=== PATIENT | female | born 1960 | race Caucasian/White ===

== ENCOUNTER 2022-06-14 00:45 | Emergency (ER) | payer OTHER, SELFPAY ==
[2022-06-14] VITALS (9 sets, daily range): BP systolic 148–199; BP diastolic 70–91; PULSE 65–74; RESP 16–25; TEMP 36.3–36.9; O2SAT 94–99; BMI 34.1
[2022-06-14 02:09] LABS: MANUAL DIFF FLAG NO
[2022-06-14 02:10] LABS: Basophils Absolute Auto 0.1 X10*3/uL (0.0-0.2); Basophils Percent Auto 1.2 % (0-2); Eosinophils Absolute Auto 0.4 X10*3/uL (0.0-0.4); Eosinophils Percent Auto 4.1 % (0-4); Hematocrit 36.4 % (37.0-47.0); Hemoglobin 12.1 g/dl (12.0-16.0); Imm Gran Abs Auto 0.01 X10*3/uL (0.00-0.03); Imm Gran Pct Auto 0.1 % (0.0-0.4); Lymphocytes Absolute Auto 3.1 X10*3/uL (1.2-4.9); Lymphocytes Percent Auto 34.8 % (20-40); Mean Corpuscular HGB Conc 33.2 g/dl (31.0-35.0); Mean Corpuscular Hemoglobin 29.7 pg (27.0-33.0); Mean Corpuscular Volume 89.4 fL (80.0-98.0); Mean Platelet Volume 9.3 fL (9.4-12.3); Monocytes Absolute Auto 0.6 X10*3/uL (0.1-1.2); Monocytes Percent Auto 7.1 % (2-11); Neutrophils Absolute Auto 4.7 x10*3/uL (2.0-8.3); Neutrophils Percent Auto 52.7 % (45-73); Platelet Count 338 X10*3/uL (160-400); Red Blood Count 4.07 X10*6/uL (4.20-5.50); Red Cell Distribution Width 12.8 % (11.0-16.0); White Blood Count 8.8 X10*3/uL (4.8-10.8)
[2022-06-14 02:11] LABS: Appearance Urine Clear; Color Urine Yellow; Glucose Urine UA Negative (Negative); Leukocyte Esterase Urine Moderate (2+) (Negative); Nitrite Urine Negative (Negative); PH 5.5 (5.0-9.0); Specific Gravity - Urine 1.015 (1.005-1.025); UMIC TRIGGER UACC YES; Urine Blood Negative (Negative); Urine Ketones Negative (Negative); Urine Protein Negative (Neg-Trace)
[2022-06-14 02:23] LABS: Bacteria Urine Trace (None Seen); Hyaline Casts Urine 0-2 /LPF (0-2); RBC Urine 0-2 /HPF (0-2); Squamous Epithelial Cell Urine 0-2 /HPF (0-2); UACC Culture Trigger YES
[2022-06-14 03:05] LABS: Anion Gap 16 (12-20); Blood Urea Nitrogen 12 mg/dL (9-16); Carbon Dioxide 23 mmol/L (22-29); Chloride 104 mmol/L (96-108); Creatinine Clr Calc Pharmacy 87.9; Estimated Glomerular Filt Rate > 60; Glucose Random 120 mg/dL (60-115); Potassium 3.9 mmol/L (3.3-5.1); Sodium 139 mmol/L (135-145)
--- NOTE | 2022-06-14 06:39 | ED.HA ---
HPI - Headache General Chief Complaint: General Medical Stated Complaint: High BP, Dizziness Time Seen by Provider: 06/14/22 06:36 Source: patient Mode of arrival: ambulatory Limitations: no limitations History of Present Illness HPI Narrative: 61 yo female with hx of pre diabetes, prior HTN here with c/o BP being high for the past couple of days up to 200s. Is not on BP medications, no change in medications, no sig life stressors. No OTC supplements. Has mild headache but no CP/SOB. She was bit by a tick yesterday unknown when it was on attempted to remove it at home. MD elicited complaint: headache Pertinent past history: hypertension Onset (ago): day(s) (2) Onset description: gradually Location: diffuse Severity: mild Quality & Timing: aching Exacerbating factors: none Relieving factors: nothing Context: other (high blood pressure) Associated symptoms: none Treatments prior to arrival: acetaminophen Related Data Previous Rx's Medication Instructions Recorded amlodipine 10 mg tablet 10 mg PO DAILY #30 tabs 06/14/22 doxycycline hyclate 100 mg tablet 100 mg PO BID 10 days #20 tabs 06/14/22 Allergies Allergy/AdvReac Type Severity Reaction Status Date / Time influenza virus vaccine, Allergy Intermediate HIVES Unverified 04/29/20 15:51 specific [Influenza Virus Vacc,Specific] Review of Systems Review of Systems: Constitutional : No Fever, No Chills, No Fatigue ENT/Mouth : No sore throat, No Rhinorrhea Eyes: No Eye Pain, No Swelling, No Redness Cardiovascular : No Chest Pain, No SOB, No Dyspnea on Exertion Respiratory : No Cough, No Sputum Gastrointestinal : No Nausea, No Vomiting, No Diarrhea, No abdominal Pain Genitourinary : No Dysuria, No Urinary Frequency, No Hematuria, Musculoskeletal : No joint pain, No Myalgias, No Joint Swelling Skin : No Skin Lesions, No rash, pos tick bite Neuro : No Weakness, No Numbness, No Dizziness, positive Headache Psych : No Anxiety/Panic, No Depression Heme/Lymph: No Bruising, No Bleeding,No Lymphadenopathy Endocrine : No Polyuria, No Polydipsia All other systems reviewed and are negative [facility] Past Medical History Medical History Arthritis HTN (hypertension) Pre-diabetes Social History Social History (Updated 11/02/22 @ 07:34 by Anali Petit DO) Patient Tobacco Use Status: Never used Tobacco Smoked in Last 30 Days: No Use of substances other than those prescribed or required for medical reasons: No Advance Directives: No Advance Directives Information Provided: No Patient : No Physical Exam Vital Signs: Vital Signs: Last Vital Signs Temp 98.2 F 06/14/22 07:08 Pulse 70 06/14/22 08:41 Resp 18 06/14/22 07:08 BP 172/78 H 06/14/22 08:41 Pulse Ox 98 06/14/22 07:08 O2 Del Method 06/14/22 07:08 BMI result Body Mass Index 34.1 Appearance: Alert. Oriented X3. No acute distress. Eyes: Pupils equal, round and reactive to light. ENT: Pharynx normal. Neck: Normal inspection. Neck supple. L neck small red area with bite noted no FB seen no red ring CVS: Normal heart rate and rhythm. Pulses normal. Respiratory: No respiratory distress. Breath sounds normal. Abdomen: Soft and nontender. Skin: Skin warm and dry. Normal skin color. Normal skin turgor. Extremities: No lower extremity edema. No calf ttp Neuro: Oriented X 3. No motor deficit. No sensory deficit. MDM - Headache MDM Narrative Medical decision making narrative: 61 yo female with hx of pre diabetes, prior HTN but taken off medication due to BP being normal has been under some stress but not significant presents with mild headaches no CP/SOB and elevated BP. At this time labs, PO amlodipine, PO doxy for tick bite yesterday. Dispo per results and findings. Has LVH on EKG so HTN is not a new findings. No sig end organ dysfunction has mild headache. Lab Data Result diagrams: 06/14/22 02:04 06/14/22 02:42 Labs: Lab Results 06/14/22 06/14/22 06/14/22 Range/Units 01:53 02:04 02:04 WBC 8.8 (4.8-10.8) X10*3/uL RBC 4.07 L (4.20-5.50) X10*6/uL Hgb 12.1 (12.0-16.0) g/dl Hct 36.4 L (37.0-47.0) % MCV 89.4 (80.0-98.0) fL MCH 29.7 (27.0-33.0) pg MCHC 33.2 (31.0-35.0) g/dl RDW 12.8 (11.0-16.0) % Plt Count 338 (160-400) X10*3/uL MPV 9.3 L (9.4-12.3) fL Immature Gran % (Auto) 0.1 (0.0-0.4) % Neut % (Auto) 52.7 (45-73) % Lymph % (Auto) 34.8 (20-40) % [place] % (Auto) 7.1 (2-11) % Eos % (Auto) 4.1 H (0-4) % Baso % (Auto) 1.2 (0-2) % Lymph # (Auto) 3.1 (1.2-4.9) X10*3/uL [place] # (Auto) 0.6 (0.1-1.2) X10*3/uL Eos # (Auto) 0.4 (0.0-0.4) X10*3/uL Baso # (Auto) 0.1 (0.0-0.2) X10*3/uL Abs Immat Gran (auto) 0.01 (0.00-0.03) X10*3/uL Absolute Neuts (auto) 4.7 (2.0-8.3) x10*3/uL Absolute Nucleated RBC 0.000 (0.0-0.012) X10*3/uL Nucleated RBC % (auto) 0.0 (0.0-0.2) /100WBC Sodium (135-145) mmol/L Potassium (3.3-5.1) mmol/L Chloride (96-108) mmol/L Carbon Dioxide (22-29) mmol/L Anion Gap (12-20) BUN (9-16) mg/dL Creatinine (0.5-1.4) mg/dL Estim Creat Clear Calc Estimated GFR Random Glucose (60-115) mg/dL Calcium (8.4-10.2) mg/dL Troponin I High Sens < 3.5 (<3.5-17.0) ng/L Urine Color Yellow Urine Appearance Clear Urine pH 5.5 (5.0-9.0) Ur Specific [place] 1.015 (1.005-1.025) Urine Protein Negative (Neg-Trace) mg/dL Urine Glucose (UA) Negative (Negative) mg/dL Urine Ketones Negative (Negative) mg/dL Urine Blood Negative (Negative) Urine Nitrite Negative (Negative) Ur Leukocyte Esterase Moderate (2+) H (Negative) Urine RBC 0-2 (0-2) /HPF Urine WBC 11-20 H (0-5) /HPF Ur Squamous Epith Cells 0-2 (0-2) /HPF Urine Bacteria Trace (None Seen) Hyaline Casts 0-2 (0-2) /LPF 06/14/22 Range/Units 02:42 WBC (4.8-10.8) X10*3/uL RBC (4.20-5.50) X10*6/uL Hgb (12.0-16.0) g/dl Hct (37.0-47.0) % MCV (80.0-98.0) fL MCH (27.0-33.0) pg MCHC (31.0-35.0) g/dl RDW (11.0-16.0) % Plt Count (160-400) X10*3/uL MPV (9.4-12.3) fL Immature Gran % (Auto) (0.0-0.4) % Neut % (Auto) (45-73) % Lymph % (Auto) (20-40) % [place] % (Auto) (2-11) % Eos % (Auto) (0-4) % Baso % (Auto) (0-2) % Lymph # (Auto) (1.2-4.9) X10*3/uL [place] # (Auto) (0.1-1.2) X10*3/uL Eos # (Auto) (0.0-0.4) X10*3/uL Baso # (Auto) (0.0-0.2) X10*3/uL Abs Immat Gran (auto) (0.00-0.03) X10*3/uL Absolute Neuts (auto) (2.0-8.3) x10*3/uL Absolute Nucleated RBC (0.0-0.012) X10*3/uL Nucleated RBC % (auto) (0.0-0.2) /100WBC Sodium 139 (135-145) mmol/L Potassium 3.9 (3.3-5.1) mmol/L Chloride 104 (96-108) mmol/L Carbon Dioxide 23 (22-29) mmol/L Anion Gap 16 (12-20) BUN 12 (9-16) mg/dL Creatinine 0.74 (0.5-1.4) mg/dL Estim Creat Clear Calc 87.9 Estimated GFR > 60 Random Glucose 120 H (60-115) mg/dL Calcium 9.0 (8.4-10.2) mg/dL Troponin I High Sens (<3.5-17.0) ng/L Urine Color Urine Appearance Urine pH (5.0-9.0) Ur Specific [place] (1.005-1.025) Urine Protein (Neg-Trace) mg/dL Urine Glucose (UA) (Negative) mg/dL Urine Ketones (Negative) mg/dL Urine Blood (Negative) Urine Nitrite (Negative) Ur Leukocyte Esterase (Negative) Urine RBC (0-2) /HPF Urine WBC (0-5) /HPF Ur Squamous Epith Cells (0-2) /HPF Urine Bacteria (None Seen) Hyaline Casts (0-2) /LPF ECG Data Attestation: I personally reviewed and interpreted this ECG as follows: ECG interpretation date: 06/14/22 ECG interpretation time: 07:33 Interpretation: Rate: 63 Rhythm: NSR [place]: left, LVH Normal P waves. Normal JAGJIT. Normal QRS complex. ST T wave : inverted t III, nonspecific t waves lateral leads no ZAHIDA qTC: normal prior studies: no acute ischemia The study has been interpreted contemporaneously by me. . Discharge Plan Discharge Clinical Impression: HTN (hypertension) Qualifiers: Hypertension type: unspecified Qualified Code(s): I10 - Essential (primary) hypertension Tick bite Qualifiers: Encounter type: initial encounter Site of tick bite: other part of neck Qualified Code(s): S10.86XA - Insect bite of other specified part of neck, initial encounter Patient Disposition: Home, Self-Care Instructions: Tick Bite (ED), Hypertension (ED) Additional Instructions: return to ED for any worsening symptoms or concerns take all antibiotics monitor for redness, fevers,yellow drainage around the wound please follow up with your primary care doctor check your blood pressure daily if you notice it is low or dropping hold amlodipine Prescriptions: New amlodipine 10 mg tablet 10 mg PO DAILY Qty: 30 0RF doxycycline hyclate 100 mg tablet 100 mg PO BID 10 Days Qty: 20 0RF Rx Instructions: take with food Referrals: [facility] [Outside] (therapy)
--- NOTE | 2022-06-14 06:58 | ECG_ITS ---
Test Reason : htn Blood Pressure : / mmHG Vent. Rate : 063 BPM Atrial Rate : 063 BPM P-R Int : 142 ms QRS Dur : 086 ms QT Int : 454 ms P-R-T Axes : 046 -16 003 degrees QTc Int : 464 ms Normal sinus rhythm Minimal voltage criteria for LVH, may be normal variant ( R in aVL ) Nonspecific T wave abnormality Anterior leads Abnormal ECG When compared with ECG of 10-MAY-2012 15:46, No significant changes seen Referred By: Anali Petit Electronically Signed By:CHANEL FLORIAN MD
[2022-06-14] MEDS: amLODIPine Besylate 10 MG TABLET PO (07:07)
--- NOTE | 2022-06-14 07:30 | PC.NURSE ---
patient a/ox4 . lilyrla . heart rate regular at 77 betas per minute . lungs clear breathing even unlabored . skin pink warm and dry ,patient has a small area on left side of neck where there was a tick that is red and scabbed over . abdomen soft not tender . positive bowel sounds in all four quadrants .patient reports 4 out of 10 headache r/t hypertension medicated as ordered by provider also given antibiotic for tick bite . patient aware of plan of care .
[2022-06-14 07:59] LABS: Troponin-I High Sensitivity < 3.5 ng/L (<3.5-17.0)
--- NOTE | 2022-06-14 10:11 | PC.NURSE ---
A/ox4 . patients HTN improved . Went over discharge instructions as ordered by provider . patient to return to ED if symptoms worsen . No questions at this time.
== END 2022-06-14 10:13 | disposition home or self-care (01) ==
PROVIDERS: Emergency Provider Emergency Medicine
DX: R51.9 Headache, unspecified (principal); F43.9 Reaction to severe stress, unspecified; I10 Essential (primary) hypertension; R42 Dizziness and giddiness; Z79.899 Other long term (current) drug therapy
CPT/HCPCS: 36415; 80048; 81001; 84484; 85025; 87086; 93005; 99283; 99284

== ENCOUNTER 2024-03-16 18:51 | Emergency (ER) | payer OTHER, SELFPAY ==
--- NOTE | ~2024-03-16 | XR_ITS ---
EXAMINATION: PORTABLE CHEST 1 VIEW CLINICAL INFORMATION: cough. COMPARISON: No recent pertinent prior studies are available for comparison. TECHNIQUE: Portable frontal view of the chest was obtained. FINDINGS: The lungs are well expanded. No focal infiltrate, effusion, edema, or pneumothorax. Left-sided CT compatible chest port with tip overlying the expected cavoatrial junction. Cardiac and mediastinal silhouettes are within normal limits for technique. No acute bony abnormality seen. Degenerative changes in the spine and bilateral shoulders. XR/XR chest 1V IMPRESSION: No evidence of acute disease.
[2024-03-16 18:57] VITALS: BP 153/63; PULSE 81; RESP 18; TEMP 36.8; O2SAT 98; BMI 33.9
--- NOTE | 2024-03-16 18:59 | ECG_ITS ---
Test Reason : DYSPENA Blood Pressure : / mmHG Vent. Rate : 074 BPM Atrial Rate : 074 BPM P-R Int : 134 ms QRS Dur : 084 ms QT Int : 302 ms P-R-T Axes : 043 -18 033 degrees QTc Int : 335 ms Normal sinus rhythm Minimal voltage criteria for LVH, may be normal variant ( R in aVL ) Cannot rule out Anterior infarct , age undetermined Abnormal ECG When compared with ECG of 14-JUN-2022 07:12, Nonspecific T wave abnormality, worse in Lateral leads QT has shortened Referred By: Jose Viramontes Electronically Signed By:DALLAS GILLIS MD
--- NOTE | 2024-03-16 19:04 | ED_ITS ---
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 no leg edema no chest pain or palpitation no recent travel or any sick contacts Related Data Previous Rx's ?Medication ?Instructions ?Recorded amlodipine 10 mg tablet 10 mg PO DAILY #30 tabs 06/14/22 doxycycline hyclate 100 mg tablet 100 mg PO BID 10 days #20 tabs 06/14/22 albuterol sulfate 90 mcg/actuation 2 puff inhalation Q6H PRN 03/16/24 aerosol inhaler shortness of breath or wheezing #8.5 grams benzonatate 200 mg capsule 200 mg PO TID PRN cough #20 caps 03/16/24 cefuroxime axetil 500 mg tablet 500 mg PO BID 7 days #14 tabs 03/16/24 Allergies Allergy/AdvReac Type Severity Reaction Status Date / Time influenza virus vaccine, Allergy Intermediate HIVES Verified 03/16/24 19:00 specific [Influenza Virus Vacc,Specific] Review of Systems 2 Review of Systems: Yes all other systems are reviewed and are negative [facility] Past Medical History Medical History Pre-diabetes HTN (hypertension) Arthritis Social History Social History Patient Tobacco Use Status: Never used Tobacco Advance Directives: No Advance Directives Information Provided: No Do you have a plan to hurt others: No Plan Physical Exam ED Vital Signs: Vital Signs - 24 hr 03/16/24 18:57 03/16/24 21:37 Temperature 98.3 F 98.0 F Pulse Rate 81 60 Respiratory Rate 18 16 Blood Pressure 153/63 H 130/63 Pulse Oximetry 98 98 Oxygen Delivery Method Room Air BMI result Body Mass Index 33.9 Appearance: Alert. Oriented X3. No acute distress. Eyes: No pallor ENT: Pharynx normal. Oral Mucosa moist Neck: Normal inspection. Neck supple. CVS: Normal heart rate and rhythm. Pulses normal. Respiratory: No respiratory distress. Equal air entry bilateral, frequent dry cough with wheezing Abdomen: Soft and nontender. Bowel sounds are present, no mass palpable, no CVA tenderness Skin: Skin warm and dry. Normal skin color. Normal skin turgor. Extremities: No lower extremity edema. No calf tenderness Neuro: Oriented X 3. Course Course Course Narrative: RME: DOne by ION Farley. Patient presents to ED for cough, chest pain, shortness of breath for 1 week. Patient denies any leg swelling, pitting edema, calf pain, recent long travel,or recent surgery. Bilateral lower extremity negative for swelling pitting edema or calf pain. Lungs are clear. Labs EKG chest x-ray ordered Medical Decision Making Differential Diagnosis Differential Diagnoses: The differential diagnosis associated with the presentation includes Acute bronchitis/atypical pneumonia/CHF Lab Data MDM Lab Attestation statement: I reviewed the patient's lab results. 03/16/24 19:18 03/16/24 19:18 Labs: Lab Results 03/16/24 Range/Units 19:18 WBC 8.9 (4.8-10.8) X10*3/uL RBC 4.19 L (4.20-5.50) X10*6/uL Hgb 12.0 (12.0-16.0) g/dl Hct 36.1 L (37.0-47.0) % MCV 86.2 (80.0-98.0) fL MCH 28.6 (27.0-33.0) pg MCHC 33.2 (31.0-35.0) g/dl RDW 14.3 (11.0-16.0) % Plt Count 309 (160-400) X10*3/uL MPV 9.2 L (9.4-12.3) fL Immature Gran % (Auto) 0.3 (0.0-0.4) % Neut % (Auto) 72.9 (45-73) % Lymph % (Auto) 16.1 L (20-40) % [place] % (Auto) 5.6 (2-11) % Eos % (Auto) 4.3 H (0-4) % Baso % (Auto) 0.8 (0-2) % Lymph # (Auto) 1.4 (1.2-4.9) X10*3/uL [place] # (Auto) 0.5 (0.1-1.2) X10*3/uL Eos # (Auto) 0.4 (0.0-0.4) X10*3/uL Baso # (Auto) 0.1 (0.0-0.2) X10*3/uL Abs Immat Gran (auto) 0.03 (0.00-0.03) X10*3/uL Absolute Neuts (auto) 6.5 (2.0-8.3) x10*3/uL Absolute Nucleated RBC 0.000 (0.0-0.012) X10*3/uL Nucleated RBC % (auto) 0.0 (0.0-0.2) /100WBC PT 11.0 L (11.1-13.3) SEC INR 0.9 (0.9-1.1) APTT 29.4 (26.0-36.8) SEC Sodium 140 (135-145) mmol/L Potassium 4.1 (3.3-5.1) mmol/L Chloride 103 (96-108) mmol/L Carbon Dioxide 27 (22-29) mmol/L Anion Gap 14 (12-20) BUN 16 (9-16) mg/dL Creatinine 0.86 (0.5-1.4) mg/dL Estim Creat Clear Calc 76.2 Estimated GFR > 60 Random Glucose 208 H (60-115) mg/dL Calcium 9.5 (8.4-10.2) mg/dL Total Bilirubin 0.2 (0.0-1.0) mg/dL AST 12 (5-31) U/L ALT 13 (0-31) U/L Alkaline Phosphatase 97 (39-117) U/L Troponin I High Sens < 2.7 (<3.5-17.0) ng/L B-Natriuretic Peptide 15 (<100) pg/mL Total Protein 6.8 (6.5-8.0) g/dL Albumin 4.0 (3.5-5.0) g/dL Influenza Type A (PCR) NEGATIVE (Negative) Influenza Type B (PCR) NEGATIVE (Negative) RSV RNA Qual (PCR) NEGATIVE (Negative) SARS-CoV-2 RNA (RT-PCR) NEGATIVE (Negative) S. pyogenes GrpA RODRIGUE Negative (Negative) Independent Interpretation I performed an independent interpretation of an: Plain X-Ray Radiology Impression Discussion of test interpretation with radiology: I have reviewed the radiologist's reading. Discharge Plan Discharge Clinical Impression: Acute bronchitis Patient Disposition: Home, Self-Care Instructions: Acute Bronchitis (ED) Additional Instructions: Take antibiotics and cough drops as prescribed Inhaler 2 puffs every 4-6 hours as needed especially before going to bed Drink plenty of fluids Prescriptions: New benzonatate 200 mg capsule 200 mg PO TID PRN (Reason: cough) Qty: 20 0RF cefuroxime axetil 500 mg tablet 500 mg PO BID 7 Days Qty: 14 0RF albuterol sulfate 90 mcg/actuation HFA aerosol inhaler 2 puff inhalation Q6H PRN (Reason: shortness of breath or wheezing) Qty: 8.5 0RF No Action amlodipine 10 mg tablet 10 mg PO DAILY Qty: 30 0RF doxycycline hyclate 100 mg tablet 100 mg PO BID 10 Days Qty: 20 0RF Rx Instructions: take with food Stand Alone Forms: Work/School Release Print Language: Faroese
[2024-03-16 19:23] LABS: MANUAL DIFF FLAG NO
--- OUTSIDE RECORDS SUMMARY | 2024-03-16 19:24 | XMS_ITS | Continuity of Care Document ---
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 Role Phone Josiane Ledezma Primary Care Physician Encounter [facility] Date(s): 08/02/23 - 09/01/23 [facility] [address] [place] [address]- Allergies, Adverse Reactions, Alerts Substance Reaction Severity Status flu vaccines Hives Severe Active Immunizations Given and Recorded Vaccine Date Status Refusal Reason tetanus/diphtheria/pertussis, acel(Tdap) 1 10/19/22 Given SARS-CoV-2 (COVID-19) mRNA-1273 vaccine 02/21/22 R ecorded 1Result Comment: [facility] [id number] Medications amLODIPine 10 mg oral tablet 1 tablet, By Mouth, Daily, # 90 tablet, 1 Refills, Maintenance, 08/07/23 9:18:00 EST, [id number], 165.4, cm, 07/23/23 10:56:00 EST, Height, 89.2, kg, 06/07/23 10:32:00 EDT, Dry Weight Start Date: 08/07/23 Status: Ordered anastrozole 1 mg oral tablet 1 tablet, By Mouth, Daily, # 30 tablet, 11 Refills, Maintenance, 07/19/23 16:13:00 EST, [id number], 165.4, cm, 07/11/23 14:22:00 EST, Height, 89.2, kg, 06/07/23 10:32:00 EDT, Dry Weight Start Date: 07/19/23 Status: Ordered atorvastatin 80 mg oral tablet 1 tablet, By Mouth, Daily, # 90 tablet, 1 Refills, Maintenance, 08/27/23 6:34:00 EST, [id number], 165.4, cm, 08/23/23 12:12:00 EST, Height, 89.2, kg, 06/07/23 10:32:00 EDT, Dry Weight Start Date: 08/27/23 Status: Ordered lisinopril 10 mg oral tablet 1, tablet, By Mouth, Daily, # 90 tablet, Refills 2, Tot. Refills 2, Maintenance, 04/30/23 18:29:00 EDT, Route to Pharmacy Electronically, [id number], 165.4, cm, 03/30/23 9:41:00 EDT, Height, 89.7, kg, 03/06/23 14:16:00 EDT, Dry Weight Start Date: 04/30/23 Status: Ordered meloxicam 15 mg oral tablet 1 tablet, By Mouth, Daily, # 90 tablet, 1 Refills, Maintenance, 05/01/23 10:48:00 EDT, [id number], 165.4, cm, 03/30/23 9:41:00 EDT, Height, 89.7, kg, 03/06/23 14:16:00 EDT, Dry Weight Start Date: 05/01/23 Status: Ordered ondansetron 4 mg oral tablet 1-2 tablet, By Mouth, Every 8 hours, PRN Nausea, # 30 tablet, 1 Refills, Maintenance, 11/17/22 10:19:00 EDT, [id number], Partial fill upon patient request if the prescription is for a schedule II opioid drug., 165.4, cm, 11/02/22 9:39:00 EDT,... Start Date: 11/17/22 Status: Ordered sertraline 100 mg oral tablet 1 tablet, By Mouth, Daily, # 90 tablet, 1 Refills, Maintenance, 04/17/23 8:29:00 EDT, [id number], 165.4, cm, 03/30/23 9:41:00 EDT, Height, 89.7, kg, 03/06/23 14:16:00 EDT, Dry Weight Start Date: 04/17/23 Status: Ordered traZODone 50 mg oral tablet 50 mg, 1, tablet, By Mouth, Daily at bedtime, # 30 tablet, Refills 4, Tot. Refills 4, Maintenance, 07/23/23 11:38:00 EST, Route to Pharmacy Electronically, [facility]/pharm[facility] #[id number], Partial fill upon patient request if the prescription is for a schedule II... Start Date: 07/23/23 Status: Ordered Problem List Condition Confirmation Course Effective Dates Status H ealth Status Informant Chest pain Confirmed Active Depression Confirmed Active Hyperlipidemia Confirmed Active HTN (hypertension) Confirmed Active Invasive ductal carcinoma of right breast Confirmed Active Insomnia Confirmed Active Left-sided low back pain without sciatica Confirmed Active Obese class I Confirmed Active Primary osteoarthritis of left knee Confirmed Active Social History Social History Type Response Smoking Status Never (less than 100 in lifetime) entered on: 06/21/22 Sex Patient Care team information Care Team Personnel Name: Josiane Ledezma Position: [facility] PCO Associate Professional Member Role: PCP Address: Address: [address] [place] [address]. [address] [place], [place] [address] Name: Ifeanyi Brown RN Position: [facility] Onco RN Member Role: Primary Care Nurse Name: Ariadna Fitzgerald RN Position: [facility] Onco RN Member Role: Primary Care Nurse Name: Cecy Boston RN Position: [facility] Onco RN Member Role: Primary Care Nurse Care Team Related Persons Name: KELL GONSALVES Address: home [address] [place] [id number] Name: CONG LENZ Address: home [address] [place] [address]
--- OUTSIDE RECORDS SUMMARY | 2024-03-16 19:24 | XMS_ITS | Continuity of Care Document ---
Author Organization [facility] Address [address] [place] [address]- Care Team Providers Care Responder Name Role Phone Josiane Ledezma Primary Care Physician Encounter [facility] Date(s): 10/09/23 - 11/08/23 [facility] [address] [place] [address]- Attending Physician: Admtr, Melida Admitting Physician: Admtr, Melida Referring Physician: Admtr, Ar8 Allergies, Adverse Reactions, Alerts Substance Reaction Severity Status flu vaccines Hives Severe Active Immunizations Given and Recorded Vaccine Date Status Refusal Reason tetanus/diphtheria/pertussis, acel(Tdap) 1 10/19/22 Given SARS-CoV-2 (COVID-19) mRNA-1273 vaccine 02/21/22 R ecorded 1Result Comment: [facility] [id number] Medications acetaminophen 325 mg oral tablet 650 mg, By Mouth, Every 6 hours, May take OTC not to exceed 3000 mg/day, Refills 0, Maintenance, 09/25/23 7:53:00 EST, Partial fill upon patient request if the prescription is for a schedule II opioid drug. Start Date: 09/25/23 Status: Ordered amLODIPine 10 mg oral tablet 1 tablet, By Mouth, Daily, # 90 tablet, 1 Refills, Maintenance, 08/07/23 9:18:00 EST, [facility] ST[facility] 36623, 165.4, cm, 07/23/23 10:56:00 EST, Height, 89.2, kg, 06/07/23 10:32:00 EDT, Dry Weight Start Date: 08/07/23 Status: Ordered anastrozole 1 mg oral tablet 1 tablet, By Mouth, Daily, # 30 tablet, 11 Refills, Maintenance, 07/19/23 16:13:00 EST, [facility]/pharmacy #[id number], 165.4, cm, 07/11/23 14:22:00 EST, Height, 89.2, kg, 06/07/23 10:32:00 EDT, Dry Weight Start Date: 07/19/23 Status: Ordered atorvastatin 80 mg oral tablet 1 tablet, By Mouth, Daily, # 90 tablet, 1 Refills, Maintenance, 08/27/23 6:34:00 EST, [facility]/pharmacy #[id number], 165.4, cm, 08/23/23 12:12:00 EST, Height, 89.2, kg, 06/07/23 10:32:00 EDT, Dry Weight Start Date: 08/27/23 Status: Ordered Augmentin 875 mg-125 mg oral tablet 1 tablet, By Mouth, Every 12 hours, for 9 days, # 18 tablet, 0 Refills, Acute 11/17/23 9:52:00 EDT,11/08/23 9:52:00 EDT, Tablet, [facility], Partial fill upon patient request if the prescription is for a schedule II opioid drug., 165, c... Start Date: 11/08/23 Stop Date: 11/17/23 Status: Ordered celecoxib 200 mg oral capsule = 200 mg, By Mouth, Daily, 0 Refills, Maintenance, 09/25/23 8:08:00 EST, Capsule, Partial fill uponpatient request if the prescription is for a schedule II opioid drug. Start Date: 09/25/23 Status: Ordered Colace Capsule 100 mg, 1, capsule, By Mouth, 2 times a day, PRN, Refills 0, Maintenance, as needed for constipation, 09/25/23 8:08:00 EST, Partial fill upon patient request if the prescription is for a schedule II opioid drug. Start Date: 09/25/23 Status: Ordered lisinopril 10 mg oral tablet 1, tablet, By Mouth, Daily, # 90 tablet, Refills 2, Tot. Refills 2, Maintenance, 04/30/23 18:29:00 EDT, Route to Pharmacy Electronically, [facility]/pharmacy #[id number], 165.4, cm, 03/30/23 9:41:00 EDT, Height, 89.7, kg, 03/06/23 14:16:00 EDT, Dry Weight Start Date: 04/30/23 Status: Ordered ondansetron 4 mg oral tablet 1 tablet = 4 mg, By Mouth, Every 8 hours, PRN Nausea & Vomiting, # 10 tablet, 0 Refills, Maintenance, 11/08/23 9:52:00 EDT, Tablet, [facility], Partial fill upon patient request if the prescription is for a schedule II opioid drug., 165,... Start Date: 11/08/23 Status: Ordered oxyCODONE 5 mg oral tablet 5 mg, 1, tablet, By Mouth, Every 6 hours, PRN, for 3 days, # 12 tablet, Refills 0, Tot. Refills 0, Acute 11/11/23 9:52:00 EDT, Pain , Severe, 11/08/23 9:52:00 EDT, Route to Pharmacy Electronically, [facility], Partial fill upon patient r... Start Date: 11/08/23 Stop Date: 11/11/23 Status: Ordered sertraline 100 mg oral tablet 1 tablet, By Mouth, Daily, # 90 tablet, 1 Refills, Maintenance, 04/17/23 8:29:00 EDT, [facility], 165.4, cm, 03/30/23 9:41:00 EDT, Height, 89.7, kg, 03/06/23 14:16:00 EDT, Dry Weight Start Date: 04/17/23 Status: Ordered traZODone 50 mg oral tablet 1, tablet, By Mouth, Daily at bedtime, # 90 tablet, Refills 1, Maintenance, 10/18/23 10:17:00 EST, Route to Pharmacy Electronically, [facility] [id number], 165, cm, 10/09/23 10:25:00 EST, Height, 89.7, kg,09/24/23 15:13:00 EST, Dry Weight Start Date: 10/18/23 Status: Ordered Problem List Condition Confirmation Course [...] Care team information Care Team Personnel Name: Lita Huff RN Position: S RN Member Role: Primary Care Nurse Name: Josiane Ledezma Position: [facility] PCO Associate Professional Member Role: PCP Address: Address: [address] [place] [address]. 3rd [place] [address]- Name: Laurel Perales RN Position: S RN Member Role: Primary Care Nurse Name: Ifeanyi Brown RN Position: [facility] Onco RN Member Role: Primary Care Nurse Name: Ariadna Fitzgerald RN Position: [facility] Onco RN Member Role: Primary Care Nurse Name: Mariaa Dunn RN Position: S RN Member Role: Primary Care Nurse Name: Jimena Islas LPN Position: S RN Member Role: Primary Care Nurse Name: Cecy Boston RN Position: [facility] Onco RN Member Role: Primary Care Nurse Care Team Related Persons Name: KELL GONSALVES Address: home [address] [place] [address] Name: CONG LENZ Address: home [address] [place] [address]
--- OUTSIDE RECORDS SUMMARY | 2024-03-16 19:24 | XMS_ITS | Continuity of Care Document ---
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 Name Role Phone Josiane Ledezma Primary Care Physician [place] [facility] Date(s): 08/01/22 - 09/23/22 [facility] [address] [place] [address]- Attending Physician: Mukund Hodge DO Admitting Physician: Mukund Hodge DO Referring Physician: Josiane Ledezma Allergies, Adverse Reactions, Alerts Substance Reaction Severity Status flu vaccines Hives Severe Active Immunizations Given and Recorded Vaccine Date Status Refusal Reason SARS-CoV-2 (COVID-19) mRNA-5306 vaccine 02/21/22 R ecorded Medications amLODIPine 10 mg oral tablet 1 tablet = 10 mg, By Mouth, Daily, # 30 tablet, 5 Refills, Maintenance, 07/10/22 11:26:00 EST, Tablet, [id number], Partial fill upon patient request if the prescription is for a schedule II opioid drug., 163, cm, 06/22/22 10:24:00 EST, Height Start Date: 07/10/22 Status: Ordered atorvastatin 40 mg oral tablet 1 tablet = 40 mg, By Mouth, Daily, at bedtime, # 30 tablet, 5 Refills, Maintenance, 07/19/22 17:09:00 EST, Tablet, [id number], Partial fill upon patient request if the prescription is for a schedule II opioid drug., 163, cm, 06/22/22 10:24:00... Start Date: 07/19/22 Status: Ordered diclofenac sodium 75 mg oral delayed release tablet TAKE 1 TABLET BY MOUTH TWICE DAILY Start Date: 06/21/22 Status: Ordered hydrOXYzine hydrochloride 25 mg oral tablet See Instructions, Take 1 tablet by mouth 30-60 before bedtime as needed for insomnia., # 30 tablet,3 Refills, Acute 09/27/22 12:35:00 EST, 06/21/22 12:34:00 EST, [facility]/pharmacy #[id number], Partial fill upon patient request if the prescription is for a sched... Start Date: 06/21/22 Stop Date: 09/27/22 Status: Ordered lidocaine 4% topical cream See Instructions, Please apply around your RIGHT areola 1 hour prior to leaving for your surgery, cover with saran wrap., # 5 Gm, 0 Refills, Acute 10/07/22 17:12:00 EST, 08/24/22 17:11:00 EST, [id number], Partial fill upon patient request if t... Start Date: 08/24/22 Stop Date: 10/07/22 Status: Ordered lisinopril 10 mg oral tablet 10 mg, 1, tablet, By Mouth, Daily, # 30 tablet, Refills 5, Tot. Refills 5, Maintenance, 06/21/22 12:33:00 EST, Route to Pharmacy Electronically, [facility]/pharmacy #[id number], Partial fill upon patient request if the prescription is for a schedule II opioid drug... Start Date: 06/21/22 Status: Ordered Zoloft 50 mg oral tablet 1 tablet = 50 mg, By Mouth, Daily, # 30 tablet, 3 Refills, Maintenance, 06/21/22 12:33:00 EST, Tablet, [facility]/pharmacy #[id number], Partial fill upon patient request if the prescription is for a schedule II opioid drug., 163, cm, 06/21/22 11:42:00 EST, Height Start Date: 06/21/22 Status: Ordered Problem List Condition Confirmation Course Effective Dates Status Health St atus Informant Chest pain Confirmed Active Depression Confirmed Active HTN (hypertension) Confirmed Active Impaired fasting glucose Confirmed Active Left-sided low back pain without sciatica Confirmed Active Obese class I Confirmed Active Social History Social History Type Response Smoking Status Never (less than 100 in lifetime) entered on: 06/21/22 Sex Patient Care team information Care Team Personnel Name: Josiane Ledezma Position: [facility] PCO Associate Professional Member Role: PCP Address: Address: [address] [place] [address]. [address] [facility] [place] [address]- Care Team Related Persons Name: KELL GONSALVES Address: [place] [address] Name: CONG LENZ Address: home [address] [place], [place] [id number]
--- OUTSIDE RECORDS SUMMARY | 2024-03-16 19:24 | XMS_ITS | Continuity of Care Document ---
Author Organization [facility] Address [address] [place] [address]- Care Team Providers Care Ecd Name Role Phone Josiane Ledezma Primary Care Physician Encounter [facility] Date(s): 06/04/23 - 09/10/23 [facility] [address] [place] [id number] Discharge Disposition: A-D/C Home Attending Physician: Jeramie Mccartney DO Admitting Physician: Jeramie Mccartney DO Referring Physician: Josiane Ledezma Allergies, Adverse Reactions, Alerts Substance Reaction Severity Status flu vaccines Hives Severe Active Immunizations Given and Recorded Vaccine Date Status Refusal Reason tetanus/diphtheria/pertussis, acel(Tdap) 1 10/19/22 Given SARS-CoV-2 (COVID-19) mRNA-1273 vaccine 02/21/22 R ecorded 1Result Comment: [facility] [id number] Medications amLODIPine 10 mg oral tablet 1 tablet, By Mouth, Daily, # 90 tablet, 1 Refills, Maintenance, 08/07/23 9:18:00 EST, [facility], 165.4, cm, 07/23/23 10:56:00 EST, Height, 89.2, [...] tablet, 1 Refills, Maintenance, 08/27/23 6:34:00 EST, [facility]/pharmacy #[id number], 165.4, cm, 08/23/23 12:12:00 EST, Height, 89.2, kg, 06/07/23 10:32:00 EDT, Dry Weight Start Date: 08/27/23 Status: Ordered lisinopril 10 mg oral tablet 1, tablet, By Mouth, Daily, # 90 tablet, Refills 2, Tot. Refills 2, Maintenance, 04/30/23 18:29:00 EDT, Route to Pharmacy Electronically, [facility]/pharmacy #[id number], 165.4, cm, 03/30/23 9:41:00 EDT, Height, 89.7, kg, 03/06/23 14:16:00 EDT, Dry Weight Start Date: 04/30/23 Status: Ordered meloxicam 15 mg oral tablet 1 tablet, By Mouth, Daily, # 90 tablet, 1 Refills, Maintenance, 05/01/23 10:48:00 EDT, [id number], 165.4, cm, 03/30/23 9:41:00 EDT, Height, 89.7, kg, 03/06/23 14:16:00 EDT, Dry Weight Start Date: 05/01/23 Status: Ordered ondansetron 4 mg oral tablet 1-2 tablet, By Mouth, Every 8 hours, PRN Nausea, # 30 tablet, 1 Refills, Maintenance, 11/17/22 10:19:00 EDT, [facility]/pharmacy #[id number], Partial fill upon patient request if the prescription is for a schedule II opioid drug., 165.4, cm, 11/02/22 9:39:00 EDT,... Start Date: 11/17/22 Status: Ordered sertraline 100 mg oral tablet 1 tablet, By Mouth, Daily, # 90 tablet, 1 Refills, Maintenance, 04/17/23 8:29:00 EDT, [facility], 165.4, cm, 03/30/23 9:41:00 EDT, Height, 89.7, kg, 03/06/23 14:16:00 EDT, Dry Weight Start Date: 04/17/23 Status: Ordered traZODone 50 mg oral tablet 50 mg, 1, tablet, By Mouth, Daily at bedtime, # 30 tablet, Refills 4, Tot. Refills 4, Maintenance, 07/23/23 11:38:00 EST, Route to Pharmacy Electronically, [facility]/pharmacy #[id number], Partial fill upon patient request if the [...] Primary osteoarthritis of left knee Confirmed Active Vital Signs Most recent to oldest [Reference Range]: 1 2 3 Height 165.4 cm (07/11/23 2:22 PM) 165.4 cm (07/11/23 2:04 PM) 165.4 cm (06/13/23 3:49 PM) Weight 89.2 kg (06/07/23 10:32 AM) Oxygen Saturation [94-100 %] 99 % (07/11/23 2:04 PM) 100 % (06/07/23 10:32 AM) Pulse Rate [55-90 bpm] 62 bpm (07/11/23 2:04 PM) 52 bpm *L* (06/07/23 10:32 AM) Body Mass Index [18.5-24.99 kg/m2] 32.61 kg/m2 *>HHI* (06/07/23 10:32 AM) Blood Pressure [90-138/55-84 mm Hg] 129/59mm Hg (07/11/23 2:04 PM) 112/60mm Hg (06/07/23 10:32 AM) Temperature [96.8-100.4 DegF] 96.7 DegF *L* (07/11/23 2:04 PM) 97.4 DegF (06/07/23 10:32 AM) Mode of Delivery (Oxygen) Room air (07/11/23 2:04 PM) Room air (06/07/23 10:32 AM) Blood pressure sites Arm, right (07/11/23 2:04 PM) Arm, left (06/07/23 10:32 AM) Temperature Route Temporal (07/11/23 2:22 PM) Temporal (07/11/23 2:04 PM) Oral (06/13/23 3:49 PM) Dry Weight 89.2 kg (06/07/23 10:32 AM) Weight Obtained Via Standing scale (06/07/23 10:32 AM) Dry Weight Obtained Via Standing scale (06/07/23 10:32 AM) Social History Social History Type Response Smoking Status Never (less than 100 in lifetime) entered on: 06/21/22 Sex Note * Susu Cheatham: PERFORM, SIGN, VERIFY Event Display: Patient Education/Instruction Authored Date: [id number] [facility] *Heme/Onc Adult Clinical Summary Name GAEL LENZ Age 62 Years 1960 PCP Micah LEMON, Josiane Junior PCP Visit Date 06/04/2023 14:56:00 Additional Instructions: Scheduled Appointments?? Future Appointments ?*[facility] ?[address],??[address] ?Phone:??--?Fax:??-- ?Appt. Date:??07/23/2023?11:00 AM ?Scheduled Provider:??Josiane Ledezma ?[facility] ?[address]??[place],??[place],??[address] ?Phone:??[phone]?Fax:??-- ?Appt. Date:??09/13/2023?9:00 AM ?Scheduled Provider:??[facility] US Breast Rm 1 Follow-Up Instructions ?? With: Address: When: Jeramie Mccartney [address] [place] [address]/[place] [address] [facility] (1) 12/12/2023 10:30 AM Diagnosis Medications: Please continue your medications until treatment is completed or stopped by your provider. Discuss any questions related to medications with your provider. Medications to Continue with No Changes These medications were not printed or sent to your pharmacy Amlodipine (amLODIPine 10 mg oral tablet) 1 tab(s) Oral Daily. Refills: 5. Next Dose: Anastrozole (anastrozole 1 mg oral tablet) 1 tab(s) Oral Daily. Refills: 2. Next Dose: Atorvastatin (atorvastatin 80 mg oral tablet) 1 tab(s) Oral Daily. Refills: 0. Next Dose: Cyclobenzaprine (cyclobenzaprine 10 mg oral tablet) TAKE 1 TBALET BY MOUTH NIGHTLY NEEDED FOR MUSCLE SPASM.. Refills: 0. Next Dose: Dexamethasone (dexamethasone 4 mg oral tablet) 2 tablet By Mouth 2 times a day for 3 days, startingon the day before treatment, then the day of treatment and the day after treatment.. Refills: 0. Next Dose: HydrOXYzine (hydrOXYzine hydrochloride 50 mg oral tablet) 1 tab(s) Oral Daily at Bedtime for 90 Days. Refills: 2. Next Dose: Lidocaine/Prilocaine Topical (lidocaine-prilocaine 2.5%-2.5% topical cream) 1 raphael Topically once. apply a thin layer on skin over the port 1 hour prior to port access. cover with clear plastic film. Refills: 0. Next Dose: Lisinopril (lisinopril 10 mg oral tablet) 1 tab(s) Oral Daily. Refills: 2. Next Dose: Meloxicam (meloxicam 15 mg oral tablet) 1 tab(s) Oral Daily. Refills: 1. Next Dose: Ondansetron (ondansetron 4 mg oral tablet) 1-2 tablet Oral every 8 hours as needed Nausea. Refills:1. Next Dose: PROCHLORperazine (prochlorperazine 5 mg oral tablet) 1-2 tablet Oral every 6 hours as needed Nausea. Refills: 1. Next Dose: Sertraline (sertraline 100 mg oral tablet) 1 tab(s) Oral Daily. Refills: 1. Next Dose: Allergy Info:?? flu vaccines Medications Given This Visit Future Orders ?No future orders Vital Signs Height 165.4 cm Weight 89.2 kg BMI 32.61 kg/m2 Blood Pressure 112 mm Hg/60 mm Hg Temperature 97.4 DegF Pulse Rate 52 bpm Respiratory Rate 02 Sat Mode of Delivery 100 %/Room air You can now view a summary of your hospital visit from the comfort of your home through a free online portal called [employer]. [employer] is a website that allows you to securely view your medical information including discharge summary, medications and follow-up visits. ??You can alsosend a secure electronic message to your doctor???s office to request appointments, renew medications or just ask a question. You can enroll at [email or web address] or register during your next office visit. Disclaimer:?? The information provided is of a general nature and is intended to be used in conjunction with the recommendations and advice of your health care practitioner. ??Every effort has been made to ensure that the information provided is accurate and complete at the time it is provided to you however, as your needs change, or, as new ??information becomes available, different or additional instructions may be required. If you have questions, please consult with your primary care provider or pharmacist, as appropriate. ??This information is not intended to serve as substitution for assessment and evaluation by a qualified health care provider. If you do not have a primary care provider, you may find a [facility] provider by calling [facility] [employer] Link at [phone]. [facility], in keeping with [facility] guidance, no longer requires face masks for staff, patientsor visitors in most situations. Similar to time spent indoors at other locations, there is the chance that you were exposed to respiratory viruses during your time with us (such as flu or COVID-19).? If you develop symptoms concerning for a viral respiratory infection, please seek testing (and treatment if indicated) from your medical provider or home test kit. For information about the plan of care including goals and instructions for your diagnosis, please see the patient education orders section of this document. Patient Education Materials?? The content of this educational material or handout may have been modified, supplemented, or adapted from its original content and format to support your individualized medical care. Patient Care team information Care Team Personnel Name: Josiane Ledezma Position: [facility] PCO Associate Professional Member Role: PCP Address: Address: [address] [place] [address]- [place] Name: Ifeanyi Brown RN Position: [facility] Onco RN Member Role: Primary Care Nurse Name: Ariadna Fitzgerald RN Position: S Onco RN Member Role: Primary Care Nurse Name: Cecy Boston RN Position: S Onco RN Member Role: Primary Care Nurse Care Team Related Persons Name: KELL GONSALVES Address: home [address] [place] [address] Name: CONG LENZ Address: home [address] [place] [address]
--- OUTSIDE RECORDS SUMMARY | 2024-03-16 19:24 | XMS_ITS | Continuity of Care Document ---
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 Role Phone Josiane Ledezma Primary Care Physician Encounter [facility] [place] Date(s): 06/23/23 - 10/21/23 [facility] [address] [place] [address]- Attending Physician: Bear Salazar MD Referring Physician: Josiane Ledezma Allergies, Adverse Reactions, Alerts Substance Reaction Severity Status flu vaccines Hives Severe Active Immunizations Given and Recorded Vaccine Date Status Refusal Reason tetanus/diphtheria/pertussis, acel(Tdap) 1 10/19/22 Given SARS-CoV-2 (COVID-19) mRNA-1429 vaccine 02/21/22 R ecorded 1Result Comment: [facility] [id number] Medications acetaminophen 325 mg oral tablet 650 [...] tablet, 1 Refills, Maintenance, 08/07/23 9:18:00 EST, [facility] STORE 34193, 165.4, cm, 07/23/23 10:56:00 EST, Height, 89.2, kg, 06/07/23 10:32:00 EDT, Dry Weight Start Date: 08/07/23 Status: Ordered anastrozole 1 mg oral tablet 1 tablet, By Mouth, Daily, # 30 tablet, 11 Refills, Maintenance, 07/19/23 16:13:00 EST, [facility]/pharmacy #[id number], 165.4, cm, 07/11/23 14:22:00 EST, Height, 89.2, kg, 06/07/23 10:32:00 EDT, Dry Weight Start Date: 07/19/23 Status: Ordered Aspirin Tablet 325 mg, By Mouth, 2 times a day, Refills 0, Maintenance, 09/25/23 7:53:00 EST, Partial fill upon patient request if the prescription is for a schedule II opioid drug. Start Date: 09/25/23 Status: Ordered atorvastatin 80 mg oral tablet 1 tablet, By Mouth, Daily, # 90 tablet, 1 Refills, Maintenance, 08/27/23 6:34:00 EST, [facility]/pharmacy #[id number], 165.4, cm, 08/23/23 12:12:00 EST, Height, 89.2, kg, 06/07/23 10:32:00 EDT, Dry Weight Start Date: 08/27/23 Status: Ordered celecoxib 200 mg oral capsule [...] 04/30/23 18:29:00 EDT, Route to Pharmacy Electronically, [facility]/pharmacy #[id number], 165.4, cm, 03/30/23 9:41:00 EDT, Height, 89.7, kg, 03/06/23 14:16:00 EDT, Dry Weight Start Date: 04/30/23 Status: Ordered ondansetron 4 mg oral tablet 1-2 tablet, By Mouth, Every 8 hours, PRN Nausea, # 30 tablet, 1 Refills, Maintenance, 11/17/22 10:19:00 EDT, [facility]/pharmacy #[id number], Partial fill upon patient request if the prescription is for a schedule II opioid drug., 165.4, cm, 11/02/22 9:39:00 EDT,... Start Date: 11/17/22 Status: Ordered pantoprazole 40 mg oral delayed release tablet = 40 mg, By Mouth, Daily, 0 Refills, Maintenance, 09/25/23 8:09:00 EST, [facility] Tablet Start Date: 09/25/23 Status: Ordered sertraline 100 mg oral tablet 1 tablet, By Mouth, Daily, # 90 tablet, 1 Refills, Maintenance, 04/17/23 8:29:00 EDT, [facility], 165.4, cm, 03/30/23 9:41:00 EDT, Height, 89.7, kg, 03/06/23 14:16:00 EDT, Dry Weight Start Date: 04/17/23 Status: Ordered traZODone 50 mg oral tablet 1, tablet, By Mouth, Daily at bedtime, # 90 tablet, Refills 1, Maintenance, 10/18/23 10:17:00 EST, Route to Pharmacy Electronically, [id number], 165, cm, 10/09/23 10:25:00 EST, Height, 89.7, [...] Primary Care Nurse Name: Josiane Ledezma Position: S PCO Associate Professional Member Role: PCP Address: Address: [address] [place] [address]. [address]rd [address] [place], [place] [address] Name: Diaz OLIVA, Laurel Position: S RN Member Role: Primary Care Nurse Name: Ifeanyi Brown RN Position: [facility] Onco RN Member Role: Primary Care Nurse Name: Ariadna Fitzgerald RN Position: [facility] Onco RN Member Role: Primary Care Nurse Name: Mariaa Dunn RN Position: [facility] RN Member Role: Primary Care Nurse Name: Cecy Boston RN Position: [facility] Onco RN Member Role: Primary Care Nurse Care Team Related Persons Name: KELL GONSALVES Address: home [address] [place] [id number] Name: CONG LENZ Address: home [address] [place] [address]
--- OUTSIDE RECORDS SUMMARY | 2024-03-16 19:24 | XMS_ITS | Continuity of Care Document ---
Author Organization [facility] Lor john Address [address] [place] [address] [address] [place] [address]- Care Team Providers Care Smash Hand Name Role Phone Josiane Ledezma Primary Care Physician En[place] [facility] [place](s): 12/29/22 - 01/28/23 [facility] [address] [place] [address]- Attending Physician: Melida Terrell Admitting Physician: AdmMelida virk Referring Physician: AdmtrMelida Allergies, Adverse Reactions, Alerts Substance Reaction Severity Status flu vaccines Hives Severe Active Immunizations Given and Recorded Vaccine Date Status Refusal Reason tetanus/diphtheria/pertussis, acel(Tdap) 1 10/19/22 Given SARS-CoV-2 (COVID-19) mRNA-1273 vaccine 02/21/22 R ecorded 1Result Comment: [facility] [id number] Medications amLODIPine 10 mg oral tablet 1 tablet = 10 mg, By Mouth, Daily, # 30 tablet, 5 Refills, Maintenance, 12/19/22 20:22:00 EDT, Tablet, [id number], Partial fill upon patient request if the prescription is for a schedule II opioid drug., 165.4, cm, 12/19/22 9:40:00 EDT, Height... Start Date: 12/19/22 Status: Ordered atorvastatin 40 mg oral tablet 1 tablet = 40 mg, By Mouth, Daily, at bedtime, # 90 tablet, 1 Refills, Maintenance, 01/19/23 11:32:00 EDT, Tablet, [id number], Partial fill upon patient request if the prescription is for a schedule II opioid drug., 165.4, cm, 01/19/23 11:17:0... Start Date: 01/19/23 Status: Ordered cyclobenzaprine 10 mg oral tablet See Instructions, TAKE 1 TBALET BY MOUTH NIGHTLY NEEDED FOR MUSCLE SPASM., # 21 tablet, Refills 0, Maintenance, 11/20/22 11:08:00 EDT, Instructions Replace Required Details, Route to Pharmacy Electronically, [id number], 165.4, cm, 11/20/22 10:... Start Date: 11/20/22 Status: Ordered dexamethasone 4 mg oral tablet See Instructions, 2 tablet By Mouth 2 times a day for 3 days, starting on the day before treatment,then the day of treatment and the day after treatment., # 48 tablet, 0 Refills, Maintenance, 11/17/22 10:18:00 EDT, [id number], Partial fill up... Start Date: 11/17/22 Status: Ordered hydrOXYzine hydrochloride 50 mg oral tablet 1 tablet, By Mouth, Daily at bedtime, # 30 tablet, 2 Refills, Maintenance, 01/15/23 14:21:00 EDT, [facility], 165.4, cm, 01/09/23 10:06:00 EDT, Height, 88.5, kg, 01/09/23 8:42:00 EDT, Dry Weight Start Date: 01/15/23 Status: Ordered lidocaine-prilocaine 2.5%-2.5% topical cream 1 application, Topically, Once, apply a thin layer on skin over the port 1 hour prior to port access. cover with clear plastic film, # 30 Gm, 0 Refills, Soft Stop, 11/20/22 9:28:00 EDT, Cream, [id number], Partial fill upon patient request if... Start Date: 11/20/22 Status: Ordered lisinopril 10 mg oral tablet 1, tablet, By Mouth, Daily, # 30 tablet, Refills 5, Maintenance, 11/20/22 11:08:00 EDT, Route to Pharmacy Electronically, [facility], 165.4, cm, 11/20/22 10:43:00 EDT, Height, 91.1, kg, 11/02/239:39:00 EDT, Dry Weight Start Date: 11/20/22 Status: Ordered ondansetron 4 mg oral tablet 1-2 tablet, By Mouth, Every 8 hours, PRN Nausea, # 30 tablet, 1 Refills, Maintenance, 11/17/22 10:19:00 EDT, [id number], Partial fill upon patient request if the prescription is for a schedule II opioid drug., 165.4, cm, 11/02/22 9:39:00 EDT,... Start Date: 11/17/22 Status: Ordered prochlorperazine 5 mg oral tablet 1-2 tablet, By Mouth, Every 6 hours, PRN Nausea, # 60 tablet, 1 Refills, Maintenance, 11/17/22 10:19:00 EDT, [id number], Partial fill upon patient request if the prescription is for a schedule II opioid drug., 165.4, cm, 11/02/22 9:39:00 EDT,... Start Date: 11/17/22 Status: Ordered triamcinolone 0.5% topical cream 1 application, Topically, 2 times a day, for 14 days, Do not use for more than 14 days., # 60 Gm, 0Refills, Acute 02/02/23 11:50:00 EDT, 01/19/23 11:50:00 EDT, Cream, [id number], Partial fill upon patient request if the prescription is for a... Start Date: 01/19/23 Stop Date: 02/02/23 Status: Ordered Zoloft 100 mg oral tablet 1 tablet = 100 mg, By Mouth, Daily, # 90 tablet, 1 Refills, Maintenance, 10/19/22 11:10:00 EST, Tablet, [id number], Partial fill upon patient request if the prescription is for a schedule II opioid drug., 165.4, cm, 10/19/22 10:20:00 EST, [facility]... Start Date: 10/19/22 Status: Ordered Problem List Condition Confirmation Course Effective Dates Status Health St atus Informant Chest pain Confirmed Active Depression Confirmed Active HTN (hypertension) Confirmed Active Impaired fasting glucose Confirmed Active Invasive ductal carcinoma of right breast Confirmed Active Insomnia Confirmed Active Left-sided low back pain without sciatica Confirmed Active Obese class I Confirmed Active Social History Social History Type Response Smoking Status Never (less than 100 in lifetime) entered on: 06/21/22 Sex Patient Care team information Care Team Personnel Name: Josiane Ledezma Position: [facility] PCO Associate Professional Member Role: PCP Address: Address: [address] [place] [address]. [address] [place] [address]- Name: Ariadna Fitzgerald RN Position: [facility] Onco RN Member Role: Primary Care Nurse Care Team Related Persons Name: KELL GONSALVES Address: home [address] [place] [address] Name: CONG LENZ Address: home [address] [place] [address]
--- OUTSIDE RECORDS SUMMARY | 2024-03-16 19:24 | XMS_ITS | Continuity of Care Document ---
Author Organization [facility] Address [address] [place] [address]- Care Team Providers Care Freight And Passenger Agent Name Role Phone Josiane Ledezma Primary Care Physician [place] [facility] [place] 05[place]/23 [facility] [address] [place] [address]- Allergies, Adverse Reactions, Alerts Substance Reaction Severity Status flu vaccines Hives Severe Active Immunizations Given and Recorded Vaccine Date Status Refusal Reason tetanus/diphtheria/pertussis, acel(Tdap) 1 10/19/22 Given SARS-CoV-2 (COVID-19) mRNA-1273 vaccine 02/21/22 R ecorded 1Result Comment: [facility] [id number] Medications amLODIPine 10 mg oral tablet 1 tablet = 10 mg, By Mouth, Daily, # 30 tablet, 5 Refills, Maintenance, 12/19/22 20:22:00 EDT, Tablet, [id number], Partial fill upon patient request if the prescription is for a schedule II opioid drug., 165.4, cm, 12/19/22 9:40:00 EDT, Height... Start Date: 12/19/22 Status: Ordered anastrozole 1 mg oral tablet 1 tablet, By Mouth, Daily, # 30 tablet, 2 Refills, Maintenance, 04/04/23 17:28:00 EDT, [facility], 165.4, cm, 03/30/23 9:41:00 EDT, Height, 89.7, kg, 03/06/23 14:16:00 EDT, Dry Weight Start Date: 04/04/23 Status: Ordered atorvastatin 80 mg oral tablet 1 tablet = 80 mg, By Mouth, Daily, # 90 tablet, 0 Refills, Maintenance, 03/07/23 16:56:00 EDT, Tablet, [facility]/pharmacy #[id number], Partial fill upon patient request if the prescription is for a schedule II opioid drug., 165.4, cm, 03/06/23 14:16:00 EDT, Heigh... Start Date: 03/07/23 Status: Ordered cyclobenzaprine 10 mg oral tablet See Instructions, TAKE 1 TBALET BY MOUTH NIGHTLY NEEDED FOR MUSCLE SPASM., # 21 tablet, Refills 0, Maintenance, 11/20/22 11:08:00 EDT, Instructions Replace Required Details, Route to Pharmacy Electronically, [facility] 417[facility], 165.4, cm, 11/20/22 10:... Start Date: 11/20/22 Status: Ordered dexamethasone 4 mg oral tablet See Instructions, 2 tablet By Mouth 2 times a day for 3 days, starting on the day before treatment,then the day of treatment and the day after treatment., # 48 tablet, 0 Refills, Maintenance, 11/17/22 10:18:00 EDT, [facility]/pharmacy #[id number], Partial fill up... Start Date: 11/17/22 Status: Ordered hydrOXYzine hydrochloride 50 mg oral tablet 1 tablet, By Mouth, Daily at bedtime, # 90 tablet, 2 Refills, Maintenance, 04/17/23 10:18:00 EDT, [facility]/pharmacy #[id number], 165.4, cm, 03/30/23 9:41:00 EDT, Height, 89.7, kg, 03/06/23 14:16:00 EDT, Dry Weight Start Date: 04/17/23 Stop Date: 01/12/24 Status: Ordered lidocaine-prilocaine 2.5%-2.5% topical cream 1 application, Topically, Once, apply a thin layer on skin over the port 1 hour prior to port access. cover with clear plastic film, # 30 Gm, 0 Refills, Soft Stop, 11/20/22 9:28:00 EDT, Cream, [facility]/pharmacy #[id number], Partial fill upon patient request if... Start Date: 11/20/22 Status: Ordered lisinopril 10 mg oral tablet 1, tablet, By Mouth, Daily, # 90 tablet, Refills 2, Tot. Refills 2, Maintenance, 04/30/23 18:29:00 EDT, Route to Pharmacy Electronically, [facility]/pharmacy #[id number], 165.4, cm, 03/30/23 9:41:00 EDT, Height, 89.7, kg, 03/06/23 14:16:00 EDT, Dry Weight Start Date: 04/30/23 Status: Ordered meloxicam 15 mg oral tablet 1 tablet, By Mouth, Daily, # 90 tablet, 1 Refills, Maintenance, 05/01/23 10:48:00 EDT, [facility], 165.4, cm, 03/30/23 9:41:00 EDT, Height, 89.7, kg, 03/06/23 14:16:00 EDT, Dry Weight Start Date: 05/01/23 Status: Ordered ondansetron 4 mg oral tablet 1-2 tablet, By Mouth, Every 8 hours, PRN Nausea, # 30 tablet, 1 Refills, Maintenance, 11/17/22 10:19:00 EDT, [facility]/pharmacy #[id number], Partial fill upon patient request if the prescription is for a schedule II opioid drug., 165.4, cm, 11/02/22 9:39:00 EDT,... Start Date: 11/17/22 Status: Ordered prochlorperazine 5 mg oral tablet 1-2 tablet, By Mouth, Every 6 hours, PRN Nausea, # 60 tablet, 1 Refills, Maintenance, 11/17/22 10:19:00 EDT, [facility]/pharmacy #[id number], Partial fill upon patient request if the prescription is for a schedule II opioid drug., 165.4, cm, 11/02/22 9:39:00 EDT,... Start Date: 11/17/22 Status: Ordered sertraline 100 mg oral tablet 1 tablet, By Mouth, Daily, # 90 tablet, 1 Refills, Maintenance, 04/17/23 8:29:00 EDT, [facility], 165.4, cm, 03/30/23 9:41:00 EDT, Height, 89.7, kg, 03/06/23 14:16:00 EDT, Dry Weight Start Date: 04/17/23 Status: Ordered Problem List Condition Confirmation Course [...] Care Team Personnel Name: Josiane Ledezma Position: [facility] PCO Associate Professional Member Role: PCP Address: Address: [address] [place] [address]. [address] [place], [place] [address] Name: Ariadna Fitzgerald RN Position: [facility] Onco RN Member Role: Primary Care Nurse Name: Cecy Boston RN Position: [facility] Onco RN Member Role: Primary Care Nurse Care Team Related Persons Name: KELL GONSALVES Address: home [address] [place] [address] Name: CONG LENZ Address: home [address] [place] [address]
--- OUTSIDE RECORDS SUMMARY | 2024-03-16 19:24 | XMS_ITS | Continuity of Care Document ---
Author Organization [facility] Address [address] [place] [address]- Care Team Providers Care Spring Salvage Worker Name Role Phone Josiane Ledezma Primary Care Physician Encounter [facility] [place] Date(s): 03/30/23 - 04/29/23 [facility] [address] [place] [address]- Attending Physician: Admtr, Melida Admitting Physician: Admtr, ArXiao Referring Physician: Admtr, Ar8 Allergies, Adverse Reactions, Alerts Substance Reaction Severity Status flu vaccines Hives Severe Active Immunizations Given and Recorded Vaccine Date Status Refusal Reason tetanus/diphtheria/pertussis, acel(Tdap) 1 10/19/22 Given SARS-CoV-2 (COVID-19) mRNA-1273 vaccine 02/21/22 R ecorded 1Result Comment: [facility] [id number] Medications amLODIPine 10 mg oral tablet 1 [...] Refills, Maintenance, 04/04/23 17:28:00 EDT, [facility], 165.4, cm, 03/30/23 9:41:00 EDT, Height, 89.7, kg, 03/06/23 14:16:00 EDT, Dry Weight Start Date: 04/04/23 Status: Ordered atorvastatin 80 mg oral tablet 1 tablet = 80 mg, By Mouth, Daily, # 90 tablet, 0 Refills, Maintenance, 03/07/23 16:56:00 EDT, Tablet, [facility]/pharmacy #[id number], Partial fill upon patient request if the prescription is for a schedule II opioid drug., 165.4, cm, 03/06/23 14:16:00 EDT, Heigh... Start Date: 03/07/23 Status: Ordered cyclobenzaprine 10 mg oral tablet See Instructions, TAKE 1 TBALET BY MOUTH NIGHTLY NEEDED FOR MUSCLE SPASM., # 21 tablet, Refills 0, Maintenance, 11/20/22 11:08:00 EDT, Instructions Replace Required Details, Route to Pharmacy Electronically, [facility] [address], 165.4, cm, 11/20/22 10:... Start Date: 11/20/22 [...] tablet, 2 Refills, Maintenance, 04/17/23 10:18:00 EDT, [id number], 165.4, cm, 03/30/23 9:41:00 EDT, Height, [...] 11/20/22 11:08:00 EDT, Route to Pharmacy Electronically, [facility], 165.4, cm, 11/20/22 10:43:00 EDT, Height, 91.1, kg, 239:39:00 EDT, Dry Weight Start Date: 11/20/22 Status: Ordered meloxicam 15 mg oral tablet 1 tablet = 15 mg, By Mouth, Daily, # 90 tablet, 0 Refills, Maintenance, 01/31/23 15:58:00 EDT, Tablet, [facility]/pharmacy #[id number], Partial fill upon patient request if the prescription is for a schedule II opioid drug., 165.4, cm, 01/31/23 15:04:00 EDT, Heigh... Start Date: 01/31/23 Status: Ordered ondansetron 4 mg oral tablet 1-2 tablet, By Mouth, Every 8 hours, PRN Nausea, # 30 tablet, 1 Refills, Maintenance, 11/17/22 10:19:00 EDT, [facility]/pharmacy #[id number], Partial fill upon patient request if the prescription is for a schedule II opioid drug., 165.4, cm, 11/02/22 9:39:00 EDT,... Start Date: 11/17/22 Status: Ordered prochlorperazine 5 mg oral tablet 1-2 tablet, By Mouth, Every 6 hours, PRN Nausea, # 60 tablet, 1 Refills, Maintenance, 11/17/22 10:19:00 EDT, [facility]/pharmacy #[id number], Partial fill upon patient request if the prescription is for a schedule II opioid drug., 165.4, cm, 11/02/22 9:39:00 EDT,... Start Date: 11/17/22 Status: Ordered sertraline 100 mg oral tablet 1 tablet, By Mouth, Daily, # 90 tablet, 1 Refills, Maintenance, 04/17/23 8:29:00 EDT, [facility], 165.4, cm, 03/30/23 9:41:00 EDT, Height, 89.7, [...] Care Team Personnel Name: Josiane Ledezma Position: [facility] PC[facility] Associate Professional Member Role: PCP Address: Address: [address] [place] [address]. [address] [place], [place] [address] Name: Ariadna Fitzgerald RN Position: [facility] Onco RN Member Role: Primary Care Nurse Name: Cecy Boston RN Position: [facility] Onco RN Member Role: Primary Care Nurse Care Team Related Persons Name: KELL GONSALVES Address: home [address] [place] [address] Name: CONG LENZ Address: home [facility] [place] [address]
--- OUTSIDE RECORDS SUMMARY | 2024-03-16 19:24 | XMS_ITS | Continuity of Care Document ---
Author Organization [facility] Adult Address [address] [place] [address]- Care Team Providers Care Director Community Center Name Role Phone Papo LEMON, Josiane Junior Primary Care P marcel [place] [facility] [place]24 [facility] [address] [place] [address]- Allergies, Adverse Reactions, Alerts Substance Reaction Severity Status flu vaccines Hives Severe Active Immunizations Given and Recorded Vaccine Date Status Refusal Reason tetanus/diphtheria/pertussis, acel(Tdap) 1 10/19/22 Given SARS-CoV-2 (COVID-19) mRNA-1273 vaccine 02/21/22 R ecorded 1Result Comment: [facility] [id number] Medications acetaminophen 325 mg oral tablet 650 [...] Refills, Maintenance, 08/07/23 9:18:00 EST, [facility], 165.4, cm, 07/23/23 10:56:00 EST, Height, 89.2, [...] Daily, # 90 tablet, 1 Refills, Maintenance, 02/21/24 9:39:00 EDT, [facility], 165, cm, 01/31/24 10:54:00 EDT, Height, 87.4, kg, 12/12/23 10:25:00 EDT, Dry Weight Start Date: 02/21/24 Status: Ordered Golytely - oral powder for reconstitution See Instructions, Per instructions from GI., # 4,000 mL, 0 Refills, Maintenance, 01/31/24 11:39:00 EDT, [facility]/pharmacy #[id number], Partial fill upon patient request if the prescription is for a schedule II opioid drug., Per instructions from GI., 165, cm, 06... Start Date: 01/31/24 Status: Ordered hydrOXYzine hydrochloride 50 mg oral tablet 1 tablet, By Mouth, Daily at bedtime, # 90 tablet, 2 Refills, Maintenance, 01/08/24 9:42:00 EDT, [facility], 165, cm, 12/14/23 9:43:00 EDT, Height, 87.4, kg, 12/12/23 10:25:00 EDT, Dry Weight Start Date: 01/08/24 Status: Ordered lisinopril 10 mg oral tablet 1, tablet, By Mouth, Daily, # 90 tablet, Refills 1, Tot. Refills 1, Maintenance, 01/17/24 9:14:00 EDT, Route to Pharmacy Electronically, [facility]/pharmacy #[id number], 165, cm, 01/11/24 15:16:00 EDT, Height, 87.4, kg, 12/12/23 10:25:00 EDT, Dry Weight Start Date: 01/17/24 Status: Ordered sertraline 100 mg oral tablet 1 tablet, By Mouth, Daily, # 90 tablet, 1 Refills, Maintenance, 04/17/23 8:29:00 EDT, [facility], 165.4, cm, 03/30/23 9:41:00 EDT, Height, 89.7, kg, 03/06/23 14:16:00 EDT, Dry Weight Start Date: 04/17/23 Status: Ordered traZODone 50 mg oral tablet 1, tablet, By Mouth, Daily at bedtime, # 90 tablet, Refills 1, Maintenance, 10/18/23 10:17:00 EST, Route to Pharmacy Electronically, [facility], 165, cm, 10/09/23 10:25:00 EST, Height, 89.7, kg,09/24/23 15:13:00 EST, Dry Weight Start Date: 10/18/23 Status: Ordered Problem List Condition Confirmation Course Effective Dates Status H ealth Status Informant Chest pain Confirmed Active Depression Confirmed Active Hyperlipidemia Confirmed Active HTN (hypertension) Confirmed Active Invasive ductal carcinoma of right breast Confirmed Active Insomnia Confirmed Active Left-sided low back pain without sciatica Confirmed Active Malignant neoplasm of upper-outer quadrant of right breast in female, estrogen receptor positive Confirmed Active Obese class I Confirmed Active Primary osteoarthritis of left knee Confirmed Active Social History Social History Type Response Smoking Status Never (less than 100 in lifetime) entered on: 06/21/22 Sex Patient Care team information Care Team Personnel Name: Lita Huff RN Position: S RN Member Role: Primary Care Nurse Name: Cecy Orta RN Position: [facility] Onco RN Member Role: Primary Care Nurse Name: Laurel Perales RN Position: S RN Member Role: Primary Care Nurse Name: Josiane Jordan Position: [facility] PCO Associate Professional Member Role: PCP Address: Address: [address] [place] [address]. [address] [place], [place] [address] Name: Oli Brown RN Position: S Onco RN Member Role: Primary Care Nurse Name: Ariadna Fitzgerald RN Position: S Onco RN Member Role: Primary Care Nurse Name: Mariaa Dunn RN Position: S RN Member Role: Primary Care Nurse Name: Jimena Islas LPN Position: S RN Member Role: Primary Care Nurse Care Team Related Persons Name: KELL GONSALVES Address: home [address] [place] [address] Name: CONG LENZ Address: home [address] [place] [address]
--- OUTSIDE RECORDS SUMMARY | 2024-03-16 19:24 | XMS_ITS | Continuity of Care Document ---
Author Organization [facility] Address [address] [place] [address]- Care Team Providers Care Professor Of Chemistry Name Role Phone Josiane Ledezma Primary Care Physician [place] [facility] [place] 08[place]11/23 [facility] [address] [place] [address]- Allergies, Adverse Reactions, Alerts Substance Reaction Severity Status flu vaccines Hives Severe Active Immunizations Given and Recorded Vaccine Date Status Refusal Reason tetanus/diphtheria/pertussis, acel(Tdap) 1 10/19/22 Given SARS-CoV-2 (COVID-19) mRNA-1273 vaccine 02/21/22 R ecorded 1Result Comment: [facility] [id number] Medications amLODIPine 10 mg oral tablet 1 tablet, By Mouth, Daily, # 90 tablet, 1 Refills, Maintenance, 08/07/23 9:18:00 EST, [facility], 165.4, cm, 07/23/23 10:56:00 EST, Height, 89.2, [...] tablet, By Mouth, Daily, # 90 tablet, 0 Refills, Maintenance, 06/01/23 14:15:00 EDT, [facility], 165.4, cm, 03/30/23 9:41:00 EDT, Height, 89.7, kg, 03/06/23 14:16:00 EDT, Dry Weight Start Date: 06/01/23 Status: Ordered lisinopril 10 mg oral tablet 1, tablet, By Mouth, Daily, # 90 tablet, Refills 2, Tot. Refills 2, Maintenance, 04/30/23 18:29:00 EDT, Route to Pharmacy Electronically, [facility]/pharmacy #[id number], 165.4, cm, 03/30/23 9:41:00 EDT, Height, 89.7, kg, 03/06/23 14:16:00 EDT, Dry Weight Start Date: 04/30/23 Status: Ordered meloxicam 15 mg oral tablet 1 tablet, By Mouth, Daily, # 90 tablet, 1 Refills, Maintenance, 05/01/23 10:48:00 EDT, [facility], 165.4, cm, 03/30/23 9:41:00 EDT, Height, 89.7, kg, 03/06/23 14:16:00 EDT, Dry Weight Start Date: 05/01/23 Status: Ordered ondansetron 4 mg oral tablet 1-2 tablet, By Mouth, Every 8 hours, PRN Nausea, # 30 tablet, 1 Refills, Maintenance, 11/17/22 10:19:00 EDT, [facility]/pharmacy #[id number], Partial fill upon patient request if the prescription is for a schedule II opioid drug., 165.4, cm, 11/02/22 9:39:00 EDT,... Start Date: 11/17/22 Status: Ordered sertraline 100 mg oral tablet 1 tablet, By Mouth, Daily, # 90 tablet, 1 Refills, Maintenance, 04/17/23 8:29:00 EDT, [facility], 165.4, cm, 03/30/23 9:41:00 EDT, Height, 89.7, kg, 03/06/23 14:16:00 EDT, Dry Weight Start Date: 04/17/23 Status: Ordered traZODone 50 mg oral tablet 50 mg, 1, tablet, By Mouth, Daily at bedtime, # 30 tablet, Refills 4, Tot. Refills 4, Maintenance, 07/23/23 11:38:00 EST, Route to Pharmacy Electronically, [facility]/pharmacy #[id number], Partial fill upon patient request if the [...] Care Team Personnel Name: Josiane Ledezma Position: [facility] PCO Associate Professional Member Role: PCP Address: Address: [address] [place] [address]. [address] [place], [place] [address] Name: Ifeanyi Brown RN Position: [facility] Onco RN Member Role: Primary Care Nurse Name: Ariadna Fitzgerald RN Position: [facility] Onco RN Member Role: Primary Care Nurse Name: Cecy Boston RN Position: [facility] Onco RN Member Role: Primary Care Nurse Care Team Related Persons Name: KELL GONSALVES Address: home [address] [place] [address] Name: CONG LENZ Address: home [address] [place] [address]
--- OUTSIDE RECORDS SUMMARY | 2024-03-16 19:24 | XMS_ITS | Continuity of Care Document ---
Author Organization [facility] Address [address] [place] [address]- Care Team Providers Care Tour Consultant Name Role Phone Josiane Ledezma Primary Care Physician Encounter [facility] [place] Date(s): 01/26/23 - 02/25/23 [facility] [address] [place] [id number] Allergies, Adverse Reactions, Alerts Substance Reaction Severity Status flu vaccines Hives Severe Active Immunizations Given and Recorded Vaccine Date Status Refusal Reason tetanus/diphtheria/pertussis, acel(Tdap) 1 10/19/22 Given SARS-CoV-2 (COVID-19) mRNA-1273 vaccine 02/21/22 R ecorded 1Result Comment: [facility] 21214-483-55 Medications amLODIPine 10 mg oral tablet 1 [...] Replace Required Details, Route to Pharmacy Electronically, [facility] 526[facility], 165.4, cm, 11/20/22 10:... Start Date: 11/20/22 [...] tablet, 2 Refills, Maintenance, 01/15/23 14:21:00 EDT, [facility] 57132, 165.4, cm, 01/09/23 10:06:00 EDT, Height, 88.5, [...] 11/20/22 11:08:00 EDT, Route to Pharmacy Electronically, [facility] 47067, 165.4, cm, 11/20/22 10:43:00 EDT, Height, 91.1, kg, 11/02/239:39:00 EDT, Dry Weight Start Date: 11/20/22 Status: Ordered meloxicam 15 mg oral tablet 1 tablet = 15 mg, By Mouth, Daily, # 90 tablet, 0 Refills, Maintenance, 01/31/23 15:58:00 EDT, Tablet, [id number], Partial fill upon [...] 9:39:00 EDT,... Start Date: 11/17/22 Status: Ordered Zoloft 100 mg oral tablet [...] Care Team Personnel Name: Josiane Ledezma Position: [facility] PCO Associate Professional Member Role: PCP Address: Address: [address] [place] [address]. 3rd Floor [facility] [place] [address]- Name: Ariadna Fitzgerald RN Position: [facility] Onco RN Member Role: Primary Care Nurse Name: Cecy Boston RN Position: [facility] Onco RN Member Role: Primary Care Nurse Care Team Related Persons Name: KELL GONSALVES Address: home [address] [place] [id number] Name: CONG LENZ Address: home [address] [place] [address]
--- OUTSIDE RECORDS SUMMARY | 2024-03-16 19:24 | XMS_ITS | Continuity of Care Document ---
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 Name Role Phone Josiane Ledezma Primary Care Physician Encounter [facility] [place] Date(s): 03/13/23 - 04/12/23 [facility] [address] [place] [address]- Allergies, Adverse Reactions, Alerts Substance Reaction Severity Status flu vaccines Hives Severe Active Immunizations Given and Recorded Vaccine Date Status Refusal Reason tetanus/diphtheria/pertussis, acel(Tdap) 1 10/19/22 Given SARS-CoV-2 (COVID-19) mRNA-1273 vaccine 02/21/22 R ecorded 1Result Comment: [facility] [id number] Medications amLODIPine 10 mg oral tablet 1 tablet = 10 mg, By Mouth, Daily, # 30 tablet, 5 Refills, Maintenance, 12/19/22 20:22:00 EDT, Tablet, [id number], Partial fill upon patient request if the prescription is for a schedule II opioid drug., 165.4, cm, 12/19/22 9:40:00 EDT, Height... Start Date: 12/19/22 Status: Ordered anastrozole 1 mg oral tablet 1 tablet, By Mouth, Daily, # 30 tablet, 2 Refills, Maintenance, 04/04/23 17:28:00 EDT, [facility], 165.4, cm, 03/30/23 9:41:00 EDT, Height, 89.7, kg, 03/06/23 14:16:00 EDT, Dry Weight Start Date: 04/04/23 Status: Ordered atorvastatin 80 mg oral tablet 1 tablet = 80 mg, By Mouth, Daily, # 90 tablet, 0 Refills, Maintenance, 03/07/23 16:56:00 EDT, Tablet, [id number], Partial fill upon [...] Replace Required Details, Route to Pharmacy Electronically, [facility] 69373, 165.4, cm, 11/20/22 10:... Start Date: 11/20/22 [...] tablet, 2 Refills, Maintenance, 01/15/23 14:21:00 EDT, [facility] 31445, 165.4, cm, 01/09/23 10:06:00 EDT, Height, 88.5, [...] 11/20/22 11:08:00 EDT, Route to Pharmacy Electronically, [facility] 95591, 165.4, cm, 11/20/22 10:43:00 EDT, Height, 91.1, kg, 239:39:00 EDT, Dry Weight Start Date: 11/20/22 Status: Ordered meloxicam 15 mg oral tablet 1 tablet = 15 mg, By Mouth, Daily, # 90 tablet, 0 Refills, Maintenance, 01/31/23 15:58:00 EDT, Tablet, [facility]/pharmacy #[id number], Partial fill upon patient request [...] 1 Refills, Maintenance, 10/19/22 11:10:00 EST, Tablet, [facility]/pharmacy #[id number], Partial fill upon patient request [...] Care Team Personnel Name: Josiane Ledezma Position: [facility] PCO Associate Professional Member Role: PCP Address: Address: [address] [place] [address]. 3rd [address] [place], [place] [address] Name: Ariadna Fitzgerald RN Position: [facility] Onco RN Member Role: Primary Care Nurse Name: Cecy Boston RN Position: [facility] Onco RN Member Role: Primary Care Nurse Care Team Related Persons Name: KELL GONSALVES Address: home [address] [place] [address] Name: CONG LENZ Address: home [address] [place] [address]
--- OUTSIDE RECORDS SUMMARY | 2024-03-16 19:24 | XMS_ITS | Continuity of Care Document ---
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 Name Role Phone Josiane Ledezma Primary Care Physician En[place] [facility] [place](s[place] 06/30/22 - 08/09/[address] [address]- Attending Physician: Josiane Ledezma Admitting Physician: Josiane Ledezma Referring Physician: Josiane Ledezma Allergies, Adverse Reactions, Alerts Substance Reaction Severity Status flu vaccines Hives Severe Active Immunizations Given and Recorded Vaccine Date Status Refusal Reason SARS-CoV-2 (COVID-19) mRNA-8782 vaccine 02/21/22 R ecorded Medications amLODIPine 10 [...] Acute 09/27/22 12:35:00 EST, 06/21/22 12:34:00 EST, [id number], Partial fill upon patient request if the prescription is for a sched... Start Date: 06/21/22 Stop Date: 09/27/22 Status: Ordered lisinopril 10 mg oral tablet 10 mg, 1, tablet, By Mouth, Daily, # 30 tablet, Refills 5, Tot. Refills 5, Maintenance, 06/21/22 12:33:00 EST, Route to Pharmacy Electronically, [facility]/pharmacy #[id number], Partial fill upon patient request if the prescription is for a schedule II opioid drug... Start Date: 06/21/22 Status: Ordered Zoloft 50 mg oral tablet 1 tablet = 50 mg, By Mouth, Daily, # 30 tablet, 3 Refills, Maintenance, 06/21/22 12:33:00 EST, Tablet, [facility]/pharmacy #[id number], Partial fill upon patient request [...] Care Team Personnel Name: Josiane Ledezma Position: [facility] PCO Associate Professional Member Role: PCP Address: Address: [address] [place] [address]. [address] [place] [address]- Care Team Related Persons Name: KELL GONSALVES Address: [place] [address] Name: CONG LENZ Address: home [facility] [place] [address]
--- OUTSIDE RECORDS SUMMARY | 2024-03-16 19:24 | XMS_ITS | Continuity of Care Document ---
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 Name Role Phone Josiane Ledezma Primary Care Physician Encounter [facility] [place] Date(s): 08/10/23 - 09/09/23 [facility] [address] [place] [address]- Allergies, Adverse Reactions, Alerts Substance Reaction Severity Status flu vaccines Hives Severe Active Immunizations Given and Recorded Vaccine Date Status Refusal Reason tetanus/diphtheria/pertussis, acel(Tdap) 1 10/19/22 Given SARS-CoV-2 (COVID-19) mRNA-1273 vaccine 02/21/22 R ecorded 1Result Comment: [facility] 2[place] 62464-258-40 Medications amLODIPine 10 mg oral tablet 1 tablet, By Mouth, Daily, # 90 tablet, 1 Refills, Maintenance, 08/07/23 9:18:00 EST, [facility] 23775, 165.4, cm, 07/23/23 10:56:00 EST, Height, 89.2, [...] tablet, 1 Refills, Maintenance, 05/01/23 10:48:00 EDT, [facility] 46347, 165.4, cm, 03/30/23 9:41:00 EDT, Height, 89.7, [...] tablet, 1 Refills, Maintenance, 04/17/23 8:29:00 EDT, [facility] 03306, 165.4, cm, 03/30/23 9:41:00 EDT, Height, 89.7, kg, 03/06/23 14:16:00 EDT, Dry Weight Start Date: 04/17/23 Status: Ordered traZODone 50 mg oral tablet 50 mg, 1, tablet, By Mouth, Daily at bedtime, # 30 tablet, Refills 4, Tot. Refills 4, Maintenance, 07/23/23 11:38:00 EST, Route to Pharmacy Electronically, [facility]/pharmacy #[id number], Partial fill upon patient request if the [...] Care Team Personnel Name: Josiane Ledezma Position: [facility] PCO Associate Professional Member Role: PCP Address: Address: [address] [place] [address]. [address]rd [address] [place], [place] [address] Name: Ifeanyi Brown RN Position: [facility] Onco RN Member Role: Primary Care Nurse Name: Ariadna Fitzgerald RN Position: [facility] Onco RN Member Role: Primary Care Nurse Name: Cecy Boston RN Position: [facility] Onco RN Member Role: Primary Care Nurse Care Team Related Persons Name: KELL GONSALVES Address: home [address] [place] [address] Name: CONG LENZ Address: home [address] [place] [address]
--- OUTSIDE RECORDS SUMMARY | 2024-03-16 19:24 | XMS_ITS | Continuity of Care Document ---
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 Name Role Phone Josiane Ledezma Primary Care Physician Encounter [facility] [place] Date(s): 06/08/23 - 07/08/23 [facility] [address] [place] [address]- Allergies, Adverse Reactions, Alerts Substance Reaction Severity Status flu vaccines Hives Severe Active Immunizations Given and Recorded Vaccine Date Status Refusal Reason tetanus/diphtheria/pertussis, acel(Tdap) 1 10/19/22 Given SARS-CoV-2 (COVID-19) mRNA-1273 vaccine 02/21/22 R ecorded 1Result Comment: [facility] [id number] Medications amLODIPine 10 mg oral tablet 1 tablet = 10 mg, By Mouth, Daily, # 30 tablet, 5 Refills, Maintenance, 12/19/22 20:22:00 EDT, Tablet, [id number], Partial fill upon patient request if the prescription is for a schedule II opioid drug., 165.4, cm, 12/19/22 9:40:00 EDT, Height... Start Date: 12/19/22 Status: Ordered anastrozole 1 mg oral tablet 1 tablet, By Mouth, Daily, # 30 tablet, 2 Refills, Maintenance, 04/04/23 17:28:00 EDT, [facility], 165.4, cm, 03/30/23 9:41:00 EDT, Height, 89.7, kg, 03/06/23 14:16:00 EDT, Dry Weight Start Date: 04/04/23 Status: Ordered atorvastatin 80 mg oral tablet 1 tablet, By Mouth, Daily, # 90 tablet, 0 Refills, Maintenance, 06/01/23 14:15:00 EDT, [facility], 165.4, cm, 03/30/23 9:41:00 EDT, Height, 89.7, kg, 03/06/23 14:16:00 EDT, Dry Weight Start Date: 06/01/23 Status: Ordered cyclobenzaprine 10 mg oral tablet See Instructions, TAKE 1 TBALET BY MOUTH NIGHTLY NEEDED FOR MUSCLE SPASM., # 21 tablet, Refills 0, Maintenance, 11/20/22 11:08:00 EDT, Instructions Replace Required Details, Route to Pharmacy Electronically, [facility], 165.4, cm, 11/20/22 10:... Start Date: 11/20/22 Status: Ordered dexamethasone 4 mg oral tablet See Instructions, 2 tablet By Mouth 2 times a day for 3 days, starting on the day before treatment,then the day of treatment and the day after treatment., # 48 tablet, 0 Refills, Maintenance, 11/17/22 10:18:00 EDT, [facility]/pharmacy #[id number], Partial fill up... Start Date: 11/17/22 [...] Refills, Soft Stop, 11/20/22 9:28:00 EDT, Cream, [facility]/pharmacy #[id number], Partial fill upon patient request if... Start Date: 11/20/22 Status: Ordered lisinopril 10 mg oral tablet 1, tablet, By Mouth, Daily, # 90 tablet, Refills 2, Tot. Refills 2, Maintenance, 04/30/23 18:29:00 EDT, Route to Pharmacy Electronically, [facility]/pharmacy #[id number], 165.4, cm, 03/30/23 9:41:00 EDT, Height, 89.7, kg, 03/06/23 14:16:00 EDT, Dry Weight Start Date: 04/30/23 Status: Ordered meloxicam 15 mg oral tablet 1 tablet, By Mouth, Daily, # 90 tablet, 1 Refills, Maintenance, 05/01/23 10:48:00 EDT, [facility], 165.4, cm, 03/30/23 9:41:00 EDT, Height, 89.7, kg, 03/06/23 14:16:00 EDT, Dry Weight Start Date: 05/01/23 Status: Ordered ondansetron 4 mg oral tablet 1-2 tablet, By Mouth, Every 8 hours, PRN Nausea, # 30 tablet, 1 Refills, Maintenance, 11/17/22 10:19:00 EDT, [facility]/pharmacy #[id number], Partial fill upon patient request if the prescription is for a schedule II opioid drug., 165.4, cm, 11/02/22 9:39:00 EDT,... Start Date: 11/17/22 Status: Ordered prochlorperazine 5 mg oral tablet 1-2 tablet, By Mouth, Every 6 hours, PRN Nausea, # 60 tablet, 1 Refills, Maintenance, 11/17/22 10:19:00 EDT, [facility]/pharmacy #[id number], Partial fill upon patient request if the prescription is for a schedule II opioid drug., 165.4, cm, 11/02/22 9:39:00 EDT,... Start Date: 11/17/22 Status: Ordered sertraline 100 mg oral tablet 1 tablet, By Mouth, Daily, # 90 tablet, 1 Refills, Maintenance, 04/17/23 8:29:00 EDT, [facility], 165.4, cm, 03/30/23 9:41:00 EDT, Height, 89.7, [...] Care Team Personnel Name: Josiane Ledezma Position: [facility] PCO Associate Professional Member Role: PCP Address: Address: [address] [place] [address]. [address] [place], [place] [address] Name: Ifeanyi Brown RN Position: [facility] Onco RN Member Role: Primary Care Nurse Name: Ariadna Fitzgerald RN Position: [facility] Onco RN Member Role: Primary Care Nurse Name: Cecy Boston RN Position: [facility] Onco RN Member Role: Primary Care Nurse Care Team Related Persons Name: KELL GONSALVES Address: home [address] [place] [address] Name: CONG LENZ Address: home [address] [place] [address]
--- OUTSIDE RECORDS SUMMARY | 2024-03-16 19:24 | XMS_ITS | Continuity of Care Document ---
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 Name Role Phone Papo LEMON, Josiane Junior Primary Care P marcel [id number] - 11/23/23 [facility] [address] [place] [address]- Encounter Diagnosis Abdominal pain(Discharge Diagnosis) - 11/16/23 Diverticulitis(Discharge Diagnosis) - 11/16/23 Invasive ductal carcinoma of right breast(Discharge Diagnosis) - 11/16/23 HTN (hypertension)(Discharge Diagnosis) - 11/16/23 Attending Physician: Not on Staff, Attending MD Allergies, Adverse Reactions, Alerts Substance Reaction Severity Status flu vaccines Hives Severe Active Immunizations Given and Recorded Vaccine Date Status Refusal Reason tetanus/diphtheria/pertussis, acel(Tdap) 1 10/19/22 Given SARS-CoV-2 (COVID-19) mRNA-1273 vaccine 02/21/22 R ecorded 1Result Comment: [facility] [facility] [place] [id number] Medications acetaminophen 325 mg oral tablet 650 [...] 1 Refills, Maintenance, 08/07/23 9:18:00 EST, [facility] ST[facility], 165.4, cm, 07/23/23 10:56:00 EST, Height, 89.2, kg, 10/26/23 10:32:00 EDT, Dry Weight Start Date: 08/07/23 Status: Ordered anastrozole 1 mg oral tablet 1 tablet, By Mouth, Daily, # 30 tablet, 11 Refills, Maintenance, 07/19/23 16:13:00 EST, [facility]/pharmacy #[id number], 165.4, cm, 07/11/23 14:22:00 EST, Height, 89.2, kg, 06/07/23 10:32:00 EDT, Dry Weight Start Date: 07/19/23 Status: Ordered atorvastatin 80 mg oral tablet 1 tablet, By Mouth, Daily, # 90 tablet, 1 Refills, Maintenance, 08/27/23 6:34:00 EST, [facility]/pharmacy #[id number], 165.4, cm, 08/23/23 12:12:00 EST, [...] EDT, Route to Pharmacy Electronically, [facility]/pharmacy #[id number], 165.4, cm, 03/30/23 9:41:00 EDT, Height, 89.7, kg, 03/06/23 14:16:00 EDT, Dry Weight Start Date: 04/30/23 Status: Ordered ondansetron 4 mg oral tablet 1 tablet = 4 mg, By Mouth, Every 8 hours, PRN Nausea & Vomiting, # 10 tablet, 0 Refills, Maintenance, 11/08/23 9:52:00 EDT, Tablet, [facility], Partial fill upon patient request if the prescription is for a schedule II opioid drug., 165,... Start Date: 11/08/23 Status: Ordered sertraline 100 mg oral tablet 1 tablet, By Mouth, Daily, # 90 tablet, 1 Refills, Maintenance, 04/17/23 8:29:00 EDT, [facility], 165.4, cm, 03/30/23 9:41:00 EDT, Height, 89.7, kg, 03/06/23 14:16:00 EDT, Dry Weight Start Date: 04/17/23 Status: Ordered traZODone 50 mg oral tablet 1, tablet, By Mouth, Daily at bedtime, # 90 tablet, Refills 1, Maintenance, 10/18/23 10:17:00 EST, Route to Pharmacy Electronically, [facility], 165, cm, 10/09/23 10:25:00 EST, Height, 89.7, [...] Primary osteoarthritis of left knee Confirmed Active Diagnosis Diagnosis Type Effective Dates Health Status Clinical Service Informant Abdominal pain Discharge Diagnosis 11/16/23 Diverticulitis Discharge Diagnosis 11/16/23 Invasive ductal carcinoma of right breast Discharge Diagnosis 11/16/23 HTN (hypertension) Discharge Diagnosis 11/16/23 Vital Signs Most recent to oldest [Reference Range]: 1 2 Height 165 cm (11/16/23 12:36 PM) 165 cm (11/16/23 9:29 AM) Weight 88.6 kg (11/16/23 9:29 AM) Oxygen Saturation [94-100 %] 99 % (11/16/23 9:29 AM) Pulse Rate [55-90 bpm] 60 bpm (11/16/23 9:29 AM) Body Mass Index [18.5-24.99 kg/m2] 32.54 kg/m2 *>HHI* (11/16/23 9:29 AM) Blood Pressure [90-138/55-84 mm Hg] 120/ 62mm Hg (11/16/23 12:36 PM) 139/66mm Hg *H* (11/16/23 9:29 AM) Mode of Delivery (Oxygen) Room air (11/16/23 9:29 AM) Blood pressure sites Arm, left (11/16/23 12:36 PM) Arm, left (11/16/23 9:29 AM) Weight Obtained Via Standing scale (11/16/23 9:29 AM) Social History Social History Type Response Smoking Status Never (less than 100 in lifetime) entered on: 06/21/22 Sex Note * Colleen Quigley: PERFORM, SIGN, VERIFY Event Display: Patient Education/Instruction Authored Date: [id number] [facility] Clinical Summary Name GAEL LENZ Age 63 Years 1960 PCP Josiane Ledezma PCP Visit Date 11/16/2023 09:27:00 Additional Instructions: Scheduled Appointments?? Future Appointments ?*[facility] ?[address],??[place],??[address] ?Phone:??[phone]?Fax:??-- ?Appt. Date:??01/23/2024?11:00 AM ?Scheduled Provider:??Josiane Ledezma Follow-Up Instructions ?? With: Address: When: Josiane Ledezma Diagnosis Diverticulitis of intestine, part unspecified, without perforation or abscess without bleeding; Anemia, unspecified; Essential (primary) hypertension; Unspecified abdominal pain; Malignant neoplasm of unspecified site of right female breast Medications: Please continue your medications until treatment is completed or stopped by your provider. Discuss any questions related to medications with your provider. Medications to Continue with No Changes These medications were not printed or sent to your pharmacy Acetaminophen (acetaminophen 325 mg oral tablet) 650 Milligram Oral every 6 hours. May take OTC not to exceed 3000 mg/day. Next Dose: Amlodipine (amLODIPine 10 mg oral tablet) 1 tab(s) Oral Daily. Refills: 1. Next Dose: Amoxicillin-Clavulanate (Augmentin 875 mg-125 mg oral tablet) 1 tab(s) Oral every 12 hours for 9 Days. Refills: 0. Next Dose: Anastrozole (anastrozole 1 mg oral tablet) 1 tab(s) Oral Daily. Refills: 11. Next Dose: Atorvastatin (atorvastatin 80 mg oral tablet) 1 tab(s) Oral Daily. Refills: 1. Next Dose: Celecoxib (celecoxib 200 mg oral capsule) 200 Milligram Oral Daily. Next Dose: Docusate (Colace Capsule) 100 Milligram Oral twice a day as needed as needed for constipation. Next Dose: Lisinopril (lisinopril 10 mg oral tablet) 1 tab(s) Oral Daily. Refills: 2. Next Dose: Ondansetron (ondansetron 4 mg oral tablet) 1 tab(s) Oral every 8 hours as needed Nausea & Vomiting. Refills: 0. Next Dose: Sertraline (sertraline 100 mg oral tablet) 1 tab(s) Oral Daily. Refills: 1. Next Dose: Trazodone (traZODone 50 mg oral tablet) 1 tab(s) Oral Daily at Bedtime. Refills: 1. Next Dose: Allergy Info:?? flu vaccines Medications Given This Visit Future Orders ?No future orders Future Orders ?CBC? Order Date:11/16/23?- Complete within?Iron + Iron Binding Capacity? Order Date:11/16/23?- Complete within? Vital Signs Height 165 cm Weight 88.6 kg BMI 32.54 kg/m2 Blood Pressure 139 mm Hg/66 mm Hg Temperature Pulse Rate 60 bpm Respiratory Rate 02 Sat Mode of Delivery 99 %/Room air You can now view a summary of your hospital visit from the comfort of your home through a free online portal called [email or web address]. [email or web address] is a website that allows you to securely view your medical information including discharge summary, medications and follow-up visits. ??You can alsosend a secure electronic message to your doctor???s office to request appointments, renew medications or just ask a question. You can enroll at [email or web address] or register during your next office visit. [...] primary care provider, you may find a [facility] provider by calling [facility] [employer] Link at [phone]. [facility], in keeping with [facility] guidance, no longer requires face masks [...] format to support your individualized medical care. Understanding Diverticulosis and Diverticulitis The colon (large intestine) is the last part of the digestive tract. It absorbs water from stool and changes it from a liquid to a solid. In certain cases, small pouches called diverticula can form in the colon wall. This condition is called diverticulosis. The pouches can become infected. If this happens, it becomes a more serious problem called diverticulitis. These problems can be painful. Butthey can be managed. Pouches or diverticula usually occur in the lower part of the colon called the sigmoid. Managing your condition Diet changes or medications may be prescribed. Diverticulitis occurs when the pouches become infected or inflamed. If you have diverticulosis ??? Diet changes are often enough to control symptoms. The main changes are adding fiber (roughage)and drinking more water. Fiber absorbs water as it travels through your colon. This helps your stool stay soft and move smoothly. Water helps this process. ??? If needed, you may be told to take [id number] stool softeners. ??? To help relieve pain, antispasmodic medications may be prescribed. ??? Watch for changes in your bowel movements. Tell the doctor if you notice any changes. ??? Begin an exercise program. Ask your doctor how to get started. ??? Get plenty of rest and sleep. If you have diverticulitis Treatment depends on how bad your symptoms are. ??? For mild symptoms. You may be put on a liquid diet for a short time. Antibiotics are usually prescribed. If these??2 steps relieve your symptoms, you may then be prescribed a high-fiber diet. If you still have symptoms, your doctor will discuss further treatment options with you. ??? For severe symptoms. You may need to be admitted to the hospital. There, you can be given IV antibiotics and fluids. You will also be put on a low-fiber or liquid diet. Although not common, surgery is needed in some people with severe symptoms. [place] to colon health Help keep your colon healthy with a diet that includes plenty of high-fiber fruits, vegetables, andwhole grains. Drink plenty of liquids like water and juice. ?? 3622-2869 [employer]. [address] [place] [address]. All rights reserved. This information is not intended as a substitute for professional medical care. Always follow your healthcare professional's instructions. Discharge Instructions for Diverticulitis You have been diagnosed with diverticulitis. This is a condition??in which??small pouches form in your colon (large intestine) and become inflamed or infected. Follow the guidelines below for home care. As you recover ??? Eat a low-fiber diet. Your health care provider may??advise a liquid diet.??This gives your bowel a chance to rest so that it can recover. ??? Foods to include: flake cereal, mashed potatoes, pancakes, waffles, pasta, white bread, rice, applesauce, bananas, eggs, meat, fish, poultry, tofu, cooked vegetables ??? Take your medicines??as directed. Do not stop taking the medicines, even if you feel better. ??? Monitor your temperature and report any rising temperature to your health care provider. ??? Take antibiotics exactly as directed. Do not miss any. ??? Drink 6 to 8 glasses of water every day, unless directed otherwise. ??? Use a heating pad or hot water bottle to reduce abdominal cramping or pain. Preventing diverticulitis in the future ??? Eat a high-fiber diet. Fiber adds bulk to the stool so that it passes through the large intestine more easily. ??? Keep drinking 6 to 8 glasses of water every day, unless directed otherwise. ??? Begin an exercise program. Ask your health care provider how to get started. You can benefit from simple activities such as walking or gardening. ??? Treat diarrhea with a bland diet. Start with liquids only,??then slowly add fiber over time. ??? Watch for changes in your bowel movements (constipation to diarrhea). ??? Get plenty of rest and sleep. Follow-up care Make a follow-up appointment as directed by our staff. When to call your health care provider Call your health care provider immediately if you have any of the following: ??? Fever??above 100??F (37.7??C) ??? Chills ??? Severe cramps in??the abdomen, most commonly the lower left side ??? Tenderness in??the abdomen, most commonly the lower left side ??? Nausea and vomiting ??? Bleeding from your rectum ?? [id number] [employer]. [address] [place] [address]. All rights reserved. This information is not intended as a substitute for professional medical care. Always follow your healthcare professional's instructions. Patient Care team information Care Team Personnel Name: Lita Huff RN Position: S RN Member Role: Primary Care Nurse Name: Cecy Orta RN Position: [facility] Onco RN Member Role: Primary Care Nurse Name: Laurel Perales RN Position: S RN Member Role: Primary Care Nurse Name: Josiane Jordan Position: [facility] PCO Associate Professional Member Role: PCP Address: Address: [address] [place] [address]. [address]rd [address] [place], [place] [address] [place] Name: Ifeanyi Brown RN Position: [facility] Onco RN Member Role: Primary Care Nurse Name: Ariadna Fitzgerald RN Position: S Onco RN Member Role: Primary Care Nurse Name: Mariaa Dunn RN Position: S RN Member Role: Primary Care Nurse Name: Jimena Islas LPN Position: S RN Member Role: Primary Care Nurse Care Team Related Persons Name: KELL GONSALVES Address: home [address] [place] [address] Name: CONG LENZ Address: home [address] [place] [address]
--- OUTSIDE RECORDS SUMMARY | 2024-03-16 19:24 | XMS_ITS | Continuity of Care Document ---
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 [address] [place] [id number] Allergies, Adverse Reactions, Alerts Substance Reaction Severity Status flu vaccines Hives Severe Active Immunizations Given and Recorded Vaccine Date Status Refusal Reason tetanus/diphtheria/pertussis, acel(Tdap) 1 10/19/22 Given SARS-CoV-2 (COVID-19) mRNA-1273 vaccine 02/21/22 R ecorded 1Result Comment: [facility] [id number] Medications acetaminophen 325 mg oral tablet 650 [...] Refills, Maintenance, 08/07/23 9:18:00 EST, [facility], 165.4, cm, 07/23/23 10:56:00 EST, Height, 89.2, [...] tablet, 1 Refills, Maintenance, 08/27/23 6:34:00 EST, [facility]/pharmacy #[id number], 165.4, cm, 08/23/23 12:12:00 EST, [...] opioid drug. Start Date: 09/25/23 Status: Ordered hydrOXYzine hydrochloride 50 mg oral tablet 1 tablet, By Mouth, Daily at bedtime, # 90 tablet, 2 Refills, Maintenance, 01/08/24 9:42:00 EDT, [facility] 80166, 165, cm, 12/14/23 9:43:00 EDT, Height, 87.4, kg, 12/12/23 10:25:00 EDT, Dry Weight Start Date: 01/08/24 Status: Ordered lisinopril 10 mg oral tablet 1, tablet, By Mouth, Daily, # 90 tablet, Refills 2, Tot. Refills 2, Maintenance, 04/30/23 18:29:00 EDT, Route to Pharmacy Electronically, [facility]/pharmacy #[id number], 165.4, cm, 03/30/23 9:41:00 EDT, Height, 89.7, kg, 03/06/23 14:16:00 EDT, Dry Weight Start Date: 04/30/23 Status: Ordered ondansetron 4 mg oral tablet 1 tablet = 4 mg, By Mouth, Every 8 hours, PRN Nausea & Vomiting, # 10 tablet, 0 Refills, Maintenance, 11/08/23 9:52:00 EDT, Tablet, [facility], Partial fill upon patient request if the prescription is for a schedule II opioid drug., 165,... Start Date: 11/08/23 Status: Ordered sertraline 100 mg oral tablet 1 tablet, By Mouth, Daily, # 90 tablet, 1 Refills, Maintenance, 04/17/23 8:29:00 EDT, [facility], 165.4, cm, 03/30/23 9:41:00 EDT, Height, 89.7, kg, 03/06/23 14:16:00 EDT, Dry Weight Start Date: 04/17/23 Status: Ordered traZODone 50 mg oral tablet 1, tablet, By Mouth, Daily at bedtime, # 90 tablet, Refills 1, Maintenance, 10/18/23 10:17:00 EST, Route to Pharmacy Electronically, [facility], 165, cm, 10/09/23 10:25:00 EST, Height, 89.7, [...] RN Member Role: Primary Care Nurse Name: Edgar Ye MD Position: S Physician - Primary Care Member Role: PCP Address: Address: [address] [place] [address] [address] [place] [address]- Name: Cecy Orta RN Position: S Onco RN Member Role: Primary Care Nurse Name: Laurel Perales RN Position: S RN Member Role: Primary Care Nurse Name: Ifeanyi Brown RN Position: [facility] Onco RN Member Role: Primary Care Nurse Name: Ariadna Fitzgerald RN Position: [facility] Onco RN Member Role: Primary Care Nurse Name: Mariaa Dunn RN Position: [facility] RN Member Role: Primary Care Nurse Name: Jimena Islas LPN Position: [facility] RN Member Role: Primary Care Nurse Care Team Related Persons Name: KELL GONSALVES Address: home [address] [place] [address] Name: CONG LENZ Address: home [address] [place] [address]
--- OUTSIDE RECORDS SUMMARY | 2024-03-16 19:24 | XMS_ITS | Continuity of Care Document ---
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 Name Role Phone Papo LEMON, Josiane Junior Primary Care P macrel [place] [facility] - 02/26/[address] [address]- Discharge Disposition: A-D/C Walkout Attending Physician: Not on Staff, Attending MD Admitting Physician: Not on Staff, Admitting MD Referring Physician: Not on Staff, Referring MD Allergies, Adverse Reactions, Alerts Substance Reaction Severity Status flu vaccines Hives Severe Active Immunizations Given and Recorded Vaccine Date Status Refusal Reason tetanus/diphtheria/pertussis, acel(Tdap) 1 10/19/22 Given SARS-CoV-2 (COVID-19) mRNA-1273 vaccine 02/21/22 R ecorded 1Result Comment: [facility] [id number] Medications acetaminophen 325 mg oral tablet 650 [...] tablet, 1 Refills, Maintenance, 08/07/23 9:18:00 EST, [facility] 625[facility], 165.4, cm, 07/23/23 10:56:00 EST, Height, 89.2, kg, 06/07/23 10:32:00 EDT, Dry Weight Start Date: 08/07/23 Status: Ordered anastrozole 1 mg oral tablet 1 tablet, By Mouth, Daily, # 30 tablet, 11 Refills, Maintenance, 07/19/23 16:13:00 EST, [facility]/pharmacy #[id number], 165.4, cm, 07/11/23 14:22:00 EST, Height, 89.2, kg, 06/07/23 10:32:00 EDT, Dry Weight Start Date: 07/19/23 Status: Ordered atorvastatin 80 mg oral tablet 1 tablet, By Mouth, Daily, # 90 tablet, 1 Refills, Maintenance, 02/21/24 9:39:00 EDT, [facility], 165, cm, 01/31/24 10:54:00 EDT, Height, 87.4, kg, 12/12/23 10:25:00 EDT, Dry Weight Start Date: 02/21/24 Status: Ordered Golytely - oral powder for reconstitution See Instructions, Per instructions from GI., # 4,000 mL, 0 Refills, Maintenance, 01/31/24 11:39:00 EDT, [facility]/pharmacy #[id number], Partial fill upon patient request if the prescription is for a schedule II opioid drug., Per instructions from GI., 165, cm, 06... Start Date: 01/31/24 Status: Ordered hydrOXYzine hydrochloride 50 mg oral tablet 1 tablet, By Mouth, Daily at bedtime, # 90 tablet, 2 Refills, Maintenance, 01/08/24 9:42:00 EDT, [facility], 165, cm, 12/14/23 9:43:00 EDT, Height, 87.4, kg, 12/12/23 10:25:00 EDT, Dry Weight Start Date: 01/08/24 Status: Ordered lisinopril 10 mg oral tablet 1, tablet, By Mouth, Daily, # 90 tablet, Refills 1, Tot. Refills 1, Maintenance, 01/17/24 9:14:00 EDT, Route to Pharmacy Electronically, [facility]/pharmacy #[id number], 165, cm, 01/11/24 15:16:00 EDT, Height, 87.4, kg, 12/12/23 10:25:00 EDT, Dry Weight Start Date: 01/17/24 Status: Ordered sertraline 100 mg oral tablet 1 tablet, By Mouth, Daily, # 90 tablet, 1 Refills, Maintenance, 04/17/23 8:29:00 EDT, [facility], 165.4, cm, 03/30/23 9:41:00 EDT, Height, 89.7, kg, 03/06/23 14:16:00 EDT, Dry Weight Start Date: 04/17/23 Status: Ordered traZODone 50 mg oral tablet 1, tablet, By Mouth, Daily at bedtime, # 90 tablet, Refills 1, Maintenance, 10/18/23 10:17:00 EST, Route to Pharmacy Electronically, [facility], 165, cm, 10/09/23 10:25:00 EST, Height, 89.7, [...] [Reference Range]: 1 2 Height 165 cm (02/25/24 7:40 PM) 165 cm (02/25/24 4:39 PM) Oxygen Saturation [94-100 %] 99 % (02/25/24 7:40 PM) 98 % (02/25/24 4:39 PM) Pulse Rate [55-90 bpm] 57 bpm (02/25/24 7:40 PM) 70 bpm (02/25/24 4:39 PM) Blood Pressure [90-138/55-84 mm Hg] 136/ 57mm Hg (02/25/24 7:40 PM) 137/64mm Hg (02/25/24 4:39 PM) Respiratory Rate [16-30 br/min] 18 br/mi n (02/25/24 7:40 PM) 18 br/min (02/25/24 4:39 PM) Temperature [96.8-100.4 DegF] 99 DegF (02/25/24 7:40 PM) 98.8 DegF (02/25/24 4:39 PM) Mode of Delivery (Oxygen) Room air (02/25/24 7:40 PM) Room air (02/25/24 4:39 PM) Blood pressure sites Arm, left (02/25/24 7:40 PM) Arm, left (02/25/24 4:39 PM) Temperature Route Oral (02/25/24 7:40 PM) Oral (02/25/24 4:39 PM) Dry Weight 88 kg (02/25/24 7:40 PM) 88 kg (02/25/24 4:39 PM) Dry Weight Obtained Via Patient/family s tated (02/25/24 4:39 PM) Social History Social History Type Response Smoking Status Never (less than 100 in lifetime) entered on: 06/21/22 Sex EKG study * Event Display: EKG Authored Date: * Event Display: ECG 12-Lead Authored Date: Please click on pdf link to open report * Event Display: ECG 12-Lead Authored Date: Ventricular Rate: 80 BPM Atrial Rate: 80 BPM P-R Interval: 134 ms QRS Duration: 86 ms Q-T Interval: 384 ms QTC Calculation(Bazett): 442 ms P Mounds: 48 degrees R Mounds: -13 degrees T Mounds: 41 degrees Normal sinus rhythm Minimal voltage criteria for LVH, may be normal variant ( R in aVL ) Borderline ECG When compared with ECG of 23-AUG-2023 12:40, Nonspecific T wave abnormality has replaced inverted T waves in Inferior leads Confirmed by Russel Bassett ([id number]) on 02/25/2024 5:11:13 PM Stephen: Russel Bassett Patient Care team information Care Team Personnel Name: Lita Huff RN Position: S RN Member Role: Primary Care Nurse Name: Cecy Orta RN Position: S Onco RN Member Role: Primary Care Nurse Name: Laurel Perales RN Position: S RN Member Role: Primary Care Nurse Name: Josiane Jordan Position: [facility] PCO Associate Professional Member Role: PCP Address: Address: [address] [place] [address]. [address] [place] [address]- Name: Oli Brown RN Position: [facility] Onco RN Member Role: Primary Care Nurse Name: Ariadna Fitzgerald RN Position: [facility] Onco RN Member Role: Primary Care Nurse Name: Mariaa Dunn RN Position: [facility] RN Member Role: Primary Care Nurse Name: Jimena Islas LPN Position: [facility] RN Member Role: Primary Care Nurse Care Team Related Persons Name: KELL GONSALVES Address: home [address] [place] [address] Name: CONG LENZ Address: home [address] [place] [address]
--- OUTSIDE RECORDS SUMMARY | 2024-03-16 19:24 | XMS_ITS | Continuity of Care Document ---
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 Role Phone Josiane Ledezma Primary Care Physician Encounter [facility] [place] Date(s): 09/14/22 - 09/21/22 [facility] [address] [place], [place] [address] Attending Physician: Teodoro Jasmine MD Referring Physician: Josiane Ledezma Allergies, Adverse Reactions, Alerts Substance Reaction Severity Status flu vaccines Hives Severe Active Immunizations Given and Recorded Vaccine Date Status Refusal Reason SARS-CoV-2 (COVID-19) mRNA-8074 vaccine 02/21/22 R ecorded Medications amLODIPine 10 [...] 06/21/22 12:33:00 EST, Route to Pharmacy Electronically, [id number], Partial fill upon patient request if the prescription is for a schedule II opioid drug... Start Date: 06/21/22 Status: Ordered Zoloft 50 mg oral tablet 1 tablet = 50 mg, By Mouth, Daily, # 30 tablet, 3 Refills, Maintenance, 06/21/22 12:33:00 EST, Tablet, [id number], Partial fill upon [...] Confirmed Active Obese class I Confirmed Active Vital Signs Most recent to oldest [Reference Range]: 1 Height 163 cm (09/14/22 11:05 AM) Social History Social History Type Response Smoking Status Never (less than 100 in lifetime) entered on: 06/21/22 Sex Patient Care team information Care Team Personnel Name: Josiane Ledezma Position: [facility] Associate Professional Member Role: PCP Address: Address: [address] [place] [address]. 3rd Floor [facility] [place] [address]- Care Team Related Persons Name: KELL GONSALVES Address: [place] [address] Name: CONG LENZ Address: home [address] [place] [id number]
--- OUTSIDE RECORDS SUMMARY | 2024-03-16 19:24 | XMS_ITS | Continuity of Care Document ---
Author Organization [facility] Address [address] [place] [address]- Care Team Providers Care Hse Manager Name Role Phone Josiane Ledezma Primary Care Physician Encounter [facility] [place] Date(s): 06/04/23 - 07/04/23 [facility] [address] [place] [address]- Attending Physician: Melida Terrell Admitting Physician: AdmMelida virk Referring Physician: AdmtrMelida Allergies, Adverse Reactions, Alerts Substance Reaction Severity Status flu vaccines Hives Severe Active Immunizations Given and Recorded Vaccine Date Status Refusal Reason tetanus/diphtheria/pertussis, acel(Tdap) 1 10/19/22 Given SARS-CoV-2 (COVID-19) mRNA-1273 vaccine 02/21/22 R ecorded 1Result Comment: [facility] [id number] Medications amLODIPine 10 mg oral tablet 1 [...] Refills, Maintenance, 04/04/23 17:28:00 EDT, [id number], 165.4, cm, 03/30/23 9:41:00 EDT, Height, 89.7, kg, 03/06/23 14:16:00 EDT, Dry Weight Start Date: 04/04/23 Status: Ordered atorvastatin 80 mg oral tablet 1 tablet, By Mouth, Daily, # 90 tablet, 0 Refills, Maintenance, 06/01/23 14:15:00 EDT, [facility], 165.4, cm, 03/30/23 9:41:00 EDT, Height, 89.7, kg, 03/06/23 14:16:00 EDT, Dry Weight Start Date: 06/01/23 Status: Ordered cyclobenzaprine 10 mg oral tablet See Instructions, TAKE 1 TBALET BY MOUTH NIGHTLY NEEDED FOR MUSCLE SPASM., # 21 tablet, Refills 0, Maintenance, 11/20/22 11:08:00 EDT, Instructions Replace Required Details, Route to Pharmacy Electronically, [id number], 165.4, cm, 11/20/22 10:... Start Date: 11/20/22 [...] EDT, Route to Pharmacy Electronically, [id number], 165.4, cm, 03/30/23 9:41:00 EDT, Height, 89.7, kg, 03/06/23 14:16:00 EDT, Dry Weight Start Date: 04/30/23 Status: Ordered meloxicam 15 mg oral tablet 1 tablet, By Mouth, Daily, # 90 tablet, 1 Refills, Maintenance, 05/01/23 10:48:00 EDT, [id number], 165.4, cm, 03/30/23 9:41:00 EDT, Height, 89.7, kg, 03/06/23 14:16:00 EDT, Dry Weight Start Date: 05/01/23 Status: Ordered ondansetron 4 mg oral tablet 1-2 tablet, By Mouth, Every 8 hours, PRN Nausea, # 30 tablet, 1 Refills, Maintenance, 11/17/22 10:19:00 EDT, [id number], Partial fill upon patient request if the prescription is for a schedule II opioid drug., 165.4, cm, 11/02/22 9:39:00 EDT,... Start Date: 11/17/22 Status: Ordered prochlorperazine 5 mg oral tablet 1-2 tablet, By Mouth, Every 6 hours, PRN Nausea, # 60 tablet, 1 Refills, Maintenance, 11/17/22 10:19:00 EDT, [id number], Partial fill upon patient request if the prescription is for a schedule II opioid drug., 165.4, cm, 11/02/22 9:39:00 EDT,... Start Date: 11/17/22 Status: Ordered sertraline 100 mg oral tablet 1 tablet, By Mouth, Daily, # 90 tablet, 1 Refills, Maintenance, 04/17/23 8:29:00 EDT, [facility] [id number], 165.4, cm, 03/30/23 9:41:00 EDT, Height, 89.7, [...] Care Team Personnel Name: Josiane Ledezma Position: [facility] Associate Professional Member Role: PCP Address: Address: [address] [place] [address]. [address] [place], [place] [address] Name: Ifeanyi Brown RN Position: [facility] Onco RN Member Role: Primary Care Nurse Name: Ariadna Fitzgerald RN Position: [facility] Onco RN Member Role: Primary Care Nurse Name: Cecy Boston RN Position: [facility] Onco RN Member Role: Primary Care Nurse Care Team Related Persons Name: KELL GONSALVES Address: home [address] [place] [address] Name: CONG LENZ Address: home [address] [place] [address]
--- OUTSIDE RECORDS SUMMARY | 2024-03-16 19:24 | XMS_ITS | Continuity of Care Document ---
Author Organization [facility] Address [address] [address]- Care Team Providers Care Special Procedures Technologist Name Role Phone Josiane Ledezma Primary Care Physician Encounter [facility] [place] Date(s): 08/17/22 - 08/24/22 [facility] [address] [place] [address]- Attending Physician: Bear Salazar MD Referring Physician: Josiane Ledezma Allergies, Adverse Reactions, Alerts Substance Reaction Severity Status flu vaccines Hives Severe Active Immunizations Given and Recorded Vaccine Date Status Refusal Reason SARS-CoV-2 (COVID-19) mRNA-3362 vaccine 02/21/22 R ecorded Medications amLODIPine 10 [...] Confirmed Active Obese class I Confirmed Active Procedures Procedure Date Related Diagnosis Body Site Status Breast biopsy and related procedures 1 07/28/22 Completed 1RB Vital Signs Most recent to oldest [Reference Range]: 1 Height 163 cm (08/17/22 2:41 PM) Weight 87.3 kg (08/17/22 2:41 PM) Oxygen Saturation [94-100 %] 98 % (08/17/22 2:41 PM) Pulse Rate [55-90 bpm] 57 bpm (08/17/22 2:41 PM) Body Mass Index [18.5-24.99 kg/m2] 32.86 kg/m2 *>HHI* (08/17/22 2:41 PM) Blood Pressure [90-138/55-84 mm Hg] 146/ 62mm Hg *H* (08/17/22 2:41 PM) Blood pressure sites Arm, left (08/17/22 2:41 PM) Social History Social History Type Response Smoking Status Never (less than 100 in lifetime) entered on: 06/21/22 Sex Patient Care team information Care Team Personnel Name: Josiane Ledezma Position: [facility] PC[facility] Associate Professional Member Role: PCP Address: Address: [address] [facility]. [address]rd [place] [address]- Care Team Related Persons Name: KELL GONSALVES Address: [place] [address] Name: CONG LENZ Address: home [address] [place] [id number]
--- OUTSIDE RECORDS SUMMARY | 2024-03-16 19:24 | XMS_ITS | Continuity of Care Document ---
Author Organization [facility] ter Address [address] [place] [address]- Care Team Providers Care Employee Relations Director Name Role Phone Not on Staff, PCP Primary Care Physician Unavail able [place] [facility] [place] 06/16/22 - 06/16/[address] [address]- Encounter Diagnosis Headache(Final) - 06/16/22 Discharge Disposition: A-D/C Home Attending Physician: Ladonna Will MD Admitting Physician: Ladonna Will MD Referring Physician: Not on Staff, Referring MD Allergies, Adverse Reactions, Alerts Substance Reaction Severity Status flu vaccines Active Medications Acetaminophen Tablet 975 mg, Tablet, By Mouth, Once, STAT, 06/16/22 14:13:00 EDT, Stop date 06/16/22 14:13:00 EDT Start Date: 06/16/22 Stop Date: 06/16/22 Status: Completed celecoxib 100 mg oral capsule 1 capsule = 100 mg, By Mouth, 2 times a day, # 180 capsule, 0 Refills, Maintenance, 03/22/18 12:46:21 EDT, Capsule Start Date: 03/22/18 Status: Ordered FLUoxetine 10 mg oral capsule 10 mg, 1, capsule, By Mouth, Daily, # 60 capsule, Refills 0, Maintenance, 03/22/18 12:46:31 EDT Start Date: 03/22/18 Status: Ordered hydrOXYzine pamoate 25 mg oral capsule 1 capsule = 25 mg, By Mouth, 4 times a day, PRN for anxiety, # 40 capsule, 0 Refills, Maintenance, 03/22/18 12:47:07 EDT, Capsule Start Date: 03/22/18 Status: Ordered lisinopril 5 mg oral tablet 5 mg, 1, tablet, By Mouth, Daily, # 30 tablet, Refills 0, Maintenance, 03/22/18 12:45:47 EDT Start Date: 03/22/18 Status: Ordered traZODone 50 mg oral tablet 50 mg, 1, tablet, By Mouth, Daily at bedtime, # 30 tablet, Refills 0, Maintenance, 03/22/18 12:46:07 EDT Start Date: 03/22/18 Status: Ordered Results Radiology Reports * Exam Date Time Procedure Performing Provider Status 06/16/22 2:31 PM Chest 2 Views Frontal and Lat Vero Hardy; Auth (Verified) Notes: (Chest 2 Views Frontal and Lat) Reason For Exam: Shortness of Breath, Fever;Other: RESULT: Chest 2 Views Frontal and Lat Chest 2 Views Frontal and Lat Hx of Present Illness: pt co headace and high bp, seen at on sunday for same and given meds, taking as rx and taking bp multiple times per day at home.; Reason: Other:; Shortness of Breath, Fever; Clinical Question(s): Pneumonia COMPARISON: None. FINDINGS: LINES AND TUBES: None. LUNGS AND PLEURA: Clear lungs. Normal pulmonary vascularity. No pleural effusion. No pneumothorax. HEART, MEDIASTINUM AND JEOVANY: Heart is normal in size. Normal mediastinal and hilar contour. BONES AND SOFT TISSUES: No acute abnormality. Mild degenerative change mid thoracic spine. IMPRESSION: No acute abnormality. WSN: [id number] Ordering Physician: Venu Veras Dictated By: Toney Yi MD, V Dictated Date/Time: 06/16/22 2:35 pm Reviewed By: Toney Yi MD, V Signed By: Toney Yi MD, V Signed Date/Time: 06/16/22 2:35 pm Transcribed By: LUIS MIGUEL Transcribed Date/Time: 06/16/22 2:34 pm Vital Signs Most recent to oldest [Reference Range]: 1 2 3 Oxygen Saturation [94-100 %] 99 % (06/16/22 7:51 PM) 100 % (06/16/22 3:42 PM) 98 % (06/16/22 1:34 PM) Pulse Rate [55-90 bpm] 79 bpm (06/16/22 7:51 PM) 68 bpm (06/16/22 4:17 PM) 84 bpm (06/16/22 3:42 PM) Blood Pressure [90-138/55-84 mm Hg] 169/73mm Hg *H* (06/16/22 7:51 PM) 144/66mm Hg *H* (06/16/22 4:17 PM) 169/66mm Hg *H* (06/16/22 3:42 PM) Respiratory Rate [16-30 br/min] 18 br/min (06/16/22 7:51 PM) 18 br/min (06/16/22 4:53 PM) 18 br/min (06/16/22 3:42 PM) Temperature [96.8-100.4 DegF] 98.2 DegF (06/16/22 1:34 PM) Mode of Delivery (Oxygen) Room air (06/16/22 7:51 PM) Room air (06/16/22 3:42 PM) Room air (06/16/22 1:34 PM) Blood pressure sites Arm, right (06/16/22 7:51 PM) Arm, right (06/16/22 4:17 PM) Arm, right (06/16/22 3:42 PM) Temperature Route Oral (06/16/22 1:34 PM) Note * [facility]SP[facility]erscribe , CIS S: TRANSCRIBE Toney Yi MD, V: VERIFY Event Display: Result: Authored Date: Chest 2 Views Frontal and Lat Hx of Present Illness: pt co headace and high bp, seen at on sunday for same and given meds, taking as rx and taking bp multiple times per day at home.; Reason: Other:; Shortness of Breath, Fever; Clinical Question(s): Pneumonia COMPARISON: None. FINDINGS: LINES AND TUBES: None. LUNGS AND PLEURA: Clear lungs. Normal pulmonary vascularity. No pleural effusion. No pneumothorax. HEART, MEDIASTINUM AND JEOVANY: Heart is normal in size. Normal mediastinal and hilar contour. BONES AND SOFT TISSUES: No acute abnormality. Mild degenerative change mid thoracic spine. IMPRESSION: No acute abnormality. WSN: [id number] Ordering Physician: Venu Veras Dictated By: Toney Yi MD, V Dictated Date/Time: 06/16/22 2:35 pm Reviewed By: Toney Yi MD, V Signed By: Toney Yi MD, V Signed Date/Time: 06/16/22 2:35 pm Transcribed By: LUIS MIGUEL Transcribed Date/Time: 06/16/22 2:34 pm Patient Care team information Personnel Name: Not on Staff, PCP
--- OUTSIDE RECORDS SUMMARY | 2024-03-16 19:24 | XMS_ITS | Continuity of Care Document ---
Author Organization [facility] Address [address] [place] [address]- Care Team Providers Care Machine Deicer Element Winder Name Role Phone Josiane Ledezma Primary Care Physician Encounter [facility] [place] Date(s): 11/23/22 - 06/03/23 [facility] [address] [place] [id number] Discharge Disposition: A-D/C Home Attending Physician: Jeramie Mccartney DO Admitting Physician: Jeramie Mccartney DO Referring Physician: Josiane Ledezma Allergies, Adverse Reactions, Alerts Substance Reaction Severity Status flu vaccines Hives Severe Active Immunizations Given and Recorded Vaccine Date Status Refusal Reason tetanus/diphtheria/pertussis, acel(Tdap) 1 10/19/22 Given SARS-CoV-2 (COVID-19) mRNA-1273 vaccine 02/21/22 R ecorded 1Result Comment: [facility] [id number] Medications amLODIPine 10 mg oral tablet 1 [...] Refills, Maintenance, 04/04/23 17:28:00 EDT, [id number], 165.4, cm, 03/30/23 9:41:00 EDT, Height, 89.7, kg, 03/06/23 14:16:00 EDT, Dry Weight Start Date: 04/04/23 Status: Ordered atorvastatin 80 mg oral tablet 1 tablet, By Mouth, Daily, # 90 tablet, 0 Refills, Maintenance, 06/01/23 14:15:00 EDT, [facility], 165.4, cm, 03/30/23 9:41:00 EDT, Height, 89.7, kg, 03/06/23 14:16:00 EDT, Dry Weight Start Date: 06/01/23 Status: Ordered cyclobenzaprine 10 mg oral tablet See Instructions, TAKE 1 TBALET BY MOUTH NIGHTLY NEEDED FOR MUSCLE SPASM., # 21 tablet, Refills 0, Maintenance, 11/20/22 11:08:00 EDT, Instructions Replace Required Details, Route to Pharmacy Electronically, [id number], 165.4, cm, 11/20/22 10:... Start Date: 11/20/22 [...] 04/30/23 18:29:00 EDT, Route to Pharmacy Electronically, [facility]/pharmacy #[id number], 165.4, cm, 03/30/23 9:41:00 EDT, Height, 89.7, kg, 03/06/23 14:16:00 EDT, Dry Weight Start Date: 04/30/23 Status: Ordered meloxicam 15 mg oral tablet 1 tablet, By Mouth, Daily, # 90 tablet, 1 Refills, Maintenance, 05/01/23 10:48:00 EDT, [facility], 165.4, cm, 03/30/23 9:41:00 EDT, Height, 89.7, kg, 03/06/23 14:16:00 EDT, Dry Weight Start Date: 05/01/23 Status: Ordered ondansetron 4 mg oral tablet 1-2 tablet, By Mouth, Every 8 hours, PRN Nausea, # 30 tablet, 1 Refills, Maintenance, 11/17/22 10:19:00 EDT, [facility]/pharmacy #[id number], Partial fill upon patient request if the prescription is for a schedule II opioid drug., 165.4, cm, 11/02/22 9:39:00 EDT,... Start Date: 11/17/22 Status: Ordered prochlorperazine 5 mg oral tablet 1-2 tablet, By Mouth, Every 6 hours, PRN Nausea, # 60 tablet, 1 Refills, Maintenance, 11/17/22 10:19:00 EDT, [facility]/pharmacy #[id number], Partial fill upon patient request if the prescription is for a schedule II opioid drug., 165.4, cm, 11/02/22 9:39:00 EDT,... Start Date: 11/17/22 Status: Ordered sertraline 100 mg oral tablet 1 tablet, By Mouth, Daily, # 90 tablet, 1 Refills, Maintenance, 04/17/23 8:29:00 EDT, [facility], 165.4, cm, 03/30/23 9:41:00 EDT, Height, 89.7, [...] Confirmed Active Obese class I Confirmed Active Results Orders for Microbiology Reports Name Date Urine Culture (URINE CULTURE) 01/09/23 Microbiology Reports TEST:Urine Culture STATUS:Auth (Verified) BODY SITE: SOURCE:MABLE COLLECTED DATE/TIME:01/09/23 9:51 AM Urine Culture SPECIMEN DESCRIPTION : BLADDER SPECIAL REQUESTS : NONE Reflexed from [id number] CULTURE : >100,000 COL/ML KLEBSIELLA PNEUMONIAE This isolate was identified using Maldi-TOF system These AST results were performed on the [employer] ID and AST system REPORT STATUS : FINAL 01/11/2023 ORGANISM >100,000 COL/ML KLEBSIELLA PNEUMONIAE This isolate was identified using Maldi-TOF system These AST results were performed on the [employer] ID and AST system METHOD MIN. INHIB. CONC. (MCG/ML) AMPICILLIN RESISTANT AMPICILLIN/SULBACTAM SUSCEPTIBLE AMOXICILLIN/CLAVULAN SUSCEPTIBLE CEFAZOLIN SUSCEPTIBLE CEFEPIME SUSCEPTIBLE CEFTRIAXONE SUSCEPTIBLE CIPROFLOXACIN SUSCEPTIBLE ERTAPENEM SUSCEPTIBLE GENTAMICIN SUSCEPTIBLE LEVOFLOXACIN SUSCEPTIBLE MEROPENEM SUSCEPTIBLE NITROFURANTOIN INTERMEDIATE PIPERACILLIN/TAZOBAC SUSCEPTIBLE TRIMETH/SULFAMETHOX SUSCEPTIBLE TETRACYCLINE SUSCEPTIBLE Vital Signs Most recent to oldest [Reference Range]: 1 2 3 Height 165.4 cm (03/06/23 2:16 PM) 165.4 cm (01/31/23 3:04 PM) 165.4 cm (01/30/23 8:49 AM) Weight 89.7 kg (03/06/23 2:16 PM) 89 kg (01/18/23 11:05 AM) 88.5 kg (01/09/23 8:42 AM) Oxygen Saturation [94-100 %] 97 % (03/06/23 2:16 PM) 98 % (01/30/23 8:41 AM) 98 % (01/18/23 11:05 AM) Pulse Rate [55-90 bpm] 96 bpm *H* (03/06/23 2:16 PM) 89 bpm (01/30/23 8:41 AM) 93 bpm *H* (01/18/23 11:05 AM) Body Mass Index [18.5-24.99 kg/m2] 32.79 kg/m2 *>HHI* (03/06/23 2:16 PM) 32.53 kg/m2 *>HHI* (01/18/23 11:05 AM) 32.35 kg/m2 *>HHI* (01/09/23 8:42 AM) Blood Pressure [90-138/55-84 mm Hg] 137/70mm Hg (03/06/23 2:16 PM) 136/61mm Hg (01/30/23 8:41 AM) 131/67mm Hg (01/18/23 11:05 AM) Temperature [96.8-100.4 DegF] 99.2 DegF (03/06/23 2:16 PM) 97.1 DegF (01/30/23 8:41 AM) 98.1 DegF (01/18/23 11:05 AM) Mode of Delivery (Oxygen) Room air (03/06/23 2:16 PM) Room air (01/30/23 8:41 AM) Room air (01/18/23 11:05 AM) Blood pressure sites Arm, left (03/06/23 2:16 PM) Arm, right (01/30/23 8:41 AM) Arm, left (01/18/23 11:05 AM) Temperature Route Oral (03/06/23 2:16 PM) Temporal (01/31/23 3:04 PM) Temporal (01/30/23 8:49 AM) Dry Weight 89.7 kg (03/06/23 2:16 PM) 88.5 kg (01/09/23 8:42 AM) 87.7 kg (12/05/22 3:12 PM) Weight Obtained Via Standing scale (03/06/23 2:16 PM) Standing scale (01/09/23 8:42 AM) Standing scale (12/05/22 3:12 PM) Dry Weight Obtained Via Standing scale (03/06/23 2:16 PM) Standing scale (01/09/23 8:42 AM) Standing scale (12/05/22 3:12 PM) Social History Social History Type Response Smoking Status Never (less than 100 in lifetime) entered on: 06/21/22 Sex Note * Susu Cheatham: PERFORM, SIGN, VERIFY Event Display: Patient Education/Instruction Authored Date: [id number] [facility] *Heme/Onc Adult Clinical Summary Name GAEL LENZ Age 62 Years 1960 PCP Micah LEMON, Josiane COREY Visit Date 11/23/2022 09:10:00 Additional Instructions: Scheduled Appointments?? Future Appointments ?[facility] ?[address]??[place],??[place],??[address] ?Phone:??[phone]?Fax:??-- ?Appt. Date:??03/12/2023?10:00 AM ?Scheduled Provider:??[facility] ?*[facility] ?[address]??[place],??[place],??[address] ?Phone:??--?Fax:??-- ?Appt. Date:??03/30/2023?4:00 PM ?Scheduled Provider:??Bear Salazar ?*[facility] ?Phone:??--?Fax:??-- ?Appt. Date:??04/09/2023?11:00 AM ?Scheduled Provider:??Tiana Castellon Follow-Up Instructions ?? With: Address: When: Jeramie Mccartney [address] [place] [address]/[place] [address] Business (1) 06/07/2023 10:30 AM With: Address: When: Jeramie Rothman [facility]/[place] [address] Business (1) In 47 days 03/06/2023 Diagnosis Medications: Please continue your medications until treatment is completed or stopped by your provider. Discuss any questions related to medications with your provider. Medications to Continue with No Changes These medications were not printed or sent to your pharmacy Amlodipine (amLODIPine 10 mg oral tablet) 1 tab(s) Oral Daily. Refills: 5. Next Dose: Atorvastatin (atorvastatin 40 mg oral tablet) 1 tab(s) Oral Daily. at bedtime. Refills: 1. Next Dose: Cyclobenzaprine (cyclobenzaprine 10 mg oral [...] 1 tab(s) Oral Daily at Bedtime. Refills: 2. Next Dose: Lidocaine/Prilocaine Topical (lidocaine-prilocaine 2.5%-2.5% topical cream) 1 raphael Topically once. apply a thin layer on skin over the port 1 hour prior to port access. cover with clear plastic film. Refills: 0. Next Dose: Lisinopril (lisinopril 10 mg oral tablet) 1 tab(s) Oral Daily. Refills: 5. Next Dose: Meloxicam (meloxicam 15 mg oral tablet) 1 tab(s) Oral Daily. Refills: 0. Next Dose: Ondansetron (ondansetron 4 mg oral tablet) 1-2 tablet Oral every 8 hours as needed Nausea. Refills:1. Next Dose: PROCHLORperazine (prochlorperazine 5 mg oral tablet) 1-2 tablet Oral every 6 hours as needed Nausea. Refills: 1. Next Dose: Sertraline (Zoloft 100 mg oral tablet) 1 tab(s) Oral Daily. Refills: 1. Next Dose: Allergy Info:?? flu vaccines Medications Given This Visit Medication Dose Route Palonosetron (Palonosetron Inj) 0.25 mg IV Push DOCEtaxel (DOCEtaxel IVPB) 148.5 mg IVPB Cyclophosphamide (Cyclophosphamide IVPB) 1188 mg IVPB Pegfilgrastim (Fulphila) 6 mg Subcutaneous Injection heparin flush (Heparin Flush 100 units/mL Inj) 500 units IV Push Slowly Palonosetron (Palonosetron Inj) 0.25 mg IV Push DOCEtaxel (DOCEtaxel IVPB) 146 mg IVPB Cyclophosphamide (Cyclophosphamide IVPB) 1170 mg IVPB Pegfilgrastim (Fulphila) 6 mg Subcutaneous Injection Palonosetron (Palonosetron Inj) 0.25 mg IV Push DOCEtaxel (DOCEtaxel IVPB) 146.25 mg IVPB Cyclophosphamide (Cyclophosphamide IVPB) 1170 mg IVPB Alteplase (ALTEplase Syringe) 2 mg IV Catheter Clearance Alteplase (ALTEplase Syringe) 2 mg IV Catheter Clearance Palonosetron (Palonosetron Inj) 0.25 mg IV Push DOCEtaxel (DOCEtaxel IVPB) 147 mg IVPB Cyclophosphamide (Cyclophosphamide IVPB) 1176 mg IVPB Future Orders ?No future orders Vital Signs Height 165.4 cm Weight 89.7 kg BMI 32.79 kg/m2 Blood Pressure 137 mm Hg/70 mm Hg Temperature 99.2 DegF Pulse Rate 96 bpm Respiratory Rate 02 Sat Mode of Delivery 97 %/Room air You can now view a summary of your hospital visit from the comfort of your home through a free online portal called [employer]. [employer] is a website that allows you to securely view your medical information including discharge summary, medications and follow-up visits. ??You can alsosend a secure electronic message to your doctor???s office to request appointments, renew medications or just ask a question. You can enroll at [email or web address] or register during your next office visit. [...] primary care provider, you may find a [facility] provider by calling [facility] at [phone]. For information about the plan of care including goals and instructions for your diagnosis, please see the patient education orders section of this document. Patient Education Materials?? The content of this educational material or handout may have been modified, supplemented, or adapted from its original content and format to support your individualized medical care. * Susu Cheatham: PERFORM, SIGN, VERIFY Event Display: Patient Education/Instruction Authored Date: [id number] [facility] *Heme/Onc Adult Clinical Summary Name GAEL LENZ Age 62 Years 1960 PCP Micah LEMON, Josiane Junior PCP Visit Date 11/23/2022 09:10:00 Additional Instructions: Scheduled Appointments?? Future Appointments ?*[facility] ?[address],??[address] ?Phone:??--?Fax:??-- ?Appt. Date:??01/19/2023?11:20 AM ?Scheduled Provider:??Micah LEMON, Josiane Junior ?*[facility] ?[address]??[place],??[place],??[address] ?Phone:??--?Fax:??-- ?Appt. Date:??03/30/2023?2:00 PM ?Scheduled Provider:??Bear Salazar Follow-Up Instructions ?? With: Address: When: eJramie Mccartney [address] [place] [address] [place] [address] Business (1) In 47 days 03/06/2023 Diagnosis Medications: Please continue your medications until treatment is completed or stopped by your provider. Discuss any questions related to medications with your provider. Medications to Continue Taking That Have Changed These medications were not printed or sent to your pharmacy - HydrOXYzine (hydrOXYzine hydrochloride 50 mg oral tablet) 1 tab(s) Oral Daily at Bedtime. Refills: 2. Next Dose: Medications to Continue with No Changes These medications were not printed or sent to your pharmacy Amlodipine (amLODIPine 10 mg oral tablet) 1 tab(s) Oral Daily. Refills: 5. Next Dose: Atorvastatin (atorvastatin 40 mg oral tablet) 1 tab(s) Oral Daily. at bedtime. Refills: 5. Next Dose: Cyclobenzaprine (cyclobenzaprine 10 mg oral tablet) TAKE 1 TBALET BY MOUTH NIGHTLY NEEDED FOR MUSCLE SPASM.. Refills: 0. Next Dose: Dexamethasone (dexamethasone 4 mg oral tablet) 2 tablet By Mouth 2 times a day for 3 days, startingon the day before treatment, then the day of treatment and the day after treatment.. Refills: 0. Next Dose: Lidocaine/Prilocaine Topical (lidocaine-prilocaine 2.5%-2.5% topical cream) 1 raphael Topically once. apply a thin layer on skin over the port 1 hour prior to port access. cover with clear plastic film. Refills: 0. Next Dose: Lisinopril (lisinopril 10 mg oral tablet) 1 tab(s) Oral Daily. Refills: 5. Next Dose: Ondansetron (ondansetron 4 mg oral tablet) 1-2 tablet Oral every 8 hours as needed Nausea. Refills:1. Next Dose: PROCHLORperazine (prochlorperazine 5 mg oral tablet) 1-2 tablet Oral every 6 hours as needed Nausea. Refills: 1. Next Dose: Sertraline (Zoloft 100 mg oral tablet) 1 tab(s) Oral Daily. Refills: 1. Next Dose: Allergy Info:?? flu vaccines Medications Given This Visit Medication Dose Route Palonosetron (Palonosetron Inj) 0.25 mg IV Push DOCEtaxel (DOCEtaxel IVPB) 148.5 mg IVPB Cyclophosphamide (Cyclophosphamide IVPB) 1188 mg IVPB Pegfilgrastim (Fulphila) 6 mg Subcutaneous Injection heparin flush (Heparin Flush 100 units/mL Inj) 500 units IV Push Slowly Palonosetron (Palonosetron Inj) 0.25 mg IV Push DOCEtaxel (DOCEtaxel IVPB) 146 mg IVPB Cyclophosphamide (Cyclophosphamide IVPB) 1170 mg IVPB Palonosetron (Palonosetron Inj) 0.25 mg IV Push DOCEtaxel (DOCEtaxel IVPB) 146.25 mg IVPB Cyclophosphamide (Cyclophosphamide IVPB) 1170 mg IVPB Alteplase (ALTEplase Syringe) 2 mg IV Catheter Clearance Alteplase (ALTEplase Syringe) 2 mg IV Catheter Clearance Future Orders ?No future orders Vital Signs Height 165.4 cm Weight 89 kg BMI 32.53 kg/m2 Blood Pressure 131 mm Hg/67 mm Hg Temperature 98.1 DegF Pulse Rate 93 bpm Respiratory Rate 02 Sat Mode of Delivery 98 %/Room air You can now view a summary of your hospital visit from the comfort of your home through a free online portal called [employer]. [employer] is a website that allows you to securely view your medical information including discharge summary, medications and follow-up visits. ??You can alsosend a secure electronic message to your doctor???s office to request appointments, renew medications or just ask a question. You can enroll at [email or web address] or register during your next office visit. [...] primary care provider, you may find a [facility] provider by calling [facility] at [phone]. For information about the plan of care [...] Care Team Personnel Name: Josiane Ledezma Position: [facility] PCO Associate Professional Member Role: PCP Address: Address: [address] [place] [address]. [address]rd [place], [place] [address] Name: Ariadna Fitzgerald RN Position: [facility] Onco RN Member Role: Primary Care Nurse Name: Cecy [place] RN Position: [facility] Onco RN Member Role: Primary Care Nurse Care Team Related Persons Name: KELL GONSALVES Address: home [address] [place] [address] Name: CONG LENZ Address: home [address] [place] [address]
--- OUTSIDE RECORDS SUMMARY | 2024-03-16 19:24 | XMS_ITS | Continuity of Care Document ---
Author Organization [facility] Address [address] [place] [address]- Care Team Providers Care Manager Trading Name Role Phone Josiane Ledezma Primary Care Physician [place] [facility] [place] Date(s): 08/24/22 - 09/23/22 [facility] [address] [place] [address]- Allergies, Adverse Reactions, Alerts Substance Reaction Severity Status flu vaccines Hives Severe Active Immunizations Given and Recorded Vaccine Date Status Refusal Reason SARS-CoV-2 (COVID-19) mRNA-0773 vaccine 02/21/22 R ecorded Medications amLODIPine 10 [...] List Condition Confirmation Course Effective Dates Status [facility] atus Informant Chest pain Confirmed Active Depression Confirmed Active HTN (hypertension) Confirmed Active Impaired fasting glucose Confirmed Active Left-sided low back pain without sciatica Confirmed Active Obese class I Confirmed Active Social History Social History Type Response Smoking Status Never (less than 100 in lifetime) entered on: 06/21/22 Sex Patient Care team information Care Team Personnel Name: Josiane Ledezma Position: S PCO Associate Professional Member Role: PCP Address: Address: [address] [place] [address]. [address] [place] [address]- Care Team Related Persons Name: KELL GONSALVES Address: [place] [address] Name: MAGALY LENZIAN Address: home [address] [place] [address]
--- OUTSIDE RECORDS SUMMARY | 2024-03-16 19:24 | XMS_ITS | Continuity of Care Document ---
Author Organization [facility] Address [address] [place] [address]- Care Team Providers Care Slubber Runner Name Role Phone Josiane Ledezma Primary Care Physician [place] [facility] [place]22 [facility] [address] [place] [place] [address]- Attending Physician: Admtr, Melida Admitting Physician: Admtr, Melida Referring Physician: Admtr, Ar8 Allergies, Adverse Reactions, Alerts Substance Reaction Severity Status flu vaccines Hives Severe Active Immunizations Given and Recorded Vaccine Date Status Refusal Reason SARS-CoV-2 (COVID-19) mRNA-1319 vaccine 02/21/22 R ecorded Medications amLODIPine 10 [...] Acute 09/27/22 12:35:00 EST, 06/21/22 12:34:00 EST, [facility]/pharmacy #[id number], Partial fill upon patient request if the prescription is for a sched... Start Date: 06/21/22 Stop Date: 09/27/22 Status: Ordered lidocaine 4% topical cream See Instructions, Please apply around your RIGHT areola 1 hour prior to leaving for your surgery, cover with saran wrap., # 5 Gm, 0 Refills, Acute 10/07/22 17:12:00 EST, 08/24/22 17:11:00 EST, [facility]/pharmacy #[id number], Partial fill upon patient request if t... Start Date: 08/24/22 Stop Date: 10/07/22 Status: Ordered lisinopril 10 mg oral tablet 10 mg, 1, tablet, By Mouth, Daily, # 30 tablet, Refills 5, Tot. Refills 5, Maintenance, 06/21/22 12:33:00 EST, Route to Pharmacy Electronically, [facility]/pharmacy #[id number], Partial fill upon patient request if the prescription is for a schedule II opioid drug... Start Date: 06/21/22 Status: Ordered Zoloft 50 mg oral tablet 1 tablet = 50 mg, By Mouth, Daily, # 30 tablet, 3 Refills, Maintenance, 06/21/22 12:33:00 EST, Tablet, [facility]/pharmacy #[id number], Partial fill upon patient [...] Associate Professional Member Role: PCP Address: Address: [address] [place] [address]. 3[address] [place] [address]- [place] Care Team Related Persons Name: KELL GONSALVES Address: [place] [address] Name: CONG LENZ Address: home [address] [place], [place] [id number]
--- OUTSIDE RECORDS SUMMARY | 2024-03-16 19:24 | XMS_ITS | Continuity of Care Document ---
Author Organization [facility] Address [address] [facility], [address] [place] [address]- Care Team Providers Care Instrumental Musician Name Role Phone Josiane Ledezma Primary Care Physician Encounter 07/19/22 - 08/31/22 [facility] [address], [facility] [address] [place] [address]- Attending Physician: Sindi MOJICA, Kaykay Carpenter Admitting Physician: Sindi MOJICA, Kaykay Carpenter Referring Physician: Kaykay Delong NP Allergies, Adverse Reactions, Alerts Substance Reaction Severity Status flu vaccines Hives Severe Active Immunizations Given and Recorded Vaccine Date Status Refusal Reason SARS-CoV-2 (COVID-19) mRNA-6229 vaccine 02/21/22 R ecorded Medications amLODIPine 10 [...] Active Obese class I Confirmed Active Results Radiology Reports * Exam Date Time Procedure Performing Provider Status 08/01/22 2:27 PM MM Telehealth Consult Libby Lr; Auth (Verified) Notes: (MM Telehealth Consult) Reason For Exam: BX RESULTS RESULT: MM Telehealth Consult This followup service was provided using telemedicine on 08/01/2022 3:22 PM. The patient consented to the visit held via telephone. She is in her parked car. I am at the [facility] office in [facility]. She is the only person participating in the telemedicine Service. 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 Surgical consultation is indicated. The dimensions of the lesion are estimated to be 2.8 x 2.1 x 1.3 cm by ultrasound . The lesion is marked by a wing-shaped microclip. Receptor results are not yet available. She understands the significance of the pathologic findings. The patient describes no fever, chills, or drainage from the biopsy site. As per previous agreement, responsibility for follow-up care was transferred to the Specialists at the [facility] [place]. An appointment was made for consultation with Dr. Staley on August 24, 2022 at 1:40 PM at [facility]. 10 minutes of the appointment was physician time spent with the patient discussing the significanceof the biopsy results, and the recommended management and follow-up care with the patient. PATIENT LETTER: Not needed because the biopsy results were discussed with the patient. WSN: [id number] Ordering Physician: Kaykay Delong Dictated By: Yohan Arredondo MD Dictated Date/Time: 08/01/22 3:24 pm Reviewed By: Yohan Arredondo MD Signed By: Yohan Arredondo MD Signed Date/Time: 08/01/22 3:24 pm Transcribed By: LUIS MIGUEL Geotechnical Department Manager Date/Time: 08/01/22 3:22 pm Birads: Social History Social History Type Response Smoking Status Never (less than 100 in lifetime) entered on: 06/21/22 Sex Note * BHSPsam , CIS S: TRANSCRIBE Yohan Arredondo MD: VERIFY Event Display: Result: Authored Date: [id number] This followup service was provided using telemedicine on 08/01/2022 3:22 PM. The patient consented to the visit held via telephone. She is in her parked car. I am at the [facility] office in [facility]. She is the only person participating in the telemedicine Service. 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 Surgical consultation is indicated. The dimensions of the lesion are estimated to be 2.8 x 2.1 x 1.3 cm by ultrasound . The lesion is marked by a wing-shaped microclip. Receptor results are not yet available. She understands the significance of the pathologic findings. The patient describes no fever, chills, or drainage from the biopsy site. As per previous agreement, responsibility for follow-up care was transferred to the Specialists at the [facility]. An appointment was made for consultation with Dr. Staley on August 24, 2022 at 1:40 PM at [facility]. 10 minutes of the appointment was physician time spent with the patient discussing the significanceof the biopsy results, and the recommended management and follow-up care with the patient. PATIENT LETTER: Not needed because the biopsy results were discussed with the patient. WSN: [id number] Ordering Physician: Kaykay Delong Dictated By: Yohan Arredondo MD Dictated Date/Time: 08/01/22 3:24 pm Reviewed By: Yohan Arredondo MD Signed By: Yohan Arredondo MD Signed Date/Time: 08/01/22 3:24 pm Transcribed By: LUIS MIGUEL Geotechnical Department Manager Date/Time: 08/01/22 3:22 pm Birads: Patient Care team information Care Team Personnel Name: Josiane Ledezma Position: [facility] PCO Associate Professional Member Role: PCP Address: Address: [address] [place] [address]. 3rd [place] [address]- Care Team Related Persons Name: KELL GONSALVES Address: [place] [address] Name: CONG LENZ Address: home [address] [place] [address]
--- OUTSIDE RECORDS SUMMARY | 2024-03-16 19:24 | XMS_ITS | Continuity of Care Document ---
Author Organization [facility] Address [address] [place] [address]- Care Team Providers Care Medical Pathology Teacher Name Role Phone Josiane Ledezma Primary Care Physician Encounter [facility] Date(s): 04/30/23 - 05/30/23 [facility] [address] [place], [place] [address] Allergies, Adverse Reactions, Alerts Substance Reaction Severity Status flu vaccines Hives Severe Active Immunizations Given and Recorded Vaccine Date Status Refusal Reason tetanus/diphtheria/pertussis, acel(Tdap) 1 10/19/22 Given SARS-CoV-2 (COVID-19) mRNA-1273 vaccine 02/21/22 R ecorded 1Result Comment: [facility] [id number] Medications amLODIPine 10 mg oral tablet 1 tablet = 10 mg, By Mouth, Daily, # 30 tablet, 5 Refills, Maintenance, 12/19/22 20:22:00 EDT, Tablet, [facility], Partial fill upon patient request if the prescription is for a schedule II opioid drug., 165.4, cm, 12/19/22 9:40:00 EDT, Height... Start Date: 12/19/22 Status: Ordered anastrozole 1 mg oral tablet 1 tablet, By Mouth, Daily, # 30 tablet, 2 Refills, Maintenance, 04/04/23 17:28:00 EDT, [facility], 165.4, cm, 03/30/23 9:41:00 EDT, Height, 89.7, kg, 03/06/23 14:16:00 EDT, Dry Weight Start Date: 04/04/23 Status: Ordered atorvastatin 80 mg oral tablet 1 tablet = 80 mg, By Mouth, Daily, # 90 tablet, 0 Refills, Maintenance, 03/07/23 16:56:00 EDT, Tablet, [facility]/pharmacy #0693, Partial fill upon patient request if the prescription is for a schedule II opioid drug., 165.4, cm, 03/06/23 14:16:00 EDT, Heigh... Start Date: 03/07/23 Status: Ordered cyclobenzaprine 10 mg oral tablet See Instructions, TAKE 1 TBALET BY MOUTH NIGHTLY NEEDED FOR MUSCLE SPASM., # 21 tablet, Refills 0, Maintenance, 11/20/22 11:08:00 EDT, Instructions Replace Required Details, Route to Pharmacy Electronically, [facility] STORE 49654, 165.4, cm, 11/20/22 10:... Start Date: 11/20/22 Status: Ordered dexamethasone 4 mg oral tablet See Instructions, 2 tablet By Mouth 2 times a day for 3 days, starting on the day before treatment,then the day of treatment and the day after treatment., # 48 tablet, 0 Refills, Maintenance, 11/17/22 10:18:00 EDT, [facility]/pharmacy #0693, Partial fill up... Start Date: 11/17/22 Status: Ordered hydrOXYzine hydrochloride 50 mg oral tablet 1 tablet, By Mouth, Daily at bedtime, # 90 tablet, 2 Refills, Maintenance, 04/17/23 10:18:00 EDT, [facility]/pharmacy #0693, 165.4, cm, 03/30/23 9:41:00 [...] 04/30/23 18:29:00 EDT, Route to Pharmacy Electronically, [facility]/pharm[facility] #0693, 165.4, cm, 03/30/23 9:41:00 EDT, Height, 89.7, kg, 03/06/23 14:16:00 EDT, Dry Weight Start Date: 04/30/23 Status: Ordered meloxicam 15 mg oral tablet 1 tablet, By Mouth, Daily, # 90 tablet, 1 Refills, Maintenance, 05/01/23 10:48:00 EDT, [facility], 165.4, cm, 03/30/23 9:41:00 EDT, Height, 89.7, kg, 03/06/23 14:16:00 EDT, Dry Weight Start Date: 05/01/23 Status: Ordered ondansetron 4 mg oral tablet 1-2 tablet, By Mouth, Every 8 hours, PRN Nausea, # 30 tablet, 1 Refills, Maintenance, 11/17/22 10:19:00 EDT, [facility]/pharmacy #0693, Partial fill upon patient request if the prescription is for a schedule II opioid drug., 165.4, cm, 11/02/22 9:39:00 EDT,... Start Date: 11/17/22 Status: Ordered prochlorperazine 5 mg oral tablet 1-2 tablet, By Mouth, Every 6 hours, PRN Nausea, # 60 tablet, 1 Refills, Maintenance, 11/17/22 10:19:00 EDT, [facility]/pharmacy #0693, Partial fill upon patient request if the prescription is for a schedule II opioid drug., 165.4, cm, 11/02/22 9:39:00 EDT,... Start Date: 11/17/22 Status: Ordered sertraline 100 mg oral tablet 1 tablet, By Mouth, Daily, # 90 tablet, 1 Refills, Maintenance, 04/17/23 8:29:00 EDT, [facility], 165.4, cm, 03/30/23 9:41:00 EDT, Height, 89.7, [...] Care Team Personnel Name: Josiane Ledezma Position: [facility] PCO Associate Professional Member Role: PCP Address: Address: [address] [place] [address]. 3rd [address] [place], [place] [address] Name: Ariadna Fitzgerald RN Position: [facility] Onco RN Member Role: Primary Care Nurse Name: Cecy Boston RN Position: [facility] Onco RN Member Role: Primary Care Nurse Care Team Related Persons Name: KELL GONSALVES Address: home [address] [place] [address] Name: CONG LENZ Address: home [address] [place] [address]
--- OUTSIDE RECORDS SUMMARY | 2024-03-16 19:24 | XMS_ITS | Continuity of Care Document ---
Author Organization [facility] Address [address] [place] [address]- Care Team Providers Care Campus Administrator Name Role Phone Josiane Ledezma Primary Care Physician Encounter [facility] Date(s): 09/17/23 - 10/17/[address] [address]- Attending Physician: Admtr, Melida Admitting Physician: Admtr, Ar8 Referring Physician: Admtr, Ar8 Allergies, Adverse Reactions, Alerts Substance Reaction Severity Status flu vaccines Hives Severe Active Immunizations Given and Recorded Vaccine Date Status Refusal Reason tetanus/diphtheria/pertussis, acel(Tdap) 1 10/19/22 Given SARS-CoV-2 (COVID-19) mRNA-5524 vaccine 02/21/22 R ecorded 1Result Comment: [facility] [id number] Medications acetaminophen 325 mg oral tablet 650 [...] tablet, 1 Refills, Maintenance, 08/07/23 9:18:00 EST, [facility] STORE 48565, 165.4, cm, 07/23/23 10:56:00 EST, Height, 89.2, kg, 06/07/23 10:32:00 EDT, Dry Weight Start Date: 08/07/23 Status: Ordered anastrozole 1 mg oral tablet 1 tablet, By Mouth, Daily, # 30 tablet, 11 Refills, Maintenance, 07/19/23 16:13:00 EST, [facility]/pharmacy #0693, 165.4, cm, 07/11/23 14:22:00 EST, [...] tablet, 1 Refills, Maintenance, 08/27/23 6:34:00 EST, [facility]/pharmacy #0693, 165.4, cm, 08/23/23 12:12:00 EST, [...] 04/30/23 18:29:00 EDT, Route to Pharmacy Electronically, [facility]/pharmacy #0693, 165.4, cm, 03/30/23 9:41:00 EDT, [...] Refills, Maintenance, 04/17/23 8:29:00 EDT, [facility], 165.4, cm, 03/30/23 9:41:00 EDT, Height, 89.7, kg, 03/06/23 14:16:00 EDT, Dry Weight Start Date: 04/17/23 Status: Ordered traZODone 50 mg oral tablet 50 mg, 1, tablet, By Mouth, Daily at bedtime, # 30 tablet, Refills 4, Tot. Refills 4, Maintenance, 07/23/23 11:38:00 EST, Route to Pharmacy Electronically, [facility]/pharmacy #0693, Partial fill upon patient request [...] Primary Care Nurse Name: Josiane Ledezma Position: [facility] PCO Associate Professional Member Role: PCP Address: Address: [address] [place] [address]. 3rd Floor [place], [place] [address] Name: Laurel Perales RN Position: S RN Member Role: Primary Care Nurse Name: Ifeanyi Brown RN Position: [facility] Onco RN Member Role: Primary Care Nurse Name: Ariadna Fitzgerald RN Position: [facility] Onco RN Member Role: Primary Care Nurse Name: Mariaa Dunn RN Position: [facility] RN Member Role: Primary Care Nurse Name: Cecy Boston RN Position: [facility] Onco RN Member Role: Primary Care Nurse Care Team Related Persons Name: KELL GONSALVES Address: home [address] [place] [address] Name: CONG LENZ Address: home [address] [place] [address]
--- OUTSIDE RECORDS SUMMARY | 2024-03-16 19:25 | XMS_ITS | Continuity of Care Document ---
Author Organization [facility] Address [address] [facility] [place] [address]- Care Team Providers Care Credit Portfolio Advisor Name Role Phone Josiane Ledezma Primary Care Physician Encounter [facility] Date(s): 03/01/23 - 03/31/23 [facility] [address] [facility] [place] [address]- Attending Physician: Admtr, Melida Admitting Physician: Admtr, Melida Referring Physician: Admtr, Ar8 Allergies, Adverse Reactions, Alerts Substance Reaction Severity Status flu vaccines Hives Severe Active Immunizations Given and Recorded Vaccine Date Status Refusal Reason tetanus/diphtheria/pertussis, acel(Tdap) 1 10/19/22 Given SARS-CoV-2 (COVID-19) mRNA-1273 vaccine 02/21/22 R ecorded 1Result Comment: [facility] [id number] Medications amLODIPine 10 mg oral tablet 1 tablet = 10 mg, By Mouth, Daily, # 30 tablet, 5 Refills, Maintenance, 12/19/22 20:22:00 EDT, Tablet, [facility], Partial fill upon patient request if the prescription is for a schedule II opioid drug., 165.4, cm, 12/19/22 9:40:00 EDT, Height... Start Date: 12/19/22 Status: Ordered anastrozole 1 mg oral tablet 1 tablet = 1 mg, By Mouth, Daily, # 30 tablet, 2 Refills, Maintenance, 03/11/23 16:01:00 EDT, Tablet, [facility], Partial fill upon patient request if the prescription is for a schedule II opioid drug., 165.4, cm, 03/06/23 14:16:00 EDT, Height... Start Date: 03/11/23 Status: Ordered atorvastatin 80 mg oral tablet [...] Details, Route to Pharmacy Electronically, [facility], 165.4, cm, 11/20/22 10:... Start Date: 11/20/22 [...] tablet, 2 Refills, Maintenance, 01/15/23 14:21:00 EDT, [facility], 165.4, cm, 01/09/23 10:06:00 EDT, Height, 88.5, [...] 11/20/22 11:08:00 EDT, Route to Pharmacy Electronically, [facility] STORE 29729, 165.4, cm, 11/20/22 10:43:00 EDT, Height, 91.1, kg, :39:00 EDT, Dry Weight Start Date: 11/20/22 Status: Ordered meloxicam 15 mg oral tablet 1 tablet = 15 mg, By Mouth, Daily, # 90 tablet, 0 Refills, Maintenance, 01/31/23 15:58:00 EDT, Tablet, [facility]/pharmacy #0693, Partial fill upon patient request if the prescription is for a schedule II opioid drug., 165.4, cm, 01/31/23 15:04:00 EDT, Heigh... Start Date: 01/31/23 Status: Ordered ondansetron 4 mg oral tablet 1-2 tablet, By Mouth, Every 8 hours, PRN Nausea, # 30 tablet, 1 Refills, Maintenance, 11/17/22 10:19:00 EDT, [facility]/pharmacy #0693, Partial fill upon patient request if the prescription is for a schedule II opioid drug., 165.4, cm, 11/02/22 9:39:00 EDT,... Start Date: 11/17/22 Status: Ordered prochlorperazine 5 mg oral tablet 1-2 tablet, By Mouth, Every 6 hours, PRN Nausea, # 60 tablet, 1 Refills, Maintenance, 11/17/22 10:19:00 EDT, [facility]/pharmacy #0693, Partial fill upon patient request if the prescription is for a schedule II opioid drug., 165.4, cm, 11/02/22 9:39:00 EDT,... Start Date: 11/17/22 Status: Ordered Zoloft 100 mg oral tablet 1 tablet = 100 mg, By Mouth, Daily, # 90 tablet, 1 Refills, Maintenance, 10/19/22 11:10:00 EST, Tablet, [facility]/pharmacy #0693, Partial fill upon patient request [...] Care Team Personnel Name: Josiane Ledezma Position: [facility] PCO Associate Professional Member Role: PCP Address: Address: [address] [place] [address]. 3rd Floor [place], [place] [address] Name: Ariadna Fitzgerald RN Position: [facility] Onco RN Member Role: Primary Care Nurse Name: Cecy Boston RN Position: [facility] Onco RN Member Role: Primary Care Nurse Care Team Related Persons Name: KELL GONSALVES Address: home [address] [place] [address] Name: CONG LENZ Address: home [facility] [place] [address]
--- OUTSIDE RECORDS SUMMARY | 2024-03-16 19:25 | XMS_ITS | Continuity of Care Document ---
Author Organization [facility] Adult Address [address] [place] [address]- Care Team Providers Care Fence Manufacture Supervisor Name Role Phone Josiane Ledezma Primary Care Physician Encounter [facility] Date(s): 08/03/23 - 09/02/23 [facility] [address] [place] [address]- Allergies, Adverse Reactions, Alerts Substance Reaction Severity Status flu vaccines Hives Severe Active Immunizations Given and Recorded Vaccine Date Status Refusal Reason tetanus/diphtheria/pertussis, acel(Tdap) 1 10/19/22 Given SARS-CoV-2 (COVID-19) mRNA-1273 vaccine 02/21/22 R ecorded 1Result Comment: [facility] [id number] Medications amLODIPine 10 mg oral tablet 1 tablet, By Mouth, Daily, # 90 tablet, 1 Refills, Maintenance, 08/07/23 9:18:00 EST, [facility] STORE 29736, 165.4, cm, 07/23/23 10:56:00 EST, Height, 89.2, [...] 18:29:00 EDT, Route to Pharmacy Electronically, [facility]/pharmacy #0693, 165.4, cm, 03/30/23 9:41:00 EDT, Height, 89.7, kg, 03/06/23 14:16:00 EDT, Dry Weight Start Date: 04/30/23 Status: Ordered meloxicam 15 mg oral tablet 1 tablet, By Mouth, Daily, # 90 tablet, 1 Refills, Maintenance, 05/01/23 10:48:00 EDT, [facility], 165.4, cm, 03/30/23 9:41:00 EDT, Height, 89.7, kg, 03/06/23 14:16:00 EDT, Dry Weight Start Date: 05/01/23 Status: Ordered ondansetron 4 mg oral tablet 1-2 tablet, By Mouth, Every 8 hours, PRN Nausea, # 30 tablet, 1 Refills, Maintenance, 11/17/22 10:19:00 EDT, [facility]/pharmacy #0693, Partial fill upon patient request if the prescription is for a schedule II opioid drug., 165.4, cm, 11/02/22 9:39:00 EDT,... Start Date: 11/17/22 Status: Ordered sertraline 100 mg oral tablet 1 tablet, By Mouth, Daily, # 90 tablet, 1 Refills, Maintenance, 04/17/23 8:29:00 EDT, [facility] STORE 55744, 165.4, cm, 03/30/23 9:41:00 EDT, Height, 89.7, kg, 03/06/23 14:16:00 EDT, Dry Weight Start Date: 04/17/23 Status: Ordered traZODone 50 mg oral tablet 50 mg, 1, tablet, By Mouth, Daily at bedtime, # 30 tablet, Refills 4, Tot. Refills 4, Maintenance, 07/23/23 11:38:00 EST, Route to Pharmacy Electronically, [facility]/pharmacy #0653, Partial fill upon patient request if the [...] Care Team Personnel Name: Josiane Ledezma Position: [facility] PCO Associate Professional Member Role: PCP Address: Address: [address] [place] [address]. 3rd [place] [address]- Name: Ifeanyi Brown RN Position: [facility] Onco RN Member Role: Primary Care Nurse Name: Ariadna Fitzgerald RN Position: [facility] Onco RN Member Role: Primary Care Nurse Name: Cecy Boston RN Position: [facility] Onco RN Member Role: Primary Care Nurse Care Team Related Persons Name: KELL GONSALVES Address: home [address] [place] [address] Name: CONG LENZ Address: home [facility] [place] [address]
--- OUTSIDE RECORDS SUMMARY | 2024-03-16 19:25 | XMS_ITS | Continuity of Care Document ---
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 [id number] Medications amLODIPine 10 mg oral tablet 1 [...] Replace Required Details, Route to Pharmacy Electronically, [facility] 12655, 165.4, cm, 11/20/22 10:... Start Date: 11/20/22 [...] tablet, 2 Refills, Maintenance, 01/15/23 14:21:00 EDT, [facility] 36568, 165.4, cm, 01/09/23 10:06:00 EDT, Height, 88.5, [...] 11/20/22 11:08:00 EDT, Route to Pharmacy Electronically, [facility] 56619, 165.4, cm, 11/20/22 10:43:00 EDT, Height, 91.1, [...] Care Team Personnel Name: Josiane Ledezma Position: [facility] PCO Associate Professional Member Role: PCP Address: Address: [address] [place] [address]- Name: Ariadna Fitzgerald RN Position: [facility] Onco RN Member Role: Primary Care Nurse Care Team Related Persons Name: KELL GONSALVES Address: home [address] [place] [address] Name: CONG LENZ Address: home [address] [place] [address]
--- OUTSIDE RECORDS SUMMARY | 2024-03-16 19:25 | XMS_ITS | Continuity of Care Document ---
Author Organization [facility] Address [address] [place] [address]- Care Team Providers Care Bindery Chief Name Role Phone Josiane Ledezma Primary Care Physician Encounter 09/26/23 - 10/03/23 [facility] [address] [place] [address]- Discharge Disposition: GOALS MET Allergies, Adverse Reactions, Alerts Substance Reaction Severity Status flu vaccines Hives Severe Active Immunizations Given and Recorded Vaccine Date Status Refusal Reason tetanus/diphtheria/pertussis, acel(Tdap) 1 10/19/22 Given SARS-CoV-2 (COVID-19) mRNA-1273 vaccine 02/21/22 R ecorded 1Result Comment: [facility] [id number] Medications acetaminophen 325 mg oral tablet 650 [...] Refills, Maintenance, 08/07/23 9:18:00 EST, [id number], 165.4, cm, 07/23/23 10:56:00 EST, Height, 89.2, [...] tablet, 1 Refills, Maintenance, 08/27/23 6:34:00 EST, [facility]pharmacy [facility][id number], 165.4, cm, 08/23/23 12:12:00 EST, Height, [...] 04/30/23 18:29:00 EDT, Route to Pharmacy Electronically, [facility]/pharmacy #[id number], 165.4, cm, 03/30/23 9:41:00 EDT, Height, 89.7, kg, 03/06/23 14:16:00 EDT, Dry Weight Start Date: 04/30/23 Status: Ordered ondansetron 4 mg oral tablet 1-2 tablet, By Mouth, Every 8 hours, PRN Nausea, # 30 tablet, 1 Refills, Maintenance, 11/17/22 10:19:00 EDT, [facility]/pharmacy #[id number], Partial fill upon patient request if [...] tablet, 1 Refills, Maintenance, 04/17/23 8:29:00 EDT, [facility], 165.4, cm, 03/30/23 9:41:00 EDT, Height, 89.7, kg, 03/06/23 14:16:00 EDT, Dry Weight Start Date: 04/17/23 Status: Ordered traZODone 50 mg oral tablet 50 mg, 1, tablet, By Mouth, Daily at bedtime, # 30 tablet, Refills 4, Tot. Refills 4, Maintenance, 07/23/23 11:38:00 EST, Route to Pharmacy Electronically, [facility]/pharmacy #[id number], Partial fill upon patient request if [...] Primary Care Nurse Name: Josiane Ledezma Position: [facility] PCO Associate Professional Member Role: PCP Address: Address: [address] [place] [address]. [address] [place], [place] [address] Name: Laurel Perales RN Position: S RN Member Role: Primary Care Nurse Name: Ifeanyi Brown RN Position: S Onco RN Member Role: Primary Care Nurse Name: Ariadna Fitzgerald RN Position: [facility] [place] RN Member Role: Primary Care Nurse Name: Mariaa Dunn RN Position: S RN Member Role: Primary Care Nurse Name: Cecy [place] RN Position: [facility] Onco RN Member Role: Primary Care Nurse Care Team Related Persons Name: SHERI GONSALVESICA Address: home [address] [place] [address] Name: MAGALY LENZIAN Address: home [address] [place], [place] [id number]
--- OUTSIDE RECORDS SUMMARY | 2024-03-16 19:25 | XMS_ITS | Continuity of Care Document ---
Author Organization [facility] Address [address] [place] [address]- Care Team Providers Care Software Publisher Name Role Phone Micah LEMON, Josiane Junior Primary Care Physician Encounter [facility] Date(s): 07/23/23 - 07/30/23 [facility] [address] [place] [id number]- Encounter Diagnosis HTN (hypertension)(Discharge Diagnosis) - 07/23/23 Hyperlipidemia(Discharge Diagnosis) - 07/23/23 Invasive ductal carcinoma of right breast(Discharge Diagnosis) - 07/23/23 Diabetes(Discharge Diagnosis) - 07/23/23 Depression(Discharge Diagnosis) - 07/23/23 Insomnia(Discharge Diagnosis) - 07/23/23 Osteoarthritis of left knee(Discharge Diagnosis) - 07/23/23 Osteopenia(Discharge Diagnosis) - 07/23/23 Attending Physician: Josiane Ledezma Allergies, Adverse Reactions, Alerts Substance Reaction Severity Status flu vaccines Hives Severe Active Immunizations Given and Recorded Vaccine Date Status Refusal Reason tetanus/diphtheria/pertussis, acel(Tdap) 1 10/19/22 Given SARS-CoV-2 (COVID-19) mRNA-1273 vaccine 02/21/22 R ecorded 1Result Comment: [facility] [id number] Medications amLODIPine 10 mg oral tablet 1 tablet = 10 mg, By Mouth, Daily, # 30 tablet, 5 Refills, Maintenance, 12/19/22 20:22:00 EDT, [facility], [id number], Partial fill upon patient request if the prescription is for a schedule II opioid drug., 165.4, cm, 12/19/22 9:40:00 EDT, Height... Start Date: 12/19/22 Status: Ordered anastrozole 1 mg oral tablet 1 tablet, By Mouth, Daily, # 30 tablet, 11 Refills, Maintenance, 07/19/23 16:13:00 EST, [facility]/pharmacy #[id number], 165.4, cm, 07/11/23 14:22:00 EST, Height, 89.2, kg, 06/07/23 10:32:00 EDT, Dry Weight Start Date: 07/19/23 Status: Ordered atorvastatin 80 mg oral tablet 1 tablet, By Mouth, Daily, # 90 tablet, 0 Refills, Maintenance, 06/01/23 14:15:00 EDT, [facility], 165.4, cm, 03/30/23 9:41:00 EDT, Height, 89.7, kg, 03/06/23 14:16:00 EDT, Dry Weight Start Date: 06/01/23 Status: Ordered lisinopril 10 mg oral tablet 1, tablet, By Mouth, Daily, # 90 tablet, Refills 2, Tot. Refills 2, Maintenance, 04/30/23 18:29:00 EDT, Route to Pharmacy Electronically, [facility]/pharmacy #[id number], 165.4, cm, 03/30/23 9:41:00 EDT, Height, 89.7, kg, 03/06/23 14:16:00 EDT, Dry Weight Start Date: 04/30/23 Status: Ordered meloxicam 15 mg oral tablet 1 tablet, By Mouth, Daily, # 90 tablet, 1 Refills, Maintenance, 05/01/23 10:48:00 EDT, [id number], 165.4, cm, 03/30/23 9:41:00 EDT, Height, 89.7, kg, 03/06/23 14:16:00 EDT, Dry Weight Start Date: 05/01/23 Status: Ordered ondansetron 4 mg oral tablet 1-2 tablet, By Mouth, Every 8 hours, PRN Nausea, # 30 tablet, 1 Refills, Maintenance, 11/17/22 10:19:00 EDT, [facility]/pharmacy #[id number], Partial fill upon patient request if the prescription is for a schedule II opioid drug., 165.4, cm, 11/02/22 9:39:00 EDT,... Start Date: 11/17/22 Status: Ordered sertraline 100 mg oral tablet 1 tablet, By Mouth, Daily, # 90 tablet, 1 Refills, Maintenance, 04/17/23 8:29:00 EDT, [facility], 165.4, cm, 03/30/23 9:41:00 EDT, Height, 89.7, kg, 03/06/23 14:16:00 EDT, Dry Weight Start Date: 04/17/23 Status: Ordered traZODone 50 mg oral tablet 50 mg, 1, tablet, By Mouth, Daily at bedtime, # 30 tablet, Refills 4, Tot. Refills 4, Maintenance, 07/23/23 11:38:00 EST, Route to Pharmacy Electronically, [facility]/pharmacy #[id number], Partial fill upon patient request if the [...] Confirmed Active Obese class I Confirmed Active Diagnosis Diagnosis Type Effective Dates Health Status Clinical Service Informant HTN (hypertension) Discharge Diagnosis 07/23/23 Hyperlipidemia Discharge Diagnosis 07/23/23 Invasive ductal carcinoma of right breast Discharge Diagnosis 07/23/23 Diabetes Discharge Diagnosis 07/23/23 Depression Discharge Diagnosis 07/23/23 Insomnia Discharge Diagnosis 07/23/23 Osteoarthritis of left knee Discharge Diagnosis 07/23/23 Osteopenia Discharge Diagnosis 07/23/23 Vital Signs Most recent to oldest [Reference Range]: 1 Height 165.4 cm (07/23/23 10:56 AM) Weight 90.2 kg (07/23/23 10:56 AM) Oxygen Saturation [94-100 %] 96 % (07/23/23 10:56 AM) Pulse Rate [55-90 bpm] 60 bpm (07/23/23 10:56 AM) Body Mass Index [18.5-24.99 kg/m2] 32.97 kg/m2 *>HHI* (07/23/23 10:56 AM) Blood Pressure [90-138/55-84 mm Hg] 134/ 81mm Hg (07/23/23 10:56 AM) Temperature [96.8-100.4 DegF] 97.4 DegF (07/23/23 10:56 AM) Mode of Delivery (Oxygen) Room air (07/23/23 10:56 AM) Blood pressure sites Arm, left (07/23/23 10:56 AM) Temperature Route Temporal (07/23/23 10:56 AM) Weight Obtained Via Standing scale (07/23/23 10:56 AM) Social History Social History Type Response Smoking Status Never (less than 100 in lifetime) entered on: 06/21/22 Sex Note * Faby Thorpe: PERFORM, SIGN, VERIFY Event Display: Patient Education/Instruction Authored Date: [id number] [facility] *[facility] Clinical Summary Name GAEL LENZ Age 62 Years 1960 PCP Micah LEMON, Josiane Junior PCP Visit Date 07/23/2023 10:42:00 Additional Instructions: Scheduled Appointments?? Future Appointments ?[facility] ?[address]??[place],??[place],??[address] ?Phone:??[phone]?Fax:??-- ?Appt. Date:??07/30/2023?7:45 AM ?Scheduled Provider:??[facility] 3D Mammo Rm 4 ?[facility] ?[address]??[place],??[place],??[address] ?Phone:??[phone]?Fax:??-- ?Appt. Date:??09/13/2023?9:00 AM ?Scheduled Provider:??[facility] US Breast Rm 1 ?[facility] ?[address] ?[place],??[place],??[address] ?Phone:??--?Fax:??-- ?Appt. Date:??09/21/2023?2:00 PM ?Scheduled Provider:??Bear Salazar Follow-Up Instructions ?? With: Address: When: Micah LEMON, Josiane Junior Comments: follow up 4-6 months with me Diagnosis Type 2 diabetes mellitus without complications; Insomnia, unspecified; Malignant neoplasm of unspecified site of right female breast; Unilateral primary osteoarthritis, left knee; Depression, unspecified; Essential (primary) hypertension; Hyperlipidemia, unspecified; Other specified disorders of bone density and structure, unspecified site Medications: Please continue your medications until treatment [...] tab(s) Oral Daily. Refills: 0. Next Dose: Lisinopril (lisinopril 10 mg oral tablet) 1 tab(s) Oral Daily. Refills: 2. Next Dose: Meloxicam (meloxicam 15 mg oral tablet) 1 tab(s) Oral Daily. Refills: 1. Next Dose: Ondansetron (ondansetron 4 mg oral tablet) 1-2 tablet Oral every 8 hours as needed Nausea. Refills:1. Next Dose: Sertraline (sertraline 100 mg oral tablet) 1 tab(s) Oral Daily. Refills: 1. Next Dose: No Longer Take the Following Medications Cyclobenzaprine (cyclobenzaprine 10 mg oral tablet) TAKE 1 TBALET BY MOUTH NIGHTLY NEEDED FOR MUSCLE SPASM.. Refills: 0. Dexamethasone (dexamethasone 4 mg oral tablet) 2 tablet By Mouth 2 times a day for 3 days, startingon the day before treatment, then the day of treatment and the day after treatment.. Refills: 0. Lidocaine/Prilocaine Topical (lidocaine-prilocaine 2.5%-2.5% topical cream) 1 raphael Topically once. apply a thin layer on skin over the port 1 hour prior to port access. cover with clear plastic film. Refills: 0. PROCHLORperazine (prochlorperazine 5 mg oral tablet) 1-2 tablet Oral every 6 hours as needed Nausea. Refills: 1. Allergy Info:?? flu vaccines Medications Given This Visit Future Orders ?Hemoglobin A1C (Monitoring)? Order Date:07/23/23?- Complete by?07/23/23 ?Lipid Panel? Order Date:07/23/23?- Complete by?07/23/23 Vital Signs Height 165.4 cm Weight 90.2 kg BMI 32.97 kg/m2 Blood Pressure 134 mm Hg/81 mm Hg Temperature 97.4 DegF Pulse Rate 60 bpm Respiratory Rate 02 Sat Mode of Delivery 96 %/Room air You can now view a summary of your hospital visit from the comfort of your home through a free online portal called [employer]. [employer] is a website that allows you to securely view your medical information including discharge summary, medications and follow-up visits. ??You can alsosend a secure electronic message to your doctor???s office to request appointments, renew medications or just ask a question. You can enroll at [email or web address] or register during your next office visit. [...] primary care provider, you may find a [facility] provider by calling [facility] [employer] Link at [phone]. [facility], in keeping with [facility] guidance, no longer requires face masks for [...] Care Team Personnel Name: Josiane Ledezma Position: [facility] PCO Associate Professional Member Role: PCP Address: Address: [address] [place], [place] [address] Name: Ifeanyi Brown RN Position: [facility] Onco RN Member Role: Primary Care Nurse Name: Ariadna Fitzgerald RN Position: [facility] Onco RN Member Role: Primary Care Nurse Name: Cecy Boston RN Position: [facility] Onco RN Member Role: Primary Care Nurse Care Team Related Persons Name: KELL GONSALVES Address: home [address] [place] [id number] Name: CONG LENZ Address: home [address] [place] [address]
--- OUTSIDE RECORDS SUMMARY | 2024-03-16 19:25 | XMS_ITS | Continuity of Care Document ---
Author Organization [facility] Address [address] [place] [address]- Care Team Providers Care Creative Services Specialist Name Role Phone Josiane Ledezma Primary Care Physician Encounter [facility] Date(s): 09/04/22 - 10/04/22 [facility] [address] [place] [address] Attending Physician: Admmoose, Melida Admitting Physician: AdmtrMelida Referring Physician: Admtr, Ar8 Allergies, Adverse Reactions, Alerts Substance Reaction Severity Status flu vaccines Hives Severe Active Immunizations Given and Recorded Vaccine Date Status Refusal Reason SARS-CoV-2 (COVID-19) mRNA-1278 vaccine 02/21/22 R ecorded Medications amLODIPine 10 [...] 06/22/22 10:24:00... Start Date: 07/19/22 Status: Ordered ibuprofen 600 mg oral tablet 600 mg, 1, tablet, By Mouth, Every 6 hours, for 14 days, alternate every 6 hrs with tylenol, # 50 tablet, Refills 0, Tot. Refills 0, Acute 10/11/22 11:40:00 EST, 09/27/22 11:40:00 EST, [id number], [facility] fill... Start Date: 09/27/22 Stop Date: 10/11/22 Status: Ordered lidocaine 4% topical cream See [...] opioid drug... Start Date: 06/21/22 Status: Ordered oxyCODONE 5 mg oral tablet 5 mg, 1, tablet, By Mouth, Every 6 hours, PRN, # 20 tablet, Refills 0, Tot. Refills 0, Maintenance,for pain, 09/27/22 11:40:00 EST, [id number], Partial fillupon patient request if the prescription is for a s... Start Date: 09/27/22 Status: Ordered Tylenol Extra Strength 500 mg oral tablet 1 tablet = 500 mg, By Mouth, Every 6 hours, PRN as needed for pain, for 14 days, (no more than 4 tabs a day), # 50 tablet, 0 Refills, Acute 10/11/22 11:40:00 EST, 09/27/22 11:40:00 EST, Tablet, [id number], Partial fill upon patient request if... Start Date: 09/27/22 Stop Date: 10/11/22 Status: Ordered Zoloft 50 mg oral tablet [...] Care Team Personnel Name: Josiane Ledezma Position: [facility] PCO Associate Professional Member Role: PCP Address: Address: [address] [place] [address]. [address] [place] [address]- Care Team Related Persons Name: KELL GONSALVES Name: CONG LENZ Address: home [address] [place] [address]
--- OUTSIDE RECORDS SUMMARY | 2024-03-16 19:25 | XMS_ITS | Continuity of Care Document ---
Author Organization [facility] Address [address] [place] [address]- Care Team Providers Care Senior Packaging Engineer Name Role Phone Josiane Jordan Primary Care P marcel Encounter [facility] Date(s): 01/31/24 - 03/01/24 [facility] [address] [place] [address]- Attending Physician: Melida Terrell Admitting Physician: Admtr, Ar8 Referring Physician: Admtr, Ar8 Allergies, Adverse Reactions, Alerts Substance Reaction Severity Status flu vaccines Hives Severe Active Immunizations Given and Recorded Vaccine Date Status Refusal Reason tetanus/diphtheria/pertussis, acel(Tdap) 1 10/19/22 Given SARS-CoV-2 (COVID-19) mRNA-1273 vaccine 02/21/22 R ecorded 1Result Comment: [facility] [id number] Medications acetaminophen 325 mg oral tablet 650 [...] Refills, Maintenance, 08/07/23 9:18:00 EST, [facility], 165.4, cm, 07/23/23 10:56:00 EST, Height, 89.2, [...] Refills, Maintenance, 02/21/24 9:39:00 EDT, [facility], 165, cm, 01/31/24 10:54:00 EDT, Height, 87.4, kg, 12/12/23 10:25:00 EDT, Dry Weight Start Date: 02/21/24 Status: Ordered Golytely - oral powder for reconstitution See Instructions, Per instructions from GI., # 4,000 mL, 0 Refills, Maintenance, 01/31/24 11:39:00 EDT, [facility]/pharmacy #[id number], Partial fill upon patient request if the prescription is for a schedule II opioid drug., Per instructions from GI., 165, cm, 06... Start Date: 01/31/24 Status: Ordered hydrOXYzine hydrochloride 50 mg oral tablet 1 tablet, By Mouth, Daily at bedtime, # 90 tablet, 2 Refills, Maintenance, 01/08/24 9:42:00 EDT, [facility], 165, cm, 12/14/23 9:43:00 EDT, Height, 87.4, kg, 12/12/23 10:25:00 EDT, Dry Weight Start Date: 01/08/24 Status: Ordered lisinopril 10 mg oral tablet 1, tablet, By Mouth, Daily, # 90 tablet, Refills 1, Tot. Refills 1, Maintenance, 01/17/24 9:14:00 EDT, Route to Pharmacy Electronically, [facility]/pharmacy #[id number], 165, cm, 01/11/24 15:16:00 EDT, Height, 87.4, kg, 12/12/23 10:25:00 EDT, Dry Weight Start Date: 01/17/24 Status: Ordered nitrofurantoin macrocrystals-monohydrate 100 mg oral capsule 1 capsule = 100 mg, By Mouth, 2 times a day, for 5 days, # 10 capsule, 0 Refills, Acute 03/04/24 10:27:00 EDT, 02/28/24 10:27:00 EDT, [facility]/pharmacy #[id number], Partial fill upon patient request if the prescription is for a schedule II opioid drug., 165, cm,... Start Date: 02/28/24 Stop Date: 03/04/24 Status: Ordered sertraline 100 mg oral tablet 1 tablet, By Mouth, Daily, # 90 tablet, 1 Refills, Maintenance, 04/17/23 8:29:00 EDT, [facility], 165.4, cm, 03/30/23 9:41:00 EDT, Height, 89.7, kg, 03/06/23 14:16:00 EDT, Dry Weight Start Date: 04/17/23 Status: Ordered traZODone 50 mg oral tablet 1, tablet, By Mouth, Daily at bedtime, # 90 tablet, Refills 1, Maintenance, 10/18/23 10:17:00 EST, Route to Pharmacy Electronically, [facility], 165, cm, 10/09/23 10:25:00 EST, Height, 89.7, [...] Care team information Care Team Personnel Name: Refugio OLIVA, Lita Position: [facility] RN Member Role: Primary Care Nurse Name: Cecy Orta RN Position: S Onco RN Member Role: Primary Care Nurse Name: Laurel Perales RN Position: S RN Member Role: Primary Care Nurse Name: Josiane Jordan Position: [facility] PCO Associate Professional Member Role: PCP Address: Address: [address] [place] [address]. [address] Floor [place], [place] [address] Name: Oli Brown RN Position: [facility] Onco RN Member Role: Primary Care Nurse Name: Ariadna Fitzgerald RN Position: [facility] Onco RN Member Role: Primary Care Nurse Name: Mariaa Dunn RN Position: [facility] RN Member Role: Primary Care Nurse Name: Jimena Islas LPN Position: [facility] RN Member Role: Primary Care Nurse Care Team Related Persons Name: KELL GONSALVES Address: home [address] [place] [address] Name: CONG LENZ Address: home [address] [place] [address]
--- OUTSIDE RECORDS SUMMARY | 2024-03-16 19:25 | XMS_ITS | Continuity of Care Document ---
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 Name Role Phone Josiane Ledezma Primary Care Physician Encounter [facility] Date(s): 11/07/23 - 11/08/[address] [address]- Encounter Diagnosis Diverticulitis(Final) - 11/07/23 Discharge Disposition: A-D/C Home Attending Physician: Nga Mesa MD Admitting Physician: Vikram Fox MD Referring Physician: Not on Staff, Referring MD Allergies, Adverse Reactions, Alerts Substance Reaction Severity Status flu vaccines Hives Severe Active Immunizations Given and Recorded Vaccine Date Status Refusal Reason tetanus/diphtheria/pertussis, acel(Tdap) 1 10/19/22 Given SARS-CoV-2 (COVID-19) mRNA-1273 vaccine 02/21/22 R ecorded 1Result Comment: [facility] [id number] Medications acetaminophen 325 mg oral tablet 650 mg, By Mouth, Every 6 hours, May take OTC not to exceed 3000 mg/day, Refills 0, Maintenance, 09/25/23 7:53:00 EST, Partial fill upon patient request if the prescription is for a schedule II opioid drug. Start Date: 09/25/23 Status: Ordered amLODIPine 10 mg oral tablet 10 mg, Tablet, By Mouth, Hold for BP <120/80, 11/08/23 9:00:00 EDT Start Date: 11/08/23 Stop Date: 11/08/23 Status: Completed amLODIPine 10 mg oral tablet 1 tablet, By Mouth, Daily, # 90 tablet, 1 Refills, Maintenance, 08/07/23 9:18:00 EST, [facility] STORE [id number], 165.4, cm, 07/23/23 10:56:00 EST, Height, 89.2, kg, 06/07/23 10:32:00 EDT, Dry Weight Start Date: 08/07/23 Status: Ordered anastrozole 1 mg oral tablet 1 tablet, By Mouth, Daily, # 30 tablet, 11 Refills, Maintenance, 07/19/23 16:13:00 EST, [facility]/pharmacy #[id number], 165.4, cm, 07/11/23 14:22:00 EST, Height, 89.2, kg, 06/07/23 10:32:00 EDT, Dry Weight Start Date: 07/19/23 Status: Ordered atorvastatin 80 mg oral tablet 1 tablet, By Mouth, Daily, # 90 tablet, 1 Refills, Maintenance, 08/27/23 6:34:00 EST, [facility]/pharmacy #[id number], 165.4, cm, 08/23/23 12:12:00 EST, Height, 89.2, kg, 06/07/23 10:32:00 EDT, Dry Weight Start Date: 08/27/23 Status: Ordered Augmentin 875 mg-125 mg oral tablet 1 tablet, By Mouth, Every 12 hours, for 9 days, # 18 tablet, 0 Refills, Acute 11/17/23 9:52:00 EDT,11/08/23 9:52:00 EDT, Tablet, [facility], Partial fill upon patient request if [...] 04/30/23 18:29:00 EDT, Route to Pharmacy Electronically, [facility]/pharmacy #[id number], 165.4, cm, 03/30/23 9:41:00 EDT, Height, 89.7, kg, 03/06/23 14:16:00 EDT, Dry Weight Start Date: 04/30/23 Status: Ordered lisinopril 10 mg oral tablet 10 mg, Tablet, By Mouth, Hold for BP <120/80, 11/08/23 9:00:00 EDT Start Date: 11/08/23 Stop Date: 11/08/23 Status: Completed ondansetron 4 mg oral tablet 1 tablet = 4 mg, By Mouth, Every 8 hours, PRN Nausea & Vomiting, # 10 tablet, 0 Refills, Maintenance, 11/08/23 9:52:00 EDT, Tablet, [facility], Partial fill upon patient [...] 11/08/23 9:52:00 EDT, Route to Pharmacy Electronically, [facility], Partial fill upon patient r... Start Date: 11/08/23 Stop Date: 11/11/23 Status: Ordered sertraline 100 mg oral tablet 1 tablet, By Mouth, Daily, # 90 tablet, 1 Refills, Maintenance, 04/17/23 8:29:00 EDT, [facility] STORE [id number], 165.4, cm, 03/30/23 9:41:00 EDT, Height, 89.7, kg, 03/06/23 14:16:00 EDT, Dry Weight Start Date: 04/17/23 Status: Ordered traZODone 50 mg oral tablet 1, tablet, By Mouth, Daily at bedtime, # 90 tablet, Refills 1, Maintenance, 10/18/23 10:17:00 EST, Route to Pharmacy Electronically, [facility] STORE [id number], 165, cm, 10/09/23 10:25:00 EST, Height, 89.7, [...] Primary osteoarthritis of left knee Confirmed Active Results Radiology Reports * Exam Date Time Procedure Performing Provider Status 11/07/23 5:[address] Abd/Pelvis W/ IV Contrast Only Karis Sahu; Aly (Verified) Notes: (CT Abd/Pelvis W/ IV Contrast Only) Reason For Exam: LLQ abdominal pain;Other: RESULT: CT Abd/Pelvis W/ IV Contrast Only CT Abd/Pelvis W/ IV Contrast Only Hx of Present Illness: pt with hx of breast cancer, getting infusions currently for it, has had some increased left side abd pain, pain worse when she sits and lays down, does have some associated nausea, no other complaints at this time; Reason: Other:; LLQ abdominal pain; Clinical Question(s): Other:; Order Comment: Patient unable to tolerate PO contrast. TECHNIQUE: Spiral CT through the abdomen and pelvis with IV contrast formatted in 3 planes. 100 cc of Omnipaque 300 was administered intravenously. This study was performed without oral contrast. Weight-based protocol using automatic tube modulation was used to optimize exposure parameters. CTDIvol Body: 16.70 mGy, DLP Body: 970 mGy*cm. COMPARISON: None. FINDINGS: Change Management Coordinator View Findings, Lines and Tubes: None. Visualized Chest: Lung bases are clear. No pleural effusion. The heart is normal in size. No pericardial effusion. There are postsurgical changes in the right lateral breast. Diaphragm: Normal. Liver: Normal. Gallbladder: No CT evidence of gallbladder pathology. Bile ducts: No biliary ductal dilation. Spleen: Normal. Pancreas: There is hypoattenuation throughout the pancreatic parenchyma with minimal peripancreaticfat stranding most prominent in the neck and body. No ductal dilatation. No peripancreatic fluid. Adrenal glands: Normal. Kidneys and ureters: No hydronephrosis, stones, or suspicious masses. Bladder: Normal. Reproductive organs: Unremarkable. Stomach, small bowel, and large bowel: Stomach and small bowel are unremarkable. There is mild diverticulosis of the sigmoid colon with mild surrounding fat stranding suggesting diverticulitis. Appendix: Normal. Peritoneum and retroperitoneum: No ascites or pneumoperitoneum. No omental or mesenteric lesions. Lymph nodes: No enlarged lymph nodes. Blood vessels: Mild vascular calcifications but no aneurysm. No evidence of venous thrombosis. Abdominal and pelvic wall: Unremarkable. Bones: No acute abnormality. No suspicious bone lesion. IMPRESSION: 1. Uncomplicated mild sigmoid diverticulitis. 2. Diffuse hypoattenuation throughout the pancreatic parenchyma and minimal peripancreatic fat stranding raising the concern for acute pancreatitis. Please correlate with biochemical markers. The impression above was relayed to Gaurav Salomon MD by Dr. Lawanda Prasad via [email or web address] with acknowledgement pending on 11/07/2023 at 6:09 PM. WSN: [id number] Ordering Physician: Gaurav Salomon Dictated By: Lawanda Prasad MD Dictated Date/Time: 11/07/23 6:20 pm Reviewed By: Lawanda Prasad MD Signed By: Lawanda Prasad MD Signed Date/Time: 11/07/23 6:20 pm Transcribed By: LUIS MIGUEL Transcribed Date/Time: 11/07/23 6:09 pm Vital Signs Most recent to oldest [Reference Range]: 1 2 3 Height 165 cm (11/08/23 7:19 AM) 165 cm (11/08/23 3:33 AM) 165 cm (11/07/23 10:29 PM) Weight 87.5 kg (11/07/23 6:46 PM) 87.5 kg (11/07/23 4:42 PM) 87.5 kg (11/07/23 2:40 PM) Oxygen Saturation [94-100 %] 100 % (11/08/23 7:19 AM) 99 % (11/08/23 3:33 AM) 94 % (11/07/23 10:29 PM) Pulse Rate [55-90 bpm] 51 bpm *L* (11/08/23 7:19 AM) 57 bpm (11/08/23 3:33 AM) 68 bpm (11/07/23 10:29 PM) Body Mass Index [18.5-24.99 kg/m2] 32.14 kg/m2 *>HHI* (11/07/23 6:46 PM) 32.14 kg/m2 *>HHI* (11/07/23 4:42 PM) 32.14 kg/m2 *>HHI* (11/07/23 2:40 PM) Blood Pressure [90-138/55-84 mm Hg] 122/48mm Hg (11/08/23 10:06 AM) 122/46mm Hg (11/08/23 10:06 AM) 122/48mm Hg (11/08/23 7:19 AM) Respiratory Rate [16-30 br/min] 18 br/min (11/08/23 7:19 AM) 21 br/min (11/08/23 3:33 AM) 20 br/min (11/07/23 10:29 PM) Temperature [96.8-100.4 DegF] 97.9 DegF (11/08/23 7:19 AM) 97.7 DegF (11/08/23 3:33 AM) 98.1 DegF (11/07/23 10:29 PM) Mode of Delivery (Oxygen) Room air (11/08/23 7:19 AM) Room air (11/08/23 3:33 AM) Room air (11/07/23 10:29 PM) Blood pressure sites Arm, right (11/08/23 7:19 AM) Arm, right (11/08/23 3:33 AM) Arm, right (11/07/23 10:29 PM) Temperature Route Oral (11/08/23 7:19 AM) Oral (11/08/23 3:33 AM) Oral (11/07/23 10:29 PM) Dry Weight 87.5 kg (11/07/23 6:46 PM) 87.5 kg (11/07/23 4:42 PM) 87.5 kg (11/07/23 2:40 PM) Weight Obtained Via Patient/family state d (11/07/23 11:09 AM) Dry Weight Obtained Via Patient/family s tated (11/07/23 11:09 AM) Social History Social History Type Response Smoking Status Never (less than 100 in lifetime) entered on: 06/21/22 Sex Admission evaluation note * Paul Singletary DO: PERFORM, MODIFY, MODIFY, MODIFY, MODIFY, MODIFY, MODIFY, MODIFY, MODIFY Event Display: Admission Note Authored Date: [id number] Patient: ??GAEL LENZ ? Age:??63 Years?Sex:??Female?:??1960?? History of Present Illness 63-year-old female with a past medical history of depression, hypertension, hyperlipidemia, invasive ductal carcinoma right breast??for which she began??chemo??therapy and radiation??as well as infusions 3 months ago, osteoarthritis, obesity who presented to the ED for left lower quadrant abdominalpain.?? Denies hematochezia, dysuria, changes in urination.?? Patient states that??she was??in bed last night at 3 AM??and woke up with sharp pain in her left lower??quadrant.?Pain??is nonradiating??with no associated??nausea vomiting. ??She denies any changes in her bowel movements. ??She states that she had??a colonoscopy 12 years ago??with repeat due in 10 years.?? She states that the pain was initially a 5 out of 10??and described as sharp??and is now??a 7 out of 10.?? She states that palpating the area reproduces the pain. ??She reports some improvement??with??morphine.?? Denies any significant changes in her diet or trauma to her abdomen.?? Patient denies any??smoking or drinking hi story.?? Patient states that??she did not take any of her medications today of coming to the ED??but that she was taking all of her??home medications the day prior including her anastrozole for her cancer.?? Patient states that at baseline she is constipated??having to go every other day or so??however??she has not had any changes in her bowel movements recently. ?? Vitals: Blood pressure 140/53 remaining vitals within normal limits. Labs: CBC within normal limits glucose 148 alkaline phosphatase 110 otherwise CMP within normal limits. UA demonstrated albumin trace 2+ leukocytes 9 blood cells, slight bacteria. ?? CT abdomen pelvis with IV contrast: Uncomplicated mild sigmoid diverticulitis.?? Diffuse hypoattenuation throughout the pancreatic parenchyma and minimal peripancreatic fat stranding concerning for acute pancreatitis.?? Review of Systems A review of systems was completed and is otherwise negative except as mentioned in history of present illness. Physical Exam Vitals & Measurements T:??98.6?F?? TMIN:??98.4?F?? TMAX:??98.6?F?? HR:??63??(Peripheral)?? RR:??20?? BP:??140/53?? SpO2:??100%?? WT:??87.5??kg?? General: The patient was found resting and in no acute distress. HEENT:??NCAT, EOMI, no scleral icterus,??moist mucus membranes, trachea midline. Cardiovascular: RRR S1 and S2 heard with no murmurs, rubs or gallops. Respiratory: Breath sounds clear to auscultation bilaterally. No wheezing. GI: Soft.??LLQ tender to palpation??and nondistended. Normal bowel sounds present. MSK: No edema, no erythema in the lower extremities. Skin:??No rashes, bruises or skin breakdown. Neuro: No gross motor or neuro deficits. Sensation intact throughout. Psych: Alert and oriented x3, appropriate level of concern and pleasant. Assessment/Plan 63-year-old female with a past medical history of depression, hypertension, hyperlipidemia, invasive ductal carcinoma right breast??for which she began??chemo??therapy and radiation??as well as infusions 3 months ago, osteoarthritis, obesity who presented to the ED for left lower quadrant abdominalpain. ?? Diverticulitis K57.92 Mild uncomplicated.?? No signs of fistula??obstruction. ??Patient has been hemodynamically stable.?? Pain well-controlled with analgesic medication currently.?? Most likely secondary to chronic constipation. ?? Plan -Clear liquid diet -Patient received??ceftriaxone and metronidazole today??depending on how patient is doing tomorrow consider transitioning to p.o.??Cipro??and Flagyl -Morphine 2 mg IV every 4??for severe pain -Tylenol for??mild pain -Repeat lipase, LFTs, CBC in the morning -Continuous LR ?? ?Pancreatitis CT abdomen pelvis with IV contrast:.?? Diffuse hypoattenuation throughout the pancreatic parenchymaand minimal peripancreatic fat stranding concerning for acute pancreatitis.?? No epigastric pain however. ??No ethanol use??no trauma no recent steroid use??or recent infection. ??Patient not on any??high risk medication such as valproic acid.?? Calcium within normal limits.?? Lipase low. ??Unlikely to be pancreatitis??given clinical and??laboratory findings.? plan -Will repeat lipase?? -Repeat CMP ?? Chronic medical conditions: Hyperlipidemia??continue atorvastatin 80 Hyper??tension: Continue lisinopril 10 mg Depression: Continue sertraline 100 mg Insomnia continue trazodone 50 mg Invasive ductal carcinoma right breast: Continue anastrozole ?? DVTppx: Heparin TID Diet: Clear liquid diet Code Status: Full code ?? Patient care discussed with Dr. Cristian Singletary, DO Internal Medicine PGY-1 Pager [phone]?? Problem List/Past Medical History Ongoing Chest pain Depression HTN (hypertension) Hyperlipidemia Insomnia Invasive ductal carcinoma of right breast Left-sided low back pain without sciatica Obese class I Primary osteoarthritis of left knee Procedure/Surgical History ???Lumpectomy Seed Localization Breast Unilateral with Savona Node Biopsy (Right, Breast) (09/27/2022)???Reduction Breast Bilateral (Bilateral, Breast) (09/27/2022)???Breast biopsy and related procedures (07/28/2022) Medications Inpatient Acetaminophen Tablet, 650 mg, By Mouth, Every 4 hours, PRN amLODIPine 10 mg oral tablet, 10 mg, By Mouth, Daily anastrozole 1 mg oral tablet, 1 mg, By Mouth, Daily atorvastatin 80 mg oral tablet, 80 mg, By Mouth, Daily Colace Capsule, 100 mg= 1 capsule, By Mouth, 2 times a day, PRN Docusate Sodium Capsule, 100 mg= 1 capsule, By Mouth, 2 times a day, PRN Heparin Flush 100 units/mL Inj, 500 units= 5 mL, IV Push Slowly, Daily, PRN Heparin Inj, 5000 units= 1 mL, Subcutaneous Injection, 2 times a day lisinopril 10 mg oral tablet, 10 mg, By Mouth, Daily LR 1,000 mL, 1000 mL, IV Infusion Melatonin Tablet, 3 mg, By Mouth, Daily at bedtime, PRN MiraLax Powder, 17 Gm= 1 pack/packet, By Mouth, Daily, PRN MorPHINE Inj, 2 mg, IV Push Slowly, Every 4 hours, PRN NaCL 0.9% Flush, 3 mL, IV Push, Every 8 hours NaCL 0.9% Flush, 3 mL, IV Push, Every 8 hours, PRN Robitussin DM Liquid, 10 mL, By Mouth, Every 4 hours, PRN Senna Tablet, 8.6 mg= 1 tablet, By Mouth, 2 times a day, PRN sertraline 50 mg oral tablet, 100 mg, By Mouth, Daily Simethicone Tablet, 80 mg, Chew, 3 times a day, PRN traZODone 50 mg oral tablet, 50 mg, By Mouth, Daily at bedtime Home acetaminophen 325 mg oral tablet, 650 mg, By Mouth, Every 6 hours amLODIPine 10 mg oral tablet, 1 tablet, By Mouth, Daily anastrozole 1 mg oral tablet, 1 tablet, By Mouth, Daily, 11 refills Aspirin Tablet, 325 mg, By Mouth, 2 times a day atorvastatin 80 mg oral tablet, 1 tablet, By Mouth, Daily, 1 refills celecoxib 200 mg oral capsule, 200 mg, By Mouth, Daily Colace Capsule, 100 mg= 1 capsule, By Mouth, 2 times a day, PRN lisinopril 10 mg oral tablet, 1 tablet, By Mouth, Daily, 2 refills ondansetron 4 mg oral tablet, 1-2 tablet, By Mouth, Every 8 hours, PRN, 1 refills pantoprazole 40 mg oral delayed release tablet, 40 mg, By Mouth, Daily sertraline 100 mg oral tablet, 1 tablet, By Mouth, Daily traZODone 50 mg oral tablet, 1 tablet, By Mouth, Daily at bedtime Allergies flu vaccines??(Hives) Social History Alcohol Use: Never. Electronic Cigarette/Vaping Electronic Cigarette Use: Never. 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 Exercise Self assessment: Fair condition. Regular exercise: No. Home/Environment Living situation: Home/Independent. Other: sister and brother in law. Nutrition/Health Diet: Regular, Low sodium. Sexual Sexually involved in last 6 months: No. Tobacco Use: Never (less than 100 in lifetime). Family History Cancer of lung: Mat. Grandmother. Diabetes mellitus: Mother. Immunizations Vaccine Date Status tetanus/diphtheria/pertussis, acel(Tdap) 10/19/2022 Given Comments : [facility] [id number] SARS-CoV-2 (COVID-19) mRNA-1273 vaccine 02/21/2022 Recorded Note * Nga Mesa MD: PERFORM Event Display: Discharge/Transfer Note Hospital Authored Date: [id number] Patient: ??GAEL LENZ ? Age:??63 Years?Sex:??Female?:??1960?? Patient Information Discharge Location: [facility] Primary Care Physician: Josiane Ledezma Admit Date/Time: 11/07/23 11:03 Discharge Disposition Discharge Disposition: ?? Discharge Diagnosis Diverticulitis (K57.92) ?? _ Discharge Medications Acetaminophen (acetaminophen 325 mg oral tablet)?650?Milligram?By Mouth?Every 6 hours?May take OTC not to exceed 3000 mg/day Amlodipine (amLODIPine 10 mg oral tablet)?1?tab(s)?By Mouth?Daily Amoxicillin-Clavulanate (Augmentin 875 mg-125 mg oral tablet)?1?tab(s)?By Mouth?Every 12 hours?for 9?Days Anastrozole (anastrozole 1 mg oral tablet)?1?tab(s)?By Mouth?Daily Atorvastatin (atorvastatin 80 mg oral tablet)?1?tab(s)?By Mouth?Daily Celecoxib (celecoxib 200 mg oral capsule)?200?Milligram?By Mouth?Daily Docusate (Colace Capsule)?100?Milligram?1?capsule?By Mouth?2 times a day?as needed?as needed for constipation Lisinopril (lisinopril 10 mg oral tablet)?1?tablet?By Mouth?Daily Ondansetron (ondansetron 4 mg oral tablet)?1?tab(s)?4?Milligram?By Mouth?Every 8 hours?as needed?Nausea & Vomiting Oxycodone (oxyCODONE 5 mg oral tablet)?5?Milligram?1?tablet?By Mouth?Every 6 hours?as needed?for 3?Days?Pain , Severe Sertraline (sertraline 100 mg oral tablet)?1?tab(s)?By Mouth?Daily Trazodone (traZODone 50 mg oral tablet)?1?tablet?By Mouth?Daily at bedtime ? Medications Started Augmentin Oxycodone zofran ?[place]PAT checked and pt given less than 5-7 days supply of narcotics after explaining side effects ? Medications Discontinued none Doses Changed none Allergies Allergies ?(Active and Proposed Allergies Only) flu vaccines? (Severity: Severe, Onset: Unknown) ?Reactions: Hives ? PCP Follow-Up/Heads-Up GI referral for colonoscopy in [address] showed Diffuse hypoattenuation throughout the pancreatic parenchyma and minimal peripancreatic fat stranding raising the concern for acute pancreatitis but lipase is normal suggesting against pancreatitis Future Appointments Sunday 2:00 PM EDT ?? With: Micah UMAÑA, Nori Condon Where: [facility] [address] [place] [address]- Status: Pending Sunday 11:00 AM EDT ?? With: Micah LEMON, Josiane Junior Where: [facility] [address] [place] [address]- Status: Pending Hospital Course 63-year-old female with a past medical history of depression, hypertension, hyperlipidemia, invasive ductal carcinoma right breast??for which she began??chemo??therapy and radiation??as well as infusions 3 months ago, osteoarthritis, obesity who presented to the ED for left lower quadrant abdominalpain. ?? Diverticulitis K57.92 Mild uncomplicated.?? No signs of fistula??obstruction. ??Patient has been hemodynamically stable.?? Pain well-controlled with analgesic medication currently.?? Was started on ceftriaxone and metronidazole??which were transitioned to Augmentin on discharge.?? Tolerating diet Abdominal examination is benign except for??mild left lower quadrant tenderness without??rebound, guarding or rigidity Patient was??advised to advance diet slowly and to maintain adequate hydration She was advised to follow-up with PCP??for GI referral for colonoscopy in 6 to 8 weeks. ??Patient agreed ?? ?Pancreatitis CT abdomen pelvis with IV contrast:.?? Diffuse hypoattenuation throughout the pancreatic parenchymaand minimal peripancreatic fat stranding concerning for acute pancreatitis.?? No epigastric pain however. ??No epigastric tenderness Lipase done twice normal. ??PCP follow-up for the finding but I doubt??patient has pancreatitis clinically ? Today patient feels better ?? Tolerating diet Pain has improved No nausea or vomiting ?? No fever ? Vitals Temperature?97.9 ?(07:25) Systolic Blood Pressure?122 ?(10:07) Diastolic Blood Pressure?46 ?(10:07) Pulse?51 ?(07:25) SpO2?100 ?(07:25) Respiratory Rate?18 ?(07:25) ? 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 Physical Exam Pending Results Add On Lab Order ordered on 11/07/2023 Add On Lab Order ordered on 11/07/2023 Urine Culture ordered on 11/07/2023 Patient Education Titles WebMD Ignite Patient Education - Oxycodone Oral Tablet?? [employer] Patient Education - Amoxicillin/Clavulanate Oral Tablet?? WebMD [employer]ite Patient Education - Discharge Instructions for Diverticulitis?? Follow-Up Appointments Added Follow Up ?Time Frame ?Comments Please mantain adeqaute hydration Prescription has been sent to pharmacy in [facility]?1 to 2 weeks?for the follow upGI referral forcolonoscopy in [address] showed Diffuse hypoattenuation throughout the pancreatic parenchyma and minimal peripancreatic fat stranding raising the concern for acute pancreatitis but your lipase is normal suggesting againts pancreatitis Post Discharge Care Discharge ?11/08/23 9:53:00 EDT Discharge Prescriptions ?ePrescribed, 11/08/23 9:53:00 EDT Home Health Face to Face ^HomeHealthFTF 35??minutes spent on discharge * Jimena Islas LPN: PERFORM Event Display: Discharge/Transfer Note Hospital Authored Date: [id number] Nursing Discharge Note Entered On: 11/08/2023 11:19 EDT Performed On: 11/08/2023 10:46 EDT by Jimena Islas LPN Nursing Discharge Note 2 Discharge Time : 11/08/2023 10:46 EDT Discharge Level of Care at Discharge : Home w/ Hospice Patient Left Unit Via : Wheelchair Patient Accompanied Off Unit with : Responsible adult DC Instructions Provided & Signed by Pt : Yes Patient Understands D/C Instructions : Yes Patient Instructions Discharge Signed : Yes Did Pt have Specialty Bed or Wound Vac : No Jimena Islas LPN - 11/08/2023 11:18 EDT * Jimena Islas LPN: PERFORM Event Display: Patient Education/Instruction Authored Date: [id number] Inpatient Adult Discharge Instructions. [address] [address] Name: GAEL LENZ : 1960?? Visit: 11/07/2023 11:03?? Current Date: 11/08/2023 10:15 ?? Account: [id number]?? Inpatient Adult Discharge Instructions We would like to thank you for allowing us to assist you with your healthcare needs. The following includes patient education materials and information regarding your injury/illness. Our entire staffstrives to provide an excellent experience for our patients and their families. PLEASE ENSURE YOU FOLLOW-UP PER THE INSTRUCTIONS BELOW! ?? YOUR OPINION IS IMPORTANT TO US! Please complete the survey you may receive by mail or email. Your feedback will be used to make improvements to the healthcare experiences of our patients and their families. Surveys are administered by [employer] ?? If further treatment with your primary care physician or another doctor is recommended, it is important for you to keep the appointment. Call your primary care physician or return to the Emergency Department immediately if your condition worsens, fails to improve, or new symptoms develop. If you need to find a doctor, you can call [facility] for a referral at [phone] or toll free at [phone]) or log in to [email or web address].. ?? [facility], in keeping with [facility] guidance, no longer requires face masks for staff, patientsor visitors in most situations. Similiar to time spent indoors at other locations, there is the chance that you were exposed to repiratory viruses during your time with us (such as flu or COVID-19). If you develop symptoms concerning for a viral respiratory infection, please seek testing (and treatment if indicated) from your medical provider or home test kit. ?? You can view and manage your care through the patient portal or by using a health care raphael of your choosing. Connotate is a website that allows you to securely view your medical information including your hospital discharge summary, office visit summaries, medications and follow-up visits. You can also request appointments, renew medications, and request access to your medical information using a health care raphael of your choosing, or just ask a question. You can enroll at [email or web address] or register during your next office visit. You have been discharged from [facility], Patient Care Unit: D3B??. If you have any questions regarding these instructions, including results of studies pending, afteryou leave, please call us and we will be happy to assist you 05/03. [facility] Your Care Team Attending Physician Nga Mesa MD?? Consulting Providers Nga Mesa MD?? Discharging Providers Nga Mesa MD Reason for Your Visit diverticulitis; pancreatic stranding?? Your Diagnosis Abdominal pain Tests Performed Below is a partial list of the tests performed during your hospitalization. You may have had other tests and procedures not included in this list. Please discuss all test results with your provider. CBC CBC w/ Differential Comprehensive Metabolic Panel HOLD GEL TUBE LIPASE Urinalysis w/hold for Urine Culture CT Abd/Pelvis W/ IV Contrast Only Add On Lab Order (Lab Add On Order)?? Urine Culture (Urine Culture, Routine)?? Primary Care Provider Josiane Ledezma? Advance Directive Health Care Proxy on File Yes - Health Care Proxy Discharge Vitals Temperature: 97.9 DegF Height: 165 cm Pulse Rate:??51 bpm??Low Weight: 87.5 kg Respiratory Rate: 18 br/min Body Mass Index:??32.14 kg/m2??Critical Systolic Blood Pressure: 122 mm Hg Body surface area: 2 Systolic Blood Pressure: 122 mm Hg ?? Diastolic Blood Pressure:??46 mm Hg??Low ?? Diastolic Blood Pressure:??48 mm Hg??Low ?? Oxygen Saturation: 100 % ?? Studies Pending All studies ordered during this hospital stay have been completed unless listed below. Please discuss all pending results with your provider listed above in these instructions. ?? Add On Lab Order (Lab Add On Order)?? Urine Culture (Urine Culture, Routine)?? What to do next Instructions From Your Doctor ?? Orders? 11/08/23 9:53:00 EDT?? Prescriptions??, ??11/08/23 9:53:00 EDT?? Scheduled Follow-Up Appointments Sunday 11:00 AM EDT ?? With: Micah LEMON, Josiane Junior Where: [facility] [address] [place] [address]- Status: Pending You Need to Schedule the Following Appointments Follow Up with??Please mantain adeqaute hydration Follow Up with??Prescription has been sent to pharmacy in [facility] Follow Up with??Josiane Obrien When:??Within 1 to 2 weeks Why: for the follow up GI referral for colonoscopy in [address] showed Diffuse hypoattenuation throughout the pancreatic parenchyma and minimal peripancreatic fat stranding raising the concern for acute pancreatitis but your lipase is normal suggesting againts pancreatitis Where: [address] [place] [address] Drive. [address] [place] [address]- Business (1) Discharge Medications GAEL LENZ :1960 Visit Date:11/07/2023 Medications: Please continue your medications until treatment is completed or stopped by your provider. Medications not listed below should be discontinued. Discuss any questions related to medications with your provider. What How Much When Instructions Next Dose New Amoxicillin-Clavulanate (Augmentin 875 mg-125 mg oraltablet) 1 tab(s) Oral Every 12 hours Duration: 9 Days Pickup at [facility] 3 11/08/23 follow as prescribe New Oxycodone (oxyCODONE 5 mg oral tablet) 1 tab(s) Oral Every 6 hours as needed for Pain , Severe Duration: 3 Days Pickup at [facility] 3 as needed follow as prescribe Changed Ondansetron (ondansetron 4 mg oral tablet) 1 tab(s) Oral Every 8 hours as needed for Nausea & Vomiting Pickup at [facility] 3 as needed follow as prescribe Unchanged Acetaminophen (acetaminophen 325 mg oral tablet) 650 Milligram Oral Every 6 hours May take OTC not to exceed 3000 mg/ day ?? follow as prescribe Unchanged Amlodipine (amLODIPine 10 mg oral tablet) 1 tab(s) Oral Daily 11/09/23 Unchanged Anastrozole (anastrozole 1 mg oral tablet) 1 tab(s) Oral Daily 11/09/23 Unchanged Atorvastatin (atorvastatin 80 mg oral tablet) 1 tab(s) Oral Daily 11/09/23 Unchanged Celecoxib (celecoxib 200 mg oral capsule) 200 Milligram Oral Daily 11/09/23 Unchanged Docusate (Colace Capsule) 100 Milligram Oral Twice a day as needed for as needed for constipation as needed follow as prescribe Unchanged Lisinopril (lisinopril 10 mg oral tablet) 1 tab(s) Oral Daily 11/09/23 Unchanged Sertraline (sertraline 100 mg oral tablet) 1 tab(s) Oral Daily 11/09/23 Unchanged Trazodone (traZODone 50 mg oral tablet) 1 tab(s) Oral Daily at Bedtime 11/08/23 bedtime Pharmacy Information [facility] 3: [address] [place], [place] [phone] ?? What How Much When Comments Stop Taking Aspirin (Aspirin Tablet) 325 Milligram Oral Twice a day Stop Taking Pantoprazole (pantoprazole 40 mg oral delayed release tablet) 40 Milligram Oral Daily Prescription Given During Visit Amoxicillin-Clavulanate (Augmentin 875 mg-125 mg oral tablet) - 1 tablet, By Mouth, Every 12 hours,# 18 tablet, 0 Refills, [facility], [address] [place] [address] [phone]?? Ondansetron (ondansetron 4 mg oral tablet) - 1 tablet = 4 mg, By Mouth, Every 8 hours, # 10 tablet,0 Refills, [facility], [address] [place] [address] [phone]?? Oxycodone (oxyCODONE 5 mg oral tablet) - 1 tablet = 5 mg, By Mouth, Every 6 hours, # 12 tablet, 0 Refills, [facility], [address] [place] [address] [phone]?? Laboratory Results Below is a partial list of the most recent Laboratory test results done prior to this discharge. You may have had other tests and procedures not included in this list. Please discuss all test resultswith your provider. Est Creatinine Clearance - 65.51 mL/min (11/07/2023) CBC (11/08/2023) ???WBC - 4.8 k/mm3???RBC - 3.93 m/mm3???Hgb - 10.8 Gm/dL???Hct - 33.1 %???MCV - 84.2 femtoliters???MCH - 27.5 pg???MCHC - 32.6 g/dL???Platelet Count - 214 k/mm3???RDW-SD - 42.7 femtoliters???MPV - 9.0 femtoliters???Nucleated RBC (Automated) - 0.0 #/100 WBC'S???Abs. NRBC - 0.0 k/mm3 CBC w/ Differential (11/07/2023) ???WBC - 7.6 k/mm3???RBC - 4.41 m/mm3???Hgb - 12.2 Gm/dL???Hct - 37.0 %???MCV - 83.9 femtoliters???MCH - 27.7 pg???MCHC - 33.0 g/dL???Platelet Count - 282 k/mm3???RDW-SD - 42.9 femtoliters???MPV - 9.5 femtoliters???Nucleated RBC (Automated) - 0.0 #/100 WBC'S???Abs. NRBC - 0.0 k/mm3???Abs. Neut - 5.5 k/mm3???Abs. Lymph - 1.2 k/mm3???Abs. [place] - 0.6 k/mm3???Abs. Eo - 0.2 k/mm3???Abs. Baso - 0.1 k/mm3???Neut % - 72.4 %???Lymph % - 16.2 %???[place] % - 7.4 %???Eos % - 2.8 %???Baso % - 0.8 %???Imm Gran- 0.4 %???Abs. Imm Gran - 0.0 k/mm3 Comprehensive Metabolic Panel (11/08/2023) ???Sodium - 139 mmol/L???Potassium - 4.3 mmol/L???Chloride - 104 mmol/L???Bicarbonate Level - 28 mmol/L???Anion Gap - 7???Glucose Level - 119 mg/dL???BUN - 10 mg/dL???Creatinine-Blood - 0.8 mg/dL???Estimated GFR Creatinine - 89 ML/MIN/1.73 M2???Calcium - 8.6 mg/dL???Protein, Total - 5.5 Gm/dL???Albumin - 3.7 Gm/dL???AG Ratio - 2.1???Alkaline Phosphatase - 87 units/L???AST (SGOT) - 10 units/L???ALT (SGPT) - 9 units/L???Bilirubin, Total - 0.3 mg/dL HOLD GEL TUBE (11/08/2023) ???Hold Gel Top - SPECIMEN DISCARDED AFTER 1 WEEK LIPASE (11/08/2023) ???Lipase - 9 units/L Urinalysis w/hold for Urine Culture (11/07/2023) ???Appear/Color, Urine - LIGHT YELLOW???Specific [place], Urine - 1.018???pH, Urine - 6.0???Albumin, Urine - TRACE???Glucose, Urine - NEGATIVE???Ketones, Urine - NEGATIVE???Bilirubin, Urine - NEGATIVE???Hemoglobin, Urine - NEGATIVE???Nitrite, Urine - NEGATIVE???Leukocyte, Urine - 2+???Urobilinogen - NORMAL? ?WBC's, Urine - 9 /HPF? ?RBC's, Urine - NONE SEEN? ?Bacteria - SLIGHT? ?Squamous Epith - <1 /HPF???Mucus - SLIGHT???Hold Urine Culture - Testing available 48 hours from time of collection. Allergies (NKA means No Known Allergies) flu vaccines??(Hives) Problems Active Problems??(9) Chest pain?? Depression?? HTN (hypertension)?? Hyperlipidemia?? Insomnia?? Invasive ductal carcinoma of right breast?? Left-sided low back pain without sciatica?? Obese class I?? Primary osteoarthritis of left knee?? Education Materials Below is the list of Educational Leaflet Providered with your Discharge Instructions. Web[employer] Patient Education - Oxycodone Oral Tablet?? [employer] Patient Education - Amoxicillin/Clavulanate Oral Tablet?? Web[employer]ite Patient Education - Discharge Instructions for Diverticulitis?? Valuables and Belongings I fully understand and agree that [facility] accepts no responsibility for all my personal property including clothing, toilet articles, radios, jewelry, dentures, hearing aids, rings, money, or any other property that is in my possession or is brought to me after admission. I understand certain valuables may be placed in a hospital safe for a short period of time. I understand that the hospital is not liable for loss or damage due to accident, fire, or other natural occurrence while said property is in the safe. I accept full responsibility for any personal property that I keep with me, and will not hold the hospital responsible in case of loss or disappearance. I acknowledge that i have been encouraged to send valuables and belongings home. ?? Review of Valuable and Belonging List: With patient Date for Pt to Sign Valuables/Belongings: 11/07/23 19:58:00 ?? Other Discharge Information ? Pulmonary Rehab Status?? Pulmonary Rehab Discharge Status?? Respiratory Rate: 18 br/min ? Common Emergency Awareness Tips IS IT A STROKE? Act FAST and Check for these signs: FACE Does the face look uneven? ARM Does one arm drift down? SPEECH Does their speech sound strange? TIME Call at any sign of stroke ?? Heart Attack Signs Chest discomfort: Most heart attacks involve discomfort in the center of the chest and lasts more than a few minutes, or goes away and comes back. It can feel like uncomfortable pressure, squeezing, fullness or pain. Discomfort in upper body: Symptoms can include pain or discomfort in one or both arms, back, neck, jaw or stomach. Shortness of breath: With or without discomfort. Other signs: Breaking out in a cold sweat, nausea, or lightheaded. Remember, MINUTES DO MATTER. If you experience any of these heart attack warning signs, call to get immediate medical attention! ?? Smoking can increase your chances of developing chronic health problems and can cause harmful effects to other family members in your house. If you smoke, you are strongly encouraged to quit. Please call [facility] [employer] at [phone] or [phone] ([phone]) or log in to [email or web address] for referrals to smoking cessation programs. ?? 892 Suicide & Crisis Lifeline is available 05/03 if you or someone you know needs to find a reason to keep living. By calling 378 you'll be connected to a skilled, trained counselor at a crisis center in your area. INPATIENT DISCHARGE INSTRUCTIONS SIGNATURE PAGE DELFINGAEL IBARRA Location:[facility] Registration Date and Time:11/07/2023 11:03 EDT Primary Care Physician: Josiane Ledezma, Attending Physician: Hany Mesa MDhammad, I GAEL LENZ, have received the above patient education materials/instructions and have verbalized understanding. If ambulance or transport services are being used I further acknowledge being given a choice of service. ?? If you need to contact me, please call me at this number: . Patient/Cook Dinner Name: Patient/Cook Dinner Signature: Relationship to Patient: Witness Name/Signature: Date: * Nga Mesa MD: PERFORM, SIGN, VERIFY Event Display: Patient Education Handout Authored Date: [id number] * Nga Mesa MD: PERFORM Event Display: Patient Education Leaflets Authored Date: [id number] Oxycodone Oral Tablet ?? [id number] Oxycodone Oral Tablet Brands: Roxicodone Uses For pain. ?? Instructions This medicine may be taken with or without food. Swallow with a full glass (8 oz) of water unless your doctor gives you different instructions. Store at room temperature away from heat, light, and moisture. Do not keep in the bathroom. Please ask your doctor, nurse, or pharmacist how to discard unused medicines safely. To reduce constipation, eat high fiber foods, drink plenty of water and exercise. Avoid grapefruit and grapefruit juice while on this medicine. Drug interactions can change how medicines work or increase risk for side effects. Tell your healthcare providers about all medicines taken. Include prescription and kika-zgt-mqfiiiq medicines, vitamins, and herbal medicines. Speak with your doctor or pharmacist before starting or stopping any medicine. Tell your doctor if symptoms do not get better or if they get worse. ?? Cautions This medicine has an opioid. Opioids help many people but may cause addiction, especially if used for a long time. The addiction risk is higher if you have a substance use disorder (overuse of or addiction to drugs or alcohol). Ask your doctor about the benefits and risks. Ask your doctor or pharmacist if you should have naloxone on hand to treat opioid overdose. Teach your family or household members about the signs of an opioid overdose and how to treat it. If you stop this medicine suddenly after using it for a long time, you may have withdrawal. Your doctor may slowly lower your dose before stopping it. Tell your doctor right away if you have symptoms, such as unusual sweating, watering eyes, runny nose, chills, diarrhea, yawning, muscle aches, restlessness, anxiety, trouble sleeping, or thoughts of suicide. Tell your doctor and pharmacist if you ever had an allergic reaction to a medicine. Do not use the medication any more than instructed. If possible, avoid using with alcohol, marijuana, or other medicines that can cause dizziness or drowsiness. These include allergy/cold products, muscle relaxers, sleep aids, and pain relievers. Your ability to stay alert or to react quickly may be impaired by this medicine. Do not drive or operate machinery until you know how this medicine will affect you. This medicine passes into breast milk. Ask your doctor before . This medicine can hurt a new baby in the womb. If you become while on this medicine, tell your doctor immediately. Your doctor may switch you to a different medicine. This medicine should be used with caution in patients with breathing difficulties. Call your doctor right away if you notice slow or shallow breathing. Do not share this medicine with anyone who has not been prescribed this medicine. Some patients have serious side effects from this medicine. Ask your pharmacist to show you the information from the Food and Drug Administration (FDA) and discuss it with you. ?? Side Effects The following is a list of some common side effects from this medicine. Please speak with your doctor about what you should do if you experience these or other side effects. ??? decreased appetite ??? constipation ??? dizziness or drowsiness ??? lightheadedness ??? nausea and vomiting If you have any of the following side effects, you may be getting too much medicine. Please contactyour doctor to let them know about these side effects. ??? confusion ??? fainting ??? unusual or unexplained tiredness or weakness ??? difficulty or discomfort urinating Call your doctor or get medical help right away if you notice any of these more serious side effects: ??? agitated feeling or trouble sleeping ??? decreased awareness or responsiveness ??? breathing interruption during sleep ??? shallow, irregular breathing ??? changes in memory, mood, or thinking ??? hallucinations (unusual thoughts, seeing or hearing things that are not real) ??? seizures ??? severe stomach or bowel pain ??? weight loss A few people may have an allergic reaction to this medicine. Symptoms can include difficulty breathing, skin rash, itching, swelling, or severe dizziness. If you notice any of these symptoms, seek medical help quickly. ?? Extra Please speak with your doctor, nurse, or pharmacist if you have any questions about this medicine. ?? [email or web address] IMPORTANT NOTE: This document tells you briefly how to take your medicine, but it does not tell youall there is to know about it. Your doctor or pharmacist may give you other documents about your medicine. Please talk to them if you have any questions. Always follow their advice. There is a more complete description of this medicine available in Bahamian. Scan this code on your smartphone or tablet or use the web address below. You can also ask your pharmacist for a printout. If you have any questions, please ask your pharmacist. The display and use of this drug information is subject to Terms of Use. Copyright(c) 2022 [employer]. ?? The [employer]. All rights reserved. This information is not intended as a substitute for professional medical care. Always follow your healthcare professional's instructions. ?? * Nga Mesa MD: PERFORM Event Display: Patient Education Leaflets Authored Date: [id number] Amoxicillin/Clavulanate Oral Tablet ?? [address] Amoxicillin/Clavulanate Oral Tablet Brands: Augmentin Uses For treating bacterial infection. ?? Instructions Take the medicine with food. Keep the medicine at room temperature. Avoid heat and direct light. It is important that you keep taking each dose of this medicine on time even if you are feeling well. If you forget to take a dose on time, take it as soon as you remember. If it is almost time for thenext dose, do not take the missed dose. Return to your normal schedule. Do not take 2 doses at one time. Tell your doctor and pharmacist about all your medicines. Include prescription and mufm-rtl-publtecoyfpwdfqf, vitamins, and herbal medicines. Keep using this medicine for the full number of days that it is prescribed. Do not stop the medicine even if you start to feel better. If you have diabetes and use urine glucose tests, this medicine may cause incorrect results. Pleasecheck with your doctor before making any changes to your diabetes treatment plan. ?? Cautions Tell your doctor and pharmacist if you ever had an allergic reaction to a medicine. Do not use the medication any more than instructed. Please tell your doctor if you have moderate to severe diarrhea while on this medicine. Do not treat the diarrhea with xksj-kcw-kerirxo diarrhea medicine. Tell the doctor or pharmacist if you are , planning to be , or . Do not start or stop any other medicines without first speaking to your doctor or pharmacist. Do not share this medicine with anyone who has not been prescribed this medicine. ?? Side Effects The following is a list of some common side effects from this medicine. Please speak with your doctor about what you should do if you experience these or other side effects. ??? diarrhea ??? nausea and vomiting ??? stomach upset or abdominal pain Call your doctor or get medical help right away if you notice any of these more serious side effects: ??? severe or persistent abdominal pain ??? severe, watery or bloody diarrhea ??? signs of liver damage (such as yellowing of eye or skin, dark urine, or unusual tiredness) ??? red, burning, or itchyskin ??? yeast infection of mouth ??? vaginal itching or discharge A few people may have an allergic reaction to this medicine. Symptoms can include difficulty breathing, skin rash, itching, swelling, or severe dizziness. If you notice any of these symptoms, seek medical help quickly. ?? Extra Please speak with your doctor, nurse, or pharmacist if you have any questions about this medicine. ?? [email or web address] IMPORTANT NOTE: This document tells you briefly how to take your medicine, but it does not tell youall there is to know about it. Your doctor or pharmacist may give you other documents about your medicine. Please talk to them if you have any questions. Always follow their advice. There is a more complete description of this medicine available in Bahamian. Scan this code on your smartphone or tablet or use the web address below. You can also ask your pharmacist for a printout. If you have any questions, please ask your pharmacist. The display and use of this drug information is subject to Terms of Use. Copyright(c) 2022 [employer]. ?? [employer]. All rights reserved. This information is not intended as a substitute for professional medical care. Always follow your healthcare professional's instructions. ?? * Nga Mesa MD: PERFORM Event Display: Patient Education Leaflets Authored Date: [id number] Discharge Instructions for Diverticulitis ?? 52349 Discharge Instructions for Diverticulitis You have been diagnosed with diverticulitis. This is a condition??in which??small pouches form in your colon (large intestine) and become inflamed or infected. Follow the guidelines below for home care. As you recover Tips for recovery include: ??? Eat a low-fiber diet at first while you recover. Your healthcare provider may??advise a liquid diet.??This gives your bowel a chance to rest so that it can recover. ???Include these foods: flake cereal, mashed potatoes, pancakes, waffles, pasta, white bread, rice, applesauce, bananas, eggs, fish, poultry, tofu, and well-cooked vegetables. ??? Take your medicines??as directed. Don't stop taking the medicines, even if you feel better. ??? Monitor your temperature and report any rise in temperature to your healthcare provider. ??? Take any prescribed antibiotics exactly as directed. Don't miss any and keep taking them even if you feel better.? Drink 6 to 8 glasses of water every day, unless told otherwise. ??? Use a heating pad or hot water bottle to reduce abdominal cramping or pain. ?? Preventing diverticulitis in the future Tips for prevention include: ??? Eat a high-fiber diet. Fiber adds bulk to the stool so that it passes through the large intestine more easily. ??? Keep drinking 6 to 8 glasses of water every day, unless told otherwise. ??? Start an exercise program. Ask your healthcare provider how to get started.You can benefit from simple activities such as walking or gardening. ??? Treat diarrhea with a bland diet. Start with liquids only,??then slowly add fiber over time. ??? Watch for changes in your bowel movements (constipation to diarrhea). ??? Prevent constipation with fiber and add a stool softener if needed.? Get plenty of rest and sleep. ??? If possible, don't take nonsteroidal anti-inflam matory drugs (NSAIDs) such as ibuprofen. They increase the risk of diverticulitis. ?? Follow-up care Make a follow-up appointment, or as advised. You may need a colonoscopy or other imaging test of your colon. ?? When to call your healthcare provider Call your healthcare provider right away if you have any of these: ??? Fever of 100.4??F (38.0??C) or higher, or as advised by your provider ??? Chills ??? Severe cramps in??your belly, most often the lower left side ??? Soreness in??your belly, most often the lower left side ??? Nausea and vomiting ??? Bleeding from your rectum ?? Last Reviewed Date: 2021 ?? 4406-2230 The [employer]. All rights reserved. This information is not intended as a substitute for professional medical care. Always follow your healthcare professional's instructions. ?? Patient Care team information Care Team Personnel Name: Lita Huff RN Position: S RN Member Role: Primary Care Nurse Name: Josiane Ledezma Position: [facility] PCO Associate Professional Member Role: PCP Address: Address: [address] [place] [address]. 3rd Floor [place], [place] [address] Name: Laurel Perales RN Position: S RN Member Role: Primary Care Nurse Name: Ifeanyi Brown RN Position: [facility] Onco [...] Related Persons Name: KELL GONSALVES Address: home [address] [place] [address] Name: CONG LENZ Address: home [address] [place] [address]
--- OUTSIDE RECORDS SUMMARY | 2024-03-16 19:25 | XMS_ITS | Continuity of Care Document ---
Author Organization [facility] Care Address [address] [place] [address]- Care Team Providers Care Bale Coverer Name Role Phone Josiane Ledezma Primary Care Physician Encounter [facility] Date(s): 11/23/22 - 12/23/22 [facility] Care [address] [place] [address]- Attending Physician: Melida Terrell Admitting Physician: AdmMelida virk Referring Physician: AdmtrMelida Allergies, Adverse Reactions, Alerts Substance Reaction Severity Status flu vaccines Hives Severe Active Immunizations Given and Recorded Vaccine Date Status Refusal Reason tetanus/diphtheria/pertussis, acel(Tdap) 1 10/19/22 Given SARS-CoV-2 (COVID-19) mRNA-1273 vaccine 02/21/22 R ecorded 1Result Comment: [facility] 44490-243-46 Medications amLODIPine 10 mg oral tablet 1 [...] 06/22/22 10:24:00... Start Date: 07/19/22 Status: Ordered cyclobenzaprine 10 mg oral tablet See Instructions, TAKE 1 TBALET BY MOUTH NIGHTLY NEEDED FOR MUSCLE SPASM., # 21 tablet, Refills 0, Maintenance, 11/20/22 11:08:00 EDT, Instructions Replace Required Details, Route to Pharmacy Electronically, [facility] 45233, 165.4, cm, 11/20/22 10:... Start Date: 11/20/22 Status: Ordered dexamethasone 4 mg oral tablet See Instructions, 2 tablet By Mouth 2 times a day for 3 days, starting on the day before treatment,then the day of treatment and the day after treatment., # 48 tablet, 0 Refills, Maintenance, 11/17/22 10:18:00 EDT, [facility]/pharmacy #[id number], Partial fill up... Start Date: 11/17/22 Status: Ordered hydrOXYzine hydrochloride 50 mg oral tablet 1 tablet = 50 mg, By Mouth, Daily at bedtime, # 90 tablet, 0 Refills, Acute 01/19/23 11:10:00 EDT, 10/19/22 11:09:00 EST, Tablet, [id number], Partial fill upon patient request if the prescription is for a schedule II opioid drug., 165.4, cm, 0... Start Date: 10/19/22 Stop Date: 01/19/23 Status: Ordered lidocaine-prilocaine 2.5%-2.5% topical cream 1 [...] 11/20/22 11:08:00 EDT, Route to Pharmacy Electronically, [facility] 67653, 165.4, cm, 11/20/22 10:43:00 EDT, Height, 91.1, [...] Care Team Personnel Name: Josiane Ledezma Position: [facility] PCO Associate Professional Member Role: PCP Address: Address: [address] [place] [address]. 3rd [place] [address]- Name: Ariadna Fitzgerald RN Position: [facility] Onco RN Member Role: Primary Care Nurse Care Team Related Persons Name: KELL GONSALVES Address: home [address] [place] [address] Name: CONG LENZ Address: home [address] [place] [address]
--- OUTSIDE RECORDS SUMMARY | 2024-03-16 19:25 | XMS_ITS | Continuity of Care Document ---
Author Organization [facility] Address [address] [place] [address] [address]ri [address] [place] [address]- Care Team Providers Care Hockey Player Name Role Phone Josiane Ledezma Primary Care Physician Encounter [facility] Date(s): 12/12/22 - 12/19/22 [facility] [address] [place] [address]- Attending Physician: Teodoro Jasmine MD Allergies, Adverse Reactions, Alerts Substance Reaction Severity Status flu vaccines Hives Severe Active Immunizations Given and Recorded Vaccine Date Status Refusal Reason tetanus/diphtheria/pertussis, acel(Tdap) 1 10/19/22 Given SARS-CoV-2 (COVID-19) mRNA-2753 vaccine 02/21/22 R ecorded 1Result Comment: [facility] 24684-588-53 Medications amLODIPine 10 mg oral tablet 1 [...] Replace Required Details, Route to Pharmacy Electronically, [facility] STORE 41156, 165.4, cm, 11/20/22 10:... Start Date: 11/20/22 Status: Ordered dexamethasone 4 mg oral tablet See Instructions, 2 tablet By Mouth 2 times a day for 3 days, starting on the day before treatment,then the day of treatment and the day after treatment., # 48 tablet, 0 Refills, Maintenance, 11/17/22 10:18:00 EDT, [facility]/pharmacy #[id number], Partial fill up... Start Date: 11/17/22 Status: Ordered hydrOXYzine hydrochloride 50 mg oral tablet 1 tablet = 50 mg, By Mouth, Daily at bedtime, # 90 tablet, 0 Refills, Acute 01/19/23 11:10:00 EDT, 10/19/22 11:09:00 EST, Tablet, [facility]/pharmacy #[id number], Partial fill upon patient request [...] Refills, Soft Stop, 11/20/22 9:28:00 EDT, Cream, [facility]/pharmacy #[id number], Partial fill upon patient request if... Start Date: 11/20/22 Status: Ordered lisinopril 10 mg oral tablet 1, tablet, By Mouth, Daily, # 30 tablet, Refills 5, Maintenance, 11/20/22 11:08:00 EDT, Route to Pharmacy Electronically, [facility] STORE 82633, 165.4, cm, 11/20/22 10:43:00 EDT, Height, 91.1, kg, 11/02/:39:00 EDT, Dry Weight Start Date: 11/20/22 Status: [...] oldest [Reference Range]: 1 Height 165.4 cm (12/12/22 9:10 AM) Social History Social History Type Response Smoking Status Never (less than 100 in lifetime) entered on: 06/21/22 Sex Note * Kelly Dunn: PERFORM, SIGN, VERIFY Event Display: Patient Education/Instruction Authored Date: [id number] [facility] *[facility] Clinical Summary Name GAEL LENZ Age 62 Years 1960 PCP Micah LEMON, Josiane Junior PCP Visit Date 12/12/2022 08:42:00 Additional Instructions: Scheduled Appointments?? Future Appointments ?*[facility] [address] ?Phone:??--?Fax:??-- ?Appt. Date:??01/19/2023?11:20 AM ?Scheduled Provider:??Micah LEMON, Josiane Junior Follow-Up Instructions ?? With: Address: When: Teodoro Jasmine [address] [place] [address] Plastic Surgery [place], [place] [id number] Business (1) Comments: return later 2022 Diagnosis Medications: Please continue your medications until [...] 1 tab(s) Oral Daily at Bedtime. Refills: 0. Next Dose: Lidocaine/Prilocaine Topical (lidocaine-prilocaine [...] orders Vital Signs Height 165.4 cm Weight BMI Blood Pressure / Temperature Pulse Rate Respiratory Rate 02 Sat Mode of Delivery / You can now view a summary of your hospital visit from the comfort of your home through a free online portal called [employer]. [employer] is a website that allows you to securely view your medical information including discharge summary, medications and follow-up visits. ??You can alsosend a secure electronic message to your doctor???s office to request appointments, renew medications or just ask a question. You can enroll at [email or web address] or register during your next office visit. [...] primary care provider, you may find a [facility] provider by calling [facility] [email or web address] at [phone]. For information about the plan of care [...] Care Team Personnel Name: Josiane Ledezma Position: [facility] PCO Associate Professional Member Role: PCP Address: Address: [address] [place] [address]. 3rd Floor [place], [place] [address] Name: Ariadna Fitzgerald RN Position: [facility] Onco RN Member Role: Primary Care Nurse Care Team Related Persons Name: KELL GONSALVES Address: home [address] [place] [address] Name: CONG LENZ Address: home [address] [place] [address]
--- OUTSIDE RECORDS SUMMARY | 2024-03-16 19:25 | XMS_ITS | Continuity of Care Document ---
Author Organization [facility] Adult Address [address] [place] [address]- Care Team Providers Care Private Pilot Name Role Phone Josiane Ledezma Primary Care Physician Encounter [facility] Date(s): 07/19/22 - 08/18/22 [facility] Adult [address] [place] [address]- Allergies, Adverse Reactions, Alerts Substance Reaction Severity Status flu vaccines Hives Severe Active Immunizations Given and Recorded Vaccine Date Status Refusal Reason SARS-CoV-2 (COVID-19) mRNA-127 vaccine 02/21/22 R ecorded Medications amLODIPine 10 [...] 06/21/22 12:33:00 EST, Route to Pharmacy Electronically, [facility]/pharmacy #[id number], Partial fill upon patient request if the prescription is for a schedule II opioid drug... Start Date: 06/21/22 Status: Ordered Zoloft 50 mg oral tablet 1 tablet = 50 mg, By Mouth, Daily, # 30 tablet, 3 Refills, Maintenance, 06/21/22 12:33:00 EST, Tablet, [facility]/pharmacy #[id number], Partial fill upon patient request [...] Associate Professional Member Role: PCP Address: Address: [address] [place] [address]. 3rd [place] [address]- Care Team Related Persons Name: KELL GONSALVES Address: [place] [address] Name: CONG LENZ Address: home [address] [place] [address]
--- OUTSIDE RECORDS SUMMARY | 2024-03-16 19:25 | XMS_ITS | Continuity of Care Document ---
Author Organization [facility] Adult Address [address] [place] [address]- Care Team Providers Care Telemarketing Agent Name Role Phone Not on Staff, PCP Primary Care Physician Unavail able Encounter [facility] Date(s): 01/17/24 - 02/16/24 [facility] Adult [address] [place] [address]- Allergies, Adverse Reactions, Alerts Substance Reaction Severity Status flu vaccines Hives Severe Active Immunizations Given and Recorded Vaccine Date Status Refusal Reason tetanus/diphtheria/pertussis, acel(Tdap) 1 10/19/22 Given SARS-CoV-2 (COVID-19) mRNA-1273 vaccine 02/21/22 R ecorded 1Result Comment: [facility] 86289-775-45 Medications acetaminophen 325 mg oral tablet 650 [...] Refills, Maintenance, 08/07/23 9:18:00 EST, [facility], 165.4, cm, 07/23/23 10:56:00 EST, Height, 89.2, [...] 1 Refills, Maintenance, 08/27/23 6:34:00 EST, [facility]/pharmacy #[id number], 165.4, cm, 08/23/23 12:12:00 EST, Height, 89.2, kg, 06/07/23 10:32:00 EDT, Dry Weight Start Date: 08/27/23 Status: Ordered Golytely - oral powder for reconstitution See Instructions, Per instructions from GI., # 4,000 mL, 0 Refills, Maintenance, 01/31/24 11:39:00 EDT, [id number], Partial fill upon patient request if the prescription is for a schedule II opioid drug., Per instructions from GI., 165, cm, 06... Start Date: 01/31/24 Status: Ordered hydrOXYzine hydrochloride 50 mg oral tablet 1 tablet, By Mouth, Daily at bedtime, # 90 tablet, 2 Refills, Maintenance, 01/08/24 9:42:00 EDT, [facility], 165, cm, 12/14/23 9:43:00 EDT, Height, 87.4, kg, 12/12/23 10:25:00 EDT, Dry Weight Start Date: 01/08/24 Status: Ordered lisinopril 10 mg oral tablet 1, tablet, By Mouth, Daily, # 90 tablet, Refills 1, Tot. Refills 1, Maintenance, 01/17/24 9:14:00 EDT, Route to Pharmacy Electronically, [facility]/pharmacy #[id number], 165, cm, 01/11/24 15:16:00 EDT, Height, 87.4, kg, 12/12/23 10:25:00 EDT, Dry Weight Start Date: 01/17/24 Status: Ordered sertraline 100 mg oral tablet 1 tablet, By Mouth, Daily, # 90 tablet, 1 Refills, Maintenance, 04/17/23 8:29:00 EDT, [facility], 165.4, cm, 03/30/23 9:41:00 EDT, Height, 89.7, kg, 03/06/23 14:16:00 EDT, Dry Weight Start Date: 04/17/23 Status: Ordered traZODone 50 mg oral tablet 1, tablet, By Mouth, Daily at bedtime, # 90 tablet, Refills 1, Maintenance, 10/18/23 10:17:00 EST, Route to Pharmacy Electronically, [facility]63, 165, cm, 10/09/23 10:25:00 EST, Height, 89.7, [...] Care Nurse Name: Cecy Orta RN Position: [facility] Onco RN Member Role: Primary Care Nurse Name: Laurel Perales RN Position: S RN Member Role: Primary Care Nurse Name: Not on Staff, PCP Position: [facility] Physician (General Medicine) Member Role: PCP Name: Oli Brown RN Position: [facility] Onco RN Member Role: Primary Care Nurse Name: Ariadna Fitzgerald RN Position: [facility] Onco RN Member Role: Primary Care Nurse Name: Mariaa Dunn RN Position: S RN Member Role: Primary Care Nurse Name: Jimena Islas LPN Position: S RN Member Role: Primary Care Nurse Care Team Related Persons Name: KELL GONSALVES Address: home [address] [place] [address] Name: CONG LENZ Address: home [address] [place] [address]
--- OUTSIDE RECORDS SUMMARY | 2024-03-16 19:25 | XMS_ITS | Continuity of Care Document ---
Author Organization [facility] Care Address [address] [place] [address]- Care Team Providers Care Miller Distillery Name Role Phone Micah LEMON, Josiane Junior Primary Care Physician [facility]counter [facility] Date(s): 06/07/23 - 07/07/23 [facility] Care [address] [place] [address]- Allergies, Adverse Reactions, Alerts Substance Reaction Severity Status flu vaccines Hives Severe Active Immunizations Given and Recorded Vaccine Date Status Refusal Reason tetanus/diphtheria/pertussis, acel(Tdap) 1 10/19/22 Given SARS-CoV-2 (COVID-19) mRNA-1273 vaccine 02/21/22 R ecorded 1Result Comment: [facility] [id number] Medications amLODIPine 10 mg oral tablet 1 tablet = 10 mg, By Mouth, Daily, # 30 tablet, 5 Refills, Maintenance, 12/19/22 20:22:00 EDT, Tablet, [id number], Partial fill upon patient request if the prescription is for a schedule II opioid drug., 165.4, cm, 12/19/22 9:40:00 EDT, Height... Start Date: 12/19/22 Status: Ordered anastrozole 1 mg oral tablet 1 tablet, By Mouth, Daily, # 30 tablet, 2 Refills, Maintenance, 04/04/23 17:28:00 EDT, [facility], 165.4, cm, 03/30/23 9:41:00 EDT, Height, 89.7, kg, 03/06/23 14:16:00 EDT, Dry Weight Start Date: 04/04/23 Status: Ordered atorvastatin 80 mg oral tablet 1 tablet, By Mouth, Daily, # 90 tablet, 0 Refills, Maintenance, 06/01/23 14:15:00 EDT, [facility], 165.4, cm, 03/30/23 9:41:00 EDT, Height, 89.7, kg, 03/06/23 14:16:00 EDT, Dry Weight Start Date: 06/01/23 Status: Ordered cyclobenzaprine 10 mg oral tablet See Instructions, TAKE 1 TBALET BY MOUTH NIGHTLY NEEDED FOR MUSCLE SPASM., # 21 tablet, Refills 0, Maintenance, 11/20/22 11:08:00 EDT, Instructions Replace Required Details, Route to Pharmacy Electronically, [facility], 165.4, cm, 11/20/22 10:... Start Date: 11/20/22 Status: Ordered dexamethasone 4 mg oral tablet See Instructions, 2 tablet By Mouth 2 times a day for 3 days, starting on the day before treatment,then the day of treatment and the day after treatment., # 48 tablet, 0 Refills, Maintenance, 11/17/22 10:18:00 EDT, [facility]/pharmacy #[id number], Partial fill up... Start Date: 11/17/22 [...] Refills, Soft Stop, 11/20/22 9:28:00 EDT, Cream, [facility]/pharmacy #0693, Partial fill upon patient request if... Start Date: 11/20/22 Status: Ordered lisinopril 10 mg oral tablet 1, tablet, By Mouth, Daily, # 90 tablet, Refills 2, Tot. Refills 2, Maintenance, 04/30/23 18:29:00 EDT, Route to Pharmacy Electronically, [facility]/pharmacy #0693, 165.4, cm, 03/30/23 9:41:00 EDT, Height, 89.7, kg, 03/06/23 14:16:00 EDT, Dry Weight Start Date: 04/30/23 Status: Ordered meloxicam 15 mg oral tablet 1 tablet, By Mouth, Daily, # 90 tablet, 1 Refills, Maintenance, 05/01/23 10:48:00 EDT, [facility], 165.4, cm, 03/30/23 9:41:00 EDT, Height, 89.7, kg, 03/06/23 14:16:00 EDT, Dry Weight Start Date: 05/01/23 Status: Ordered ondansetron 4 mg oral tablet 1-2 tablet, By Mouth, Every 8 hours, PRN Nausea, # 30 tablet, 1 Refills, Maintenance, 11/17/22 10:19:00 EDT, [facility]/pharmacy #[id number], Partial fill upon patient request if the prescription is for a schedule II opioid drug., 165.4, cm, 11/02/22 9:39:00 EDT,... Start Date: 11/17/22 Status: Ordered prochlorperazine 5 mg oral tablet 1-2 tablet, By Mouth, Every 6 hours, PRN Nausea, # 60 tablet, 1 Refills, Maintenance, 11/17/22 10:19:00 EDT, [facility]/pharmacy #0693, Partial fill upon patient request if the prescription is for a schedule II opioid drug., 165.4, cm, 11/02/22 9:39:00 EDT,... Start Date: 11/17/22 Status: Ordered sertraline 100 mg oral tablet 1 tablet, By Mouth, Daily, # 90 tablet, 1 Refills, Maintenance, 04/17/23 8:29:00 EDT, [facility], 165.4, cm, 03/30/23 9:41:00 EDT, Height, 89.7, [...] Associate Professional Member Role: PCP Address: Address: [address] [place] [address]. 3rd [place], [place] [address] Name: Ifeanyi Brown RN Position: [facility] Onco RN Member Role: Primary Care Nurse Name: Ariadna Fitzgerald RN Position: [facility] Onco RN Member Role: Primary Care Nurse Name: Cecy Boston RN Position: [facility] Onco RN Member Role: Primary Care Nurse Care Team Related Persons Name: KELL GONSALVES Address: home [address] [place] [address] Name: CONG LENZ Address: home [address] [place] [address]
--- OUTSIDE RECORDS SUMMARY | 2024-03-16 19:25 | XMS_ITS | Continuity of Care Document ---
Author Organization [facility] Address [address] [place] [address] [address] [place] [address]- Care Team Providers Care Equipment Engineer Name Role Phone Josiane Ledezma Primary Care Physician [facility]counter [facility] Date(s): 10/05/22 - 10/12/22 [facility] [address] [place] [address]- Attending Physician: Jo Ann Mcghee Allergies, Adverse Reactions, Alerts Substance Reaction Severity Status flu vaccines Hives Severe Active Immunizations Given and Recorded Vaccine Date Status Refusal Reason SARS-CoV-2 (COVID-19) mRNA-9952 vaccine 02/21/22 R ecorded Medications amLODIPine 10 [...] 06/22/22 10:24:00... Start Date: 07/19/22 Status: Ordered hydrOXYzine hydrochloride 25 mg oral tablet See Instructions, TAKE 1 TABLET BY MOUTH 30-60 BEFORE BEDTIME NEEDED FOR INSOMNIA., # 30 tablet,3 Refills, Maintenance, 10/10/22 16:21:00 EST, [facility], 162.56, cm, 10/06/22 10:43:00 EST, Height, 90.9, kg, 09/27/22 6:08:00 EST, Dry Weight Start Date: 10/10/22 Status: Ordered lisinopril 10 mg oral tablet 10 mg, 1, tablet, By Mouth, Daily, # 30 tablet, Refills 5, Tot. Refills 5, Maintenance, 06/21/22 12:33:00 EST, Route to Pharmacy Electronically, [facility]/pharmacy #[id number], Partial fill upon patient request if the prescription is for a schedule II opioid drug... Start Date: 06/21/22 Status: Ordered oxyCODONE 5 mg oral tablet 5 mg, 1, tablet, By Mouth, Every 6 hours, PRN, # 20 tablet, Refills 0, Tot. Refills 0, Maintenance,for pain, 09/27/22 11:40:00 EST, Route to Pharmacy Electronically, [facility]/pharmacy #0693, Partial fillupon patient request if the prescription is for a s... Start Date: 09/27/22 Status: Ordered sertraline 50 mg oral tablet 1 tablet, By Mouth, Daily, # 30 tablet, 3 Refills, Maintenance, 10/10/22 16:21:00 EST, [facility] 49223, 162.56, cm, 10/06/22 10:43:00 EST, Height, 90.9, kg, 09/27/22 6:08:00 EST, Dry Weight Start Date: 10/10/22 Status: Ordered Problem List Condition Confirmation Course Effective Dates Status Health St [facility]us Informant Chest pain Confirmed Active Depression Confirmed Active HTN (hypertension) Confirmed Active Impaired fasting glucose Confirmed Active Left-sided low back pain without sciatica Confirmed Active Obese class I Confirmed Active Vital Signs Most recent to oldest [Reference Range]: 1 Height 162.56 cm (10/05/22 1:20 PM) Social History Social History Type Response Smoking Status Never (less than 100 in lifetime) entered on: 06/21/22 Sex Patient Care team information Care Team Personnel Name: Josiane Ledezma Position: S PCO Associate Professional Member Role: PCP Address: Address: [address] [place] [address]. 3rd [address] [place], [place] [address] Care Team Related Persons Name: KELL GONSALVES Name: CONG LENZ Address: home [address] [place] [id number]
--- OUTSIDE RECORDS SUMMARY | 2024-03-16 19:25 | XMS_ITS | Continuity of Care Document ---
Author Organization [facility] Adult Address [address] [place] [address]- Care Team Providers Care Tube Splicer Name Role Phone Josiane Ledezma Primary Care Physician [place] [facility] [place] 07[place]22 - 08/25/22 [facility] Adult [address] [place] [address]- Allergies, Adverse Reactions, Alerts Substance Reaction Severity [...] List Condition Confirmation Course Effective Dates Status [facility] Informant Chest pain Confirmed Active Depression Confirmed Active HTN (hypertension) Confirmed Active Impaired fasting glucose Confirmed Active Left-sided low back pain without sciatica Confirmed Active Obese class I Confirmed Active Social History Social History Type Response Smoking Status Never (less than 100 in lifetime) entered on: 06/21/22 Sex Patient Care team information Care Team Personnel Name: Josiane Leedzma Position: S PCO Associate Professional Member Role: PCP Address: Address: [address] [place] [address]. 3rd [place] [address]- Care Team Related Persons Name: KELL GONSALVES Address: [place] [address] Name: CONG LENZ Address: home [address] [place] [id number]
--- OUTSIDE RECORDS SUMMARY | 2024-03-16 19:25 | XMS_ITS | Continuity of Care Document ---
Author Organization [facility] Adult Address [address] [place] [address]- Care Team Providers Care Manager Administration Name Role Phone Josiane Ledezma Primary Care Physician [place] [facility] [place] 01[place]23 - 03/02/23 [facility] Adult [address] [place] [address]- Allergies, Adverse Reactions, Alerts Substance Reaction Severity Status flu vaccines Hives Severe Active Immunizations Given and Recorded Vaccine Date Status Refusal Reason tetanus/diphtheria/pertussis, acel(Tdap) 1 10/19/22 Given SARS-CoV-2 (COVID-19) mRNA-1273 vaccine 02/21/22 R ecorded 1Result Comment: [facility] [id number] Medications amLODIPine 10 mg oral tablet 1 [...] Replace Required Details, Route to Pharmacy Electronically, [facility]7310, 165.4, cm, 11/20/22 10:... Start Date: 11/20/22 [...] tablet, 2 Refills, Maintenance, 01/15/23 14:21:00 EDT, [facility] 61213, 165.4, cm, 01/09/23 10:06:00 EDT, Height, 88.5, [...] 11/20/22 11:08:00 EDT, Route to Pharmacy Electronically, [facility] 17224, 165.4, cm, 11/20/22 10:43:00 EDT, Height, 91.1, [...] Care Team Personnel Name: Josiane Ledezma Position: [facility] PCO Associate Professional Member Role: PCP Address: Address: [address] [place] [address]. 3rd [place] [address]- [place] Name: Ariadna Fitzgerald RN Position: [facility] Onco RN Member Role: Primary Care Nurse Name: Cecy Boston RN Position: [facility] Onco RN Member Role: Primary Care Nurse Care Team Related Persons Name: GONSALVESKELL Address: home [address] [place] [id number] Name: CONG LENZ Address: home [address] [place] [address]
--- OUTSIDE RECORDS SUMMARY | 2024-03-16 19:25 | XMS_ITS | Continuity of Care Document ---
Author Organization [facility] Adult Address [address] [place] [address]- Care Team Providers Care Chrome Tanner Name Role Phone Josiane Ledezma Primary Care Physician Encounter [facility] Date(s): 09/14/22 - 10/14/22 [facility] [address] [place] [address]- Attending Physician: Admtr, [id number] Admitting Physician: Admtr, Braden8 Referring Physician: Admtr, Ar8 Allergies, Adverse Reactions, Alerts Substance Reaction Severity Status flu vaccines Hives Severe Active Immunizations Given and Recorded Vaccine Date Status Refusal Reason SARS-CoV-2 (COVID-19) mRNA-1273 vaccine 02/21/22 R ecorded Medications amLODIPine 10 [...] Refills, Maintenance, 10/10/22 16:21:00 EST, [facility], 162.56, cm, 10/06/22 10:43:00 EST, Height, 90.9, kg, 09/27/22 6:08:00 EST, Dry Weight Start Date: 10/10/22 Status: Ordered lisinopril 10 mg oral tablet 10 mg, 1, tablet, By Mouth, Daily, # 30 tablet, Refills 5, Tot. Refills 5, Maintenance, 06/21/22 12:33:00 EST, Route to Pharmacy Electronically, [facility]/pharmacy #[id number], Partial fill upon patient request if the prescription is for a schedule II opioid drug... Start Date: 06/21/22 Status: Ordered oxyCODONE 5 mg oral tablet 5 mg, 1, tablet, By Mouth, Every 6 hours, PRN, # 20 tablet, Refills 0, Tot. Refills 0, Maintenance,for pain, 09/27/22 11:40:00 EST, [id number] Partial fillupon patient request if the prescription is for a s... Start Date: 09/27/22 Status: Ordered sertraline 50 mg oral tablet 1 tablet, By Mouth, Daily, # 30 tablet, 3 Refills, Maintenance, 10/10/22 16:21:00 EST, [facility], 162.56, cm, 10/06/22 10:43:00 EST, Height, 90.9, [...] Associate Professional Member Role: PCP Address: Address: [address] [place] [address]. [address] [place] [address]- Care Team Related Persons Name: KELL GONSALVES Name: CONG LENZ Address: home [address] [place] [address]
--- OUTSIDE RECORDS SUMMARY | 2024-03-16 19:25 | XMS_ITS | Continuity of Care Document ---
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 Name Role Phone Josiane Ledezma Primary Care Physician Encounter [facility] [place] Date(s): 08/23/23 - 09/22/23 [facility] [address] [place] [id number] Attending Physician: Admtr, Ar8 Admitting Physician: Admtr, Ar8 Referring Physician: Admtr, Ar8 Allergies, Adverse Reactions, Alerts Substance Reaction Severity Status flu vaccines Hives Severe Active Immunizations Given and Recorded Vaccine Date Status Refusal Reason tetanus/diphtheria/pertussis, acel(Tdap) 1 10/19/22 Given SARS-CoV-2 (COVID-19) mRNA-1273 vaccine 02/21/22 R ecorded 1Result Comment: [facility] [id number] Medications amLODIPine 10 mg oral tablet 1 tablet, By Mouth, Daily, # 90 tablet, 1 Refills, Maintenance, 08/07/23 9:18:00 EST, [facility], 165.4, cm, 07/23/23 10:56:00 EST, Height, 89.2, [...] tablet, 1 Refills, Maintenance, 08/27/23 6:34:00 EST, [facility]/pharmacy #[id number], 165.4, cm, 08/23/23 12:12:00 EST, Height, 89.2, kg, 06/07/23 10:32:00 EDT, Dry Weight Start Date: 08/27/23 Status: Ordered lisinopril 10 mg oral tablet 1, tablet, By Mouth, Daily, # 90 tablet, Refills 2, Tot. Refills 2, Maintenance, 04/30/23 18:29:00 EDT, Route to Pharmacy Electronically, [facility]/pharmacy #[id number], 165.4, cm, 03/30/23 9:41:00 EDT, Height, 89.7, kg, 03/06/23 14:16:00 EDT, Dry Weight Start Date: 04/30/23 Status: Ordered meloxicam 15 mg oral tablet 1 tablet, By Mouth, Daily, # 90 tablet, 1 Refills, Maintenance, 05/01/23 10:48:00 EDT, [facility], 165.4, cm, 03/30/23 9:41:00 EDT, Height, 89.7, kg, 03/06/23 14:16:00 EDT, Dry Weight Start Date: 05/01/23 Status: Ordered ondansetron 4 mg oral tablet 1-2 tablet, By Mouth, Every 8 hours, PRN Nausea, # 30 tablet, 1 Refills, Maintenance, 11/17/22 10:19:00 EDT, [facility]/pharmacy #[id number], Partial fill upon patient request if the prescription is for a schedule II opioid drug., 165.4, cm, 11/02/22 9:39:00 EDT,... Start Date: 11/17/22 Status: Ordered sertraline 100 mg oral tablet 1 tablet, By Mouth, Daily, # 90 tablet, 1 Refills, Maintenance, 04/17/23 8:29:00 EDT, [facility], 165.4, cm, 03/30/23 9:41:00 EDT, Height, 89.7, kg, 03/06/23 14:16:00 EDT, Dry Weight Start Date: 9/5/23 Status: Ordered traZODone 50 mg oral tablet 50 mg, 1, tablet, By Mouth, Daily at bedtime, # 30 tablet, Refills 4, Tot. Refills 4, Maintenance, 07/23/23 11:38:00 EST, Route to Pharmacy Electronically, [facility]/pharmacy #[id number], Partial fill upon patient request if the [...] Team Personnel Name: Josiane Ledezma Position: [facility] PCO Associate Professional Member Role: PCP Address: Address: [address] [place] [address]. [address] [place], [place] [address] Name: Ifeanyi Brown RN Position: [facility] Onco RN Member Role: Primary Care Nurse Name: Ariadna Fitzgerald RN Position: [facility] Onco RN Member Role: Primary Care Nurse Name: Cecy Boston RN Position: [facility] Onco RN Member Role: Primary Care Nurse Care Team Related Persons Name: KELL GONSALVES Address: home [address] [place] [address] Name: CONG LENZ Address: home [address] [place] [address]
--- OUTSIDE RECORDS SUMMARY | 2024-03-16 19:25 | XMS_ITS | Continuity of Care Document ---
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 Name Role Phone Papo LEMON, Josiane Junior Primary Care P marcel [id number] Date(s): 10/22/23 - 11/21/23 [facility] Adult [address] [place] [address]- Allergies, Adverse Reactions, Alerts Substance Reaction Severity Status flu vaccines Hives Severe Active Immunizations Given and Recorded Vaccine Date Status Refusal Reason tetanus/diphtheria/pertussis, acel(Tdap) 1 10/19/22 Given SARS-CoV-2 (COVID-19) mRNA-1273 vaccine 02/21/22 R ecorded 1Result Comment: [facility] [id number] Medications acetaminophen 325 mg oral tablet 650 [...] Refills, Maintenance, 08/07/23 9:18:00 EST, [facility], 165.4, cm, 07/23/23 10:56:00 EST, Height, 89.2, kg, 06/07/23 10:32:00 EDT, Dry Weight Start Date: 08/07/23 Status: Ordered anastrozole 1 mg oral tablet 1 tablet, By Mouth, Daily, # 30 tablet, 11 Refills, Maintenance, 07/19/23 16:13:00 EST, [facility], 165.4, cm, 07/11/23 14:22:00 EST, Height, 89.2, kg, 06/07/23 10:32:00 EDT, Dry Weight Start Date: 07/19/23 Status: Ordered atorvastatin 80 mg oral tablet 1 tablet, By Mouth, Daily, # 90 tablet, 1 Refills, Maintenance, 08/27/23 6:34:00 EST, [facility]/pharmacy #[id number], 165.4, cm, 08/23/23 12:12:00 EST, [...] 04/30/23 18:29:00 EDT, Route to Pharmacy Electronically, [facility]/pharmacy #[id number], 165.4, cm, 03/30/23 9:41:00 EDT, Height, 89.7, kg, 03/06/23 14:16:00 EDT, Dry Weight Start Date: 04/30/23 Status: Ordered ondansetron 4 mg oral tablet 1 tablet = 4 mg, By Mouth, Every 8 hours, PRN Nausea & Vomiting, # 10 tablet, 0 Refills, Maintenance, 11/08/23 9:52:00 EDT, Tablet, [facility], Partial fill upon patient request if the prescription is for a schedule II opioid drug., 165,... Start Date: 11/08/23 Status: Ordered sertraline 100 mg oral tablet 1 tablet, By Mouth, Daily, # 90 tablet, 1 Refills, Maintenance, 04/17/23 8:29:00 EDT, [facility], 165.4, cm, 03/30/23 9:41:00 EDT, Height, 89.7, kg, 03/06/23 14:16:00 EDT, Dry Weight Start Date: 04/17/23 Status: Ordered traZODone 50 mg oral tablet 1, tablet, By Mouth, Daily at bedtime, # 90 tablet, Refills 1, Maintenance, 10/18/23 10:17:00 EST, Route to Pharmacy Electronically, [facility], 165, cm, 10/09/23 10:25:00 EST, Height, 89.7, [...] Care Nurse Name: Cecy Orta RN Position: [facility] Onco RN Member Role: Primary Care Nurse Name: Laurel Perales RN Position: S RN Member Role: Primary Care Nurse Name: Josiane Jordan Position: [facility] PCO Associate Professional Member Role: PCP Address: Address: [address] [place] [address]. 3rd [place] [address]- Name: Ifeanyi Brown RN Position: [facility] Onco RN Member Role: Primary Care Nurse Name: Ariadna Fitzgerald RN Position: S Onco RN Member Role: Primary Care Nurse Name: Mariaa Dunn RN Position: S RN Member Role: Primary Care Nurse Name: Jimena Islas LPN Position: S RN Member Role: Primary Care Nurse Care Team Related Persons Name: KELL GONSALVES Address: home [address] [place] [address] Name: CONG LENZ Address: home [address] [place] [address]
--- OUTSIDE RECORDS SUMMARY | 2024-03-16 19:25 | XMS_ITS | Continuity of Care Document ---
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 Name Role Phone Josiane Ledezma Primary Care Physician Encounter [facility] [place] Date(s): 06/26/22 - 06/27/[address] [address]- Encounter Diagnosis Fall(Final) - 06/27/22 Discharge Disposition: A-D/C Home Attending Physician: Ronak Araujo MD Admitting Physician: Ronak Araujo MD Referring Physician: Not on Staff, Referring MD Allergies, Adverse Reactions, Alerts Substance Reaction Severity Status flu vaccines Hives Severe Active Immunizations Given and Recorded Vaccine Date Status Refusal Reason SARS-CoV-2 (COVID-19) mRNA-1273 vaccine 02/21/22 R ecorded Medications amLODIPine 10 mg oral tablet 1 tablet = 10 mg, By Mouth, Daily, # 90 tablet, 0 Refills, Maintenance, 06/21/22 12:33:00 EST, Tablet, Partial fill upon patient request if the prescription is for a schedule II opioid drug. Start Date: 06/21/22 Status: Ordered cyclobenzaprine 10 mg oral tablet See Instructions, Take 1 tbalet by mouth nightly as needed for muscle spasm., # 21 tablet, Refills 0, Tot. Refills 0, Acute 07/05/22 12:34:00 EST, 06/21/22 12:34:00 EST, Instructions Replace RequiredDetails, [facility] Start Date: 06/21/22 Stop Date: 07/05/22 Status: Ordered diclofenac sodium 75 mg oral [...] 06/21/22 12:33:00 EST, Route to Pharmacy Electronically, [facility]/pharmacy #[id number], Partial fill upon patient request if the prescription is for a schedule II opioid drug... Start Date: 06/21/22 Status: Ordered Zoloft 50 mg oral tablet 1 tablet = 50 mg, By Mouth, Daily, # 30 tablet, 3 Refills, Maintenance, 06/21/22 12:33:00 EST, Tablet, [facility]/pharmacy #[id number], [...] Exam Date Time Procedure Performing Provider Status 06/27/22 1:02 AM XR Hip w/Pelvis 2-3 View Right Kelvin Lazo; Auth (Verified) Notes: (XR Hip w/Pelvis 2-3 View Right) Reason For Exam: With Pain;Trauma RESULT: XR Hip w/Pelvis 2-3 View Right XR Hip w/Pelvis 2-3 View Right Reason: Trauma; With Pain; Clinical Question(s): Fracture COMPARISON: None. FINDINGS: There is no fracture or dislocation. Normal hips and sacroiliac joints. Normal soft tissues. IMPRESSION: No fracture or malalignment. WSN: [id number] Ordering Physician: Jolly Weston Dictated By: Daniel Cheatham MD Dictated Date/Time: 06/27/22 7:59 am Reviewed By: Daniel Cheatham MD Signed By: Daniel Cheatham MD Signed Date/Time: 06/27/22 7:59 am Transcribed By: LUIS MIGUEL Transcribed Date/Time: 06/27/22 7:58 am * Exam Date Time Procedure Performing Provider Status 06/27/22 6:[address] Head/Brain W/O Contrast Flores Cheatham; Aly (Verified) Notes: (CT Head/Brain W/O Contrast) Reason For Exam: fall, ROBLEDO;Headache(s) RESULT: CT Head/Brain W/O Contrast CT Head/Brain W/O Contrast INDICATION: Headache and hypertension. TECHNIQUE: Noncontrast head CT using axial technique and reconstructed in axial and coronal planes.Iterative reconstruction techniques are used to optimize dose and image quality. CTDIvol Head: 47.80 mGy, DLP Head: 773 mGy*cm. COMPARISON: Yesterday FINDINGS: Radio Tower Technician view findings, lines and tubes: None. BRAIN AND EXTRA-AXIAL SPACES: No parenchymal hemorrhage, midline shift, or mass effect. Castro-white matter differentiation is wellpreserved. No acute infarct. Ventricles, sulci, and basilar cisterns are normal. No white matter lesions. No subarachnoid hemorrhage. No subdural or epidural collection. CALVARIUM, SKULL BASE, AND SOFT TISSUES: No fractures or suspicious bony lesions. Partially opacified paranasal sinuses. Mastoid air cells are clear. Visualized orbits and globes are intact. 0.8 cm soft tissue stranding in the right frontal scalp (axial: 74). IMPRESSION: 1. No acute intracranial abnormality. 2. Small nonspecific right frontal scalp lesion. Correlate with physical exam. I have personally reviewed the images and I agree with this report. WSN: [id number] Ordering Physician: Jolly Weston Dictated By: Kj Rai MD Dictated Date/Time: 06/27/22 7:11 am Reviewed By: Omar Yao MD Signed By: Omar Yao MD Signed Date/Time: 06/27/22 7:16 am Transcribed By: LUIS MIGUEL Transcribed Date/Time: 06/27/22 6:53 am * Exam Date Time Procedure Performing Provider Status 06/27/22 4:[address] Ext Lower W/O Contrast Right Desmond Rios; Auth (Verified) Notes: (CT Ext Lower W/O Contrast Right) Reason For Exam: ? fracture;Fracture RESULT: CT Ext Lower W/O Contrast Right CT Ext Lower W/O Contrast Right HISTORY: Pain. Fracture. TECHNIQUE: Helical CT without contrast formatted in 3 planes. Weight-based protocol using automatictube modulation was used to optimize exposure parameters. CTDIvol Body: 44.20 mGy, DLP Body: 1216 mGy*cm. COMPARISONS: Radiograph same day. FINDINGS: No evidence of fracture or dislocation. No significant degenerative change. No focal fluid collection. Incidental note of a few scattered sigmoid diverticula. IMPRESSION: No evidence of fracture I have personally reviewed the images and I agree with this report. WSN: [id number] Ordering Physician: Jolly Weston Dictated By: Kj Rai MD Dictated Date/Time: 06/27/22 8:07 am Reviewed By: Tomi Salinas MD Signed By: Tomi Salinas MD Signed Date/Time: 06/27/22 8:12 am Transcribed By: LUIS MIGUEL Transcribed Date/Time: 06/27/22 5:55 am Vital Signs Most recent to oldest [Reference Range]: 1 2 3 Oxygen Saturation [94-100 %] 100 % (06/27/22 7:21 AM) 100 % (06/27/22 5:00 AM) 100 % (06/27/22 2:52 AM) Pulse Rate [55-90 bpm] 59 bpm (06/27/22 7:21 AM) 65 bpm (06/27/22 5:00 AM) 96 bpm *H* (06/27/22 2:52 AM) Blood Pressure [90-138/55-84 mm Hg] 160/60mm Hg *H* (06/27/22 7:21 AM) 135/60mm Hg (06/27/22 5:00 AM) 151/55mm Hg *H* (06/27/22 2:52 AM) Respiratory Rate [16-30 br/min] 22 br/min (06/27/22 7:21 AM) 26 br/min (06/27/22 5:00 AM) 15 br/min *L* (06/27/22 2:52 AM) Temperature [96.8-100.4 DegF] 98.1 DegF (06/27/22 5:00 AM) 98.1 DegF (06/27/22 12:04 AM) Mode of Delivery (Oxygen) Room air (06/27/22 7:21 AM) Room air (06/27/22 5:00 AM) Room air (06/27/22 2:52 AM) Blood pressure sites Arm, left (06/27/22 5:00 AM) Arm, left (06/27/22 12:04 AM) Temperature Route Oral (06/27/22 5:00 AM) Oral (06/27/22 12:04 AM) Social History Social History Type Response Smoking Status Never (less than 100 in lifetime) entered on: 06/21/[address] Head WO contrast * BHSPowerscribe , CIS S: TRANSCRIBE Cecelia UMAÑA, Kj Lewis: SIGN Omar Yao MD: VERIFY Event Display: Result: Authored Date: CT Head/Brain W/O Contrast INDICATION: Headache and hypertension. TECHNIQUE: Noncontrast head CT using axial technique and reconstructed in axial and coronal planes.Iterative reconstruction techniques are used to optimize dose and image quality. CTDIvol Head: 47.80 mGy, DLP Head: 773 mGy*cm. COMPARISON: Yesterday FINDINGS: Radio Tower Technician view findings, lines and tubes: None. BRAIN AND EXTRA-AXIAL SPACES: No parenchymal hemorrhage, midline shift, or mass effect. Castro-white matter differentiation is wellpreserved. No acute infarct. Ventricles, sulci, and basilar cisterns are normal. No white matter lesions. No subarachnoid hemorrhage. No subdural or epidural collection. CALVARIUM, SKULL BASE, AND SOFT TISSUES: No fractures or suspicious bony lesions. Partially opacified paranasal sinuses. Mastoid air cells are clear. Visualized orbits and globes are intact. 0.8 cm soft tissue stranding in the right frontal scalp (axial: 74). IMPRESSION: 1. No acute intracranial abnormality. 2. Small nonspecific right frontal scalp lesion. Correlate with physical exam. I have personally reviewed the images and I agree with this report. WSN: [id number] Ordering Physician: Jolly Weston Dictated By: Kj Rai MD Dictated Date/Time: 06/27/22 7:11 am Reviewed By: Omar Yao MD Signed By: Omar Yao MD Signed Date/Time: 06/27/22 7:16 am Transcribed By: LUIS MIGUEL Transcribed Date/Time: 06/27/22 6:53 am XR Pelvis and Hip - right Views * Denise , CIS S: TRANSCRIDaniel Garcia MD: VERIFY Event Display: Result: Authored Date: [id number] XR Hip w/Pelvis 2-3 View Right Reason: Trauma; With Pain; Clinical Question(s): Fracture COMPARISON: None. FINDINGS: There is no fracture or dislocation. Normal hips and sacroiliac joints. Normal soft tissues. IMPRESSION: No fracture or malalignment. WSN: [id number] Ordering Physician: Jolly Weston Dictated By: Daniel Cheatham MD Dictated Date/Time: 06/27/22 7:59 am Reviewed By: Daniel Cheatham MD Signed By: Daniel Cheatham MD Signed Date/Time: 06/27/22 7:59 am Transcribed By: LUIS MIGUEL Transcribed Date/Time: 06/27/22 7:[address] Lower extremity WO contrast * Denise , CIS S: TRANSCRITomi Bennett MD: VERIFY Kj Rai MD: SIGN Event Display: Result: Authored Date: [id number] CT Ext Lower W/O Contrast Right HISTORY: Pain. Fracture. TECHNIQUE: Helical CT without contrast formatted in 3 planes. Weight-based protocol using automatictube modulation was used to optimize exposure parameters. CTDIvol Body: 44.20 mGy, DLP Body: 1216 mGy*cm. COMPARISONS: Radiograph same day. FINDINGS: No evidence of fracture or dislocation. No significant degenerative change. No focal fluid collection. Incidental note of a few scattered sigmoid diverticula. IMPRESSION: No evidence of fracture I have personally reviewed the images and I agree with this report. WSN: [id number] Ordering Physician: Jolly Weston Dictated By: Kj Rai MD Dictated Date/Time: 06/27/22 8:07 am Reviewed By: Tomi Salinas MD Signed By: Tomi Salinas MD Signed Date/Time: 06/27/22 8:12 am Transcribed By: LUIS MIGUEL Transcribed Date/Time: 06/27/22 5:55 am Patient Care team information Care Team Personnel Name: Josiane Ledezma Position: [facility] PCO Associate Professional Member Role: PCP Address: Address: [address] [place] [address] Drive. [address] [place] [address]- [place] Name: Jolly Nye Position: [facility] Associate Professional Member Role: ED Physician Delivery Architect Address: Address: [address] [place] [address]- Name: Ines Zhang RN Position: [facility] ED RN W/OE and Tasks Member Role: Patient Care Provider Name: Josiane Rabago Position: [facility] ED TA [facility] Name: Ronak Araujo MD Position: [facility] ED Medicine MD Member Role: Admitting Physician Address: Address: [address] [place] [address]- Care Team Related Persons Name: KELL GONSALVES Address: [place] [address] Name: CONG LENZ Address: home [address] [place] [address]
--- OUTSIDE RECORDS SUMMARY | 2024-03-16 19:25 | XMS_ITS | Continuity of Care Document ---
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 Name Role Phone Micah LEMON, Josiane Junior Primary Care Physician Encounter [facility] [place] Date(s): 06/21/22 - 06/28/22 [facility] Adult [address] [place] [address]- Encounter Diagnosis Depression(Discharge Diagnosis) - 06/21/22 Left-sided low back pain without sciatica(Discharge Diagnosis) - 06/21/22 Lipid screening(Discharge Diagnosis) - 06/21/22 Impaired fasting glucose(Discharge Diagnosis) - 06/21/22 Obese class I(Discharge Diagnosis) - 06/21/22 HTN (hypertension)(Discharge Diagnosis) - 06/21/22 Chest pain(Discharge Diagnosis) - 06/21/22 Attending Physician: Josiane Ledezma Allergies, Adverse Reactions, [...] Effective Dates Health Status Clinical Service Informant Obese class I Discharge Diagnosis 06/21/22 HTN (hypertension) Discharge Diagnosis 06/21/22 Depression Discharge Diagnosis 06/21/22 Left-sided low back pain without sciatica Discharge Diagnosis 06/21/22 Lipid screening Discharge Diagnosis 06/21/22 Impaired fasting glucose Discharge Diagnosis 06/21/22 Chest pain Discharge Diagnosis 06/21/22 Vital Signs Most recent to oldest [Reference Range]: 1 2 3 Height 163 cm (06/22/22 10:24 AM) 163 cm (06/21/22 12:38 PM) 163 cm (06/21/22 11:42 AM) Weight 92.4 kg (06/22/22 10:24 AM) 92.4 kg (06/21/22 11:42 AM) Oxygen Saturation [94-100 %] 99 % (06/21/22 11:42 AM) Pulse Rate [55-90 bpm] 73 bpm (06/21/22 11:42 AM) Body Mass Index [18.5-24.99 kg/m2] 34.78 kg/m2 *>HHI* (06/21/22 11:42 AM) Blood Pressure [90-138/55-84 mm Hg] 158/86mm Hg *H* (06/21/22 12:38 PM) 151/82mm Hg *H* (06/21/22 11:42 AM) Temperature [96.8-100.4 DegF] 97.7 DegF (06/21/22 11:42 AM) Mode of Delivery (Oxygen) Room air (06/21/22 11:42 AM) Blood pressure sites Arm, left (06/21/22 12:38 PM) Arm, left (06/21/22 11:42 AM) Temperature Route Temporal (06/21/22 11:42 AM) Weight Obtained Via Standing scale (06/21/22 11:42 AM) Social History Social History Type Response Smoking Status Never (less than 100 in lifetime) entered on: 06/21/22 Sex Note * Dunia Magana: VERIFY, PERFORM, SIGN Event Display: Patient Education/Instruction Authored Date: [id number] [facility] *[facility] Clinical Summary Name GAEL LENZ Age 61 Years 1960 PCP Not on Staff, PCP PCP Phone Visit Date 06/21/2022 11:40:00 Additional Instructions: Scheduled Appointments?? Future Appointments ?[facility] ?[address]??[place],??[place],??[address] ?Phone:??[phone]?Fax:??-- ?Appt. Date:??07/19/2022?2:00 PM ?Scheduled Provider:??[facility]m [facility] ?[facility] ?[address]??[place],??[place],??[address] ?Phone:??[phone]?Fax:??-- ?Appt. Date:??07/19/2022?2:45 PM ?Scheduled Provider:??[facility] ?[facility] ?[address],??[place],??[address] ?Phone:??--?Fax:??-- ?Appt. Date:??08/09/2022?10:20 AM ?Scheduled Provider:??Josiane Ledezma ?[facility] ?[address]??[place],??[place],??[address] ?Phone:??[phone]?Fax:??-- ?Appt. Date:??08/10/2022?11:00 AM ?Scheduled Provider:??IMANI ALATORRE Follow-Up Instructions ?? Diagnosis Body mass index [BMI] 30.0-30.9, adult; Depression, unspecified; Encounter for screening for lipoiddisorders; Impaired fasting glucose; Essential (primary) hypertension; Low back pain, unspecified Medications: Please continue your medications until treatment is completed or stopped by your provider. Discuss any questions related to medications with your provider. Medications to Continue with No Changes These medications were not printed or sent to your pharmacy Celecoxib (celecoxib 100 mg oral capsule) 1 capsule Oral twice a day. Next Dose: Fluoxetine (FLUoxetine 10 mg oral capsule) 1 capsule Oral Daily. Next Dose: HydrOXYzine (hydrOXYzine pamoate 25 mg oral capsule) 1 capsule Oral 4 times a day as needed for anxiety. Next Dose: Lisinopril (lisinopril 5 mg oral tablet) 1 tab(s) Oral Daily. Next Dose: Trazodone (traZODone 50 mg oral tablet) 1 tab(s) Oral Daily at Bedtime. Next Dose: Allergy Info:?? flu vaccines Medications Given This Visit Future Orders ?Hemoglobin A1C (Monitoring)? Order Date:06/21/22?- Complete by?06/21/22 ?Lipid Panel? Order Date:06/21/22?- Complete by?06/21/22 Vital Signs Height 163 cm Weight 92.4 kg BMI 34.78 kg/m2 Blood Pressure 151 mm Hg/82 mm Hg Temperature 97.7 DegF Pulse Rate 73 bpm Respiratory Rate 02 Sat Mode of Delivery 99 %/Room air You can now view a summary of your hospital visit from the comfort of your home through a free online portal called inContact. inContact is a website that allows you to securely view your medical information including discharge summary, medications and follow-up visits. ??You can alsosend a secure electronic message to your doctor???s office to request appointments, renew medications or just ask a question. You can enroll at [email or web address] or register during your next office visit. [...] primary care provider, you may find a [facility] provider by calling [facility] [employer] at [phone]. For information about the plan of care [...] Professional Member Role: PCP Address: Address: [address] [place] [address]- Care Team Related Persons Name: KELL GONSALVES Address: [place] [address] Name: CONG LENZ Address: home [address] [place] [address]
--- OUTSIDE RECORDS SUMMARY | 2024-03-16 19:25 | XMS_ITS | Continuity of Care Document ---
Author Organization [facility] Address [address] [place] [address]- Care Team Providers Care News Cameraman Name Role Phone Ephraim UMAÑA, [facility] Primary Care Physician [place] [facility] [place] 12/10/23 - 01/09/24 [facility] [address] [place] [id number] Attending Physician: Xander, Melida Admitting Physician: AdmtrMelida Referring Physician: Admtr, Ar8 Allergies, Adverse Reactions, Alerts Substance Reaction Severity Status flu vaccines Hives Severe Active Immunizations Given and Recorded Vaccine Date Status Refusal Reason tetanus/diphtheria/pertussis, acel(Tdap) 1 10/19/22 Given SARS-CoV-2 (COVID-19) mRNA-1273 vaccine 02/21/22 R ecorded 1Result Comment: [facility] [id number] Medications acetaminophen 325 mg oral tablet 650 [...] tablet, 1 Refills, Maintenance, 08/07/23 9:18:00 EST, [facility] STORE [id number], 165.4, cm, 07/23/23 10:56:00 EST, Height, 89.2, kg, 06/07/23 10:32:00 EDT, Dry Weight Start Date: 08/07/23 Status: Ordered anastrozole 1 mg oral tablet 1 tablet, By Mouth, Daily, # 30 tablet, 11 Refills, Maintenance, 07/19/23 16:13:00 EST, [facility]/pharmacy #[id number], 165.4, cm, 07/11/23 14:22:00 EST, Height, 89.2, kg, 06/07/23 10:32:00 EDT, Dry Weight Start Date: 07/19/23 Status: Ordered atorvastatin 80 mg oral tablet 1 tablet, By Mouth, Daily, # 90 tablet, 1 Refills, Maintenance, 08/27/23 6:34:00 EST, [facility]/pharmacy #[id number], 165.4, cm, 08/23/23 12:12:00 EST, [...] tablet, 2 Refills, Maintenance, 01/08/24 9:42:00 EDT, [facility] STORE 77547, 165, cm, 12/14/23 9:43:00 EDT, Height, 87.4, kg, 12/12/23 10:25:00 EDT, Dry Weight Start Date: 01/08/24 Status: Ordered lisinopril 10 mg oral tablet 1, tablet, By Mouth, Daily, # 90 tablet, Refills 2, Tot. Refills 2, Maintenance, 04/30/23 18:29:00 EDT, Route to Pharmacy Electronically, [facility]/pharmacy #[id number], 165.4, cm, 03/30/23 9:41:00 EDT, Height, 89.7, kg, 03/06/23 14:16:00 EDT, Dry Weight Start Date: 04/30/23 Status: Ordered ondansetron 4 mg oral tablet 1 tablet = 4 mg, By Mouth, Every 8 hours, PRN Nausea & Vomiting, # 10 tablet, 0 Refills, Maintenance, 11/08/23 9:52:00 EDT, Tablet, [facility], Partial fill upon patient request if the prescription is for a schedule II opioid drug., 165,... Start Date: 11/08/23 Status: Ordered sertraline 100 mg oral tablet 1 tablet, By Mouth, Daily, # 90 tablet, 1 Refills, Maintenance, 04/17/23 8:29:00 EDT, [facility] STORE 26386, 165.4, cm, 03/30/23 9:41:00 EDT, Height, 89.7, kg, 03/06/23 14:16:00 EDT, Dry Weight Start Date: 04/17/23 Status: Ordered traZODone 50 mg oral tablet 1, tablet, By Mouth, Daily at bedtime, # 90 tablet, Refills 1, Maintenance, 10/18/23 10:17:00 EST, Route to Pharmacy Electronically, [facility] STORE 40223, 165, cm, 10/09/23 10:25:00 EST, Height, 89.7, [...] Care Nurse Name: Edgar Ye MD Position: [facility] Physician - Primary Care Member Role: PCP Address: Address: [address] [place] [id number] Name: Cecy Orta RN Position: [facility] Onco RN Member Role: Primary Care Nurse Name: Laurel Perales RN Position: S RN Member Role: Primary Care Nurse Name: Ifeanyi Brown RN Position: [facility] Onco RN Member Role: Primary Care Nurse Name: Ariadna Fitzgerald RN Position: [facility] Onco RN Member Role: Primary Care Nurse Name: Mariaa Dunn RN Position: [facility] RN Member Role: Primary Care Nurse Name: Jimena Islas LPN Position: [facility] RN Member Role: Primary Care Nurse Care Team Related Persons Name: GONSALVESKELL Address: home [address] [place] [address] Name: CONG LENZ Address: home [address] [place] [address]
--- OUTSIDE RECORDS SUMMARY | 2024-03-16 19:25 | XMS_ITS | Continuity of Care Document ---
Author Organization [facility] Address [address] [place] [address]- Care Team Providers Care Nursery School Teacher Name Role Phone Ephraim UMAÑA, [facility] Primary Care Physician Encounter [facility] [place] Date(s): 11/16/23 - 12/16/23 [facility] [address] [place], [place] [address] Attending Physician: Melida Terrell Admitting Physician: AdmtrMelida Referring Physician: Admtr, ArXiao Allergies, Adverse Reactions, Alerts Substance Reaction Severity Status flu vaccines Hives Severe Active Immunizations Given and Recorded Vaccine Date Status Refusal Reason tetanus/diphtheria/pertussis, acel(Tdap) 1 10/19/22 Given SARS-CoV-2 (COVID-19) mRNA-1333 vaccine 02/21/22 R ecorded 1Result Comment: [facility] [id number] Medications acetaminophen 325 mg oral tablet 650 [...] tablet, 1 Refills, Maintenance, 08/07/23 9:18:00 EST, [facility] STORE 77673, 165.4, cm, 07/23/23 10:56:00 EST, Height, 89.2, kg, 06/07/23 10:32:00 EDT, Dry Weight Start Date: 08/07/23 Status: Ordered anastrozole 1 mg oral tablet 1 tablet, By Mouth, Daily, # 30 tablet, 11 Refills, Maintenance, 07/19/23 16:13:00 EST, [facility]/pharmacy #[id number], 165.4, cm, 07/11/23 14:22:00 EST, Height, 89.2, kg, 06/07/23 10:32:00 EDT, Dry Weight Start Date: 07/19/23 Status: Ordered atorvastatin 80 mg oral tablet 1 tablet, By Mouth, Daily, # 90 tablet, 1 Refills, Maintenance, 08/27/23 6:34:00 EST, [facility]/pharmacy #[id number], 165.4, cm, 08/23/23 [...] 04/30/23 18:29:00 EDT, Route to Pharmacy Electronically, [facility]/pharmacy #[id number], 165.4, cm, 03/30/23 9:41:00 EDT, Height, 89.7, kg, 03/06/23 14:16:00 EDT, Dry Weight Start Date: 04/30/23 Status: Ordered ondansetron 4 mg oral tablet 1 tablet = 4 mg, By Mouth, Every 8 hours, PRN Nausea & Vomiting, # 10 tablet, 0 Refills, Maintenance, 11/08/23 9:52:00 EDT, Tablet, [facility], Partial fill upon patient request if the prescription is for a schedule II opioid drug., 165,... Start Date: 11/08/23 Status: Ordered sertraline 100 mg oral tablet 1 tablet, By Mouth, Daily, # 90 tablet, 1 Refills, Maintenance, 04/17/23 8:29:00 EDT, [facility], 165.4, cm, 03/30/23 9:41:00 EDT, Height, 89.7, kg, 03/06/23 14:16:00 EDT, Dry Weight Start Date: 04/17/23 Status: Ordered traZODone 50 mg oral tablet 1, tablet, By Mouth, Daily at bedtime, # 90 tablet, Refills 1, Maintenance, 10/18/23 10:17:00 EST, Route to Pharmacy Electronically, [facility], 165, cm, 10/09/23 10:25:00 EST, Height, 89.7, [...] Team Personnel Name: Lita Huff RN Position: [facility] RN Member Role: Primary Care Nurse Name: Edgar Ye MD Position: [facility] Physician - Primary Care Member Role: PCP Address: Address: [address] [place] [id number] Name: Cecy Orta RN Position: [facility] Onco RN Member Role: Primary Care Nurse Name: Laurel Perales RN Position: [facility] RN Member Role: Primary Care Nurse Name: Ifeanyi Brown RN Position: [facility] Onco RN Member Role: Primary Care Nurse Name: Ariadna Fitzgerald RN Position: [facility] Onco RN Member Role: Primary Care Nurse Name: Mariaa Dunn RN Position: [facility] RN Member Role: Primary Care Nurse Name: Jimena Islas LPN Position: [facility] RN Member Role: Primary Care Nurse Care Team Related Persons Name: KELL GONSALVES Address: home [address] [place] [address] Name: CONG LENZ Address: home [address] [place] [address]
--- OUTSIDE RECORDS SUMMARY | 2024-03-16 19:25 | XMS_ITS | Continuity of Care Document ---
Author Organization [facility] Address [address] [place] [address]- Care Team Providers Care Orthopedic Podiatrist Name Role Phone Josiane Ledezma Primary Care Physician En[place] [facility] [place](s): 06/21/22 - 07/21/22 [facility] [address] [place] [address]- Attending Physician: Melida Terrell Admitting Physician: AdmMelida virk Referring Physician: Admtr Ar8 Allergies, Adverse Reactions, Alerts Substance Reaction Severity Status flu vaccines Hives Severe Active Immunizations Given and Recorded Vaccine Date Status Refusal Reason SARS-CoV-2 (COVID-19) mRNA-4043 vaccine 02/21/22 R ecorded Medications amLODIPine 10 [...] Acute 09/27/22 12:35:00 EST, 06/21/22 12:34:00 EST, [facility]/pharmacy #[id number], Partial fill upon patient request if the prescription is for a sched... Start Date: 06/21/22 Stop Date: 09/27/22 Status: Ordered lisinopril 10 mg oral tablet 10 mg, 1, tablet, By Mouth, Daily, # 30 tablet, Refills 5, Tot. Refills 5, Maintenance, 06/21/22 12:33:00 EST, Route to Pharmacy Electronically, [facility]/pharmacy #[id number], Partial fill upon patient request if the prescription is for a schedule II opioid drug... Start Date: 06/21/22 Status: Ordered Zoloft 50 mg oral tablet 1 tablet = 50 mg, By Mouth, Daily, # 30 tablet, 3 Refills, Maintenance, 06/21/22 12:33:00 EST, Tablet, [facility]/pharmacy #[id number], Partial fill upon patient request if [...] Care Team Personnel Name: Josiane Ledezma Position: [facility] PCO Associate Professional Member Role: PCP Address: Address: [address] [place] [address]. [address] [place] [address]- Care Team Related Persons Name: KELL GONSALVES Address: [place] [address] Name: CONG LENZ Address: home [address] [place] [id number]
--- OUTSIDE RECORDS SUMMARY | 2024-03-16 19:25 | XMS_ITS | Continuity of Care Document ---
Author Organization [facility] Adult Address [address] [place] [address]- Care Team Providers Care Rand Tacker Name Role Phone Papo LEMON, Josiane Junior Primary Care P hysician Encounter [facility] Date(s): 01/23/24 - 01/30/24 [facility] [address] [place] [address]- Encounter Diagnosis Diverticulitis(Discharge Diagnosis) - 01/23/24 HTN (hypertension)(Discharge Diagnosis) - 01/23/24 Hyperlipidemia(Discharge Diagnosis) - 01/23/24 Depression(Discharge Diagnosis) - 01/23/24 Insomnia(Discharge Diagnosis) - 01/23/24 Invasive ductal carcinoma of right breast(Discharge Diagnosis) - 01/23/24 Attending Physician: Josiane Jordan Allergies, Adverse Reactions, Alerts Substance Reaction Severity Status flu vaccines Hives Severe Active Immunizations Given and Recorded Vaccine Date Status Refusal Reason tetanus/diphtheria/pertussis, acel(Tdap) 1 10/19/22 Given SARS-CoV-2 (COVID-19) mRNA-1273 vaccine 02/21/22 R ecorded 1Result Comment: [facility] [id number] Medications acetaminophen 325 mg oral tablet 650 [...] tablet, 1 Refills, Maintenance, 08/07/23 9:18:00 EST, [facility] STORE [id number], 165.4, cm, 07/23/23 10:56:00 EST, Height, 89.2, kg, 06/07/23 10:32:00 EDT, Dry Weight Start Date: 08/07/23 Status: Ordered anastrozole 1 mg oral tablet 1 tablet, By Mouth, Daily, # 30 tablet, 11 Refills, Maintenance, 07/19/23 16:13:00 EST, [facility]/pharmacy #[id number], 165.4, cm, 07/11/23 14:22:00 EST, Height, 89.2, kg, 06/07/23 10:32:00 EDT, Dry Weight Start Date: 07/19/23 Status: Ordered atorvastatin 80 mg oral tablet 1 tablet, By Mouth, Daily, # 90 tablet, 1 Refills, Maintenance, 08/27/23 6:34:00 EST, [facility]/pharmacy #[id number], 165.4, cm, 08/23/23 12:12:00 EST, Height, 89.2, kg, 06/07/23 10:32:00 EDT, Dry Weight Start Date: 08/27/23 Status: Ordered hydrOXYzine hydrochloride 50 mg oral tablet 1 tablet, By Mouth, Daily at bedtime, # 90 tablet, 2 Refills, Maintenance, 01/08/24 9:42:00 EDT, [facility] STORE [id number], 165, cm, 12/14/23 9:43:00 EDT, Height, 87.4, kg, 12/12/23 10:25:00 EDT, Dry Weight Start Date: 01/08/24 Status: Ordered lisinopril 10 mg oral tablet 1, tablet, By Mouth, Daily, # 90 tablet, Refills 1, Tot. Refills 1, Maintenance, 01/17/24 9:14:00 EDT, Route to Pharmacy Electronically, [facility]/pharmacy #[id number], 165, cm, 01/11/24 15:16:00 EDT, Height, 87.4, kg, 12/12/23 10:25:00 EDT, Dry Weight Start Date: 01/17/24 Status: Ordered sertraline 100 mg oral tablet 1 tablet, By Mouth, Daily, # 90 tablet, 1 Refills, Maintenance, 04/17/23 8:29:00 EDT, [facility] STORE [id number], 165.4, cm, 03/30/23 9:41:00 EDT, Height, 89.7, kg, 03/06/23 14:16:00 EDT, Dry Weight Start Date: 04/17/23 Status: Ordered traZODone 50 mg oral tablet 1, tablet, By Mouth, Daily at bedtime, # 90 tablet, Refills 1, Maintenance, 10/18/23 10:17:00 EST, Route to Pharmacy Electronically, [id number], 165, cm, 10/09/23 10:25:00 EST, Height, 89.7, [...] Effective Dates Health Status Clinical Service Informant Diverticulitis Discharge Diagnosis 01/23/24 HTN (hypertension) Discharge Diagnosis 01/23/24 Hyperlipidemia Discharge Diagnosis 01/23/24 Depression Discharge Diagnosis 01/23/24 Insomnia Discharge Diagnosis 01/23/24 Invasive ductal carcinoma of right breast Discharge Diagnosis 01/23/24 Vital Signs Most recent to oldest [Reference Range]: 1 Height 165 cm (01/23/24 10:49 AM) Weight 88.5 kg (01/23/24 10:49 AM) Oxygen Saturation [94-100 %] 97 % (01/23/24 10:49 AM) Pulse Rate [55-90 bpm] 52 bpm *L* (01/23/24 10:49 AM) Body Mass Index [18.5-24.99 kg/m2] 32.51 kg/m2 *>HHI* (01/23/24 10:49 AM) Blood Pressure [90-138/55-84 mm Hg] 120/ 73mm Hg (01/23/24 10:49 AM) Temperature [96.8-100.4 DegF] 97.5 DegF (01/23/24 10:49 AM) Mode of Delivery (Oxygen) Room air (01/23/24 10:49 AM) Blood pressure sites Arm, left (01/23/24 10:49 AM) Temperature Route Temporal (01/23/24 10:49 AM) Weight Obtained Via Standing scale (01/23/24 10:49 AM) Social History Social History Type Response Smoking Status Never (less than 100 in lifetime) entered on: 06/21/22 Sex Note * Faby Thorpe: PERFORM Event Display: Patient Education/Instruction Authored Date: Ambulatory Adult Visit Summary [facility] [address] [place] [address] Name: GAEL LENZ : 1960?? Visit: 01/23/2024 10:47?? Ambulatory Visit Instructions ?? Your Care Team Primary Care Provider Papo LEMON, Josiane Junior? This Visit Provider Josiane Ledezma Your Diagnosis Diverticulitis HTN (hypertension) Hyperlipidemia Depression Insomnia Invasive ductal carcinoma of right breast Screen for STD (sexually transmitted disease) Vitals Signs Temperature: 97.5 DegF Height: 165 cm Pulse Rate:??52 bpm??Low Weight: 88.5 kg Systolic Blood Pressure: 120 mm Hg Body Mass Index:??32.51 kg/m2??Critical Diastolic Blood Pressure: 73 mm Hg Body surface area: 2.01 Oxygen Saturation: 97 % ?? What to do next Scheduled Follow-Up Appointments 2023 11:00 AM EDT ?? With: Abdulaziz LEMON, Lynda Rosales Where: [facility] [address] [place] [address]- Status: Pending Follow-Up Appointments Follow Up with??Josiane Jordan When:??09/17/2024 08:40 AM EST Why: PHY Where: [address] [place] [address]- Future Orders CBC - Routine, Once, 11/16/23 9:56:00 EDT, Future Order, [facility], Blood?? Iron + Iron Binding Capacity - Routine, Once, 11/16/23 9:57:00 EDT, Future Order, [facility], Blood?? Hepatitis C Ab - Routine, Once, 01/23/24 11:16:00 EDT, Order for Today, [facility], Blood?? HIV Ab-Ag 4th Generation - Routine, Once, 01/23/24 11:16:00 EDT, Order for Today, [facility], Blood?? Basic Metabolic Panel - Routine, Once, 01/23/24 11:17:00 EDT, Within 3 Days, [facility], Blood?? Amylase - Routine, Once, 01/23/24 11:17:00 EDT, Within 3 Days, [facility], Blood?? Lipase - Routine, Once, 01/23/24 11:17:00 EDT, Within 3 Days, [facility], Blood?? Lipid Panel - Routine, Once, 01/23/24 11:17:00 EDT, Within 3 Days, [facility], Blood?? Medications The list below reflects the information in our records and provided by you today along with any changes made during this visit. Please continue your medications until treatment is completed or stopped by your provider. If this is different from the information you have or there are other questions,please contact the prescribing provider. What How Much When Instructions Unchanged Acetaminophen (acetaminophen 325 mg oral tablet) 650 Milligram Oral Every 6 hours May take OTC not to exceed 3000 mg/ day ?? Unchanged Amlodipine (amLODIPine 10 mg oral tablet) 1 tab(s) Oral Daily Unchanged Anastrozole (anastrozole 1 mg oral tablet) 1 tab(s) Oral Daily Unchanged Atorvastatin (atorvastatin 80 mg oral tablet) 1 tab(s) Oral Daily Unchanged HydrOXYzine (hydrOXYzine hydrochloride 50 mg oral tablet) 1 tab(s) Oral Daily at Bedtime Unchanged Lisinopril (lisinopril 10 mg oral tablet) 1 tab(s) Oral Daily Unchanged Sertraline (sertraline 100 mg oral tablet) 1 tab(s) Oral Daily Unchanged Trazodone (traZODone 50 mg oral tablet) 1 tab(s) Oral Daily at Bedtime ?? What How Much When Comments Stop Taking Celecoxib (celecoxib 200 mg oral capsule) 200 Milligram Oral Daily Stop Taking Docusate (Colace Capsule) 100 Milligram Oral Twice a day as needed for as needed for constipation Stop Taking Ondansetron (ondansetron 4 mg oral tablet) 1 tab(s) Oral Every 8 hours as needed for Nausea & Vomiting Test Performed Below is a partial list of the tests performed during your Visit. You may have had other tests and procedures not included in this list. Please discuss all test results with your provider. Amylase?-- Results Pending -- Basic Metabolic Panel?-- Results Pending -- Hepatitis C Ab?-- Results Pending -- HIV Ab-Ag 4th Generation?-- Results Pending -- Lipase?-- Results Pending -- Lipid Panel?-- Results Pending -- POC HBA1C ([facility]) You will be contacted within 72 hours with your results. Lab Test Results Below is a partial list of the most recent Laboratory test results done during your Visit. You may have had other tests and procedures not included in this list. Please discuss all test results with your provider. Test Name Test Result Date/Time POC HBA1C ([facility]) 6.3 % 01/23/2024 10:56 EDT Medications and Immunizations Administered Medications Given During Visit No medications given during this visit.?? Allergies (NKA means No Known Allergies) flu vaccines??(Hives) Common Emergency Awareness Tips IS IT A [...] are strongly encouraged to quit. Please call [facility] [employer] at [phone] or [phone] ([phone]) or log in to [email or web address] for referrals to smoking cessation programs. ?? The National Suicide Prevention Hotline is available 05/03 if you or someone you know needs to find a reason to keep living. By calling 3-792-752-Neptune (6409) you'll be connected to a skilled, trained counselor at a crisis center in your area. [facility] [employer] Portal You can view and manage your care through the patient portal or by using a health care raphael of your choosing. [employer] is a website that allows you to securely view your medical information including your hospital discharge summary, office visit summaries, medications and follow-up visits. You can also request appointments, renew medications, and request access to your medical information using a health care raphael of your choosing, or just ask a question. You can enroll at [email or web address] or register during your next office visit. [facility], in keeping with [facility] guidance, no longer requires face masks [...] medical provider or home test kit. ?? Disclaimer: The information provided is of a general nature and is intended to be used in conjunction with the recommendations and advice of your health care practitioner. Every effort has been made to ensure that the information provided is accurate and complete at the time it is provided to you however, as your needs change, or, as new information becomes available, different or additional instructions may be required. ?? If you have questions, please consult with your primary care provider or pharmacist, as appropriate. This information is not intended to serve as substitution for assessment and evaluation by a qualified health care provider. If you do not have a primary care provider, you may find a [facility] provider by calling [facility] [employer] Link at [phone]. Patient Care team information Care Team Personnel Name: Lita Huff RN Position: S RN Member Role: Primary Care Nurse Name: Cecy Orta RN Position: [facility] Onco RN Member Role: Primary Care Nurse Name: Laurel Perales RN Position: S RN Member Role: Primary Care Nurse Name: Papo LEMON, Josiane Junior Position: [facility] PCO Associate Professional Member Role: PCP Address: Address: [address] [place] [address]. [address] [place] [address]- Name: Oli Brown RN Position: [facility] Onco RN Member Role: Primary Care Nurse Name: Ariadna Fitzgerald RN Position: [facility] Onco RN Member Role: Primary Care Nurse Name: Mariaa Dunn RN Position: S RN Member Role: Primary Care Nurse Name: Jimena Islas LPN Position: S RN Member Role: Primary Care Nurse Care Team Related Persons Name: KELL GONSALVES Address: home [address] [place] [id number] Name: CONG LENZ Address: home [address] [place] [address]
--- OUTSIDE RECORDS SUMMARY | 2024-03-16 19:26 | XMS_ITS | Continuity of Care Document ---
Author Organization [facility] Lor john Address [address] [place] [address] [address] [place] [address]- Care Team Providers Care Glass Technician Name Role Phone Josiane Ledezma Primary Care Physician Encounter [facility] Date(s): 10/23/22 - 10/30/22 [facility] [address] [place] [address]- Attending Physician: Not on Staff, Attending MD Allergies, Adverse Reactions, Alerts Substance Reaction Severity Status flu vaccines Hives Severe Active Immunizations Given and Recorded Vaccine Date Status Refusal Reason tetanus/diphtheria/pertussis, acel(Tdap) 1 10/19/22 Given SARS-CoV-2 (COVID-19) mRNA-1273 vaccine 02/21/22 R ecorded 1Result Comment: [facility] [id number] Medications amLODIPine 10 mg oral tablet 1 [...] Start Date: 07/19/22 Status: Ordered hydrOXYzine hydrochloride 50 mg oral tablet 1 tablet = 50 mg, By Mouth, Daily at bedtime, # 90 tablet, 0 Refills, Acute 01/19/23 11:10:00 EDT, 10/19/22 11:09:00 EST, Tablet, [facility]/pharmacy #[id number], Partial fill upon patient request if the prescription is for a schedule II opioid drug., 165.4, cm, 0... Start Date: 10/19/22 Stop Date: 01/19/23 Status: Ordered lisinopril 10 mg oral tablet 10 mg, 1, tablet, By Mouth, Daily, # 30 tablet, Refills 5, Tot. Refills 5, Maintenance, 06/21/22 12:33:00 EST, Route to Pharmacy Electronically, [facility]/pharmacy #[id number], Partial fill upon patient request if the prescription is for a schedule II opioid drug... Start Date: 06/21/22 Status: Ordered Zoloft 100 mg oral tablet 1 tablet = 100 mg, By Mouth, Daily, # 90 tablet, 1 Refills, Maintenance, 10/19/22 11:10:00 EST, Tablet, [facility]/pharmacy #[id number], Partial fill upon patient request [...] oldest [Reference Range]: 1 Height 165.4 cm (10/23/22 10:17 AM) Weight 88.63 kg (10/23/22 10:17 AM) Body Mass Index [18.5-24.99 kg/m2] 32.4 kg/m2 *>HHI* (10/23/22 10:17 AM) Weight Obtained Via Standing scale (10/23/22 10:17 AM) Social History Social History Type Response Smoking Status Never (less than 100 in lifetime) entered on: 06/21/22 Sex Patient Care team information Care Team Personnel Name: Josiane Ledezma Position: S PCO Associate Professional Member Role: PCP Address: Address: [address] [facility] [place] [address]- Care Team Related Persons Name: KELL GONSALVES Name: CONG LENZ Address: home [address] [place] [address]
--- OUTSIDE RECORDS SUMMARY | 2024-03-16 19:26 | XMS_ITS | Continuity of Care Document ---
Author Organization [facility] Address [address] [facility], [address] [place] [address]- Care Team Providers Care Travel Guide Name Role Phone Josiane Ledezma Primary Care Physician Encounter 07/28/22 - 08/04/22 [facility] [address], [facility] [address] [place] [address]- Attending Physician: Sindi MOJICA, Kaykay Carpenter Admitting Physician: Sindi MOJICA, Kaykay Carpenter Referring Physician: Kaykay Delong NP Allergies, Adverse Reactions, Alerts Substance Reaction Severity Status flu vaccines Hives Severe Active Immunizations Given and Recorded Vaccine Date Status Refusal Reason SARS-CoV-2 (COVID-19) mRNA-4260 vaccine 02/21/22 R ecorded Medications amLODIPine 10 [...] 12:33:00 EST, Route to Pharmacy Electronically, [facility]/pharmacy #[id number], Partial fill upon patient request if the prescription is for a schedule II opioid drug... Start Date: 06/21/22 Status: Ordered Zoloft 50 mg oral tablet 1 tablet = 50 mg, By Mouth, Daily, # 30 tablet, 3 Refills, Maintenance, 06/21/22 12:33:00 EST, Tablet, [facility]/pharmacy #[id number], Partial fill upon [...] Exam Date Time Procedure Performing Provider Status 07/28/22 11:32 AM MM Digital Mammo Pos t Clip Uni/Right Estelita Lr (Verified) Notes: (MM Digital Mammo Post Clip Uni/Right) Reason For Exam: Clip placement RESULT: MM Digital Mammo Post Clip Uni/Right PROCEDURE: Incisional core biopsy of the right breast with marker placement and post-procedure mammography. INDICATION: Ultrasound performed at [facility] on 07/19/2022 showed a mass in the 10:30 o'clock right breast, 9 cm from the nipple for which biopsy was recommended. TECHNIQUE: The procedure was explained to the patient who signed informed consent. Ultrasound was used to localize the mass prior to biopsy. The skin was cleansed and local anesthetic was administered. A small skin incision was made for access. Using a sterile biopsy tray and a 14-gauge spring-loaded core biopsy device, the needle was inserted and core samples were obtained from the mass. Each specimen was immersed in formalin. After sampling, a wing-shaped metallic tissue marker clip was placed into the region of biopsy withultrasound guidance. A digital right mammogram taken after the procedure shows successful clip deployment. Compression was held and hemostasis was achieved. A sterile pressure dressing was applied and the patient was given an ice pack. She was also given verbal as well as written instructions for care of the puncture site and dressing including steps that should be taken should she be concerned about a developing complication. Overall, the patient tolerated the procedure well and there was no evidenceof immediate complication. IMPRESSION: 1. Ultrasound localization of right breast mass prior to biopsy. 2. Incisional core biopsy of the mass was performed with ultrasound guidance. A sterile biopsy trayand 14-gauge spring-loaded core biopsy device were used. 3. Placement of tissue marker (wing-shaped clip) into the site of biopsy. 4. Digital right mammogram demonstrates successful clip deployment. 5. The targeted lesion measures 2.8 x 1.3 x 2.1 cm by Ultrasound When the results of pathology are known, a supplemental report will be dictated. WSN: [id number] Ordering Physician: Kaykay Delong Dictated By: Jenniefr Dominguez MD Dictated Date/Time: 07/28/22 12:52 pm Reviewed By: Jennifer Dominguez MD Signed By: Jennifer Dominguez MD Signed Date/Time: 07/28/22 12:52 pm Transcribed By: LUIS MIGUEL Shorer Date/Time: 07/28/22 11:24 am Birads: * Exam Date Time Procedure Performing Provider Status 07/28/22 11:19 AM US Core Biopsy Right Halima Morejon (Verified) Notes: (US Core Biopsy Right) Reason For Exam: RT BREAST MASS X ONE AREA RESULT: US Core Biopsy Right PROCEDURE: Incisional core biopsy of the right breast with marker placement and post-procedure mammography. INDICATION: Ultrasound performed at [facility] on 07/19/2022 showed a mass in the 10:30 o'clock right breast, 9 cm from the nipple for which biopsy was recommended. TECHNIQUE: The procedure was explained to the patient who signed informed consent. Ultrasound was used to localize the mass prior to biopsy. The skin was cleansed and local anesthetic was administered. A small skin incision was made for access. Using a sterile biopsy tray and a 14-gauge spring-loaded core biopsy device, the needle was inserted and core samples were obtained from the mass. Each specimen was immersed in formalin. After sampling, a wing-shaped metallic tissue marker clip was placed into the region of biopsy withultrasound guidance. A digital right mammogram taken after the procedure shows successful clip deployment. Compression was held and hemostasis was achieved. A sterile pressure dressing was applied and the patient was given an ice pack. She was also given verbal as well as written instructions for care of the puncture site and dressing including steps that should be taken should she be concerned about a developing complication. Overall, the patient tolerated the procedure well and there was no evidenceof immediate complication. IMPRESSION: 1. Ultrasound localization of right breast mass prior to biopsy. 2. Incisional core biopsy of the mass was performed with ultrasound guidance. A sterile biopsy trayand 14-gauge spring-loaded core biopsy device were used. 3. Placement of tissue marker (wing-shaped clip) into the site of biopsy. 4. Digital right mammogram demonstrates successful clip deployment. 5. The targeted lesion measures 2.8 x 1.3 x 2.1 cm by Ultrasound When the results of pathology are known, a supplemental report will be dictated. WSN: [id number] Ordering Physician: Kaykay Delong Dictated By: Jennifer Dominguez MD Dictated Date/Time: 07/28/22 12:52 p Reviewed By: Jennifer Dominguez MD Signed By: Jennifer Dominguez MD Signed Date/Time: 07/28/22 12:52 pm Transcribed By: LUIS MIGUEL Transcribed Date/Time: 07/28/22 11:24 am Social History Social History Type Response Smoking Status Never (less than 100 in lifetime) entered on: 06/21/22 Sex Note * BHSPowerscribe , CIS S: TRANSCRIBE Jennifer Dominguez MD: VERIFY Event Display: Result: Authored Date: [id number] PROCEDURE: Incisional core biopsy of the right breast with marker placement and post-procedure mammography. INDICATION: Ultrasound performed at [facility] [place] on 07/19/2022 showed a mass in the 10:30 o'clock right breast, 9 cm from the nipple for which biopsy was recommended. TECHNIQUE: The procedure was explained to the patient who signed informed consent. Ultrasound was used to localize the mass prior to biopsy. The skin was cleansed and local anesthetic was administered. A small skin incision was made for access. Using a sterile biopsy tray and a 14-gauge spring-loaded core biopsy device, the needle was inserted and core samples were obtained from the mass. Each specimen was immersed in formalin. After sampling, a wing-shaped metallic tissue marker clip was placed into the region of biopsy withultrasound guidance. A digital right mammogram taken after the procedure shows successful clip deployment. Compression was held and hemostasis was achieved. A sterile pressure dressing was applied and the patient was given an ice pack. She was also given verbal as well as written instructions for care of the puncture site and dressing including steps that should be taken should she be concerned about a developing complication. Overall, the patient tolerated the procedure well and there was no evidenceof immediate complication. IMPRESSION: 1. Ultrasound localization of right breast mass prior to biopsy. 2. Incisional core biopsy of the mass was performed with ultrasound guidance. A sterile biopsy trayand 14-gauge spring-loaded core biopsy device were used. 3. Placement of tissue marker (wing-shaped clip) into the site of biopsy. 4. Digital right mammogram demonstrates successful clip deployment. 5. The targeted lesion measures 2.8 x 1.3 x 2.1 cm by Ultrasound When the results of pathology are known, a supplemental report will be dictated. WSN: [id number] Ordering Physician: Kaykay Delong Dictated By: Jennifer Dominguez MD Dictated Date/Time: 07/28/22 12:52 pm Reviewed By: Jennifer Dominguez MD Signed By: Jennifer Dominguez MD Signed Date/Time: 07/28/22 12:52 pm Transcribed By: LUIS MIGUEL Shorer Date/Time: 07/28/22 11:24 am Birads: * HARRISowerlakesha , GRACIA S: TRANSCRIBE Jennifer Dominguez MD: VERIFY Event Display: Result: Authored Date: [id number] PROCEDURE: Incisional core biopsy of the right breast with marker placement and post-procedure mammography. INDICATION: Ultrasound performed at [facility] on 07/19/2022 showed a mass in the 10:30 o'clock right breast, 9 cm from the nipple for which biopsy was recommended. TECHNIQUE: The procedure was explained to the patient who signed informed consent. Ultrasound was used to localize the mass prior to biopsy. The skin was cleansed and local anesthetic was administered. A small skin incision was made for access. Using a sterile biopsy tray and a 14-gauge spring-loaded core biopsy device, the needle was inserted and core samples were obtained from the mass. Each specimen was immersed in formalin. After sampling, a wing-shaped metallic tissue marker clip was placed into the region of biopsy withultrasound guidance. A digital right mammogram taken after the procedure shows successful clip deployment. Compression was held and hemostasis was achieved. A sterile pressure dressing was applied and the patient was given an ice pack. She was also given verbal as well as written instructions for care of the puncture site and dressing including steps that should be taken should she be concerned about a developing complication. Overall, the patient tolerated the procedure well and there was no evidenceof immediate complication. IMPRESSION: 1. Ultrasound localization of right breast mass prior to biopsy. 2. Incisional core biopsy of the mass was performed with ultrasound guidance. A sterile biopsy trayand 14-gauge spring-loaded core biopsy device were used. 3. Placement of tissue marker (wing-shaped clip) into the site of biopsy. 4. Digital right mammogram demonstrates successful clip deployment. 5. The targeted lesion measures 2.8 x 1.3 x 2.1 cm by Ultrasound When the results of pathology are known, a supplemental report will be dictated. WSN: [id number] Ordering Physician: Kaykay Delong Dictated By: Jennifer Dominguez MD Dictated Date/Time: 07/28/22 12:52 p Reviewed By: Jennifer Dominguez MD Signed By: Jennifer Dominguez MD Signed Date/Time: 07/28/22 12:52 pm Transcribed By: LUIS MIGUEL Transcribed Date/Time: 07/28/22 11:24 am Patient Care team information Care Team Personnel Name: Josiane Ledezma Position: S PCO Associate Professional Member Role: PCP Address: Address: [address] [place] [address]. [address]rd Floor [place], [place] [address] Care Team Related Persons Name: KELL GONSALVES Address: [place] [address] Name: CONG LENZ Address: home [facility] [place] [id number]
--- OUTSIDE RECORDS SUMMARY | 2024-03-16 19:26 | XMS_ITS | Continuity of Care Document ---
Author Organization [facility] Adult Address [address] [place] [address]- Care Team Providers Care Quality Control Assistant Name Role Phone Josiane Ledezma Primary Care Physician Encounter [facility] Date(s): 08/06/23 - 09/05/23 [facility] Adult [address] [place] [address]- Allergies, Adverse Reactions, Alerts Substance Reaction Severity Status flu vaccines Hives Severe Active Immunizations Given and Recorded Vaccine Date Status Refusal Reason tetanus/diphtheria/pertussis, acel(Tdap) 1 10/19/22 Given SARS-CoV-2 (COVID-19) mRNA-1273 vaccine 02/21/22 R ecorded 1Result Comment: [facility] [id number] Medications amLODIPine 10 mg oral tablet 1 tablet, By Mouth, Daily, # 90 tablet, 1 Refills, Maintenance, 08/07/23 9:18:00 EST, [facility], 165.4, cm, 07/23/23 10:56:00 EST, Height, 89.2, [...] 04/30/23 18:29:00 EDT, Route to Pharmacy Electronically, [facility]/pharmacy #[id number], 165.4, cm, 03/30/23 9:41:00 EDT, Height, 89.7, kg, 03/06/23 14:16:00 EDT, Dry Weight Start Date: 04/30/23 Status: Ordered meloxicam 15 mg oral tablet 1 tablet, By Mouth, Daily, # 90 tablet, 1 Refills, Maintenance, 05/01/23 10:48:00 EDT, [facility], 165.4, cm, 03/30/23 9:41:00 EDT, Height, 89.7, kg, 03/06/23 14:16:00 EDT, Dry Weight Start Date: 05/01/23 Status: Ordered ondansetron 4 mg oral tablet 1-2 tablet, By Mouth, Every 8 hours, PRN Nausea, # 30 tablet, 1 Refills, Maintenance, 11/17/22 10:19:00 EDT, [facility]/pharmacy #[id number], Partial fill upon patient request if the prescription is for a schedule II opioid drug., 165.4, cm, 11/02/22 9:39:00 EDT,... Start Date: 11/17/22 Status: Ordered sertraline 100 mg oral tablet 1 tablet, By Mouth, Daily, # 90 tablet, 1 Refills, Maintenance, 04/17/23 8:29:00 EDT, [facility], 165.4, cm, 03/30/23 9:41:00 EDT, Height, 89.7, kg, 03/06/23 14:16:00 EDT, Dry Weight Start Date: 04/17/23 Status: Ordered traZODone 50 mg oral tablet 50 mg, 1, tablet, By Mouth, Daily at bedtime, # 30 tablet, Refills 4, Tot. Refills 4, Maintenance, 07/23/23 11:38:00 EST, Route to Pharmacy Electronically, [facility]/pharmacy #[id number], Partial fill upon patient request if the [...] Care Team Personnel Name: Josiane Ledezma Position: [facility] PCO Associate Professional Member Role: PCP Address: Address: [address] [place] [address]. [address] [place] [address]- Name: Ifeanyi Brown RN Position: [facility] Onco RN Member Role: Primary Care Nurse Name: Ariadna Fitzgerald RN Position: [facility] Onco RN Member Role: Primary Care Nurse Name: Cecy Boston RN Position: [facility] Onco RN Member Role: Primary Care Nurse Care Team Related Persons Name: KELL GONSALVES Address: home [address] [place] [id number] Name: CONG LENZ Address: home [facility] [place] [address]
--- OUTSIDE RECORDS SUMMARY | 2024-03-16 19:26 | XMS_ITS | Continuity of Care Document ---
Author Organization [facility] Adult Address [address] [place] [address]- Care Team Providers Care Rn Pediatric Icu Name Role Phone Ephraim UMAÑA, [facility] Primary Care Physician [place] [facility] [place] 11/16/23 - 12/16/23 [facility] [address] [place] [address]- Attending Physician: Melida Terrell Admitting Physician: Admtr, Melida Referring Physician: Admtr, Ar8 Allergies, Adverse Reactions, Alerts Substance Reaction Severity Status flu vaccines Hives Severe Active Immunizations Given and Recorded Vaccine Date Status Refusal Reason tetanus/diphtheria/pertussis, acel(Tdap) 1 10/19/22 Given SARS-CoV-2 (COVID-19) mRNA-4150 vaccine 02/21/22 R ecorded 1Result Comment: [facility] [id number] Medications acetaminophen 325 mg oral tablet 650 [...] Refills, Maintenance, 08/07/23 9:18:00 EST, [facility], 165.4, cm, 07/23/23 10:56:00 EST, Height, 89.2, kg, 06/07/23 10:32:00 EDT, Dry Weight Start Date: 08/07/23 Status: Ordered anastrozole 1 mg oral tablet 1 tablet, By Mouth, Daily, # 30 tablet, 11 Refills, Maintenance, 07/19/23 16:13:00 EST, [facility]/pharmacy #[id number], 165.4, cm, 07/11/23 14:22:00 EST, Height, 89.2, kg, 06/07/23 10:32:00 EDT, Dry Weight Start Date: 07/19/23 Status: Ordered atorvastatin 80 mg oral tablet 1 tablet, By Mouth, Daily, # 90 tablet, 1 Refills, Maintenance, 08/27/23 6:34:00 EST, [facility]/pharmacy #[id number], 165.4, cm, 08/23/23 12:12:00 EST, [...] to Pharmacy Electronically, [facility]/pharmacy #[id number], 165.4, cm, 03/30/23 9:41:00 EDT, Height, 89.7, kg, 03/06/23 14:16:00 EDT, Dry Weight Start Date: 04/30/23 Status: Ordered ondansetron 4 mg oral tablet 1 tablet = 4 mg, By Mouth, Every 8 hours, PRN Nausea & Vomiting, # 10 tablet, 0 Refills, Maintenance, 11/08/23 9:52:00 EDT, Tablet, [facility], Partial fill upon patient request if the prescription is for a schedule II opioid drug., 165,... Start Date: 11/08/23 Status: Ordered sertraline 100 mg oral tablet 1 tablet, By Mouth, Daily, # 90 tablet, 1 Refills, Maintenance, 04/17/23 8:29:00 EDT, [facility], 165.4, cm, 03/30/23 9:41:00 EDT, Height, 89.7, kg, 03/06/23 14:16:00 EDT, Dry Weight Start Date: 04/17/23 Status: Ordered traZODone 50 mg oral tablet 1, tablet, By Mouth, Daily at bedtime, # 90 tablet, Refills 1, Maintenance, 10/18/23 10:17:00 EST, Route to Pharmacy Electronically, [facility], 165, cm, 10/09/23 10:25:00 EST, Height, 89.7, [...] Care Nurse Name: Edgar Ye MD Position: [facility] Physician - Primary Care Member Role: PCP Address: Address: [address] [place] [id number] Name: Cecy Orta RN Position: [facility] Onco RN Member Role: Primary Care Nurse Name: Laurel Perales RN Position: S RN Member Role: Primary Care Nurse Name: Ifeanyi Brown RN Position: [facility] Onco RN Member Role: Primary Care Nurse Name: Ariadna Fitzgerald RN Position: S Onco RN Member Role: Primary Care Nurse Name: Mariaa Dunn RN Position: S RN Member Role: Primary Care Nurse Name: Jimena Islas LPN Position: S RN Member Role: Primary Care Nurse Care Team Related Persons Name: KELL GONSALVES Address: home [address] [place] [address] Name: CONG LENZ Address: home [address] [place] [address]
--- OUTSIDE RECORDS SUMMARY | 2024-03-16 19:26 | XMS_ITS | Continuity of Care Document ---
Author Organization [facility] Address [address] [place] [address]- Care Team Providers Care Pot Firer Name Role Phone Josiane Ledezma Primary Care Physician Encounter [facility] Date(s): 03/01/23 - 03/08/23 [facility] [address] [place] [address]- Attending Physician: Celina Guerrero NP Referring Physician: Josiane Ledezma Allergies, Adverse Reactions, Alerts Substance Reaction Severity Status flu vaccines Hives Severe Active Immunizations Given and Recorded Vaccine Date Status Refusal Reason tetanus/diphtheria/pertussis, acel(Tdap) 1 10/19/22 Given SARS-CoV-2 (COVID-19) mRNA-1273 vaccine 02/21/22 R ecorded 1Result Comment: [facility] [id number] Medications amLODIPine 10 mg oral tablet 1 tablet = 10 mg, By Mouth, Daily, # 30 tablet, 5 Refills, Maintenance, 12/19/22 20:22:00 EDT, Tablet, [id number], Partial fill upon patient request if the prescription is for a schedule II opioid drug., 165.4, cm, 12/19/22 9:40:00 EDT, Height... Start Date: 12/19/22 Status: Ordered atorvastatin 80 mg oral tablet [...] Replace Required Details, Route to Pharmacy Electronically, [facility] 35420, 165.4, cm, 11/20/22 10:... Start Date: 11/20/22 [...] tablet, 2 Refills, Maintenance, 01/15/23 14:21:00 EDT, [facility] [address]3293, 165.4, cm, 01/09/23 10:06:00 EDT, Height, 88.5, [...] 11/20/22 11:08:00 EDT, Route to Pharmacy Electronically, [facility] [address]004, 165.4, cm, 11/20/22 10:43:00 EDT, Height, 91.1, [...] 1 Refills, Maintenance, 10/19/22 11:10:00 EST, Tablet, [facility]/pharmacy #[id number], Partial fill upon [...] oldest [Reference Range]: 1 Height 165.4 cm (03/01/23 12:58 PM) Weight 91.6 kg (03/01/23 12:58 PM) Pulse Rate [55-90 bpm] 62 bpm (03/01/23 12:58 PM) Body Mass Index [18.5-24.99 kg/m2] 33.48 kg/m2 *>HHI* (03/01/23 12:58 PM) Blood Pressure [90-138/55-84 mm Hg] 133/ 62mm Hg (03/01/23 12:58 PM) Blood pressure sites Arm, left (03/01/23 12:58 PM) Weight Obtained Via Bed scale (03/01/23 12:58 PM) Social History Social History Type Response Smoking Status Never (less than 100 in lifetime) entered on: 06/21/22 Sex Patient Care team information Care Team Personnel Name: Josiane Ledezma Position: [facility] PCO Associate Professional Member Role: PCP Address: Address: [address] [place] [address]. [address] [place], [place] [address] Name: Ariadna Fitzgerald RN Position: [facility] Onco RN Member Role: Primary Care Nurse Name: Cecy Boston RN Position: [facility] Onco RN Member Role: Primary Care Nurse Care Team Related Persons Name: KELL GONSALVES Address: home [address] [place] [id number] Name: CONG LENZ Address: home [address] [place] [address]
--- OUTSIDE RECORDS SUMMARY | 2024-03-16 19:26 | XMS_ITS | Continuity of Care Document ---
Author Organization [facility] Adult Address [address] [place] [address]- Care Team Providers Care Park Worker Supervisor Name Role Phone Josiane Ledezma Primary Care Physician Encounter [facility] [place] Date(s): 04/19/23 - 05/19/23 [facility] Adult [address] [place] [address]- Allergies, Adverse Reactions, Alerts Substance Reaction Severity Status flu vaccines Hives Severe Active Immunizations Given and Recorded Vaccine Date Status Refusal Reason tetanus/diphtheria/pertussis, acel(Tdap) 1 10/19/22 Given SARS-CoV-2 (COVID-19) mRNA-1273 vaccine 02/21/22 R ecorded 1Result Comment: [facility] [id number] Medications amLODIPine 10 mg oral tablet 1 tablet = 10 mg, By Mouth, Daily, # 30 tablet, 5 Refills, Maintenance, 12/19/22 20:22:00 EDT, Tablet, [facility], Partial fill upon patient request if the prescription is for a schedule II opioid drug., 165.4, cm, 12/19/22 9:40:00 EDT, Height... Start Date: 12/19/22 Status: Ordered anastrozole 1 mg oral tablet 1 tablet, By Mouth, Daily, # 30 tablet, 2 Refills, Maintenance, 04/04/23 17:28:00 EDT, [facility], 165.4, cm, 03/30/23 9:41:00 EDT, Height, 89.7, kg, 03/06/23 14:16:00 EDT, Dry Weight Start Date: 04/04/23 Status: Ordered atorvastatin 80 mg oral tablet 1 tablet = 80 mg, By Mouth, Daily, # 90 tablet, 0 Refills, Maintenance, 03/07/23 16:56:00 EDT, Tablet, [facility] #0693, Partial fill upon patient request if the prescription is for a schedule II opioid drug., 165.4, cm, 03/06/23 14:16:00 EDT, Heigh... Start Date: 03/07/23 Status: Ordered cyclobenzaprine 10 mg oral tablet See Instructions, TAKE 1 TBALET BY MOUTH NIGHTLY NEEDED FOR MUSCLE SPASM., # 21 tablet, Refills 0, Maintenance, 11/20/22 11:08:00 EDT, Instructions Replace Required Details, Route to Pharmacy Electronically, [facility], 165.4, cm, 11/20/22 10:... Start Date: 11/20/22 Status: Ordered dexamethasone 4 mg oral tablet See Instructions, 2 tablet By Mouth 2 times a day for 3 days, starting on the day before treatment,then the day of treatment and the day after treatment., # 48 tablet, 0 Refills, Maintenance, 11/17/22 10:18:00 EDT, [facility] #0693, Partial fill up... Start Date: 11/17/22 Status: Ordered hydrOXYzine hydrochloride 50 mg oral tablet 1 tablet, By Mouth, Daily at bedtime, # 90 tablet, 2 Refills, Maintenance, 04/17/23 10:18:00 EDT, [facility] #0693, 165.4, cm, 03/30/23 9:41:00 EDT, Height, 89.7, kg, 03/06/23 14:16:00 EDT, Dry Weight Start Date: 04/17/23 Stop Date: 01/12/24 Status: Ordered lidocaine-prilocaine 2.5%-2.5% topical cream 1 application, Topically, Once, apply a thin layer on skin over the port 1 hour prior to port access. cover with clear plastic film, # 30 Gm, 0 Refills, Soft Stop, 11/20/22 9:28:00 EDT, Cream, [facility] #0693, Partial fill upon patient request if... Start Date: 11/20/22 Status: Ordered lisinopril 10 mg oral tablet 1, tablet, By Mouth, Daily, # 90 tablet, Refills 2, Tot. Refills 2, Maintenance, 04/30/23 18:29:00 EDT, Route to Pharmacy Electronically, [facility] #0693, 165.4, cm, 03/30/23 9:41:00 EDT, Height, 89.7, kg, 03/06/23 14:16:00 EDT, Dry Weight Start Date: 04/30/23 Status: Ordered meloxicam 15 mg oral tablet 1 tablet, By Mouth, Daily, # 90 tablet, 1 Refills, Maintenance, 05/01/23 10:48:00 EDT, [facility], 165.4, cm, 03/30/23 9:41:00 EDT, Height, 89.7, kg, 03/06/23 14:16:00 EDT, Dry Weight Start Date: 05/01/23 Status: Ordered ondansetron 4 mg oral tablet 1-2 tablet, By Mouth, Every 8 hours, PRN Nausea, # 30 tablet, 1 Refills, Maintenance, 11/17/22 10:19:00 EDT, [facility], Partial fill upon patient request if the prescription is for a schedule II opioid drug., 165.4, cm, 11/02/22 9:39:00 EDT,... Start Date: 11/17/22 Status: Ordered prochlorperazine 5 mg oral tablet 1-2 tablet, By Mouth, Every 6 hours, PRN Nausea, # 60 tablet, 1 Refills, Maintenance, 11/17/22 10:19:00 EDT, [facility] #0693, Partial fill upon patient request if the prescription is for a schedule II opioid drug., 165.4, cm, 11/02/22 9:39:00 EDT,... Start Date: 11/17/22 Status: Ordered sertraline 100 mg oral tablet 1 tablet, By Mouth, Daily, # 90 tablet, 1 Refills, Maintenance, 04/17/23 8:29:00 EDT, [facility], 165.4, cm, 03/30/23 9:41:00 EDT, Height, 89.7, [...] Care Team Personnel Name: Josiane Ledezma Position: [facility] PCO Associate Professional Member Role: PCP Address: Address: [address] [place] [address]. [address] [place], [place] [address] Name: Ariadna Fitzgerald RN Position: [facility] Onco RN Member Role: Primary Care Nurse Name: Cecy Boston RN Position: [facility] Onco RN Member Role: Primary Care Nurse Care Team Related Persons Name: KELL GONSALVES Address: home [address] [place] [address] Name: CONG LENZ Address: home [address] [place] [address]
--- OUTSIDE RECORDS SUMMARY | 2024-03-16 19:26 | XMS_ITS | Continuity of Care Document ---
Author Organization [facility] Address [address] [place] [address] [address] [place] [address]- Care Team Providers Care Manager Relocation Name Role Phone Josiane Ledezma Primary Care Physician [place] [facility] [place] 11/20/22 - 11/27/22 [facility] [address] [place] [address]- Attending Physician: Not on Staff, Attending MD Allergies, Adverse Reactions, Alerts Substance Reaction Severity Status flu vaccines Hives Severe Active Immunizations Given and Recorded Vaccine Date Status Refusal Reason tetanus/diphtheria/pertussis, acel(Tdap) 1 10/19/22 Given SARS-CoV-2 (COVID-19) mRNA-1273 vaccine 02/21/22 R ecorded 1Result Comment: [facility] [id number] Medications amLODIPine 10 mg oral tablet 1 [...] Replace Required Details, Route to Pharmacy Electronically, [facility], 165.4, cm, 11/20/22 10:... Start Date: 11/20/22 Status: Ordered dexamethasone 4 mg oral tablet See Instructions, 2 tablet By Mouth 2 times a day for 3 days, starting on the day before treatment,then the day of treatment and the day after treatment., # 48 tablet, 0 Refills, Maintenance, 11/17/22 10:18:00 EDT, [facility]/pharmacy #0693, Partial fill up... Start Date: 11/17/22 Status: Ordered hydrOXYzine hydrochloride 50 mg oral tablet 1 tablet = 50 mg, By Mouth, Daily at bedtime, # 90 tablet, 0 Refills, Acute 01/19/23 11:10:00 EDT, 10/19/22 11:09:00 EST, Tablet, [facility]/pharmacy #0693, Partial [...] Refills, Soft Stop, 11/20/22 9:28:00 EDT, Cream, [facility]/pharm[facility] #0693, Partial fill upon patient request if... Start Date: 11/20/22 Status: Ordered lisinopril 10 mg oral tablet 1, tablet, By Mouth, Daily, # 30 tablet, Refills 5, Maintenance, 11/20/22 11:08:00 EDT, Route to Pharmacy Electronically, [facility], 165.4, cm, 11/20/22 10:43:00 EDT, Height, 91.1, [...] 1 Refills, Maintenance, 10/19/22 11:10:00 EST, Tablet, [facility]/pharm[facility] #0693, Partial [...] oldest [Reference Range]: 1 Height 165.4 cm (11/20/22 10:43 AM) Weight 91.1 kg (11/20/22 10:43 AM) Body Mass Index [18.5-24.99 kg/m2] 33.3 kg/m2 *>HHI* (11/20/22 10:43 AM) Temperature [96.8-100.4 DegF] 98.4 DegF (11/20/22 10:43 AM) Temperature Route Temporal (11/20/22 10:43 AM) Weight Obtained Via Standing scale (11/20/22 10:43 AM) Social History Social History Type Response Smoking Status Never (less than 100 in lifetime) entered on: 06/21/22 Sex Patient Care team information Care Team Personnel Name: Josiane Ledezma Position: [facility] PCO Associate Professional Member Role: PCP Address: Address: [address]rd [place] [address]- Care Team Related Persons Name: KELL GONSALVES Address: home [address] [place] [address] Name: CONG LENZ Address: home [address] [place] [address]
--- OUTSIDE RECORDS SUMMARY | 2024-03-16 19:26 | XMS_ITS | Continuity of Care Document ---
Author Organization [facility] Address [address] [place] [address]- Care Team Providers Care Diagnostics Sales Developer Name Role Phone Josiane Ledezma Primary Care Physician [place] [facility](s): 09/04/22 - 11/23/22 [facility] [address] [place] [id number] Discharge Disposition: A-D/C Home Attending Physician: Jeramie Mccartney DO Admitting Physician: Cristian Haywood MD Referring Physician: Bear Salazar MD Allergies, Adverse Reactions, Alerts Substance Reaction Severity Status flu vaccines Hives Severe Active Immunizations Given and Recorded Vaccine Date Status Refusal Reason tetanus/diphtheria/pertussis, acel(Tdap) 1 10/19/22 Given SARS-CoV-2 (COVID-19) mRNA-1273 vaccine 02/21/22 R ecorded 1Result Comment: [facility] [id number] Medications amLODIPine 10 mg oral tablet 1 [...] Replace Required Details, Route to Pharmacy Electronically, [facility] 0[facility]13, 165.4, cm, 11/20/22 10:... Start Date: 11/20/22 [...] 11/20/22 11:08:00 EDT, Route to Pharmacy Electronically, [facility] 509[facility], 165.4, cm, 11/20/22 10:43:00 EDT, Height, 91.1, [...] to oldest [Reference Range]: 1 2 Height 165.4 cm (11/02/22 9:39 AM) 165.4 cm (10/17/22 8:44 AM) Weight 91.1 kg (11/02/22 9:39 AM) 89.8 kg (10/17/22 8:44 AM) Oxygen Saturation [94-100 %] 99 % (11/02/22 9:39 AM) 100 % (10/17/22 8:44 AM) Pulse Rate [55-90 bpm] 66 bpm (11/02/22 9:39 AM) 62 bpm (10/17/22 8:44 AM) Body Mass Index [18.5-24.99 kg/m2] 33.3 kg/m2 *>HHI* (11/02/22 9:39 AM) 32.83 kg/m2 *>HHI* (10/17/22 8:44 AM) Blood Pressure [90-138/55-84 mm Hg] 130/ 61mm Hg (11/02/22 9:39 AM) 140/63mm Hg *H* (10/17/22 8:44 AM) Temperature [96.8-100.4 DegF] 97.4 DegF (11/02/22 9:39 AM) 98.1 DegF (10/17/22 8:44 AM) Mode of Delivery (Oxygen) Room air (11/02/22 9:39 AM) Room air (10/17/22 8:44 AM) Blood pressure sites Arm, left (11/02/22 9:39 AM) Arm, left (10/17/22 8:44 AM) Temperature Route Temporal (11/02/22 9:39 AM) Oral (10/17/22 8:44 AM) Dry Weight 91.1 kg (11/02/22 9:39 AM) 89.8 kg (10/17/22 8:44 AM) Weight Obtained Via Standing scale (11/02/22 9:39 AM) Standing scale (10/17/22 8:44 AM) Dry Weight Obtained Via Standing scale (11/02/22 9:39 AM) Standing scale (10/17/22 8:44 AM) Social History Social History Type Response Smoking Status Never (less than 100 in lifetime) entered on: 06/21/22 Sex Note * Asia Chowdhury [place]: PERFORM, SIGN, VERIFY Event Display: Patient Education/Instruction Authored Date: [id number] [facility] *Heme/Onc Adult Clinical Summary Name GAEL LENZ Age 62 Years 1960 PCP Micah LEMON, Josiane Junior PCP Visit Date 09/04/2022 13:03:00 Additional Instructions: Scheduled Appointments?? Future Appointments ?*[facility] [address],??[place],??[address] ?Phone:??--?Fax:??-- ?Appt. Date:??11/20/2022?10:20 AM ?Scheduled Provider:??Andrzej LEMON , Perla ?*[facility] [address],??[place],??[address] ?Phone:??--?Fax:??-- ?Appt. Date:??12/29/2022?3:20 PM ?Scheduled Provider:??Teodoro Jasmine MD ?*[facility] [address],??[address] ?Phone:??--?Fax:??-- ?Appt. Date:??01/19/2023?11:20 AM ?Scheduled Provider:??Josiane Ledezma Follow-Up Instructions ?? With: Address: When: Jeramie Mccartney [address] [place] [address]/[place], [place] [id number] [email or web address] (1) 12/05/2022 3:15 PM With: Address: When: Jeramie Mccartney [address] [place] [address] Hem/[place] [address] [email or web address] (1) 01/18/2023 11:00 AM Diagnosis Medications: Please continue your medications [...] Daily. at bedtime. Refills: 5. Next Dose: HydrOXYzine (hydrOXYzine hydrochloride 50 mg oral tablet) 1 tab(s) Oral Daily at Bedtime. Refills: 0. Next Dose: Lisinopril (lisinopril 10 mg oral tablet) 1 tab(s) Oral Daily. Refills: 5. Next Dose: Sertraline (Zoloft 100 mg oral tablet) 1 tab(s) Oral Daily. Refills: 1. Next Dose: Allergy Info:?? flu vaccines Medications Given This Visit Future Orders ?No future orders Vital Signs Height 165.4 cm Weight 91.1 kg BMI 33.3 kg/m2 Blood Pressure 130 mm Hg/61 mm Hg Temperature 97.4 DegF Pulse Rate 66 bpm Respiratory Rate 02 Sat Mode of Delivery 99 %/Room air You can now view a summary of your hospital visit from the comfort of your home through a free online portal called [employer]. [employer] is a website that allows you to securely view your medical information including discharge summary, medications and follow-up visits. ??You can alsosend a secure electronic message to your doctor???s office to request appointments, renew medications or just ask a question. You can enroll at [email or web address] or register during your next office visit. [...] primary care provider, you may find a [facility] provider by calling [facility] [employer] [facility] at [phone]. For information about the plan of care including goals and instructions for your diagnosis, please see the patient education orders section of this document. Patient Education Materials?? The content of this educational material or handout may have been modified, supplemented, or adapted from its original content and format to support your individualized medical care. * Mely Lopez: PERFORM, SIGN, VERIFY Event Display: Patient Education/Instruction Authored Date: [id number] [facility] *Heme/Onc Adult Clinical Summary Name GAEL LENZ Age 62 Years 1960 PCP Micah LEMON, Josiane Junior PCP Visit Date 09/04/2022 13:03:00 Additional Instructions: Scheduled Appointments?? Future Appointments ?*[facility] [address],??[place],??[address] ?Phone:??--?Fax:??-- ?Appt. Date:??10/19/2022?10:20 AM ?Scheduled Provider:??Josiane Ledezma ?*[facility] [address],??[place],??[address] ?Phone:??--?Fax:??-- ?Appt. Date:??10/23/2022?10:20 AM ?Scheduled Provider:??Perla Ortez ?*[facility] [address],??[address] ?Phone:??--?Fax:??-- ?Appt. Date:??12/29/2022?3:20 PM ?Scheduled Provider:??Kenroy UMAÑA , Teodoro Andrade Follow-Up Instructions ?? With: Address: When: Jeramie Mccartney [facility] [place] [address] Business (1) 01/18/2023 11:00 AM Diagnosis Medications: Please continue your medications [...] Daily. at bedtime. Refills: 5. Next Dose: HydrOXYzine (hydrOXYzine hydrochloride 25 mg oral tablet) TAKE 1 TABLET BY MOUTH 30-60 BEFORE BEDTIME NEEDED FOR INSOMNIA.. Refills: 3. Next Dose: Lisinopril (lisinopril 10 mg oral tablet) 1 tab(s) Oral Daily. Refills: 5. Next Dose: Sertraline (sertraline 50 mg oral tablet) 1 tab(s) Oral Daily. Refills: 3. Next Dose: Allergy Info:?? flu vaccines Medications Given This Visit Future Orders ?No future orders Vital Signs Height 165.4 cm Weight 89.8 kg BMI 32.83 kg/m2 Blood Pressure 140 mm Hg/63 mm Hg Temperature 98.1 DegF Pulse Rate 62 bpm Respiratory Rate 02 Sat Mode of Delivery 100 %/Room air You can now view a summary of your hospital visit from the comfort of your home through a free online portal called [employer]. [employer] is a website that allows you to securely view your medical information including discharge summary, medications and follow-up visits. ??You can alsosend a secure electronic message to your doctor???s office to request appointments, renew medications or just ask a question. You can enroll at [email or web address] or register during your next office [...] primary care provider, you may find a [facility] provider by calling [facility] at [phone]. For information about the plan of care including goals and instructions for your diagnosis, please see the patient education orders section of this document. Patient Education Materials?? The content of this educational material or handout may have been modified, supplemented, or adapted from its original content and format to support your individualized medical care. * Event Display: [employer] Authored Date: Patient Care team information Care Team Personnel Name: Josiane Ledezma Position: [facility] PCO Associate Professional Member Role: PCP Address: Address: [address]. 3rd [place] [address]- Care Team Related Persons Name: KELL GONSALVES Address: home [address] [place] [address] Name: CONG LENZ Address: home [address] [place] [address]
--- OUTSIDE RECORDS SUMMARY | 2024-03-16 19:26 | XMS_ITS | Continuity of Care Document ---
Author Organization [facility] Address [address] [place] [address]- Care Team Providers Care Finisher Polisher Name Role Phone Josiane Ledezma Primary Care Physician Encounter [facility] [place] Date(s): 07/19/23 - 08/18/23 [facility] [address] [place] [id number] Allergies, Adverse Reactions, Alerts Substance Reaction Severity Status flu vaccines Hives Severe Active Immunizations Given and Recorded Vaccine Date Status Refusal Reason tetanus/diphtheria/pertussis, acel(Tdap) 1 10/19/22 Given SARS-CoV-2 (COVID-19) mRNA-1273 vaccine 02/21/22 R ecorded 1Result Comment: [facility] [id number] Medications amLODIPine 10 mg oral tablet 1 tablet, By Mouth, Daily, # 90 tablet, 1 Refills, Maintenance, 08/07/23 9:18:00 EST, [facility], 165.4, cm, 07/23/23 10:56:00 EST, Height, 89.2, [...] Refills, Maintenance, 06/01/23 14:15:00 EDT, [facility], 165.4, cm, 03/30/23 9:41:00 EDT, Height, 89.7, kg, 03/06/23 14:16:00 EDT, Dry Weight Start Date: 06/01/23 Status: Ordered lisinopril 10 mg oral tablet 1, tablet, By Mouth, Daily, # 90 tablet, Refills 2, Tot. Refills 2, Maintenance, 04/30/23 18:29:00 EDT, Route to Pharmacy Electronically, [facility]/pharmacy #[id number], 165.4, cm, 03/30/23 9:41:00 EDT, Height, 89.7, kg, 03/06/23 14:16:00 EDT, Dry Weight Start Date: 04/30/23 Status: Ordered meloxicam 15 mg oral tablet 1 tablet, By Mouth, Daily, # 90 tablet, 1 Refills, Maintenance, 05/01/23 10:48:00 EDT, [facility], 165.4, cm, 03/30/23 9:41:00 EDT, Height, 89.7, kg, 03/06/23 14:16:00 EDT, Dry Weight Start Date: 05/01/23 Status: Ordered ondansetron 4 mg oral tablet 1-2 tablet, By Mouth, Every 8 hours, PRN Nausea, # 30 tablet, 1 Refills, Maintenance, 11/17/22 10:19:00 EDT, [facility]/pharmacy #0693, Partial fill upon patient request if the prescription is for a schedule II opioid drug., 165.4, cm, 11/02/22 9:39:00 EDT,... Start Date: 11/17/22 Status: Ordered sertraline 100 mg oral tablet 1 tablet, By Mouth, Daily, # 90 tablet, 1 Refills, Maintenance, 04/17/23 8:29:00 EDT, [facility], 165.4, cm, 03/30/23 9:41:00 EDT, Height, 89.7, kg, 03/06/23 14:16:00 EDT, Dry Weight Start Date: 04/17/23 Status: Ordered traZODone 50 mg oral tablet 50 mg, 1, tablet, By Mouth, Daily at bedtime, # 30 tablet, Refills 4, Tot. Refills 4, Maintenance, 07/23/23 11:38:00 EST, Route to Pharmacy Electronically, [facility]/pharmacy #0694, Partial fill upon patient request if the [...] Care Team Personnel Name: Josiane Ledezma Position: [facility] PCO Associate Professional Member Role: PCP Address: Address: [address] [place] [address]. [address]rd Floor [place], [place] [address] Name: Ifeanyi Brown RN Position: [facility] Onco RN Member Role: Primary Care Nurse Name: Ariadna Fitzgerald RN Position: [facility] Onco RN Member Role: Primary Care Nurse Name: Cecy Boston RN Position: [facility] Onco RN Member Role: Primary Care Nurse Care Team Related Persons Name: KELL GONSALVES Address: [address] [address] Name: CONG LENZ Address: home [facility] [place] [address]
--- OUTSIDE RECORDS SUMMARY | 2024-03-16 19:26 | XMS_ITS | Continuity of Care Document ---
Author Organization [facility] Adult Address [address] [place] [address]- Care Team Providers Care Medium Cycle Salesperson Name Role Phone Josiane Ledezma Primary Care Physician Encounter [facility] Date(s): 10/18/23 - 11/17/23 [facility] [address] [place] [address]- Allergies, Adverse Reactions, Alerts Substance Reaction Severity Status flu vaccines Hives Severe Active Immunizations Given and Recorded Vaccine Date Status Refusal Reason tetanus/diphtheria/pertussis, acel(Tdap) 1 10/19/22 Given SARS-CoV-2 (COVID-19) mRNA-1273 vaccine 02/21/22 R ecorded 1Result Comment: [facility] [id number] Medications acetaminophen 325 mg oral tablet 650 [...] Refills, Maintenance, 08/07/23 9:18:00 EST, [facility], 165.4, cm, 07/23/23 10:56:00 EST, Height, 89.2, [...] tablet, 1 Refills, Maintenance, 08/27/23 6:34:00 EST, [facility]/pharmacy #0693, 165.4, cm, 08/23/23 [...] 04/30/23 18:29:00 EDT, Route to Pharmacy Electronically, [facility]/pharmacy #0693, 165.4, cm, 03/30/23 9:41:00 EDT, Height, 89.7, kg, 03/06/23 14:16:00 EDT, Dry Weight Start Date: 04/30/23 Status: Ordered ondansetron 4 mg oral tablet 1 tablet = 4 mg, By Mouth, Every 8 hours, PRN Nausea & Vomiting, # 10 tablet, 0 Refills, Maintenance, 11/08/23 9:52:00 EDT, Tablet, [facility], Partial fill upon patient request if the prescription is for a schedule II opioid drug., 165,... Start Date: 11/08/23 Status: Ordered sertraline 100 mg oral tablet 1 tablet, By Mouth, Daily, # 90 tablet, 1 Refills, Maintenance, 04/17/23 8:29:00 EDT, [facility], 165.4, cm, 03/30/23 9:41:00 EDT, Height, 89.7, kg, 03/06/23 14:16:00 EDT, Dry Weight Start Date: 04/17/23 Status: Ordered traZODone 50 mg oral tablet 1, tablet, By Mouth, Daily at bedtime, # 90 tablet, Refills 1, Maintenance, 10/18/23 10:17:00 EST, Route to [facility] Electronically, [facility], 165, cm, 10/09/23 10:25:00 EST, Height, 89.7, [...] Primary Care Nurse Name: Josiane Ledezma Position: [facility] PCO Associate Professional Member Role: PCP Address: Address: [address] [place] [address]. [address] [place], [place] [address] Name: Cecy Orta RN Position: [facility] Onco RN Member Role: Primary Care Nurse Name: Laurel Perales RN Position: S RN Member Role: Primary Care Nurse Name: Ifeanyi Brown RN Position: [facility] Onco RN Member Role: Primary Care Nurse Name: Ariadna Fitzgerald RN Position: S Onco RN Member Role: Primary Care Nurse Name: Mariaa Dunn RN Position: S RN Member Role: Primary Care Nurse Name: Jimena Islas LPN Position: S RN Member Role: Primary Care Nurse Care Team Related Persons Name: KELL GONSALVES Address: [address] [address] Name: CONG LENZ Address: home [address] [place] [address]
--- OUTSIDE RECORDS SUMMARY | 2024-03-16 19:26 | XMS_ITS | Continuity of Care Document ---
Author Organization [facility] Adult Address [address] [place] [address]- Care Team Providers Care Certified Health Education Specialist Name Role Phone Ephraim UMAÑA, [facility] Primary Care Physician ( [phone] [place] [facility] [place]15/23 - 12/15/23 [facility] [address] [place] [address]- Allergies, Adverse Reactions, Alerts Substance Reaction Severity Status flu vaccines Hives Severe Active Immunizations Given and Recorded Vaccine Date Status Refusal Reason tetanus/diphtheria/pertussis, acel(Tdap) 1 10/19/22 Given SARS-CoV-2 (COVID-19) mRNA-1273 vaccine 02/21/22 R ecorded 1Result Comment: [facility] [id number] Medications acetaminophen 325 mg oral tablet 650 [...] Refills, Maintenance, 08/07/23 9:18:00 EST, [facility], 165.4, cm, 07/23/23 10:56:00 EST, Height, 89.2, [...] tablet, 1 Refills, Maintenance, 08/27/23 6:34:00 EST, [facility]/pharmacy #[id number], 165.4, cm, 08/23/23 12:12:00 [...] 04/30/23 18:29:00 EDT, Route to Pharmacy Electronically, [facility]/pharmacy #[id number], 165.4, cm, 03/30/23 9:41:00 EDT, Height, 89.7, kg, 03/06/23 14:16:00 EDT, Dry Weight Start Date: 04/30/23 Status: Ordered ondansetron 4 mg oral tablet 1 tablet = 4 mg, By Mouth, Every 8 hours, PRN Nausea & Vomiting, # 10 tablet, 0 Refills, Maintenance, 11/08/23 9:52:00 EDT, Tablet, [facility], Partial fill upon patient request if the prescription is for a schedule II opioid drug., 165,... Start Date: 11/08/23 Status: Ordered sertraline 100 mg oral tablet 1 tablet, By Mouth, Daily, # 90 tablet, 1 Refills, Maintenance, 04/17/23 8:29:00 EDT, [facility], 165.4, cm, 03/30/23 9:41:00 EDT, Height, 89.7, kg, 03/06/23 14:16:00 EDT, Dry Weight Start Date: 04/17/23 Status: Ordered traZODone 50 mg oral tablet 1, tablet, By Mouth, Daily at bedtime, # 90 tablet, Refills 1, Maintenance, 10/18/23 10:17:00 EST, Route to Pharmacy Electronically, [facility], 165, cm, 10/09/23 10:25:00 EST, Height, 89.7, [...] Care Nurse Name: Edgar Ye MD Position: [facility] Physician - Primary Care Member Role: PCP Address: Address: [address] [place] [address] Name: Cecy Orta RN Position: [facility] Onco RN Member Role: Primary Care [...] Team Related Persons Name: KELL GONSALVES Address: [address] [address] Name: CONG LENZ Address: home [address] [place] [address]
--- OUTSIDE RECORDS SUMMARY | 2024-03-16 19:26 | XMS_ITS | Continuity of Care Document ---
Author Organization [facility] Address [address] [place] [address]- Care Team Providers Care Reimbursement Counselor Name Role Phone Ephraim UMAÑA, [facility] Primary Care Physician [place] [facility] [place]23 [place] 12/16/23 [facility] [address] [place], [place] [address] Attending Physician: Nori Obrien MD, V Allergies, Adverse Reactions, Alerts Substance Reaction Severity Status flu vaccines Hives Severe Active Immunizations Given and Recorded Vaccine Date Status Refusal Reason tetanus/diphtheria/pertussis, acel(Tdap) 1 10/19/22 Given SARS-CoV-2 (COVID-19) mRNA-1273 vaccine 02/21/22 R ecorded 1Result Comment: [facility] [id number] Medications acetaminophen 325 mg oral tablet 650 [...] Refills, Maintenance, 08/07/23 9:18:00 EST, [facility], 165.4, cm, 07/23/23 10:56:00 EST, Height, 89.2, [...] tablet, 1 Refills, Maintenance, 08/27/23 6:34:00 EST, [facility]/pharmacy #[id number], 165.4, cm, 08/23/23 [...] 04/30/23 18:29:00 EDT, Route to Pharmacy Electronically, [facility]/pharmacy #[id number], 165.4, cm, 03/30/23 9:41:00 EDT, Height, 89.7, kg, 03/06/23 14:16:00 EDT, Dry Weight Start Date: 04/30/23 Status: Ordered ondansetron 4 mg oral tablet 1 tablet = 4 mg, By Mouth, Every 8 hours, PRN Nausea & Vomiting, # 10 tablet, 0 Refills, Maintenance, 11/08/23 9:52:00 EDT, Tablet, [facility], Partial fill upon patient request if the prescription is for a schedule II opioid drug., 165,... Start Date: 11/08/23 Status: Ordered sertraline 100 mg oral tablet 1 tablet, By Mouth, Daily, # 90 tablet, 1 Refills, Maintenance, 04/17/23 8:29:00 EDT, [facility], 165.4, cm, 03/30/23 9:41:00 EDT, Height, 89.7, kg, 03/06/23 14:16:00 EDT, Dry Weight Start Date: 04/17/23 Status: Ordered traZODone 50 mg oral tablet 1, tablet, By Mouth, Daily at bedtime, # 90 tablet, Refills 1, Maintenance, 10/18/23 10:17:00 EST, Route to Pharmacy Electronically, [facility], 165, cm, 10/09/23 10:25:00 EST, Height, 89.7, [...] Care Nurse Name: Edgar Ye MD Position: [facility] Physician - Primary Care Member Role: PCP Address: Address: [address] [place] [address] Name: Cecy Orta RN Position: [facility] [...] Persons Name: KELL GONSALVES Address: home [address] [place] [address] Name: COGN LENZ Address: home [address] [place] [address]
--- OUTSIDE RECORDS SUMMARY | 2024-03-16 19:26 | XMS_ITS | Continuity of Care Document ---
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 Role Phone Josiane Ledezma Primary Care Physician Encounter [facility] [place] Date(s): 09/14/22 - 09/21/22 [facility] [address] [place] [address]- Encounter Diagnosis Viral URI(Discharge Diagnosis) - 09/14/22 Depression(Discharge Diagnosis) - 09/14/22 Attending Physician: Josiane Ledezma Allergies, Adverse Reactions, Alerts Substance Reaction Severity Status flu vaccines Hives Severe Active Immunizations Given and Recorded Vaccine Date Status Refusal Reason SARS-CoV-2 (COVID-19) mRNA-2261 vaccine 02/21/22 R ecorded Medications amLODIPine 10 [...] 3 Refills, Maintenance, 06/21/22 12:33:00 EST, Tablet, [facility]/pharmacy #[id number], Partial fill upon patient request if [...] Diagnosis Diagnosis Type Effective Dates Health Status Clini emely Service Informant Viral URI Discharge Diagnosis 09/14/22 Depression Discharge Diagnosis 09/14/22 Vital Signs Most recent to oldest [Reference Range]: 1 Height 163 cm (09/14/22 3:53 PM) Weight 91 kg (09/14/22 3:53 PM) Body Mass Index [18.5-24.99 kg/m2] 34.25 kg/m2 *>HHI* (09/14/22 3:53 PM) Weight Obtained Via Patient/family state d (09/14/22 3:53 PM) Social History Social History Type Response Smoking Status Never (less than 100 in lifetime) entered on: 06/21/22 Sex Patient Care team information Care Team Personnel Name: Josiane Ledezma Position: [facility] PCO Associate Professional Member Role: PCP Address: Address: [address] [place] [address]. [address] [place] [address]- Care Team Related Persons Name: KELL GONSALVES Address: [place] [address] Name: CONG LENZ Address: home [address] [place] [id number]
--- OUTSIDE RECORDS SUMMARY | 2024-03-16 19:26 | XMS_ITS | Continuity of Care Document ---
Author Organization [facility] ter Address [address] [place] [id number]- Care Team Providers Care Screenplay Writer Name Role Phone Josiane Ledezma Primary Care Physician Encounter [facility] [place] [facility] Date(s): 09/24/23 - 09/25/[address] [address]- Discharge Disposition: A-Transfer VNA/Home Health Attending Physician: Omar Mccracken MD Admitting Physician: Omar Mccracken MD Referring Physician: Omar Mccracken MD Allergies, Adverse Reactions, Alerts Substance Reaction Severity Status flu vaccines Hives Severe Active Immunizations Given and Recorded Vaccine Date Status Refusal Reason tetanus/diphtheria/pertussis, acel(Tdap) 1 10/19/22 Given SARS-CoV-2 (COVID-19) mRNA-1273 vaccine 02/21/22 R ecorded 1Result Comment: [facility] [id number] Medications acetaminophen 325 mg oral tablet 650 mg, By Mouth, Every 6 hours, May take OTC not to exceed 3000 mg/day, Refills 0, Maintenance, 09/25/23 7:53:00 EST, Partial fill upon patient request if the prescription is for a schedule II opioid drug. Start Date: 09/25/23 Status: Ordered Acetaminophen Tablet 650 mg, Tablet, By Mouth, 09/25/23 13:00:00 EST Start Date: 09/25/23 Stop Date: 09/25/23 Status: Completed amLODIPine 10 mg oral tablet 1 tablet, By Mouth, Daily, # 90 tablet, 1 Refills, Maintenance, 08/07/23 9:18:00 EST, [facility] STORE [id number], 165.4, cm, 07/23/23 10:56:00 EST, Height, 89.2, kg, 06/07/23 10:32:00 EDT, Dry Weight Start Date: 08/07/23 Status: Ordered anastrozole 1 mg oral tablet 1 tablet, By Mouth, Daily, # 30 tablet, 11 Refills, Maintenance, 07/19/23 16:13:00 EST, [facility]/pharmacy #[id number], 165.4, cm, 07/11/23 14:22:00 EST, [...] tablet, 1 Refills, Maintenance, 08/27/23 6:34:00 EST, [facility]/pharmacy #[id number], 165.4, cm, 08/23/23 12:12:00 EST, [...] opioid drug. Start Date: 09/25/23 Status: Ordered Dilaudid Tablet 2 mg, Tablet, By Mouth, Every 4 hours, PRN for Pain , Moderate, Routine, 09/24/23 12:45:00 EST Start Date: 09/24/23 Stop Date: 09/25/23 Status: Discontinued HYDROmorphone 4 mg oral tablet See Instructions, PRN Pain , Severe, Take 0.5-1 tablet every 4 hours as needed for moderate to severe pain., # 42 tablet, 0 Refills, Acute 10/02/23 8:00:00 EST, 09/25/23 7:35:00 EST, Tablet, [facility] 3, Partial fill upon patient request... Start Date: 09/25/23 Stop Date: 10/02/23 Status: Ordered lisinopril 10 mg oral tablet 1, tablet, By Mouth, Daily, # 90 tablet, Refills 2, Tot. Refills 2, Maintenance, 04/30/23 18:29:00 EDT, Route to Pharmacy Electronically, [facility]/pharmacy #[id number], 165.4, cm, 03/30/23 9:41:00 EDT, Height, 89.7, kg, 03/06/23 14:16:00 EDT, Dry Weight Start Date: 04/30/23 Status: Ordered ondansetron 4 mg oral tablet 1-2 tablet, By Mouth, Every 8 hours, PRN Nausea, # 30 tablet, 1 Refills, Maintenance, 11/17/22 10:19:00 EDT, [facility]/pharmacy #[id number], Partial fill upon patient request [...] tablet, 1 Refills, Maintenance, 04/17/23 8:29:00 EDT, [facility] STORE [id number], 165.4, cm, 03/30/23 9:41:00 EDT, Height, 89.7, kg, 03/06/23 14:16:00 EDT, Dry Weight Start Date: 04/17/23 Status: Ordered traMADol 50 mg oral tablet See Instructions, PRN Pain , Mild, Take 1-2 tablets every 6 hours as needed for mild pain. not to exceed 400 mg/day, # 56 tablet, 0 Refills, Acute 10/02/23 8:00:00 EST, 09/25/23 7:50:00 EST, Tablet, [facility], Partial fill upon patien... Start Date: 09/25/23 Stop Date: 10/02/23 Status: Ordered traZODone 50 mg oral tablet 50 mg, 1, tablet, By Mouth, Daily at bedtime, # 30 tablet, Refills 4, Tot. Refills 4, Maintenance, 07/23/23 11:38:00 EST, Route to Pharmacy Electronically, [facility]/pharmacy #[id number], Partial fill upon patient request [...] Exam Date Time Procedure Performing Provider Status 09/24/23 1:00 PM Knee 1 or 2 Views Left Cong Flowers; Auth (Verified) Notes: (Knee 1 or 2 Views Left) Reason For Exam: Postop RESULT: Knee 1 or 2 Views Left Knee 1 or 2 Views Left, 1 views INDICATION/CLINICAL QUESTION: Reason: Postop; Clinical Question(s): Other:; Implant Position; Special Instructions: To be done in PACU, No flexed knee in the lateral position. Keep leg straight; 2 Views COMPARISON: None. FINDINGS: There are post surgical changes from left total knee arthroplasty in standard alignment without radiographic evidence of immediate complication. Overlying soft tissue swelling and soft tissue gas is compatible with the immediate postoperative state. There is no unexpected radiopaque foreign body. IMPRESSION: Status post left total knee arthroplasty in standard alignment without evidence of immediate complication. WSN: [id number] Ordering Physician: Kiran Putnam Dictated By: Moris Benites MD Dictated Date/Time: 09/24/23 2:25 pm Reviewed By: Moris Benites MD Signed By: Moris Benites MD Signed Date/Time: 09/24/23 2:25 pm Transcribed By: LUIS MIGUEL Transcribed Date/Time: 09/24/23 2:24 pm Vital Signs Most recent to oldest [Reference Range]: 1 2 3 Height 165 cm (09/25/23 7:08 AM) 165 cm (09/25/23 3:33 AM) 165 cm (09/24/23 11:26 PM) Weight 89.7 kg (09/24/23 3:11 PM) Oxygen Saturation [94-100 %] 97 % (09/25/23 7:08 AM) 95 % (09/25/23 3:33 AM) 94 % (09/24/23 11: PM) Pulse Rate [55-90 bpm] 54 bpm *L* (09/25/23 7:08 AM) 72 bpm (09/25/23:33 AM) 70 bpm (09/24/23 11: PM) Body Mass Index [18.5-24.99 kg/m2] 32.95 kg/m2 *>HHI* (09/24/23 3:11 PM) Blood Pressure [90-138/55-84 mm Hg] 117/53mm Hg (09/25/23 7:08 AM) 132/52mm Hg (09/25/23 3:33 AM) 118/49mm Hg (09/24/23 11:26 PM) Respiratory Rate [16-30 br/min] 17 br/min (09/25/23 11:45 AM) 17 br/min (09/25/23 11:07 AM) 17 br/min (09/25/23 9:19 AM) Temperature [96.8-100.4 DegF] 97.8 DegF (09/25/23 7:08 AM) 98.0 DegF (09/25/23 3:33 AM) 98.2 DegF (09/24/23 11:26 PM) Liters per Minute 2 L/min (09/24/23 3:11 PM) 2 L/min (09/24/23 12:45 PM) 6 L/min (09/24/23 12:00 PM) Mode of Delivery (Oxygen) Room air (09/25/23 7:08 AM) Room air (09/25/23 3:33 AM) Room air (09/24/23 11:26 PM) Blood pressure sites Arm, right (09/25/23 7:08 AM) Arm, right (09/24/23 3:11 PM) Arm, right (09/24/23 12:00 PM) Temperature Route Oral (09/25/23 7:08 AM) Oral (09/25/23 3:33 AM) Oral (09/24/23 11:26 PM) Dry Weight 89.7 kg (09/24/23 3:11 PM) 89.7 kg (09/24/23 9:50 AM) Weight Obtained Via Standing scale (09/24/23 3:11 PM) Dry Weight Obtained Via Standing scale (09/24/23 3:11 PM) Standing scale (09/24/23 9:50 AM) Social History Social History Type Response Smoking Status Never (less than 100 in lifetime) entered on: 06/21/22 Sex History and physical note * Event Display: History and Physical Hospital Authored Date: [id number] * Event Display: History and Physical Hospital Authored Date: [id number] SURGICAL HISTORY AND PHYSICAL DATE: 09/24/2023 PRIMARY DIAGNOSIS: Osteoarthritis of the left knee. REASON FOR ADMISSION: The patient is being admitted for a left total knee arthroplasty by Dr. Vizcaino 09/24/2023. HISTORY OF PRESENT ILLNESS: Ms. Sofia is a very pleasant 63-year-old female with complaints of left-sided knee pain. She has tried and failed anti-inflammatory pain medications, Tylenol and home exercise program. The patient reports the pain is severe and worsens with activity, it has gotten to thepoint where it is affecting her ability to perform activities of daily living as well as daily social tasks and she is now ready to pursue a left total knee arthroplasty by Dr. Mccracken on 09/24/2023. PAST MEDICAL HISTORY: 1. Osteoarthritis of the left knee. 2. Hypertension. 3. Depression. 4. Hyperlipidemia. 5. Insomnia. 6. Invasive ductal carcinoma of the right breast, status post lumpectomy with chemo and radiation. 7. Obesity with a BMI of 33.12. 8. Left-sided lower back pain with sciatica. 9. Impaired fasting glucose with a hemoglobin A1c of 6.2. PAST SURGICAL HISTORY: 1. She had a breast biopsy in 2021. 2. Meniscus surgery to her left knee. MEDICATIONS: Current list of medications includes: 1. Amlodipine 10 mg daily in the a.m. 2. Anastrozole 1 mg daily in the morning. 3. Atorvastatin 80 mg in the morning. 4. Lisinopril 10 mg in the morning. 5. Meloxicam 15 mg, which she has discontinued in preparation for surgery. 6. Zofran as needed for nausea. 7. Sertraline 100 mg in the morning. 8. Trazodone 50 mg at bedtime. 9. Calcium and vitamin D and a B3 combination pill in the morning. ALLERGIES: The FLU VACCINE causes hives. SOCIAL HISTORY: The patient denies any alcohol, tobacco or illicit drug use. PHYSICIANS: The patient's primary care physician is Rukhsana Dixon REVIEW OF SYSTEMS: The patient's 12-point review of systems is negative with the exception in HPI. She does endorse baseline diarrhea. PHYSICAL EXAMINATION: VITAL SIGNS: Height is 5 feet 5 inches tall, weight is 196 pounds, temperature is 97.3, blood pressure 106/71 and pulse is 83. GENERAL: Alert and oriented. Normal insight, affect, and grooming. SKIN: Intact without rash or lesions. Nails without clubbing or cyanosis. HEENT: Normocephalic. Conjunctivae pink. Sclerae are anicteric. NECK: Supple. Trachea midline. No lymphadenopathy. CHEST: Lungs are clear to auscultation bilaterally and breathing is unlabored. CARDIOVASCULAR: Heart has a regular rate and rhythm with a normal S1, S2. No murmurs, rubs or gallops appreciated. ABDOMEN: Soft, nontender with normal bowel sounds. EXTREMITIES: Lower extremities, the patient has a negative straight leg raise test bilaterally. Bilateral hips have full range of motion without pain. Left knee range of motion is 0-110. Knee is stable to varus/valgus loading, anterior/posterior drawer testing and Finesse testing. No erythema, no redness. There is moderate subpatellar crepitus. Calves are supple and nontender. Ankle motion is satisfactory. Pedal pulses palpable bilaterally and skin about the feet is intact. PREOPERATIVE DIAGNOSTIC DATA: Orthopedic x-rays demonstrate end-stage osteoarthritis of the left knee. There is [id number] articulation, subchondral sclerosis and osteophyte formation. EKG reads normal sinus rhythm with a minimal voltage criteria for LVH at 63 beats per minute. Stress test from 2021 showed no EKG evidence of ischemia. LABORATORY DATA: CBC within normal limits. Chemistry panel demonstrates a glucose of 170. Coags within normal limits. Hemoglobin A1c of 6.2. ASSESSMENT AND PLAN: The patient has advanced osteoarthritis of the left knee and is now scheduled for a left total knee arthroplasty by Dr. Mccracken on 09/24/2023. The patient was seen by the preoperative medical clearance, who considered the patient a low pulmonary and cardiovascular risk for surgery. She has an elevated risk for RACHAEL. She will receive IV TXA and be placed on aspirin postoperatively for DVT prophylaxis. We will monitor her on capnography overnight. We will monitor her point of cares q.i.d. with a corresponding SSI. Discharge plans will be to home with services. The patient is requesting to stay overnight. She has been counseled regarding the risks and benefits of the proposedprocedure. Her questions have been answered and she acknowledges understanding. The patient wishes to proceed with surgery. The patient's oncologist stated that her last Zometa infusion was on 07/11, which is over 10-1/2 weeks ago. The patient is not on any further oral chemo, only anastrozole. Okay to proceed with total knee replacement surgery. CONTACTS: Her sister, Gretta, with a phone number of [phone]. Prescriptions given at the time of the visit include aspirin, pantoprazole, Celebrex, and Colace. She will require prescriptions for pain medicine upon discharge from the hospital. Dictated by: Joleen Mitchell N.P. Signing Clinician: Omar Mccracken M.D. Dictated: 09/19/2023 10:06:25 Transcribed: 04:38:11 AM Transcribed by: TRICIA DocID: [id number] PRELIMINARY REPORT UNLESS MANUALLY/ELECTRONICALLY SIGNED Cardiology * Event Display: Cardiac Rhythm Strips Authored Date: Hospital Progress note * Laurel Perales RN: PERFORM, SIGN, VERIFY Event Display: Progress Note Hospital Authored Date: [id number] Patient: GAEL SOFIA Age: 63 years Sex: Female : 1960 Associated Diagnoses: None Author: Laurel Perales RN Findings Problem Related to Alteration in Musculoskeletal : Alteration in Musculoskeletal Func/new 09/25/2023 7:00 EST Alteration in Musculoskeletal Related to Mobility, Orthopedic Procedure, Total joint replacement, Other: L TKR 09/[address] Mccracken Goals & Outcomes, Musculoskeletal Affected extremity will maintain color/motion/sensation, Pt able to perform ADL's to best of ability, Pt demonstrates precautions/exercise/ transfers per protocol, Pt will ambulate safely with assistive device, Pt will be free from complications of immobility, Pt will report acceptable level of comfort/pain relief Interventions, Musculoskeletal Monitor patients ambulation status, monitor Color/Motion/Sensation, Assist with repositioning, Encourage deep breathing & coughing exercises Goals/Interventions, Musculoskeletal Yes Musculoskeletal, Problem Start 09/24/2023 14:26 Reviewed Plan with, Musculoskeletal Patient Patient Progression, Musculoskeletal Pt progressing according to plan . Narrative/Incidental Pt is A&Ox3. Pt rates L knee pain 2-10/20 well controlled with + effect of PRN medication. Denied CP, palpitations, dizziness. LS clear all lobes bilat, on RA, no cough, denied SOB none observed with ambulation. BS present x4, passing gas, good appetite and PO intake, abdomen round soft and non tender, denies N/V, last BM 09/23. Voiding in BR hat in place see interactive flowsheets for accurateI&O. Pt resting comfortably in bed, callbell within reach bed in the lowest position and wheelslocked. Will report any changes PRN. . Evaluation P: Alteration is Musculoskeletal I: As stated above in POC E: s/p L TKR POD 1. Aquacel Dressing CDI. OOB as lam using walker with assist and immobilizer in place w/ambulation only, steady gait. +PP +CMS +D/P. Discharge Information Case Management Discharge Plan : Case Management Discharge Plan Data 09/24/2023 11:13 EST Discharge Level of Care at Discharge Homehealth/VNA Discharge VNA/Hospice/Home Care [facility] [phone] Service Categories #1 Physical Therapy Service Comments #1 [facility] will contact you to set up a visit time after discharge. Please call [phone] if you don't hear from them. * Lita Huff RN: PERFORM, SIGN, VERIFY Event Display: Progress Note Hospital Authored Date: [id number] Patient: GAEL SOFIA Age: 63 years Sex: Female : 1960 Associated Diagnoses: None Author: Lita Huff RN Findings Problem Related to Alteration in Comfort : Alteration in Comfort/new 09/25/2023 1:00 EST Alteration in Comfort Related to Surgery, Other: L TKR [place] 09/24 Goals & Outcomes: Comfort Pt will report acceptable level of comfort & pain control, Pt will state importance of adhering to pain strategy regime, Pt will demonstrate necessary skills to manage pain, Non-verbal indicators will indicate comfort/pain control Interventions Implemented: Comfort Assess pain using appropriate pain scale/tools, Assess aggravating factors & prevent them accordingly, Assess alleviating factors & promote them accordingly Goals/Interventions, Comfort Yes Comfort, Problem Start 09/25/2023 1:03 Reviewed plan with, Comfort Patient Patient Progression, Comfort Plan Initiation Comfort, Problem Ongoing Yes . Alteration in Musculoskeletal : Alteration in Musculoskeletal Func/new 09/25/2023 1:00 EST Alteration in Musculoskeletal Related to Mobility, Orthopedic Procedure, Total joint replacement, Other: L TKR 09/[address] Mccracken Goals & Outcomes, Musculoskeletal Affected extremity will maintain color/motion/sensation, Pt able to perform ADL's to best of ability, Pt demonstrates precautions/exercise/ transfers per protocol, Pt will ambulate safely with assistive device, Pt will be free from complications of immobility, Pt will report acceptable level of comfort/pain relief Interventions, Musculoskeletal Monitor patients ambulation status, monitor Color/Motion/Sensation, Assist with repositioning, Encourage deep breathing & coughing exercises, Obtain assistive devices as needed, Teach & Encourage use of Incentive spirometer, Teach Pt/caregiver on ADL's & adaptive equipment, Teach Pt/caregiver on exercises, Teach pt/caregiver on use of pain scale, Teach Pt /caregiver complications of immobility, Teach Pt/caregiver techniques to increase mobility, Teach Pt/caregiver on safety precautions Goals/Interventions, Musculoskeletal Yes Musculoskeletal, Problem Start 09/24/2023 14:26 Reviewed Plan with, Musculoskeletal Patient Patient Progression, Musculoskeletal Pt progressing according to plan . Nursing Data Musculoskeletal Data. : Musculoskeletal Data. 09/24/2023 21:00 EST Musculoskeletal Symptoms Joint stiffness, Joint tenderness, Weakness Musculoskeletal Abnormality Other: L TKR Musculoskeletal Abnormality Location Knee, Left Special Orthopedic Devices Immobilizer Musculoskeletal WNL except . Vital Signs : VITAL SIGNS SECTION 09/24/2023 23:26 EST Early Warning Score 2.00 09/24/2023 23:26 EST Temperature 98.2 DegF Temperature Route Oral Pulse Rate 70 bpm Respiratory Rate 18 br/min Systolic Blood Pressure 118 mm Hg Diastolic Blood Pressure 49 mm Hg L Mean Arterial Pressure 72 mm Hg Pulse Pressure 69 mm Hg Oxygen Saturation 94 % Mode of Delivery (Oxygen) Room air . Narrative/Incidental P: alteration in musculoskeletal I: as listed above E: Pt is a 63 year old female post op left TKR with Dr. Mccracken 09/24. A/Ox4, vital signs stable. Lungsounds clear, denies any chest pain/shortness of breath. Equal chest rise and fall noted upon assessment, no use of accessory muscles. Educated on use of incentive spirometer. Pt able to demonstrate and teachback. Encouraged use 10x per hour. Pt has BSx4, abdomen is soft/nontender. Denies any nausea /vomiting. LBM 09/23, reports passing flatus. Pt tolerating diabetic diet well. POCs monitored per order. Sliding scale with bedtime coverage in place. 4 units given per order. Pt OOB 1 assist with walker and KI, steady gait. Voiding CYU in bathroom with no issues. Pt has Aquacel dressing to left knee that is C/D/I. +CMS, +PP, +D/P. Ankle pumps encouraged 10x/hour. Skin around dressing is intact. Denies any numbness/tingling in extremities. Pt complained of 4/10 pain. Was given scheduled Tylenoland PRN 2mg Dilaudid with good relief. Pain management education provided, pt verbalizeed understandng. Pt instructed not to get OOB without assistance, verbalized understanding. Cboots and Aspirin for DVT prophylaxis. Bed locked and in lowest position for safety. Personal belongings and call cheng within reach. No further concerns at this time.. * Perla Torres RN: PERFORM Perla Torres RN: PERFORM, SIGN Perla Torres RN: SIGN, VERIFY Perla Torres RN: VERIFY, SIGN Mariaa Dunn RN: SIGN Event Display: Progress Note Hospital Authored Date: [id number] Patient: GAEL SOFIA Age: 63 years Sex: Female : 1960 Associated Diagnoses: None Author: Perla Torres RN Findings Problem Related to Alteration in Musculoskeletal : Alteration in Musculoskeletal Func/new 09/24/2023 14:00 EST Alteration in Musculoskeletal Related to Mobility, Orthopedic Procedure, Total joint replacement, Other: L TKR 09/[address] Mccracken Goals & Outcomes, Musculoskeletal Affected extremity will maintain color/motion/sensation, Pt able to perform ADL's to best of ability, Pt demonstrates precautions/exercise/ transfers per protocol, Pt will ambulate safely with assistive device, Pt will be free from complications of immobility, Pt will report acceptable level of comfort/pain relief Interventions, Musculoskeletal Monitor patients ambulation status, monitor Color/Motion/Sensation, Assist with repositioning, Encourage deep breathing & coughing exercises, Notify MD immediately if tissue perfusion deteriorates, Obtain assistive devices as needed, Teach & Encourage use of Incentive spirometer, Teach Pt/caregiver on ADL's & adaptive equipment, Teach pt/caregiver on useof pain scale, Teach Pt/caregiver on safety precautions, Incision care as ordered, Instruct pt on gait training, [place] Pt/caregiver to Total Knee Replacement protocol Goals/Interventions, Musculoskeletal Yes Musculoskeletal, Problem Start 09/24/2023 14:26 Reviewed Plan with, Musculoskeletal Patient Patient Progression, Musculoskeletal Plan Initiation . Nursing Data Vital Signs : VITAL SIGNS SECTION 09/24/2023 15:11 EST Temperature 98.2 DegF Temperature Route Oral Pulse Rate 77 bpm Respiratory Rate 18 br/min Systolic Blood Pressure 127 mm Hg Diastolic Blood Pressure 71 mm Hg Blood pressure sites Arm, right Mean Arterial Pressure 90 mm Hg Pulse Pressure 56 mm Hg Oxygen Saturation 99 % Liters per Minute 2 L/min Mode of Delivery (Oxygen) Nasal cannula . Narrative/Incidental Pt arrived from PANU via stretcher s/p L TKR 09/[address] Mccracken. Pt tx from stretcher to bed by independently sliding (pt still endorsing slight numbness/tingling LLE). Pt A+O x3. Pt c/o pain 5-6/10upon arrival in her L knee. Discussed post-op pain management at great length, and plan to start oral pain medication as soon as possible to aid in post-op pain management. Pt verbalizes understanding, oxycodone 5 mg. administered x1 in the PANU prior to arrival. IVF running per current orders. Diabetic diet initiated, pt denies any nausea/vomitting. QID glucose POC in place as well as sliding scale of lispro ordered in CIS. IS provided and pt educated on proper use. Pt accurately demonstrates,encouraged to use 10x per hour. Pt denies any SOB or chest pain currently. Last BM 2/11. Pt bladderscanned upon arrival for 567, able to void 600 cc of cyu on the bedpan shortly after arrival. L knee with aquacel dsg C/D/I. +DF +CMS +PF +PP LLE. Immobilizer in place and ice present for comfort. C-boots and plan for aspirin 325 mg. BID for DVT prophylaxis. Pt positively oriented to room sw726, safety and fall precautions, and use of call cheng. Discussed plan of care at great length, all questions answered/addressed. Pt to work with PT/OT shortly once full sensation regained and probable discharge plan home with services pending MD/PT/OT rec.. Discharge Information Case Management Discharge Plan : Case Management Discharge Plan Data 09/24/2023 11:13 EST Discharge Level of Care at Discharge Homehealth/VNA Discharge VNA/Hospice/Home Care [facility] [phone] Service Categories #1 Physical Therapy Service Comments #[address] [facility] will contact you to set up a visit time after discharge. Please call [phone] if you don't hear from them. * Mariaa Dunn RN: PERFORM Event Display: Progress Note Hospital Authored Date: [id number] Patient able to void 600cc of clear, yellow urine on bedpan. Reporting pain 3-4/10- given scheduledTylenol and spoke with patient in regards to PRN pain medications if needed - patient verbalizes understanding. Resting comfortably in bed at this time .. Note * Mariaa Dunn RN: PERFORM Event Display: Discharge/Transfer Note Hospital Authored Date: [id number] Nursing Discharge Note Entered On: 09/25/2023 12:45 EST Performed On: 09/25/2023 12:45 EST by Mariaa Dunn RN Nursing Discharge Note 2 Discharge Time : 09/25/2023 12:35 EST Discharge Level of Care at Discharge : Homehealth/VNA Discharge VNA/Hospice/Home Care(v001) : [facility] [phone] Patient Left Unit Via : Wheelchair Patient Accompanied Off Unit with : Responsible adult DC Instructions Provided & Signed by Pt : Yes Patient Understands D/C Instructions : Yes Verbalized Understanding of D/C Plan By : Patient Patient Instructions Discharge Signed : Yes Did Pt have Specialty Bed or Wound Vac : No Mariaa Dunn RN - 09/25/2023 12:45 EST * Joleen Mitchell NP: PERFORM, SIGN, VERIFY Event Display: Discharge/Transfer Note Hospital Authored Date: [id number] Patient: GAEL SOFIA Age: 63 years Sex: Female : 1960 Associated Diagnoses: None Author: Jolene Mitchell NP Discharge Summary Admission Date: September 24, 2023 Discharge Date: September 25, 2023 Admitting Diagnosis: Left knee osteoarthritis Discharge Diagnosis: Left knee osteoarthritis Final Diagnosis : Left knee osteoarthritis Procedure: Left total knee arthroplasty Surgeon: Dr. Omar Mccracken Past Medical History: 1. Osteoarthritis of the left knee. 2. Hypertension. 3. Depression. 4. Hyperlipidemia. 5. Insomnia. 6. Invasive ductal carcinoma of the right breast, status post lumpectomy with chemo and radiation. 7. Obesity with a BMI of 33.12. 8. Left-sided lower back pain with sciatica. 9. Impaired fasting glucose with a hemoglobin A1c of 6.2. PAST SURGICAL HISTORY: 1. She had a breast biopsy in 2021. 2. Meniscus surgery to her left knee. Orthopedics: The patient is status post left total knee arthroplasty. It is anticipated that they will be discharged home today pending PT, OT clearance. The patient is doing well from a surgical standpoint. Their incision is healing well. Neurovascular status is intact. Calves are supple and nontender. Making good progress with Physical Therapy and Occupational therapy. Supervision with ambulation walking 30 feet , ambulating with a walker WBAT. ROM pending. Pain is well controlled on their current regimen, Acetaminophen 650 mg every 6 hours, Celebrex 200mg daily, Tramadol as needed for mildpain, and Dilaudid as needed for moderate to severe pain. Patient is tolerating this well. They will be sent home with a prescription for this medication. Prescription: Tramadol 50 mg tablet. Take 1-2 tablets every 6 hours as needed for pain x 7 days. # 56 tablet. Dilaudid 4 mg tablet. Take 0.5-1 tablets every 4 hours as needed for pain x 7 days. # 42 tablet. Hospital course: Relatively uneventful medically. The patient denies any nausea or vomiting and has been able to tolerate their diet. Pain is controlled now. Patient is voiding spontaneously. + bowel sounds. Bowels medications given with anticipation of a BM. No other issues. No calf tenderness. Current Medication List: Acetaminophen (acetaminophen 325 mg oral tablet) 650 Milligram By Mouth Every 6 hours May take OTC not to exceed 3000 mg/day Amlodipine (amLODIPine 10 mg oral tablet) 1 tab(s) By Mouth Daily Anastrozole (anastrozole 1 mg oral tablet) 1 tab(s) By Mouth Daily Aspirin (Aspirin Tablet) 325 Milligram By Mouth 2 times a day Atorvastatin (atorvastatin 80 mg oral tablet) 1 tab(s) By Mouth Daily Celecoxib (celecoxib 200 mg oral capsule) 200 Milligram By Mouth Daily Docusate (Colace Capsule) 100 Milligram 1 capsule By Mouth 2 times a day as needed as needed for constipation Hydromorphone (HYDROmorphone 4 mg oral tablet) See Instructions as needed Pain , Severe Take 0.5-1 tablet every 4 hours as needed for moderate to severe pain. Lisinopril (lisinopril 10 mg oral tablet) 1 tablet By Mouth Daily Ondansetron (ondansetron 4 mg oral tablet) 1-2 tablet By Mouth Every 8 hours as needed Nausea Pantoprazole (pantoprazole 40 mg oral delayed release tablet) 40 Milligram By Mouth Daily Sertraline (sertraline 100 mg oral tablet) 1 tab(s) By Mouth Daily Tramadol (traMADol 50 mg oral tablet) See Instructions as needed Pain , Mild Take 1-2 tablets every6 hours as needed for mild pain. not to exceed 400 mg/day Trazodone (traZODone 50 mg oral tablet) 50 Milligram 1 tablet By Mouth Daily at bedtime Allergies: Allergies (Active and Proposed Allergies Only) flu vaccines (Severity: Severe, Onset: Unknown) Reactions: Hives Current Labs: Basic Metabolic Panel: Hematology: Sodium: 140 mmol/L (09/25/23) Hgb: 10.5 Gm/dL (09/25/23) Potassium (POC): 4.8 mmol/L (09/25/23) Hemoglobin A1C (Monitoring): ------ Phosphorus: ------ WBC: 14.9 k/mm3 (09/25/23) Magnesium: ------ Platelets: 267 k/mm3 (09/25/23) BUN (POC) POC Cartridge: 14 mg/dL (09/25/23) INR Level: ------ Creatinine-Blood: 0.9 mg/dL (09/25/23) Creatinine Clearance: ------ Additional - Last 24 Hours Abs. NRBC: 0.0 k/mm3 (09/25/23) Anion Gap: 11 (09/25/23) Bicarbonate Level: 24 mmol/L (09/25/23) BUN: BUN (09/25/23) Chloride: 105 mmol/L (09/25/23) Creatinine, Blood: Creatinine, Blood (09/25/23) Est Creatinine Clearance: 58.23 (09/25/23) Estimated GFR Creatinine: 74 ML/MIN/1.73 M2 (09/25/23) Glucose, POC: 148 mg/dL (09/25/23) Hct: 31.8 % (09/25/23) MCH: 27.7 pg (09/25/23) MCHC: 33.0 g/dL (09/25/23) MCV: 83.9 femtoliters (09/25/23) MPV: 9.7 femtoliters (09/25/23) Nucleated RBC (Automated): 0.0 #/100 WBC'S (09/25/23) RBC: 3.79 m/mm3 (09/25/23) RDW-SD: 40.5 femtoliters (09/25/23) DVT prophylaxis ASA EC 325 mg p o bid x 30 days Disposition: Anticipates being discharged today to home. Follow up at [facility] in two weeks , patient is aware of this. The patient has an Aquacel dressing in place. They may shower with it and the dressing can be discontinued on POD 7. Discharge Information Admission Date: 09/24/2023 Principal Discharge Diagnosis Discharge Plan Discharge Disposition Discharge: home with VNA. Home Health Face to Face I certify that this patient is under my care and that I or an allowed non- physician practitioner working with me, had a laaf-ye-yeji encounter with the patient on this date: 09/25/2023. The encounter with the patient was in whole, or in part, for the following medical condition, whichis the primary reason for home health care: Localized osteoarthritis of left knee. Physical Therapy: Functional mobility training, Home exercise program to strengthen, increase ROM, Falls prevention training. Homebound due to: Inability to leave home without assistance/supervision, Inability to ambulate without assistance. Physician Signature: Kaykay UMAÑA, Mariaa Zarco RN: PERFORM Event Display: Patient Education/Instruction Authored Date: Inpatient Adult Discharge Instructions. [address] [address] Name: GAEL SOFIA : 1960?? Visit: 09/24/2023 08:42?? Current Date: 09/25/2023 11:16 ?? Account: [id number]?? Inpatient Adult Discharge Instructions We would like [...] and their families. Surveys are administered by [employer] ?? If further treatment with your primary care physician or another doctor is recommended, it is important for you to keep the appointment. Call your primary care physician or return to the Emergency Department immediately if your condition worsens, fails to improve, or new symptoms develop. If you need to find a doctor, you can call [facility] Link for a referral at [phone] or toll free at [phone] or log in to [email or web address].. ?? [facility], in keeping with [facility] guidance, no longer requires face masks [...] a health care raphael of your choosing. [employer] is a website that allows you to securely view your medical information including your hospital discharge summary, office visit summaries, medications and follow-up visits. You can also request appointments, renew medications, and request access to your medical information using a health care raphael of your choosing, or just ask a question. You can enroll at [email or web address] or register during your next office visit. You have been discharged from [facility], Patient Care Unit: SW7??. If you have any questions regarding these instructions, including results of studies pending, afteryou leave, please call us and we will be happy to assist you 05/03. [facility] Your Care Team Attending Physician Kaykay UMAÑA, Omar Mast?? Consulting Providers Omar Mccracken MD?? Discharging Providers Stephen MOJICA, Joleen Your Diagnosis Localized osteoarthritis of left knee Tests Performed Below is a partial list of the tests performed during your hospitalization. You may have had other tests and procedures not included in this list. Please discuss all test results with your provider. BUN CBC Creatinine Electrolytes GLUCOSE POC XR Knee 1 or 2 Views Left BUN?? CBC?? Creatinine?? Electrolytes?? Primary Care Provider Josiane Ledezma? Discharge Vitals Temperature: 97.8 DegF Height: 165 cm Pulse Rate:??54 bpm??Low Weight: 89.7 kg Respiratory Rate: 17 br/min Body Mass Index:??32.95 kg/m2??Critical Systolic Blood Pressure: 117 mm Hg Body surface area: 2.03 Diastolic Blood Pressure:??53 mm Hg??Low ?? Oxygen Saturation: 97 % ?? Studies Pending All studies ordered during this hospital stay have been completed unless listed below. Please discuss all pending results with your provider listed above in these instructions. ?? BUN?? CBC?? Creatinine?? Electrolytes?? What to do next Instructions From Your Doctor ?? Orders?? Unit Discharge Criteria Met, ??09/25/23 8:16:00 EST?? Prescriptions??, ??09/25/23 8:16:00 EST?? Scheduled Follow-Up Appointments Sunday 10:30 AM EST ?? With: Robert MOJICA, Shaina Where: [facility] [address] [place] [id number]- Status: Pending You Need to Schedule the Following Appointments Follow Up with??[facility] When:??Within 1 to 2 weeks Why: Please keep all follow-ups as arranged with Dr. Nava?? Where: [address] [place] [address] [address] [place] [id number]- Discharge Medications GAEL SOFIA :1960 Visit Date:09/24/2023 Medications: Please continue your medications until treatment is completed or stopped by your provider. Medications not listed below should be discontinued. Discuss any questions related to medications with your provider. What How Much When Instructions Next Dose New Acetaminophen (acetaminophen 325 mg oral tablet) 650 Milligram Oral Every 6 hours May take OTC not to exceed 3000 mg/ day ?? 09/25 @ 4pm New Aspirin (Aspirin Tablet) 325 Milligram Oral Twice a day 09/25 @ 9pm *Prevents a blood clot New Celecoxib (celecoxib 200 mg oral capsule) 200 Milligram Oral Daily 09/26 @ 9am New Docusate (Colace Capsule) 100 Milligram Oral Twice a day as needed for as needed for constipation 09/25 @ 9pm *Stool softener *If having loose, watery stools you may cut down to once a day New Hydromorphone (HYDROmorphone 4 mg oral tablet) See instructions Take 0.5-1 tablet every 4 hours as needed for moderate to severe pain., As needed for Pain , Severe ?? Pickup at [facility] 09/25 @ *Strong narcotic *DO NOT TAKE WITH TRAMADOL New Pantoprazole (pantoprazole 40 mg oral delayed release tablet) 40 Milligram Oral Daily 09/26 @ 9am New Tramadol (traMADol 50 mg oral tablet) See instructions Take 1-2 tablets every 6 hours as needed for mild pain. not to exceed 400 mg/ day, As needed for Pain , Mild ?? Pickup at [facility] As needed for mild pain *DO NOT TAKE WITH DILAUDID Unchanged Amlodipine (amLODIPine 10 mg oral tablet) 1 tab(s) Oral Daily 09/26 @ 9am??/ Per home regimen Unchanged Anastrozole (anastrozole 1 mg oral tablet) 1 tab(s) Oral Daily 09/26 @ 9am??/ Per home regimen Unchanged Atorvastatin (atorvastatin 80 mg oral tablet) 1 tab(s) Oral Daily 09/26 @ 9am??/ Per home regimen Unchanged Lisinopril (lisinopril 10 mg oral tablet) 1 tab(s) Oral Daily 09/26 @ 9am??/ Per home regimen Unchanged Ondansetron (ondansetron 4 mg oral tablet) 1-2 tablet Oral Every 8 hours as needed for Nausea Per??home regimen Unchanged Sertraline (sertraline 100 mg oral tablet) 1 tab(s) Oral Daily 09/26 @ 9am??/ Per home regimen Unchanged Trazodone (traZODone 50 mg oral tablet) 1 tab(s) Oral Daily at Bedtime 09/25 @ 9pm Pharmacy Information [facility]: [address], [place] [id number] [phone] Prescription Given During Visit Hydromorphone (HYDROmorphone 4 mg oral tablet) - , # 42 tablet, 0 Refills, Take 0.5-1 tablet every 4 hours as needed for moderate to severe pain., [facility], [address] [place] [phone]?? Tramadol (traMADol 50 mg oral tablet) - , # 56 tablet, 0 Refills, Take 1-2 tablets every 6 hours asneeded for mild pain. not to exceed 400 mg/day, [facility], [address] [place] [phone]?? Laboratory Results Below is a partial list of the most recent Laboratory test results done prior to this discharge. You may have had other tests and procedures not included in this list. Please discuss all test resultswith your provider. Est Creatinine Clearance - 58.23 mL/min (09/25/2023) BUN (09/25/2023) ???BUN - 14 mg/dL CBC (09/25/2023) ???WBC - 14.9 k/mm3???RBC - 3.79 m/mm3???Hgb - 10.5 Gm/dL???Hct - 31.8 %???MCV - 83.9 femtoliters???MCH - 27.7 pg???MCHC - 33.0 g/dL???Platelet Count - 267 k/mm3???RDW-SD - 40.5 femtoliters???MPV - 9.7 femtoliters???Nucleated RBC (Automated) - 0.0 #/100 WBC'S???Abs. NRBC - 0.0 k/mm3 Creatinine (09/25/2023) ???Creatinine-Blood - 0.9 mg/dL???Estimated GFR Creatinine - 74 ML/MIN/1.73 M2 Electrolytes (09/25/2023) ???Sodium - 140 mmol/L???Potassium - 4.8 mmol/L???Chloride - 105 mmol/L???Bicarbonate Level - 24 mmol/L???Anion Gap - 11 GLUCOSE POC (09/25/2023) ???Glucose, POC - 148 mg/dL Allergies (NKA means No Known Allergies) flu vaccines??(Hives) Problems Active Problems??(9) Chest pain?? Depression?? HTN (hypertension)?? Hyperlipidemia?? Insomnia?? Invasive ductal carcinoma of right breast?? Left-sided low back pain without sciatica?? Obese class I?? Primary osteoarthritis of left knee?? Education Materials Below is the list of Educational Leaflet Providered with your Discharge Instructions. Hydromorphone Oral Tablet?? Total Knee Replacement Discharge Instructions?? Valuables and Belongings I fully understand and agree that [facility] accepts no responsibility for all my [...] of Valuable and Belonging List: With patient Disposition of Belongings: Other: PACU closet Date for Pt to Sign Valuables/Belongings: 09/24/23 15:15:00 ?? Other Discharge Information ? Case Management Discharge Plan?? Discharge Plan?? Discharge Agency Information?? Discharge Level of Care at Discharge: Homehealth/VNA Service Categories #1: Physical Therapy Discharge VNA/Hospice/Home Care: [facility] [phone] Service Comments #1: [facility] will contact you to set up a visit time after discharge. Please call [phone] if you don't hear from them. ?? Pulmonary Rehab Status?? Pulmonary Rehab Discharge Status?? Respiratory Rate: 17 br/min ? Common Emergency Awareness Tips IS [...] are strongly encouraged to quit. Please call [facility] [email or web address] Link at [phone] or [phone] ([phone]) or log in to [email or web address] for referrals to smoking cessation programs. ?? 809 Suicide & Crisis Lifeline is available 05/03 if you or someone you know needs to find a reason to keep living. By calling 441 you'll be connected to a skilled, trained counselor at a crisis center in your area. INPATIENT DISCHARGE INSTRUCTIONS SIGNATURE PAGE GAEL SOFIA Location:[facility] Registration Date and Time:09/24/2023 08:42 EST Primary Care Physician: Josiane Ledezma, Attending Physician: Omar Mccracken MD, I GAEL SOFIA, have received the above patient education materials/instructions and have verbalized understanding. If ambulance or transport services are being used I further acknowledge being given a choice of service. ?? If you need to contact me, please call me at this number: . Patient/Strap Setter Name: Patient/Strap Setter Signature: Relationship to Patient: Witness Name/Signature: Date: * Mariaa Dunn RN: PERFORM Event Display: Patient Education Leaflets Authored Date: [id number] Hydromorphone Oral Tablet ?? [id number] Hydromorphone Oral Tablet Brands: Dilaudid Uses For pain. ?? Instructions This medicine may be taken with or without food. Store at room temperature away from heat, light, and moisture. Do not keep in the bathroom. Please ask your doctor, nurse, or pharmacist how to discard unused medicines safely. To reduce constipation, eat high fiber foods, drink plenty of water and exercise. Drug interactions can change how medicines work or increase risk for side effects. Tell your healthcare providers about all medicines taken. Include prescription and caab-xeu-[id number] medicines, vitamins, and herbal medicines. Speak with [...] use the medication any more than instructed. This medicine may cause dizziness or fainting. Do not stand or sit up quickly. If possible, avoid using with alcohol, marijuana, [...] ??? constipation ??? dizziness or drowsiness ??? dry mouth ??? feeling of heat or flushing ??? lightheadedness ??? nausea and vomiting ??? stomach upset or abdominal pain If you have any of the following side effects, you may be getting too much medicine. Please contactyour doctor to let them know about these side effects. ??? changes in memory, mood, or thinking ??? fainting Call your doctor or get medical help right away if you notice any of these more serious side effects: ??? decreased awareness or responsiveness ??? breathing interruption during sleep ??? shallow, irregular breathing ??? confusion ??? hallucinations (unusual thoughts, seeing or hearing things that are not real) ??? fast, irregular, or slow heartbeat ??? seizures ??? severe stomach or bowel pain ???unusual or unexplained tiredness or weakness ??? difficulty or discomfort urinating ??? weight loss A few people may have an allergic reaction to this medicine. Symptoms can include difficulty breathing, skin rash, itching, swelling, or severe dizziness. If you notice any of these symptoms, seek medical help quickly. ?? Extra Please speak with your doctor, nurse, or pharmacist if you have any questions about this medicine. ?? [email or web address] IMPORTANT NOTE: This document tells you briefly how to take your medicine, but it does not tell youall there is to know about it. Your doctor or pharmacist may give you other documents about your medicine. Please talk to them if you have any questions. Always follow their advice. There is a more complete description of this medicine available in [place]. Scan this code on your smartphone or tablet or use the web address below. You can also ask your pharmacist for a printout. If you have any questions, please ask your pharmacist. The display and use of this drug information is subject to Terms of Use. Copyright(c) 2022 [facility]. ?? The [employer]. All rights reserved. This information is not intended as a substitute for professional medical care. Always follow your healthcare professional's instructions. ?? * Mariaa Dunn RN: PERFORM Event Display: Patient Education Leaflets Authored Date: [id number] Total Knee Replacement Discharge Instructions ?? 667 Total Knee Replacement Discharge Instructions ??? Please read and review your Total Knee Replacement Book for detailed information ??? Your appetite may be decreased but try to maintain a good balanced diet ?? Ice and elevation ?Ice is important to help keep swelling down. ?Keep elevated as much as possible. ?Ice the knee 4 times a day for 20 minutes each time. Be sure not to put the ice/ice pack directly on your skin. Use a dish towel or something similar between the ice and your skin. ??? Moving ? Get up and walk frequently. ??? Do 20 ankle pumps every hour. ??? Complete your exercises 4times a day, bending and straightening your knee ??? Begin exercises the evening you go home ??? Moving is especially important. This helps to prevent blood clots. Take short frequent walks. ? Wear your knee brace when walking until your surgeon or physical therapist tells you to stop. ??? You may sleep with or without the brace and sleep anyway you are comfortable. ??? Place a pillow underthe ankle/lower leg when lying down to help with extension of your knee. ??? Do not put a pillow under your knee ??? Continue to move your foot up and down, this exercise helps to prevent blood clotsand to help reduce swelling in your knee ??? No driving until approved by your surgeon ?? Incision ?Your incision is closed with absorbable stitches and surgical glue. ?The dressing iswaterproof. You may shower the next day. ??? You may develop some discoloration around your incision (yellowish or bruising) ??? Your dressing will stay on for 1-2 weeks ?You cannot go in a bath, pool, ocean, pond, avina or jacuzzi for 6 weeks. This is to reduce your risk of infection ? You may have some numbness around the incision. This is normal and will improve with time. Some patients have numbness that does not completely go away. ?? When to call the Surgeon?CALL [phone] ?If you have shortness of breath or chest pain, call 911 or go to the nearest emergency department. ??? If you have drainage and/or redness around your wound. ?If you have a fever greater than 101.5 (38.5 degrees Celsius). ?If you have persistent calf pain or swelling (This couldbe a blood clot). ??? If your pain is worsening. ? If you have any difficulty with urination or burning with urination ? Patient Care team information Care Team Personnel Name: Lita Huff RN Position: S RN Member Role: Primary Care Nurse Name: Josiane Ledezma Position: [facility] PCO Associate Professional Member Role: PCP Address: Address: [address] [place] [address]. [address] [place], [place] [address] Name: Laurel Perales RN Position: S RN Member Role: Primary Care Nurse Name: Ifeanyi Brown RN Position: [facility] Onco RN Member Role: Primary Care Nurse Name: Ariadna Fitzgerald RN Position: [facility] Onco RN Member Role: Primary Care Nurse Name: Mariaa Dunn RN Position: S RN Member Role: Primary Care Nurse Name: Cecy Boston RN Position: S Onco RN Member Role: Primary Care Nurse Care Team Related Persons Name: KELL GONSALVES Address: home [address] [place] [address] Name: CONG SOFIA Address: home [address] [place] [address]
--- OUTSIDE RECORDS SUMMARY | 2024-03-16 19:26 | XMS_ITS | Continuity of Care Document ---
Author Organization [facility] Address [address] [facility], [address] [place] [address]- Care Team Providers Care Veneer Drier Feeder Name Role Phone Josiane Ledezma Primary Care Physician Encounter 08/10/22 - 08/17/22 [facility] [address], [facility] [address] [place] [address]- Attending Physician: Sindi MOJICA, Carl Carpenter Admitting Physician: Sindi MJOICA, Carl Carpenter Referring Physician: Carl Vazquez NP Allergies, Adverse Reactions, Alerts Substance Reaction Severity Status flu vaccines Hives Severe Active Immunizations Given and Recorded Vaccine Date Status Refusal Reason SARS-CoV-2 (COVID-19) mRNA-6087 vaccine 02/21/22 R ecorded Medications amLODIPine 10 [...] Maintenance, 06/21/22 12:33:00 EST, Tablet, [facility]/pharmacy #[id number], Partial fill upon patient request if [...] Exam Date Time Procedure Performing Provider Status 08/10/22 11:16 AM Dexa Bone Density (Axial) Maynor Beckman manuelito; Auth (Verified) Notes: (Dexa Bone Density (Axial)) Reason For Exam: Z78.0 POST MENOPAUSAL RESULT: DEXA BONE DENSITY (AXIAL) Bone Density Report Name: GAEL LENZ Age: 61 Sex: Female Ethnicity: White Date of : 1960 Indication: POSTMENOPAUSAL. Referring Provider: CARL VAZQUEZ Study: Bone densitometry was performed. Exam Date: August 10, 2022 Accession number: [id number] Bone Density: Region BMD T-score Z-score Classification AP Spine (L1-L4) 1.150 0.9 2.4 Normal Femoral Neck (Right) 0.719 -1.2 0.1 Osteopenia Total Hip (Right) 0.862 -0.7 0.3 Normal World Health Organization criteria for BMD impression classify patients as: Normal (T-score at or above -1.0), Osteopenia (T-score between -1.0 and -2.5), or Osteoporosis (T-score at or below -2.5). 10-year Fracture Risk(1): Major Osteoporotic Fracture 7.0% Hip Fracture 0.5% Reported Risk Factors: [place] (), Neck BMD=0.719, BMI=34.3 (1) FRAX(R) Version 3.00. Fracture probability calculated for an untreated patient. Fracture probability may be lower if the patient has received treatment. Clinical Information Provided by Patient: Has used the following medications: Vitamin D Patient maximum height was 65.0 Menopause Age: 51 Onset of menses at age 11 Number of children 4 Impression: The patient has osteopenia as determined by WHO criteria. Based on the results of the patient's bone density assessment, the risk of future fracture increases approximately two fold for each 1.0 SD decrease in T-score. However, low BMD is not the only risk factor for a future fragility fracture. Other clinical risk factors for osteoporotic fracture should be considered in ascertaining this patient's future fracture risk including the patient's age, previous osteoporotic (fragility) fracture, estrogen deficiency/hypogonadism, risk of falling, use of medications implicated in bone loss (glucocorticoids), family history of osteoporotic fracture, diseases and conditions associated with bone loss, low body weight, smoking, high bone turnover, etc. Combining low BMD and other clinical risk factors result in a more precise assessment of future fracture risk. Secondary causes for osteoporosis, such as osteomalacia, other metabolic bone disorders, and diseases and conditions that may contribute to accelerated bone loss may have to be considered depending on the clinical situation. A repeat bone density assessment should be considered in two years. Reported by: Danyell Harris M.D. on 08/17/2022 4:42:00 PM. Dictated By: Danyell Harris MD Dictated Date/Time: 08/17/22 4:43 pm Reviewed By: Danyell Harris MD Signed By: Danyell Harris MD Signed Date/Time: 08/17/22 4:43 pm Transcribed By: LUIS MIGUEL Transcribed Date/Time: 08/17/22 4:43 pm Social History Social History Type Response Smoking Status Never (less than 100 in lifetime) entered on: 06/21/22 Sex DXA Skeletal system.axial Views for bone density * [facility]ers[facility] , CIS S: TRANSCRIBE [facility]SP[facility]erscribe , CIS S: TRANSCRIBE, VERIFY Danyell Harris MD: VERIFY, VERIFY Danyell Harris MD: VERIFY Event Display: Result: Authored Date: [id number] Bone Density Report Name: GAEL LENZ Age: 61 Sex: Female Ethnicity: White Date of : 1960 Indication: POSTMENOPAUSAL. Referring Provider: CARL VAZQUEZ Study: Bone densitometry was performed. Exam Date: August 10, 2022 Accession number: [id number] Bone Density: Region BMD T-score Z-score Classification AP Spine (L1-L4) 1.150 0.9 2.4 Normal Femoral Neck (Right) 0.719 -1.2 0.1 Osteopenia Total Hip (Right) 0.862 -0.7 0.3 Normal World Health Organization criteria for BMD impression classify patients as: Normal (T-score at or above -1.0), Osteopenia (T-score between -1.0 and -2.5), or Osteoporosis (T-score at or below -2.5). 10-year Fracture Risk(1): Major Osteoporotic Fracture 7.0% Hip Fracture 0.5% Reported Risk Factors: [place] (), Neck BMD=0.719, BMI=34.3 (1) FRAX(R) Version 3.00. Fracture probability calculated for an untreated patient. Fracture probability may be lower if the patient has received treatment. Clinical Information Provided by Patient: Has used the following medications: Vitamin D Patient maximum height was 65.0 Menopause Age: 51 Onset of menses at age 11 Number of children 4 Impression: The patient has osteopenia as determined by WHO criteria. Based on the results of the patient's bone density assessment, the risk of future fracture increases approximately two fold for each 1.0 SD decrease in T-score. However, low BMD is not the only risk factor for a future fragility fracture. Other clinical risk factors for osteoporotic fracture should be considered in ascertaining this patient's future fracture risk including the patient's age, previous osteoporotic (fragility) fracture, estrogen deficiency/hypogonadism, risk of falling, use of medications implicated in bone loss (glucocorticoids), family history of osteoporotic fracture, diseases and conditions associated with bone loss, low body weight, smoking, high bone turnover, etc. Combining low BMD and other clinical risk factors result in a more precise assessment of future fracture risk. Secondary causes for osteoporosis, such as osteomalacia, other metabolic bone disorders, and diseases and conditions that may contribute to accelerated bone loss may have to be considered depending on the clinical situation. A repeat bone density assessment should be considered in two years. Reported by: Danyell Harris M.D. on 08/17/2022 4:42:00 PM. Dictated By: Danyell Harris MD Dictated Date/Time: 08/17/22 4:43 pm Reviewed By: Danyell Harris MD Signed By: Danyell Harris MD Signed Date/Time: 08/17/22 4:43 pm Transcribed By: LUIS MIGUEL Transcribed Date/Time: 08/17/22 4:43 pm Patient Care team information Care Team Personnel Name: Josiane Ledezma Position: S PCO Associate Professional Member Role: PCP Address: Address: [address] [place] [address]. 3rd [place] [address]- Care Team Related Persons Name: KELL GONSALVES Address: [place] [address] Name: CONG LENZ Address: [place] [phone]
--- OUTSIDE RECORDS SUMMARY | 2024-03-16 19:26 | XMS_ITS | Continuity of Care Document ---
Author Organization [facility] Care Address [address] [place] [address]- Care Team Providers Care Data Warehousing Engineer Name Role Phone Micah LEMON, Josiane Junior Primary Care Physician Encounter [facility] Date(s): 06/07/23 - 07/07/23 [facility] Care [address] [place] [address]- Allergies, Adverse Reactions, Alerts Substance Reaction Severity Status flu vaccines Hives Severe Active Immunizations Given and Recorded Vaccine Date Status Refusal Reason tetanus/diphtheria/pertussis, acel(Tdap) 1 10/19/22 Given SARS-CoV-2 (COVID-19) mRNA-1273 vaccine 02/21/22 R ecorded 1Result Comment: [facility] [id number] Medications amLODIPine 10 mg oral tablet 1 tablet = 10 mg, By Mouth, Daily, # 30 tablet, 5 Refills, Maintenance, 12/19/22 20:22:00 EDT, Tablet, [id number], Partial fill upon patient request if the prescription is for a schedule II opioid drug., 165.4, cm, 12/19/22 9:40:00 EDT, Height... Start Date: 12/19/22 Status: Ordered anastrozole 1 mg oral tablet 1 tablet, By Mouth, Daily, # 30 tablet, 2 Refills, Maintenance, 04/04/23 17:28:00 EDT, [facility], 165.4, cm, 03/30/23 9:41:00 EDT, Height, 89.7, kg, 03/06/23 14:16:00 EDT, Dry Weight Start Date: 04/04/23 Status: Ordered atorvastatin 80 mg oral tablet 1 tablet, By Mouth, Daily, # 90 tablet, 0 Refills, Maintenance, 06/01/23 14:15:00 EDT, [facility], 165.4, cm, 03/30/23 9:41:00 EDT, Height, 89.7, kg, 03/06/23 14:16:00 EDT, Dry Weight Start Date: 06/01/23 Status: Ordered cyclobenzaprine 10 mg oral tablet See Instructions, TAKE 1 TBALET BY MOUTH NIGHTLY NEEDED FOR MUSCLE SPASM., # 21 tablet, Refills 0, Maintenance, 11/20/22 11:08:00 EDT, Instructions Replace Required Details, Route to Pharmacy Electronically, [facility], 165.4, cm, 11/20/22 10:... Start Date: 11/20/22 Status: Ordered dexamethasone 4 mg oral tablet See Instructions, 2 tablet By Mouth 2 times a day for 3 days, starting on the day before treatment,then the day of treatment and the day after treatment., # 48 tablet, 0 Refills, Maintenance, 11/17/22 10:18:00 EDT, [facility]/pharmacy #[id number], Partial fill up... Start [...] Refills, Soft Stop, 11/20/22 9:28:00 EDT, Cream, [facility]/pharmacy #[id number], Partial fill [...] Refills, Maintenance, 05/01/23 10:48:00 EDT, [facility], 165.4, cm, 03/30/23 9:41:00 EDT, Height, 89.7, [...] Refills, Maintenance, 04/17/23 8:29:00 EDT, [facility], 165.4, cm, 03/30/23 9:41:00 EDT, Height, 89.7, [...] Care Team Personnel Name: Josiane Ledezma [facility] PC[facility] Associate Professional Member Role: PCP Address: Address: [address] [place] [address]. 3rd [address] [place], [place] [address] Name: Ifeanyi Brown RN Position[facility] Onco RN Member Role: Primary Care Nurse Name: Ariadna Fitzgerald RN Position[facility] Onco RN Member Role: Primary Care Nurse Name: Cecy Boston RN Position[facility] Onco RN Member Role: Primary Care Nurse Care Team Related Persons Name: KELL GONSALVES Address: home [address] [place] [address] Name: CONG LENZ Address: home [address] [place] [address]
--- OUTSIDE RECORDS SUMMARY | 2024-03-16 19:26 | XMS_ITS | Continuity of Care Document ---
Author Organization [facility] Address [address] [place] [address]- Care Team Providers Care Foreman/Pile Driving And Erection Name Role Phone Josiane Ledezma Primary Care Physician Encounter [facility] Date(s): 06/19/22 - 07/21/22 [facility] [address] [place] [address]- Attending Physician: Josiane Ledezma Allergies, Adverse Reactions, Alerts Substance Reaction Severity Status flu vaccines Hives Severe Active Immunizations Given and Recorded Vaccine Date Status Refusal Reason SARS-CoV-2 (COVID-19) mRNA-2705 vaccine 02/21/22 R ecorded Medications amLODIPine 10 [...] Associate Professional Member Role: PCP Address: Address: [address] [place] [address]. 3rd [place] [address]- Care Team Related Persons Name: KELL GONSALVES Address: [place] [address] Name: CONG LENZ Address: home [address] [place] [address]
--- OUTSIDE RECORDS SUMMARY | 2024-03-16 19:26 | XMS_ITS | Continuity of Care Document ---
Author Organization [facility] Address [address] [place] [address] [address] [place] [address]- Care Team Providers Care Architectural Technologist Name Role Phone Josiane Ledezma Primary Care Physician Encounter [facility] Date(s): 08/18/22 - 08/25/22 [facility] [address] [place], [place] [address] Attending Physician: Teodoro Jasmine MD Referring Physician: Josiane Ledezma Allergies, Adverse Reactions, Alerts Substance Reaction Severity Status flu vaccines Hives Severe Active Immunizations Given and Recorded Vaccine Date Status Refusal Reason SARS-CoV-2 (COVID-19) mRNA-9864 vaccine 02/21/22 R ecorded Medications amLODIPine 10 [...] oldest [Reference Range]: 1 Height 163 cm (08/18/22 11:55 AM) Weight 91 kg (08/18/22 11:55 AM) Body Mass Index [18.5-24.99 kg/m2] 34.25 kg/m2 *>HHI* (08/18/22 11:55 AM) Social History Social History Type Response Smoking Status Never (less than 100 in lifetime) entered on: 06/21/22 Sex Patient Care team information Care Team Personnel Name: Josiane Ledezma Position: [facility] PCO Associate Professional Member Role: PCP Address: Address: [address] [place] [address]. 3rd [place] [address]- Care Team Related Persons Name: KELL GONSALVES Address: [place] [address] Name: CONG LENZ Address: home [address] [place], [place] [id number]
--- OUTSIDE RECORDS SUMMARY | 2024-03-16 19:26 | XMS_ITS | Continuity of Care Document ---
Author Organization [facility] Address [address] [place] [address]- Care Team Providers Care Sock Drier Name Role Phone Papo LEMON, Josiane Junior Primary Care P marcel [facility] [id number] Date(s): 11/07/23 - 12/07/23 [facility] [address] [place] [address]- Allergies, Adverse Reactions, Alerts Substance Reaction Severity Status flu vaccines Hives Severe Active Immunizations Given and Recorded Vaccine Date Status Refusal Reason tetanus/diphtheria/pertussis, acel(Tdap) 1 10/19/22 Given SARS-CoV-2 (COVID-19) mRNA-1273 vaccine 02/21/22 R ecorded 1Result Comment: [facility] [id number] Medications acetaminophen 325 mg oral tablet 650 [...] Refills, Maintenance, 08/07/23 9:18:00 EST, [facility], 165.4, cm, 07/23/23 10:56:00 EST, Height, 89.2, [...] Refills, Maintenance, 08/27/23 6:34:00 EST, [facility]/pharmacy #[id number], 165.4, cm, 08/23/23 12:12:00 [...] 18:29:00 EDT, Route to Pharmacy Electronically, [facility]/pharmacy #[id number], 165.4, cm, 03/30/23 9:41:00 EDT, Height, 89.7, kg, 03/06/23 14:16:00 EDT, Dry Weight Start Date: 04/30/23 Status: Ordered ondansetron 4 mg oral tablet 1 tablet = 4 mg, By Mouth, Every 8 hours, PRN Nausea & Vomiting, # 10 tablet, 0 Refills, Maintenance, 11/08/23 9:52:00 EDT, Tablet, [facility], Partial fill upon patient request if the prescription is for a schedule II opioid drug., 165,... Start Date: 11/08/23 Status: Ordered sertraline 100 mg oral tablet 1 tablet, By Mouth, Daily, # 90 tablet, 1 Refills, Maintenance, 04/17/23 8:29:00 EDT, [facility], 165.4, cm, 03/30/23 9:41:00 EDT, Height, 89.7, kg, 03/06/23 14:16:00 EDT, Dry Weight Start Date: 04/17/23 Status: Ordered traZODone 50 mg oral tablet 1, tablet, By Mouth, Daily at bedtime, # 90 tablet, Refills 1, Maintenance, 10/18/23 10:17:00 EST, Route to [facility]acy Electronically, [facility], 165, cm, 10/09/23 10:25:00 EST, Height, 89.7, [...] Name: Lita Huff RN Position: [facility] RN Member Role: Primary Care Nurse Name: Cecy Orta RN Position: [facility] Onco RN Member Role: Primary Care Nurse Name: Laurel Perales RN Position: S RN Member Role: Primary Care Nurse Name: Josiane Jordan Position: [facility] PCO Associate Professional Member Role: PCP Address: Address: [address] [place] [address]. 3rd [place] [address]- Name: Ifeanyi Brown RN Position: [facility] Onco RN Member Role: Primary Care Nurse Name: Ariadna Fitzgerald RN Position: [facility] Onco RN Member Role: Primary Care Nurse Name: Mariaa Dunn RN Position: S RN Member Role: Primary Care Nurse Name: Jimena Islas LPN Position: S RN Member Role: Primary Care Nurse Care Team Related Persons Name: KELL GONSALVES Address: home [address] [place] [address] Name: CONG LENZ Address: home [address] [place] [address]
--- OUTSIDE RECORDS SUMMARY | 2024-03-16 19:27 | XMS_ITS | Continuity of Care Document ---
Author Organization [facility] Care Address [address] [place] [address]- Care Team Providers Care Reading Recovery Teacher Name Role Phone Josiane Ledezma Primary Care Physician Encounter [facility] Date(s): 09/11/23 - 10/11/23 [facility] [address] [place] [address]- Attending Physician: Admmoose, Melida Admitting Physician: AdmtrMelida Referring Physician: Admtr, Ar8 Allergies, Adverse Reactions, Alerts Substance Reaction Severity Status flu vaccines Hives Severe Active Immunizations Given and Recorded Vaccine Date Status Refusal Reason tetanus/diphtheria/pertussis, acel(Tdap) 1 10/19/22 Given SARS-CoV-2 (COVID-19) mRNA-1273 vaccine 02/21/22 R ecorded 1Result Comment: [facility] [id number] Medications acetaminophen 325 mg oral tablet 650 [...] tablet, 1 Refills, Maintenance, 08/07/23 9:18:00 EST, [facility], 165.4, cm, 07/23/23 10:56:00 EST, Height, 89.2, kg, 06/07/23 10:32:00 EDT, Dry Weight Start Date: 08/07/23 Status: Ordered anastrozole 1 mg oral tablet 1 tablet, By Mouth, Daily, # 30 tablet, 11 Refills, Maintenance, 07/19/23 16:13:00 EST, [facility]/pharmacy #0693, 165.4, cm, 07/11/23 14:22:00 EST, Height, [...] tablet, 1 Refills, Maintenance, 08/27/23 6:34:00 EST, [facility]/pharmacy #0693, 165.4, cm, 08/23/23 12:12:00 EST, Height, [...] 04/30/23 18:29:00 EDT, Route to Pharmacy Electronically, [facility]/pharmacy #[id number], 165.4, cm, 03/30/23 9:41:00 EDT, Height, [...] Refills, Maintenance, 04/17/23 8:29:00 EDT, [facility], 165.4, cm, 03/30/23 9:41:00 EDT, Height, 89.7, kg, 03/06/23 14:16:00 EDT, Dry Weight Start Date: 04/17/23 Status: Ordered traZODone 50 mg oral tablet 50 mg, 1, tablet, By Mouth, Daily at bedtime, # 30 tablet, Refills 4, Tot. Refills 4, Maintenance, 07/23/23 11:38:00 EST, Route to Pharmacy Electronically, [facility]/pharmacy #[id number], Partial fill upon patient request [...] Primary Care Nurse Name: Josiane Ledezma Position: [facility] PCO Associate Professional Member Role: PCP Address: Address: [address] [place] [address]. [address] [place], [place] [address] Name: Diaz OLIVA, Laurel Position: S RN Member Role: Primary Care Nurse Name: Ifeanyi Brown RN Position: [facility] Onco RN Member Role: Primary Care Nurse Name: Ariadna Fitzgerald RN Position: [facility] Onco RN Member Role: Primary Care Nurse Name: Mariaa Dunn RN Position: [facility] RN Member Role: Primary Care Nurse Name: Cecy Boston RN Position: [facility] Onco RN Member Role: Primary Care Nurse Care Team Related Persons Name: BRINA KELL Address: home [address] [place] [address] Name: CONG LENZ Address: home [address] [place] [address]
--- OUTSIDE RECORDS SUMMARY | 2024-03-16 19:27 | XMS_ITS | Continuity of Care Document ---
Author Organization [facility] john Address [address] [place] [address] [address] [place] [address]- Care Team Providers Care Hydrology Professor Name Role Phone Josiane Ledezma Primary Care Physician Encounter [facility] Date(s): 12/12/22 - 01/11/23 [facility] [address] [place], [place] [address] Attending Physician: Admtr, Ar8 Admitting Physician: Admtr, Ar8 Referring Physician: Admtr, Ar8 Allergies, Adverse Reactions, Alerts Substance Reaction Severity Status flu vaccines Hives Severe Active Immunizations Given and Recorded Vaccine Date Status Refusal Reason tetanus/diphtheria/pertussis, acel(Tdap) 1 10/19/22 Given SARS-CoV-2 (COVID-19) mRNA-1273 vaccine 02/21/22 R ecorded 1Result Comment: [facility] [id number] Medications amLODIPine 10 mg oral tablet 1 [...] 06/22/22 10:24:00... Start Date: 07/19/22 Status: Ordered Cipro 250 mg oral tablet 1 tablet = 250 mg, By Mouth, Every 12 hours, for 3 days, # 6 tablet, 0 Refills, Acute 01/14/23 12:41:00 EDT, 01/11/23 12:41:00 EDT, Tablet, [facility]/pharmacy #0693, Partial fill upon patient request if the prescription is for a schedule II opioid drug., 16... Start Date: 01/11/23 Stop Date: 01/14/23 Status: Ordered cyclobenzaprine 10 mg oral tablet See Instructions, TAKE 1 TBALET BY MOUTH NIGHTLY NEEDED FOR MUSCLE SPASM., # 21 tablet, Refills 0, Maintenance, 11/20/22 11:08:00 EDT, Instructions Replace Required Details, Route to Pharmacy Electronically, [facility] 94581, 165.4, cm, 11/20/22 10:... Start Date: 11/20/22 [...] 01/19/23 11:10:00 EDT, 10/19/22 11:09:00 EST, Tablet, [facility]/pharmacy #0693, [...] Refills, Soft Stop, 11/20/22 9:28:00 EDT, Cream, [facility]/pharmacy #0693, Partial fill upon patient request if... Start Date: 11/20/22 Status: Ordered lisinopril 10 mg oral tablet 1, tablet, By Mouth, Daily, # 30 tablet, Refills 5, Maintenance, 11/20/22 11:08:00 EDT, Route to Pharmacy Electronically, [facility] 71294, 165.4, cm, 11/20/22 10:43:00 EDT, Height, 91.1, kg, 239:39:00 EDT, Dry Weight Start Date: 11/20/22 Status: Ordered nitrofurantoin macrocrystals-monohydrate 100 mg oral capsule 1 capsule = 100 mg, By Mouth, 2 times a day, for 7 days, with food and plenty of water., # 14 capsule, 0 Refills, Acute 01/16/23 17:02:00 EDT, 01/09/23 17:02:00 EDT, Capsule, [facility]/pharmacy #0693, Partial fill upon patient request if the prescription is... Start Date: 01/09/23 Stop Date: 01/16/23 Status: Ordered ondansetron 4 mg oral tablet 1-2 tablet, By Mouth, Every 8 hours, PRN Nausea, # 30 tablet, 1 Refills, Maintenance, 11/17/22 10:19:00 EDT, [facility]/pharmacy #0693, Partial fill upon patient request if the prescription is for a schedule II opioid drug., 165.4, cm, 11/02/22 9:39:00 EDT,... Start Date: 11/17/22 Status: Ordered prochlorperazine 5 mg oral tablet 1-2 tablet, By Mouth, Every 6 hours, PRN Nausea, # 60 tablet, 1 Refills, Maintenance, 11/17/22 10:19:00 EDT, [facility]/pharmacy #0693, Partial fill [...] II opioid drug., 165.4, cm, 10/19/22 10:20:00 ESTSuly... Start Date: 10/19/22 Status: Ordered Problem List [...] Professional Member Role: PCP Address: Address: [address] [place] [address]. [address]rd [address] [place], [place] [address] Name: Ariadna Fitzgerald RN Position: [facility] Onco RN Member Role: Primary Care Nurse Care Team Related Persons Name: KELL GONSALVES Address: home [address] [place] [address] Name: CONG LENZ Address: home [address] [place] [address]
--- OUTSIDE RECORDS SUMMARY | 2024-03-16 19:27 | XMS_ITS | Continuity of Care Document ---
Author Organization [facility] Address [address] [place] [address]- Care Team Providers Care Business Operations Consultant Name Role Phone Josiane Ledezma Primary Care Physician Encounter [facility] Date(s): 09/21/23 - 10/21/23 [facility] [address] [place] [address]- Attending Physician: AdmtrMelida Admitting Physician: AdmtrMelida Referring Physician: Admtr, Ar8 Allergies, Adverse Reactions, Alerts Substance Reaction Severity Status flu vaccines Hives Severe Active Immunizations Given and Recorded Vaccine Date Status Refusal Reason tetanus/diphtheria/pertussis, acel(Tdap) 1 10/19/22 Given SARS-CoV-2 (COVID-19) mRNA-1273 vaccine 02/21/22 R ecorded 1Result Comment: [facility] [id number] Medications acetaminophen 325 mg oral tablet 650 [...] tablet, 1 Refills, Maintenance, 08/07/23 9:18:00 EST, [facility] STORE 24095, 165.4, cm, 07/23/23 10:56:00 EST, Height, 89.2, kg, 06/07/23 10:32:00 EDT, Dry Weight Start Date: 08/07/23 Status: Ordered anastrozole 1 mg oral tablet 1 tablet, By Mouth, Daily, # 30 tablet, 11 Refills, Maintenance, 07/19/23 16:13:00 EST, [facility]/pharmacy #[id number], 165.4, cm, 07/11/23 14:22:00 [...] tablet, 1 Refills, Maintenance, 08/27/23 6:34:00 EST, [facility]/pharmacy #[id number], 165.4, cm, [...] 18:29:00 EDT, Route to Pharmacy Electronically, [facility]/pharmacy #[id number], 165.4, cm, 03/30/23 9:41:00 EDT, Height, 89.7, kg, 03/06/23 14:16:00 EDT, Dry Weight Start Date: 04/30/23 Status: Ordered ondansetron 4 mg oral tablet 1-2 tablet, By Mouth, Every 8 hours, PRN Nausea, # 30 tablet, 1 Refills, Maintenance, 11/17/22 10:19:00 EDT, [facility]/pharmacy #[id number], Partial fill upon patient [...] Refills, Maintenance, 04/17/23 8:29:00 EDT, [facility], 165.4, cm, 03/30/23 9:41:00 EDT, Height, 89.7, kg, 03/06/23 14:16:00 EDT, Dry Weight Start Date: 04/17/23 Status: Ordered traZODone 50 mg oral tablet 1, tablet, By Mouth, Daily at bedtime, # 90 tablet, Refills 1, Maintenance, 10/18/23 10:17:00 EST, Route to Pharmacy Electronically, [facility], 165, cm, 10/09/23 10:25:00 EST, Height, 89.7, [...] Team Personnel Name: Lita Huff RN Position: [facility] RN Member Role: Primary Care Nurse Name: Josiane Ledezma Position: [facility] Associate Professional Member Role: PCP Address: Address: [address] [place] [address]. [address] [place], [place] [address] Name: Diaz OLIVA, Laurel Position: [facility] RN Member Role: Primary Care Nurse Name: Ifeanyi Brown RN [facility]: [facility] [...] Related Persons Name: KELL GONSALVES Address: home [address] [place] [address] Name: OCNG LENZ Address: home [address] [place] [address]
--- OUTSIDE RECORDS SUMMARY | 2024-03-16 19:27 | XMS_ITS | Continuity of Care Document ---
Author Organization [facility] ter Address [address] [place] [address]- Care Team Providers Care Vegetable Worker Name Role Phone Josiane Ledezma Primary Care Physician Encounter [facility] Date(s): 07/26/23 - 09/19/[address] [address]- Attending Physician: Omar Mccracken MD Admitting Physician: Omar Mccracken MD Referring Physician: Omar Mccracken MD Allergies, Adverse Reactions, Alerts Substance Reaction Severity Status flu vaccines Hives Severe Active Immunizations Given and Recorded Vaccine Date Status Refusal Reason tetanus/diphtheria/pertussis, acel(Tdap) 1 10/19/22 Given SARS-CoV-2 (COVID-19) mRNA-1273 vaccine 02/21/22 R ecorded 1Result Comment: [facility] 95697-438-74 Medications amLODIPine 10 mg oral tablet 1 tablet, By Mouth, Daily, # 90 tablet, 1 Refills, Maintenance, 08/07/23 9:18:00 EST, [facility], 165.4, cm, 07/23/23 10:56:00 EST, Height, 89.2, [...] tablet, 1 Refills, Maintenance, 08/27/23 6:34:00 EST, [facility]/pharmacy #[id number], 165.4, cm, 08/23/23 12:12:00 EST, Height, [...] Refills, Maintenance, 05/01/23 10:48:00 EDT, [facility], 165.4, cm, 03/30/23 9:41:00 EDT, Height, 89.7, [...] Refills, Maintenance, 04/17/23 8:29:00 EDT, [facility], 165.4, cm, 03/30/23 9:41:00 EDT, Height, 89.7, kg, 03/06/23 14:16:00 EDT, Dry Weight Start Date: 04/17/23 Status: Ordered traZODone 50 mg oral tablet 50 mg, 1, tablet, By Mouth, Daily at bedtime, # 30 tablet, Refills 4, Tot. Refills 4, Maintenance, 07/23/23 11:38:00 EST, Route to Pharmacy Electronically, [facility]/pharmacy #[id number], Partial fill upon patient request if the [...] Professional Member Role: PCP Address: Address: [address] [place] [address]. 3rd [address] [place], [place] [address] Name: Ifeanyi Brown RN [facility] Onco RN Member Role: Primary Care Nurse Name: Ariadna Fitzgerald RN Position[facility] RN Member Role: Primary Care Nurse Name: Cecy Boston RN Position[facility] On[facility] RN Member Role: Primary Care Nurse Care Team Related Persons Name: KELL GONSALVES Address: home [address] [place] [address] Name: CONG LENZ Address: home [facility] [place] [address]
--- OUTSIDE RECORDS SUMMARY | 2024-03-16 19:27 | XMS_ITS | Continuity of Care Document ---
Author Organization [facility] Address [address] [place] [address]- Care Team Providers Care Electric Meter Tester Name Role Phone Josiane Ledezma Primary Care Physician Encounter [facility] Date(s): 08/27/23 - 09/26/23 [facility] [address] [place] [address]- Allergies, Adverse Reactions, Alerts Substance Reaction Severity Status flu vaccines Hives Severe Active Immunizations Given and Recorded Vaccine Date Status Refusal Reason tetanus/diphtheria/pertussis, acel(Tdap) 1 10/19/22 Given SARS-CoV-2 (COVID-19) mRNA-1273 vaccine 02/21/22 R ecorded 1Result Comment: [facility] [place] [id number] Medications acetaminophen 325 mg oral tablet 650 [...] Refills, Maintenance, 08/07/23 9:18:00 EST, [facility], 165.4, cm, 07/23/23 10:56:00 EST, Height, 89.2, [...] 1 Refills, Maintenance, 08/27/23 6:34:00 EST, [facility]/pharmacy #[id number], 165.4, cm, 08/23/23 12:12:00 EST, [...] opioid drug. Start Date: 09/25/23 Status: Ordered HYDROmorphone 4 mg oral tablet See Instructions, PRN Pain , Severe, Take 0.5-1 tablet every 4 hours as needed for moderate to severe pain., # 42 tablet, 0 Refills, Acute 10/02/23 8:00:00 EST, 09/25/23 7:35:00 EST, Tablet, [facility], Partial fill upon patient request... Start Date: 09/25/23 Stop Date: 10/02/23 Status: Ordered lisinopril 10 mg oral tablet 1, tablet, By Mouth, Daily, # 90 tablet, Refills 2, Tot. Refills 2, Maintenance, 04/30/23 18:29:00 EDT, Route to Pharmacy Electronically, [facility]/pharmacy #[id number], 165.4, cm, 03/30/23 9:41:00 EDT, Height, 89.7, kg, 03/06/23 14:16:00 EDT, Dry Weight Start Date: 04/30/23 Status: Ordered ondansetron 4 mg oral tablet 1-2 tablet, By Mouth, Every 8 hours, PRN Nausea, # 30 tablet, 1 Refills, Maintenance, 11/17/22 10:19:00 EDT, [facility]/pharmacy #[id number], Partial fill upon patient request [...] 1 Refills, Maintenance, 04/17/23 8:29:00 EDT, [facility] STORE 58358, 165.4, cm, 03/30/23 9:41:00 EDT, Height, 89.7, kg, 03/06/23 14:16:00 EDT, Dry Weight Start Date: 04/17/23 Status: Ordered traMADol 50 mg oral tablet See Instructions, PRN Pain , Mild, Take 1-2 tablets every 6 hours as needed for mild pain. not to exceed 400 mg/day, # 56 tablet, 0 Refills, Acute 10/02/23 8:00:00 EST, 09/25/23 7:50:00 EST, Tablet, [facility], Partial fill upon patien... Start Date: 09/25/23 Stop Date: 10/02/23 Status: Ordered traZODone 50 mg oral tablet 50 mg, 1, tablet, By Mouth, Daily at bedtime, # 30 tablet, Refills 4, Tot. Refills 4, Maintenance, 07/23/23 11:38:00 EST, Route to Pharmacy Electronically, [facility]/pharmacy #[id number], Partial fill upon patient request [...] Team Personnel Name: Lita Huff RN Position: [facility] RN Member Role: Primary Care Nurse Name: Josiane Ledezma Position: [facility] PCO Associate Professional Member Role: PCP Address: Address: [address] [place] [address]. 3rd Floor [place], [place] [address] Name: Laurel Perales RN Position: S RN Member Role: Primary Care Nurse Name: Ifeanyi Brown RN Position: [facility] Onco RN Member Role: Primary Care Nurse Name: Ariadna Fitzgerald RN Position: [facility] Onco RN Member Role: Primary Care Nurse Name: Mariaa Dunn RN Position: S RN Member Role: Primary Care Nurse Name: Cecy Boston RN Position: [facility] Onco RN Member Role: Primary Care Nurse Care Team Related Persons Name: KELL GONSALVES Address: home [address] [place] [address] Name: CONG LENZ Address: home [address] [place] [address]
--- OUTSIDE RECORDS SUMMARY | 2024-03-16 19:27 | XMS_ITS | Continuity of Care Document ---
Author Organization [facility] ter Address [address] [place] [address]- Care Team Providers Care Powered Bridge Specialist Name Role Phone Josiane Ledezma Primary Care Physician Encounter [facility] Date(s): 09/24/23 - 10/24/[address] [address]- Attending Physician: Not on Staff, Attending MD Admitting Physician: Not on Staff, Admitting MD Referring Physician: Not on Staff, Referring MD Allergies, Adverse Reactions, Alerts Substance Reaction Severity Status flu vaccines Hives Severe Active Immunizations Given and Recorded Vaccine Date Status Refusal Reason tetanus/diphtheria/pertussis, acel(Tdap) 1 10/19/22 Given SARS-CoV-2 (COVID-19) mRNA-8113 vaccine 02/21/22 R ecorded 1Result Comment: [facility] [id number] Medications acetaminophen 325 mg oral tablet 650 [...] tablet, 1 Refills, Maintenance, 08/07/23 9:18:00 EST, [facility] STORE 58312, 165.4, cm, 07/23/23 10:56:00 EST, Height, 89.2, kg, 06/07/23 10:32:00 EDT, Dry Weight Start Date: 08/07/23 Status: Ordered anastrozole 1 mg oral tablet 1 tablet, By Mouth, Daily, # 30 tablet, 11 Refills, Maintenance, 07/19/23 16:13:00 EST, [facility]/pharmacy #[id number], 165.4, cm, 07/11/23 14:22:00 EST, Height, [...] tablet, 1 Refills, Maintenance, 08/27/23 6:34:00 EST, [facility]/pharmacy #[id number], 165.4, cm, 08/23/23 12:12:00 EST, Height, [...] 04/30/23 18:29:00 EDT, Route to Pharmacy Electronically, [facility]/pharmacy #[id number], 165.4, cm, 03/30/23 9:41:00 EDT, Height, 89.7, kg, 03/06/23 14:16:00 EDT, Dry Weight Start Date: 04/30/23 Status: Ordered ondansetron 4 mg oral tablet 1-2 tablet, By Mouth, Every 8 hours, PRN Nausea, # 30 tablet, 1 Refills, Maintenance, 11/17/22 10:19:00 EDT, [facility]/pharmacy #[id number], Partial fill upon patient [...] Refills, Maintenance, 04/17/23 8:29:00 EDT, [facility], 165.4, cm, 03/30/23 9:41:00 EDT, Height, 89.7, kg, 03/06/23 14:16:00 EDT, Dry Weight Start Date: 04/17/23 Status: Ordered traZODone 50 mg oral tablet 1, tablet, By Mouth, Daily at bedtime, # 90 tablet, Refills 1, Maintenance, 10/18/23 10:17:00 EST, Route to Pharmacy Electronically, [facility], 165, cm, 10/09/23 10:25:00 EST, Height, 89.7, [...] Team Personnel Name: Lita Huff RN Position: [facility] RN Member Role: Primary Care Nurse Name: Josiane Ledezma Position: [facility] Associate Professional Member Role: PCP Address: Address: [address] [place] [address]. [address] [place], [place] [address] Name: Diaz OLIVA, Laurel Position: [facility] RN Member Role: Primary Care Nurse Name: Ifeanyi Brown RN Position: [facility] Onco RN Member Role: Primary Care Nurse Name: Ariadna Fitzgerald RN Position: [facility] Onco RN Member Role: Primary Care Nurse Name: Mariaa Dunn RN Position: [facility] RN Member Role: Primary Care Nurse Name: Cecy Boston RN Position: [facility] Onco RN Member Role: Primary Care Nurse Care Team Related Persons Name: KELL GONSALVES Address: home [address] [place] [address] Name: CONG LENZ Address: home [address] [place] [address]
--- OUTSIDE RECORDS SUMMARY | 2024-03-16 19:27 | XMS_ITS | Continuity of Care Document ---
Author Organization [facility] Address [address] [place] [address]- Care Team Providers Care Biscuit Packer Name Role Phone Josiane Ledezma Primary Care Physician Encounter [facility] Date(s): 07/23/23 - 08/22/23 [facility] [address] [place] [address]- Allergies, Adverse Reactions, Alerts Substance Reaction Severity Status flu vaccines Hives Severe Active Immunizations Given and Recorded Vaccine Date Status Refusal Reason tetanus/diphtheria/pertussis, acel(Tdap) 1 10/19/22 Given SARS-CoV-2 (COVID-19) mRNA-1273 vaccine 02/21/22 R ecorded 1Result Comment: [facility] [id number] Medications amLODIPine 10 mg oral tablet 1 tablet, By Mouth, Daily, # 90 tablet, 1 Refills, Maintenance, 08/07/23 9:18:00 EST, [facility], 165.4, cm, 07/23/23 10:56:00 EST, Height, 89.2, [...] Refills, Maintenance, 06/01/23 14:15:00 EDT, [facility], 165.4, cm, 03/30/23 9:41:00 EDT, Height, 89.7, kg, 03/06/23 14:16:00 EDT, Dry Weight Start Date: 06/01/23 Status: Ordered lisinopril 10 mg oral tablet 1, tablet, By Mouth, Daily, # 90 tablet, Refills 2, Tot. Refills 2, Maintenance, 04/30/23 18:29:00 EDT, Route to Pharmacy Electronically, [facility]/pharmacy #[id number], 165.4, cm, 03/30/23 9:41:00 EDT, Height, 89.7, kg, 03/06/23 14:16:00 EDT, Dry Weight Start Date: 04/30/23 Status: Ordered meloxicam 15 mg oral tablet 1 tablet, By Mouth, Daily, # 90 tablet, 1 Refills, Maintenance, 05/01/23 10:48:00 EDT, [facility], 165.4, cm, 03/30/23 9:41:00 EDT, Height, 89.7, kg, 03/06/23 14:16:00 EDT, Dry Weight Start Date: 05/01/23 Status: Ordered ondansetron 4 mg oral tablet 1-2 tablet, By Mouth, Every 8 hours, PRN Nausea, # 30 tablet, 1 Refills, Maintenance, 11/17/22 10:19:00 EDT, [facility]/pharmacy #[id number], Partial fill upon patient request if the prescription is for a schedule II opioid drug., 165.4, cm, 11/02/22 9:39:00 EDT,... Start Date: 11/17/22 Status: Ordered sertraline 100 mg oral tablet 1 tablet, By Mouth, Daily, # 90 tablet, 1 Refills, Maintenance, 04/17/23 8:29:00 EDT, [facility], 165.4, cm, 03/30/23 9:41:00 EDT, Height, 89.7, kg, 03/06/23 14:16:00 EDT, Dry Weight Start Date: 04/17/23 Status: Ordered traZODone 50 mg oral tablet 50 mg, 1, tablet, By Mouth, Daily at bedtime, # 30 tablet, Refills 4, Tot. Refills 4, Maintenance, 07/23/23 11:38:00 EST, Route to Pharmacy Electronically, [facility]/pharmacy #[id number], Partial fill upon patient request [...] Associate Professional Member Role: PCP Address: Address: [address] [place] [address]. [address]rd [address] [place], [place] [address] Name: Ifeanyi Brown RN Position: [facility] Onco RN Member Role: Primary Care Nurse Name: Ariadna Fitzgerald RN Position: [facility] Onco RN Member Role: Primary Care Nurse Name: Cecy Boston RN Position: [facility] Onco RN Member Role: Primary Care Nurse Care Team Related Persons Name: KELL GONSALVES Address: home [address] [place] [address] Name: CONG LENZ Address: home [address] [place] [address]
--- OUTSIDE RECORDS SUMMARY | 2024-03-16 19:27 | XMS_ITS | Continuity of Care Document ---
Author Organization [facility] Address [address] [place] [address]- Care Team Providers Care Cell Builder Name Role Phone Micah LEMON, Josiane Junior Primary Care Physician Encounter [facility] [id number] Date(s): 08/23/23 - 08/30/23 [facility] [address] [place] [address] Attending Physician: Benson Scott MD Referring Physician: Omar Mccracken MD Allergies, Adverse Reactions, Alerts Substance Reaction Severity Status flu vaccines Hives Severe Active Immunizations Given and Recorded Vaccine Date Status Refusal Reason tetanus/diphtheria/pertussis, acel(Tdap) 1 10/19/22 Given SARS-CoV-2 (COVID-19) mRNA-1273 vaccine 02/21/22 R ecorded 1Result Comment: [facility] [id number] Medications amLODIPine 10 mg oral tablet 1 tablet, By Mouth, Daily, # 90 tablet, 1 Refills, Maintenance, 08/07/23 9:18:00 EST, [facility], 165.4, cm, 07/23/23 10:56:00 EST, Height, 89.2, [...] tablet, 1 Refills, Maintenance, 08/27/23 6:34:00 EST, [facility]/pharmacy #[id number], 165.4, cm, 08/23/23 12:12:00 EST, Height, 89.2, kg, 06/07/23 10:32:00 EDT, Dry Weight Start Date: 08/27/23 Status: Ordered lisinopril 10 mg oral tablet 1, tablet, By Mouth, Daily, # 90 tablet, Refills 2, Tot. Refills 2, Maintenance, 04/30/23 18:29:00 EDT, Route to Pharmacy Electronically, [facility]/pharmacy #[id number], 165.4, cm, 03/30/23 9:41:00 EDT, Height, 89.7, kg, 03/06/23 14:16:00 EDT, Dry Weight Start Date: 04/30/23 Status: Ordered meloxicam 15 mg oral tablet 1 tablet, By Mouth, Daily, # 90 tablet, 1 Refills, Maintenance, 05/01/23 10:48:00 EDT, [facility] STORE 84789, 165.4, cm, 03/30/23 9:41:00 EDT, Height, 89.7, kg, 03/06/23 14:16:00 EDT, Dry Weight Start Date: 05/01/23 Status: Ordered ondansetron 4 mg oral tablet 1-2 tablet, By Mouth, Every 8 hours, PRN Nausea, # 30 tablet, 1 Refills, Maintenance, 11/17/22 10:19:00 EDT, [facility]/pharmacy #[id number], Partial fill upon patient request if the prescription is for a schedule II opioid drug., 165.4, cm, 11/02/22 9:39:00 EDT,... Start Date: 11/17/22 Status: Ordered sertraline 100 mg oral tablet 1 tablet, By Mouth, Daily, # 90 tablet, 1 Refills, Maintenance, 04/17/23 8:29:00 EDT, [facility], 165.4, cm, 03/30/23 9:41:00 EDT, Height, 89.7, kg, 03/06/23 14:16:00 EDT, Dry Weight Start Date: 04/17/23 Status: Ordered traZODone 50 mg oral tablet 50 mg, 1, tablet, By Mouth, Daily at bedtime, # 30 tablet, Refills 4, Tot. Refills 4, Maintenance, 07/23/23 11:38:00 EST, Route to Pharmacy Electronically, [facility]/pharmacy #[id number], Partial fill upon patient request if the [...] oldest [Reference Range]: 1 Height 165.4 cm (08/23/23 12:12 PM) Weight 90.6 kg (08/23/23 12:12 PM) Oxygen Saturation [94-100 %] 96 % (08/23/23 12:12 PM) Pulse Rate [55-90 bpm] 66 bpm (08/23/23 12:12 PM) Body Mass Index [18.5-24.99 kg/m2] 33.12 kg/m2 *>HHI* (08/23/23 12:12 PM) Blood Pressure [90-138/55-84 mm Hg] 128/ 55mm Hg (08/23/23 12:12 PM) Respiratory Rate [16-30 br/min] 16 br/mi n (08/23/23 12:12 PM) Mode of Delivery (Oxygen) Room air (08/23/23 12:12 PM) Blood pressure sites Arm, right (08/23/23 12:12 PM) Weight Obtained Via Standing scale (08/23/23 12:12 PM) Social History Social History Type Response Smoking Status Never (less than 100 in lifetime) entered on: 06/21/22 Sex EKG study * Event Display: ECG 12-Lead Authored Date: Please click on pdf link to open report * Event Display: ECG 12-Lead Authored Date: Ventricular Rate: 63 BPM Atrial Rate: 63 BPM P-R Interval: 142 ms QRS Duration: 86 ms Q-T Interval: 426 ms QTC Calculation(Bazett): 435 ms P [place]: 46 degrees R [place]: -18 degrees T [place]: 2 degrees Normal sinus rhythm Minimal voltage criteria for LVH, may be normal variant Borderline ECG When compared with ECG of 27-JUN-2022 00:18, Nonspecific T wave abnormality no longer evident in Lateral leads QT has shortened Confirmed by NORMAN HEPM[place]ILL ([id number]) on 08/24/2023 8:24:39 PM [place]: NORMAN [place]EM[place] Patient Care team information Care Team Personnel Name: Josiane Ledezma Position: [facility] PCO Associate Professional Member Role: PCP Address: Address: [address] [place] [address]. 3rd [address] [place], [place] [address] Name: Ifeanyi Brown RN Position: [facility] Onco RN Member Role: Primary Care Nurse Name: Ariadna Fitzgerald RN Position: [facility] Onco RN Member Role: Primary Care Nurse Name: Cecy Boston RN Position: [facility] Onco RN Member Role: Primary Care Nurse Care Team Related Persons Name: KELL GONSALVES Address: home [address] [place] [address] Name: CONG LENZ Address: home [address] [place] [address]
--- OUTSIDE RECORDS SUMMARY | 2024-03-16 19:27 | XMS_ITS | Continuity of Care Document ---
Author Organization [facility] Address [address] [place] [address]- Care Team Providers Care Implementation Technician Name Role Phone Josiane Ledezma Primary Care Physician [place] [facility] [place] 04/12/23 [facility] [address] [place] [address]- Allergies, Adverse Reactions, Alerts Substance Reaction Severity Status flu vaccines Hives Severe Active Immunizations Given and Recorded Vaccine Date Status Refusal Reason tetanus/diphtheria/pertussis, acel(Tdap) 1 10/19/22 Given SARS-CoV-2 (COVID-19) mRNA-1273 vaccine 02/21/22 R ecorded 1Result Comment: [facility] [id number] Medications amLODIPine 10 mg oral tablet 1 tablet = 10 mg, By Mouth, Daily, # 30 tablet, 5 Refills, Maintenance, 12/19/22 20:22:00 EDT, Tablet, [id number], Partial fill upon patient request if the prescription is for a schedule II opioid drug., 165.4, cm, 12/19/22 9:40:00 EDT, Height... Start Date: 12/19/22 Status: Ordered anastrozole 1 mg oral tablet 1 tablet, By Mouth, Daily, # 30 tablet, 2 Refills, Maintenance, 04/04/23 17:28:00 EDT, [id number], 165.4, cm, 03/30/23 9:41:00 EDT, Height, 89.7, kg, 03/06/23 14:16:00 EDT, Dry Weight Start Date: 04/04/23 Status: Ordered atorvastatin 80 mg oral tablet 1 tablet = 80 mg, By Mouth, Daily, # 90 tablet, 0 Refills, Maintenance, 03/07/23 16:56:00 EDT, Tablet, [facility]acy #[id number], Partial fill upon patient request if the prescription is for a schedule II opioid drug., 165.4, cm, 03/06/23 14:16:00 EDT, Parag... Start Date: 03/07/23 Status: Ordered cyclobenzaprine 10 mg oral tablet See Instructions, TAKE 1 TBALET BY MOUTH NIGHTLY NEEDED FOR MUSCLE SPASM., # 21 tablet, Refills 0, Maintenance, 11/20/22 11:08:00 EDT, Instructions Replace Required Details, Route to Pharmacy Electronically, [id number], 165.4, cm, 11/20/22 10:... Start Date: 11/20/22 [...] tablet, 2 Refills, Maintenance, 01/15/23 14:21:00 EDT, [email or web address] 65062, 165.4, cm, 01/09/23 10:06:00 EDT, Height, 88.5, [...] 11/20/22 11:08:00 EDT, Route to Pharmacy Electronically, [facility] STORE [id number], 165.4, cm, 11/20/22 10:43:00 EDT, Height, 91.1, kg, 239:39:00 EDT, Dry Weight Start Date: 11/20/22 Status: Ordered meloxicam 15 mg oral tablet 1 tablet = 15 mg, By Mouth, Daily, # 90 tablet, 0 Refills, Maintenance, 01/31/23 15:58:00 EDT, Tablet, [facility] #[id number], Partial fill upon patient request if the prescription is for a schedule II opioid drug., 165.4, cm, 01/31/23 15:04:00 EDT, Heigh... Start Date: 01/31/23 Status: Ordered ondansetron 4 mg oral tablet 1-2 tablet, By Mouth, Every 8 hours, PRN Nausea, # 30 tablet, 1 Refills, Maintenance, 11/17/22 10:19:00 EDT, [facility]/pharmacy #[id number], Partial fill upon patient request if the prescription is for a schedule II opioid drug., 165.4, cm, 11/02/22 9:39:00 EDT,... Start Date: 11/17/22 Status: Ordered prochlorperazine 5 mg oral tablet 1-2 tablet, By Mouth, Every 6 hours, PRN Nausea, # 60 tablet, 1 Refills, Maintenance, 11/17/22 10:19:00 EDT, [facility]/pharmacy #[id number], Partial fill upon patient request if the prescription is for a schedule II opioid drug., 165.4, cm, 11/02/22 9:39:00 EDT,... Start Date: 11/17/22 Status: Ordered Zoloft 100 mg oral tablet 1 tablet = 100 mg, By Mouth, Daily, # 90 tablet, 1 Refills, Maintenance, 10/19/22 11:10:00 EST, Tablet, [facility]/pharmacy #[id number], Partial fill upon [...] Care Team Personnel Name: Josiane Ledezma Position: [facility] PCO Associate Professional Member Role: PCP Address: Address: [address] [place] [address]. [address]rd [address] [place], [place] [address] Name: Ariadna Fitzgerald RN Position: [facility] Onco RN Member Role: Primary Care Nurse Name: Cecy Boston RN Position: [facility] Onco RN Member Role: Primary Care Nurse Care Team Related Persons Name: KELL GONSALVES Address: home [address] [place] [id number] Name: CONG LENZ Address: home [address] [place] [address]
--- OUTSIDE RECORDS SUMMARY | 2024-03-16 19:27 | XMS_ITS | Continuity of Care Document ---
Author Organization [facility] Address [address] [place] [address]- Care Team Providers Care Rn Review Name Role Phone Josiane Ledezma Primary Care Physician Encounter [facility] Date(s): 03/07/23 - 04/06/23 [facility] [address] [place] [address]- Allergies, Adverse Reactions, Alerts Substance Reaction Severity Status flu vaccines Hives Severe Active Immunizations Given and Recorded Vaccine Date Status Refusal Reason tetanus/diphtheria/pertussis, acel(Tdap) 1 10/19/22 Given SARS-CoV-2 (COVID-19) mRNA-1273 vaccine 02/21/22 R ecorded 1Result Comment: [facility] [id number] Medications amLODIPine 10 mg oral tablet 1 tablet = 10 mg, By Mouth, Daily, # 30 tablet, 5 Refills, Maintenance, 12/19/22 20:22:00 EDT, Tablet, [id number], Partial fill upon patient request if the prescription is for a schedule II opioid drug., 165.4, cm, 12/19/22 9:40:00 EDT, Height... Start Date: 12/19/22 Status: Ordered anastrozole 1 mg oral tablet 1 tablet, By Mouth, Daily, # 30 tablet, 2 Refills, Maintenance, 04/04/23 17:28:00 EDT, [facility], 165.4, cm, 03/30/23 9:41:00 EDT, Height, 89.7, kg, 03/06/23 14:16:00 EDT, Dry Weight Start Date: 04/04/23 Status: Ordered atorvastatin 80 mg oral tablet 1 tablet = 80 mg, By Mouth, Daily, # 90 tablet, 0 Refills, Maintenance, 03/07/23 16:56:00 EDT, Tablet, [facility]/pharmacy #[id number], Partial fill upon patient request if the prescription is for a schedule II opioid drug., 165.4, cm, 03/06/23 14:16:00 EDT, Heigh... Start Date: 03/07/23 Status: Ordered cyclobenzaprine 10 mg oral tablet See Instructions, TAKE 1 TBALET BY MOUTH NIGHTLY NEEDED FOR MUSCLE SPASM., # 21 tablet, Refills 0, Maintenance, 11/20/22 11:08:00 EDT, Instructions Replace Required Details, Route to Pharmacy Electronically, [facility] 17[facility], 165.4, cm, 11/20/22 10:... Start Date: 11/20/22 Status: Ordered dexamethasone 4 mg oral tablet See Instructions, 2 tablet By Mouth 2 times a day for 3 days, starting on the day before treatment,then the day of treatment and the day after treatment., # 48 tablet, 0 Refills, Maintenance, 11/17/22 10:18:00 EDT, [facility]/pharmacy #[id number], Partial fill up... Start Date: 11/17/22 Status: Ordered hydrOXYzine hydrochloride 50 mg oral tablet 1 tablet, By Mouth, Daily at bedtime, # 30 tablet, 2 Refills, Maintenance, 01/15/23 14:21:00 EDT, [facility] 68[facility], 165.4, cm, 01/09/23 10:06:00 EDT, Height, 88.5, kg, 01/09/23 8:42:00 EDT, Dry Weight Start Date: 01/15/23 Status: Ordered lidocaine-prilocaine 2.5%-2.5% topical cream 1 application, Topically, Once, apply a thin layer on skin over the port 1 hour prior to port access. cover with clear plastic film, # 30 Gm, 0 Refills, Soft Stop, 11/20/22 9:28:00 EDT, Cream, [facility]/pharmacy #[id number], Partial fill upon patient request if... Start Date: 11/20/22 Status: Ordered lisinopril 10 mg oral tablet 1, tablet, By Mouth, Daily, # 30 tablet, Refills 5, Maintenance, 11/20/22 11:08:00 EDT, Route to Pharmacy Electronically, [facility] 20[facility], 165.4, cm, 11/20/22 10:43:00 EDT, Height, 91.1, kg, 239:39:00 EDT, Dry Weight Start Date: 11/20/22 Status: Ordered meloxicam 15 mg oral tablet 1 tablet = 15 mg, By Mouth, Daily, # 90 tablet, 0 Refills, Maintenance, 01/31/23 15:58:00 EDT, Tablet, [facility]/pharmacy #[id number], Partial fill upon patient request if the prescription is for a schedule II opioid drug., 165.4, cm, 01/31/23 15:04:00 EDT, Heigh... Start Date: 01/31/23 Status: Ordered ondansetron 4 mg oral tablet 1-2 tablet, By Mouth, Every 8 hours, PRN Nausea, # 30 tablet, 1 Refills, Maintenance, 11/17/22 10:19:00 EDT, [facility]/pharmacy #[id number], Partial fill upon patient request if the prescription is for a schedule II opioid drug., 165.4, cm, 11/02/22 9:39:00 EDT,... Start Date: 11/17/22 Status: Ordered prochlorperazine 5 mg oral tablet 1-2 tablet, By Mouth, Every 6 hours, PRN Nausea, # 60 tablet, 1 Refills, Maintenance, 11/17/22 10:19:00 EDT, [facility]/pharmacy #[id number], Partial fill upon patient request if the prescription is for a schedule II opioid drug., 165.4, cm, 11/02/22 9:39:00 EDT,... Start Date: 11/17/22 Status: Ordered Zoloft 100 mg oral tablet 1 tablet = 100 mg, By Mouth, Daily, # 90 tablet, 1 Refills, Maintenance, 10/19/22 11:10:00 EST, Tablet, [facility]/pharmacy #[id number], Partial fill upon patient request [...] Associate Professional Member Role: PCP Address: Address: [address] [place] [address]. [address] [place] [address]- Name: Ariadna Fitzgerald RN Position: [facility] Onco RN Member Role: Primary Care Nurse Name: Cecy Boston RN Position: [facility] Onco RN Member Role: Primary Care Nurse Care Team Related Persons Name: KELL GONSALVES Address: home [address] [place] [address] Name: CONG LENZ Address: home [address] [place] [address]
--- OUTSIDE RECORDS SUMMARY | 2024-03-16 19:27 | XMS_ITS | Continuity of Care Document ---
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 Name Role Phone Josiane Ledezma Primary Care Physician Encounter [facility] Date(s): 09/11/23 - 11/14/23 [facility] [address] [place] [id number] Discharge Disposition: A-D/C Home Attending Physician: Jeramie Mccartney DO Admitting Physician: Jeramie Mccartney DO Referring Physician: Josiane Ledezma Allergies, Adverse Reactions, Alerts Substance Reaction Severity Status flu vaccines Hives Severe Active Immunizations Given and Recorded Vaccine Date Status Refusal Reason tetanus/diphtheria/pertussis, acel(Tdap) 1 10/19/22 Given SARS-CoV-2 (COVID-19) mRNA-1273 vaccine 02/21/22 R ecorded 1Result Comment: [facility] [id number] Medications acetaminophen 325 mg oral tablet 650 [...] tablet, 1 Refills, Maintenance, 08/07/23 9:18:00 EST, [facility] STORE 79536, 165.4, cm, 07/23/23 10:56:00 EST, Height, 89.2, kg, 06/07/23 10:32:00 EDT, Dry Weight Start Date: 08/07/23 Status: Ordered anastrozole 1 mg oral tablet 1 tablet, By Mouth, Daily, # 30 tablet, 11 Refills, Maintenance, 07/19/23 16:13:00 EST, [facility]/pharmacy #[id number], 165.4, cm, 07/11/23 14:22:00 EST, Height, 89.2, kg, 06/07/23 10:32:00 EDT, Dry Weight Start Date: 07/19/23 Status: Ordered atorvastatin 80 mg oral tablet 1 tablet, By Mouth, Daily, # 90 tablet, 1 Refills, Maintenance, 08/27/23 6:34:00 EST, [facility]/pharmacy #[id number], 165.4, cm, 08/23/23 12:12:00 EST, Height, 89.2, kg, 06/07/23 10:32:00 EDT, Dry Weight Start Date: 08/27/23 Status: Ordered Augmentin 875 mg-125 mg oral tablet 1 tablet, By Mouth, Every 12 hours, for 9 days, # 18 tablet, 0 Refills, Acute 11/17/23 9:52:00 EDT,11/08/23 9:52:00 EDT, Tablet, [facility], Partial fill upon patient request [...] 04/30/23 18:29:00 EDT, Route to Pharmacy Electronically, [facility]/pharmacy #[id number], 165.4, cm, 03/30/23 9:41:00 EDT, Height, 89.7, kg, 03/06/23 14:16:00 EDT, Dry Weight Start Date: 04/30/23 Status: Ordered ondansetron 4 mg oral tablet 1 tablet = 4 mg, By Mouth, Every 8 hours, PRN Nausea & Vomiting, # 10 tablet, 0 Refills, Maintenance, 11/08/23 9:52:00 EDT, Tablet, [facility], Partial fill upon patient request if the prescription is for a schedule II opioid drug., 165,... Start Date: 11/08/23 Status: Ordered sertraline 100 mg oral tablet 1 tablet, By Mouth, Daily, # 90 tablet, 1 Refills, Maintenance, 04/17/23 8:29:00 EDT, [id number], 165.4, cm, 03/30/23 9:41:00 EDT, Height, 89.7, kg, 03/06/23 14:16:00 EDT, Dry Weight Start Date: 04/17/23 Status: Ordered traZODone 50 mg oral tablet 1, tablet, By Mouth, Daily at bedtime, # 90 tablet, Refills 1, Maintenance, 10/18/23 10:17:00 EST, Route to Pharmacy Electronically, [facility], 165, cm, 10/09/23 10:25:00 EST, Height, 89.7, [...] oldest [Reference Range]: 1 Height 165.4 cm (09/14/23 11:50 AM) Temperature Route Temporal (09/14/23 11:50 AM) Social History Social History Type Response Smoking Status Never (less than 100 in lifetime) entered on: 06/21/22 Sex Patient Care team information Care Team Personnel Name: Lita Huff RN Position: [facility] RN Member Role: Primary Care Nurse Name: Josiane Ledezma Position: [facility] PCO Associate Professional Member Role: PCP Address: Address: [address] [place] [address]. 3rd Floor [facility] [place] [address]- Name: Cecy Orta RN Position: [facility] Onco RN Member Role: Primary Care Nurse Name: Laurel Perales RN Position: [facility] RN Member Role: Primary Care Nurse Name: Ifeanyi Brown RN Position: [facility] Onco RN Member Role: Primary Care Nurse Name: Ariadna Fitzgerald RN Position: [facility] Onco RN Member Role: Primary Care Nurse Name: Mariaa Dunn RN Position: [facility] RN Member Role: Primary Care Nurse Name: Jimena Islas LPN Position: [facility] RN Member Role: Primary Care Nurse Care Team Related Persons Name: KELL GONSALVES Address: home [address] [place] [id number] Name: CONG LENZ Address: home [address] [place] [address]
[2024-03-16 19:29] LABS: Basophils Absolute Auto 0.1 X10*3/uL (0.0-0.2); Basophils Percent Auto 0.8 % (0-2); Eosinophils Absolute Auto 0.4 X10*3/uL (0.0-0.4); Eosinophils Percent Auto 4.3 % (0-4); Hematocrit 36.1 % (37.0-47.0); Imm Gran Abs Auto 0.03 X10*3/uL (0.00-0.03); Imm Gran Pct Auto 0.3 % (0.0-0.4); Lymphocytes Absolute Auto 1.4 X10*3/uL (1.2-4.9); Lymphocytes Percent Auto 16.1 % (20-40); Mean Corpuscular HGB Conc 33.2 g/dl (31.0-35.0); Mean Corpuscular Hemoglobin 28.6 pg (27.0-33.0); Mean Corpuscular Volume 86.2 fL (80.0-98.0); Mean Platelet Volume 9.2 fL (9.4-12.3); Monocytes Absolute Auto 0.5 X10*3/uL (0.1-1.2); Monocytes Percent Auto 5.6 % (2-11); Neutrophils Absolute Auto 6.5 x10*3/uL (2.0-8.3); Neutrophils Percent Auto 72.9 % (45-73); Platelet Count 309 X10*3/uL (160-400); Red Blood Count 4.19 X10*6/uL (4.20-5.50); Red Cell Distribution Width 14.3 % (11.0-16.0); White Blood Count 8.9 X10*3/uL (4.8-10.8)
[2024-03-16 19:30] LABS: IDNOW Serial# 58CA691E; Strep A Nucleic Acid Negative (Negative)
[2024-03-16 19:39] LABS: Alanine Aminotransferase 13 U/L (0-31); Alkaline Phosphatase 97 U/L (39-117); Anion Gap 14 (12-20); Aspartate Amino Transferase 12 U/L (5-31); Bilirubin Total 0.2 mg/dL (0.0-1.0); Blood Urea Nitrogen 16 mg/dL (9-16); Calcium 9.5 mg/dL (8.4-10.2); Carbon Dioxide 27 mmol/L (22-29); Chloride 103 mmol/L (96-108); Creatinine Clr Calc Pharmacy 76.2; Estimated Glomerular Filt Rate > 60; Glucose Random 208 mg/dL (60-115); Potassium 4.1 mmol/L (3.3-5.1); Sodium 140 mmol/L (135-145); Total Protein 6.8 g/dL (6.5-8.0)
[2024-03-16 19:44] LABS: B Type Natriuretic Peptide 15 pg/mL (<100)
[2024-03-16 19:47] LABS: INTERNATIONAL NORM RATIO 0.9 (0.9-1.1)
[2024-03-16 19:48] LABS: Troponin-I High Sensitivity < 2.7 ng/L (<3.5-17.0)
[2024-03-16 19:50] LABS: Partial Thromboplastin Time 29.4 SEC (26.0-36.8)
[2024-03-16 20:01] LABS: Influenza A PCR NEGATIVE (Negative); Influenza B PCR NEGATIVE (Negative); Resp Syncy Virus RNA Qual PCR NEGATIVE (Negative); SARS COV2 PCR INHOUSE NEGATIVE (Negative)
[2024-03-16 21:37] VITALS: BP 130/63; PULSE 60; RESP 16; TEMP 36.7; O2SAT 98
[2024-03-16] MEDS: guaiFEN/Codeine SF 200/20/10ML 10 ML LIQUID PO (22:48)
[2024-03-16] MEDS: cefuroxime axetiL 500 MG TABLET PO (22:48)
[2024-03-16 22:49] VITALS: BP 130/63; PULSE 60; RESP 16; TEMP 36.7; O2SAT 98
== END 2024-03-16 22:50 | disposition home or self-care (01) ==
PROVIDERS: Physician Assistant; Emergency Provider Internal Medicine
DX: J20.9 Acute bronchitis, unspecified (principal); R06.02 Shortness of breath; R05.9 Cough, unspecified; R94.31 Abnormal electrocardiogram [ECG] [EKG]; Z03.818 Encounter for observation for suspected exposure to other biological agents ruled out; Z79.899 Other long term (current) drug therapy
CPT/HCPCS: 0241U; 36415; 71045; 80053; 83880; 84484; 85025; 85610; 85730; 87651; 93005; 99284

== ENCOUNTER → 2024-03-16 18:59 | Outpatient (BNV) | payer OTHER, SELFPAY | PROVIDERS: Emergency Provider Internal Medicine; Visit Provider Internal Medicine Cardiovascular Disease | DX: R94.31 Abnormal electrocardiogram [ECG] [EKG] (principal) | CPT/HCPCS: 93010 ==

== ENCOUNTER 2024-04-19 16:40 | Emergency (ER) | payer OTHER, SELFPAY ==
--- NOTE | ~2024-04-19 | XR_ITS ---
EXAMINATION: CHEST 2 VIEWS CLINICAL INFORMATION: cough. COMPARISON: 03/16/2004. TECHNIQUE: PA and lateral views of the chest obtained. FINDINGS: The lungs are well expanded. No focal infiltrate, effusion, edema, or pneumothorax. Cardiac and mediastinal silhouettes are within normal limits for technique. Left-sided C2 compatible chest port with tip near the expected cavoatrial junction again noted and No acute bony abnormality seen XR/XR chest 2V IMPRESSION: No evidence of acute disease. Electronically signed by: Tomi Jordan MD 04/19/2024 06:20 PM EDT
[2024-04-19 17:05] VITALS: BP 116/71; PULSE 73; RESP 16; TEMP 36.9; O2SAT 97; BMI 34.9
--- NOTE | 2024-04-19 17:58 | ED_ITS ---
HPI - URI/Sore Throat General Chief Complaint: Upper Respiratory Symptoms Stated Complaint: coughing Time Seen by Provider: 04/19/24 17:22 Source: patient, RN notes reviewed and old records reviewed Mode of arrival: ambulatory History of Present Illness ED Provider: Aleshia Servin PA-C HPI Narrative: 63-year-old female with a past medical history of prediabetes, HTN, arthritis, presenting to the ED complaining of dry cough, SOB, and chest discomfort when coughing x 2 days. Denies fever, chills, sore throat, sick contacts, recent travel, abdominal pain Related Data Previous Rx's ?Medication ?Instructions ?Recorded amlodipine 10 mg tablet 10 mg PO DAILY #30 tabs 06/14/22 doxycycline hyclate 100 mg tablet 100 mg PO BID 10 days #20 tabs 06/14/22 albuterol sulfate 90 mcg/actuation 2 puff inhalation Q6H PRN 03/16/24 aerosol inhaler shortness of breath or wheezing #8.5 grams benzonatate 200 mg capsule 200 mg PO TID PRN cough #20 caps 03/16/24 cefuroxime axetil 500 mg tablet 500 mg PO BID 7 days #14 tabs 03/16/24 benzonatate 100 mg capsule 100 mg PO TID PRN cough #14 caps 04/19/24 Allergies Allergy/AdvReac Type Severity Reaction Status Date / Time influenza virus vaccine, Allergy Intermediate HIVES Verified 04/19/24 17:07 specific [Influenza Virus Vacc,Specific] Review of Systems Review of Systems: Yes all other systems are reviewed and are negative Constitutional: Constitutional: Reports as per [facility] Past Medical History Attestation statement: The following information was validated with the patient. Source: old records reviewed Medical History Pre-diabetes HTN (hypertension) Arthritis Social History Social History Patient Tobacco Use Status: Never used Tobacco Advance Directives: No Advance Directives Information Provided: No Physical Exam Vital Signs: Vital Signs: Last Vital Signs Temp 98.4 F 04/19/24 17:05 Pulse 73 04/19/24 17:05 Resp 16 04/19/24 17:05 BP 116/71 04/19/24 17:05 Pulse Ox 97 04/19/24 17:05 O2 Del Method Room Air 04/19/24 17:05 BMI result Body Mass Index 34.9 Const: General: cooperative, healthy appearing and no acute distress Orientation/consciousness: patient oriented x3 Limitations: no limitations HEENT: Head: Yes normal to inspection and Yes atraumatic Ears: hearing grossly normal bilaterally and external ears normal General nose exam: Normal external nose present Face and sinus: Yes normal facial exam Mouth: Normal oral and palatal mucosa present and no drooling Throat: Yes posterior oropharynx normal, Yes tonsils normal, Yes uvula midline, No peritonsillar mass, No uvula laterally displaced and No uvular edema Eyes: General: appearance normal, both eyes and all related structures EOM: EOMs intact bilaterally Neck: Neck: Yes normal visual inspection and Yes no meningeal signs Resp: Effort & Inspection: normal respiratory effort, no respiratory distress and no stridor Auscultation: clear to auscultation bilaterally, no crackles, no rales, no rhonchi and no wheezes Cardio: Rate: regular rate Heart sounds: S1 normal heart sound present and S2 normal heart sound present Skin: Rashes: no rashes Wounds: no wounds Neuro: General: patient oriented x3, tone normal and no meningeal signs Cranial nerves: Yes CN's II-XII intact bilaterally Gait exam (Neuro): Normal gait present Extrem: General: Yes normal to inspection Course Course Course Narrative: XR chest 2V IMPRESSION: No evidence of acute disease. COVID/flu/RSV negative Results discussed with patient including worrisome signs and symptoms and strict return precautions, and when to return to the emergency department. They verbalized understanding and feel safe for discharge at this time. Medications Administered Discontinued Medications Generic Name Dose Route Start Last Admin Trade Name Freq PRN Reason Stop Dose Admin Benzonatate 100 mg 04/19/24 17:36 04/19/24 17:59 Benzonatate 100 Mg Capsule PO 04/19/24 17:37 100 mg ONCE ONE Administration Medical Decision Making Medical Decision Making [facility] Narrative: 63-year-old female with a past medical history of prediabetes, HTN, arthritis, presenting to the ED complaining of dry cough, SOB, and chest discomfort when coughing x 2 days. On exam vital signs stable, NAD, nontoxic appearing, lungs CTA, oropharynx WNL. Concern for viral illness vs bronchitis. Rule out pneumonia. 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 Unlikely ACS/PE Plan: X-ray, viral testing, Tessalon Perles Please refer to course for remaining clinical decision making, interpretation of labs/imaging results, and discussions with consultants and/or family members. Differential Diagnosis Differential Diagnoses: The differential diagnosis associated with the presentation includes As above Lab Data MDM Lab Attestation statement: I reviewed the patient's lab results. Labs: Lab Results 04/19/24 Range/Units 18:02 Influenza Type A (PCR) NEGATIVE (Negative) Influenza Type B (PCR) NEGATIVE (Negative) RSV RNA Qual (PCR) NEGATIVE (Negative) SARS-CoV-2 RNA (RT-PCR) NEGATIVE (Negative) Independent Interpretation I performed an independent interpretation of an: Plain X-Ray Radiology Impression Discussion of test interpretation with radiology: I have reviewed the radiologist's reading. External Record Review External record reviewed: Inpatient record, Office record, Outpatient record, Prior outpatient labs, Prior outpatient radiology, Primary care record and Outside ED record Tests considered The following testing was considered but not selected: As above Chronic Conditions Patient?s care impacted by: Hypertension Discharge Plan Discharge Clinical Impression: Upper respiratory infection Patient Disposition: Home, Self-Care Instructions: Upper Respiratory Infection (DC) Additional Instructions: You tested negative for COVID, flu, RSV. Her x-rays unremarkable Roby Campbell for cough, take as needed make sure youre staying hydrated, drink plenty of fluids/water Follow-up with her doctor If symptoms persist or worsen return to the emergency department Prescriptions: New benzonatate 100 mg capsule 100 mg PO TID PRN (Reason: cough) Qty: 14 0RF No Action amlodipine 10 mg tablet 10 mg PO DAILY Qty: 30 0RF doxycycline hyclate 100 mg tablet 100 mg PO BID 10 Days Qty: 20 0RF Rx Instructions: take with food benzonatate 200 mg capsule 200 mg PO TID PRN (Reason: cough) Qty: 20 0RF cefuroxime axetil 500 mg tablet 500 mg PO BID 7 Days Qty: 14 0RF albuterol sulfate 90 mcg/actuation HFA aerosol inhaler 2 puff inhalation Q6H PRN (Reason: shortness of breath or wheezing) Qty: 8.5 0RF Referrals: Josiane Henley PA [Primary Care Provider] - 3 days Print Language: [place] Citizen
[2024-04-19] MEDS: Benzonatate 100 MG CAPSULE PO (17:59)
[2024-04-19 18:00] VITALS: BP 139/66; PULSE 60; RESP 14; TEMP 36.1; O2SAT 97
[2024-04-19 18:44] LABS: Influenza A PCR NEGATIVE (Negative); Influenza B PCR NEGATIVE (Negative); Resp Syncy Virus RNA Qual PCR NEGATIVE (Negative); SARS COV2 PCR INHOUSE NEGATIVE (Negative)
[2024-04-19 19:05] VITALS: BP 139/66; PULSE 60; RESP 14; TEMP 36.1; O2SAT 97
== END 2024-04-19 19:05 | disposition home or self-care (01) ==
PROVIDERS: Physician Assistant; Emergency Provider Emergency Medicine; PCP Physician Assistant Medical
DX: J06.9 Acute upper respiratory infection, unspecified (principal); Z03.818 Encounter for observation for suspected exposure to other biological agents ruled out; R06.02 Shortness of breath; I10 Essential (primary) hypertension; E11.9 Type 2 diabetes mellitus without complications; Z79.899 Other long term (current) drug therapy
CPT/HCPCS: 0241U; 71046; 99283